=== PATIENT | female | born 1965 | race Caucasian/White ===

== ENCOUNTER → 2017-04-20 14:51 | Outpatient (CLI) | payer OTHER, SELFPAY ==
--- NOTE | 2017-04-20 14:59 | US_ITS ---
STUDY: THYROID ULTRASOUND REASON FOR EXAM: Female, 51 years old. Thyromegaly TECHNIQUE: Ultrasound evaluation of the thyroid was performed with real-time and static olivier-scale imaging. COMPARISON: None. FINDINGS: RIGHT LOBE: The right lobe of the thyroid gland measures 4 x 1.3 x 1 cm. There is a homogeneous echotexture. There are no demonstrated solid, cystic or complex lesions. LEFT LOBE: The left lobe of the thyroid gland measures 4.4 x 1.2 x 1 cm. There is a homogeneous echotexture. There are 3 tiny solid nodules demonstrating irregular margins and perinodular vascularity measuring 3 x 3 x 5 mm, 3 x 3 x 3 mm and 4 x 3 x 2 mm.. ISTHMUS: The isthmus measures 2 mm . There is a lymph node lateral to the right lobe measuring 2 x 1.9 x 0.5 cm There appears to be a new tiny nodule in the left lobe not clearly identified on prior exam. The other nodules are not changed in size US/Thyroid IMPRESSION: 3 tiny solid nodules in left lobe of thyroid one of which is new of uncertain significance. Recommend clinical correlation and follow-up Electronically Signed: Lv Simpson MD at 23:56 EST , Service support ,
[2017-04-20 17:49] LABS: T4 Free Direct 0.75 ng/dL (0.76-1.46); Thyroid Stim Hormone (TSH) 1.52 uIU/mL (0.358-3.74)
[2017-04-21 10:37] LABS: T3 Total - Triiodothyronine 0.96 ng/mL (0.6-1.81)
== END ==
PROVIDERS: Family Provider Family Medicine; PCP Family Medicine; Visit Provider Family Medicine
DX: E04.1 Nontoxic single thyroid nodule (principal)
CPT/HCPCS: 36415; 76536; 84439; 84443; 84480

== ENCOUNTER → 2017-09-21 14:45 | Outpatient (CLI) | payer OTHER, SELFPAY ==
[2017-09-25 10:29] LABS: HPV Reflexed? NOT INDICATED
== END ==
PROVIDERS: Family Provider Family Medicine; PCP Family Medicine; Visit Provider Obstetrics & Gynecology
DX: Z12.4 Encounter for screening for malignant neoplasm of cervix (principal)
CPT/HCPCS: 88175; G0145

== ENCOUNTER → 2017-12-27 07:54 | Outpatient (CLI) | payer OTHER, SELFPAY ==
--- NOTE | 2017-12-27 07:58 | VDLE_ITS ---
Reason For Study: LEG PAIN AND SWELLING RIGHT LEFT CFV is compressible, spontaneous, phasic, CFV is compressible, spontaneous, phasic, competent and demonstrates normal competent, and demonstrates normal augmentation. augmentation. FV is compressible, spontaneous, phasic, FV is compressible, spontaneous, phasic, competent and demonstrates normal competent and demonstrates normal augmentation. augmentation. POP V is compressible, spontaneous, phasic, POP V is compressible, spontaneous, phasic, competent and demonstrates normal competent and demonstrates normal augmentation. augmentation. T/P Trunk is compressible. T/P Trunk is compressible. PTV is compressible. PTV is compressible. RT PerV is compressible. LT PerV is compressible. SFJ is competent SFJ is competent GSV is INCOMPETENT with reflux greater GSV is competent above knee than .5 sec and diameter of .42 x .38 cm GSV is INCOMPETENT below knee with reflux SSV is INCOMPETENt with reflux greater greater than .5 sec and diameter of .26 x .23 than .5 sec and diameter of.44 x .45 cm cm Vein of Giacomini is INCOMPOETENt with reflux SSV is INCOMPETENT with reflux greater greater than .5 sec and diameter of .29 x .27 than .5 sec and diameter of .35 x .34 cm cm. Vein of Giacomini is INCOMPETENT with reflux greater than .5 sec and diameter of .37 x .34 cm. <> Interpretation Summary 1. Bilateral no DVT or SVT 2. Right GSV 4.2mm and LSV 4.5mm and vein Giacomini 3mm and all with severe relfux. 3. Left GSV 2.6mm and LSv 3.5mm and vein Giacomini 3.7 mm and all with severe reflux. Ordering Physician: Brandt Lerma Referring Physician: Brandt Lerma Performed By: Kenny, Delmy, RVT
== END ==
PROVIDERS: Family Provider Family Medicine; PCP Family Medicine; Referring Provider Surgery Vascular Surgery; Visit Provider Surgery Vascular Surgery
DX: I83.90 Asymptomatic varicose veins of unspecified lower extremity (principal); M79.609 Pain in unspecified limb; M79.89 Other specified soft tissue disorders
CPT/HCPCS: 93970

== ENCOUNTER → 2018-02-26 10:52 | Outpatient (CLI) | payer OTHER, SELFPAY ==
[2018-02-26 11:43] LABS: Hematocrit 36.2 % (37-47); Hemoglobin 11.5 g/dl (12.0-15.0); Mean Corp Hgb Conc 31.8 g/gl (32-36); Mean Corpuscular Volume 94.5 fL (81-99); Mean Platelet Vol. 10.1 fl (6.2-12.0); Platelet Count 236 K/mm3 (150-450); RBC Distribution Width CV 13.5 % (11.6-14.6); Red Blood Count 3.83 M/mm3 (4.2-5.4); White Blood Count 4.9 K/mm3 (4.4-11.0)
[2018-02-26 11:45] LABS: Scan Indicated on CBC? Y/N NO
[2018-02-26 12:01] LABS: Follicle Stimulating Hormone 12.2 mIU/mL; Thyroid Stim Hormone (TSH) 1.56 uIU/mL (0.358-3.74)
== END ==
PROVIDERS: Family Provider Family Medicine; PCP Family Medicine; Referring Provider Obstetrics & Gynecology; Visit Provider Obstetrics & Gynecology
DX: N92.6 Irregular menstruation, unspecified (principal)
CPT/HCPCS: 36415; 83001; 84443; 85027

== ENCOUNTER → 2018-02-28 11:08 | Outpatient (CLI) | payer OTHER, SELFPAY ==
--- NOTE | 2018-02-28 11:11 | US_ITS ---
STUDY: ULTRASOUND OF THE FEMALE PELVIS - COMPLETE REASON FOR EXAM: Female, 52 years old. Abnormal bleeding. Patient on progesterone since Wednesday. LMP: February 04, 2018. TECHNIQUE: Transabdominal and Transvaginal. Despite the distended bladder on initial scanning, endovaginal imaging was utilized to optimize detail and identify the right ovary. TECHNICAL QUALITY: Adequate. COMPARISON: None. FINDINGS: The uterus is anteverted and is tilted to the right side of the pelvis. The uterus measures 9.9 x 5.6 x 5.0 cm. There are subcentimeter Nabothian cysts of the cervix, the largest having an eccentric partial septation. The endometrium measures 4.6 mm in thickness, and is hyperechoic. There is no demonstrated endometrial mass. Myometrial echogenicity is heterogeneous, but there is no demonstrated myometrial mass. I.U.D. - The patient does not have an I.U.D. The right ovary is visualized. The right ovary measures 2.2 x 2.2 x 1.8 cm. There is no right ovarian cyst or ovarian mass. There is no visualized right adnexal mass or complex lesion. There is normal arterial and normal venous vascularity. The left ovary is visualized best on transabdominal imaging. The left ovary measures 3.8 x 4.1 x 3.7 cm. Includes a 2.9 x 3.1 x 2.9 cm simple appearing cyst. There is no visualized left adnexal mass or complex lesion. There is normal arterial and normal venous vascularity. There is no fluid in the cul-de-sac. The pre void volume of the bladder was 627 ml. Polycystic ovary disease: No. US/Pelvic (Non ) IMPRESSION: 1. 3 cm left ovarian cyst, possibly physiologic. One might consider follow-up immediately following the next 1-2 menstrual periods to document physiologic in motion or stability. 2. There is some heterogeneity of the myometrium and a few Nabothian cysts in the cervix, but no demonstrated uterine mass or endometrial thickening. 3. Unremarkable right ovary. Electronically Signed: Alok Garcia MD at 16:02 EST , Service support ,
--- NOTE | 2018-02-28 11:39 | US_ITS ---
STUDY: ULTRASOUND OF THE FEMALE PELVIS - COMPLETE REASON FOR EXAM: Female, 52 years old. Abnormal bleeding. Patient on progesterone since Wednesday. LMP: February 04, 2018. TECHNIQUE: Transabdominal and Transvaginal. Despite the distended bladder on initial scanning, endovaginal imaging was utilized to optimize detail and identify the right ovary. TECHNICAL QUALITY: Adequate. COMPARISON: None. FINDINGS: The uterus is anteverted and is tilted to the right side of the pelvis. The uterus measures 9.9 x 5.6 x 5.0 cm. There are subcentimeter Nabothian cysts of the cervix, the largest having an eccentric partial septation. The endometrium measures 4.6 mm in thickness, and is hyperechoic. There is no demonstrated endometrial mass. Myometrial echogenicity is heterogeneous, but there is no demonstrated myometrial mass. I.U.D. - The patient does not have an I.U.D. The right ovary is visualized. The right ovary measures 2.2 x 2.2 x 1.8 cm. There is no right ovarian cyst or ovarian mass. There is no visualized right adnexal mass or complex lesion. There is normal arterial and normal venous vascularity. The left ovary is visualized best on transabdominal imaging. The left ovary measures 3.8 x 4.1 x 3.7 cm. Includes a 2.9 x 3.1 x 2.9 cm simple appearing cyst. There is no visualized left adnexal mass or complex lesion. There is normal arterial and normal venous vascularity. There is no fluid in the cul-de-sac. The pre void volume of the bladder was 627 ml. Polycystic ovary disease: No. US/Transvaginal Non- IMPRESSION: 1. 3 cm left ovarian cyst, possibly physiologic. One might consider follow-up immediately following the next 1-2 menstrual periods to document physiologic in motion or stability. 2. There is some heterogeneity of the myometrium and a few Nabothian cysts in the cervix, but no demonstrated uterine mass or endometrial thickening. 3. Unremarkable right ovary. Electronically Signed: Alok Garcia MD at 16:02 EST , Service support ,
== END ==
PROVIDERS: Family Provider Family Medicine; PCP Family Medicine; Referring Provider Obstetrics & Gynecology; Visit Provider Obstetrics & Gynecology
DX: N92.6 Irregular menstruation, unspecified (principal); N83.202 Unspecified ovarian cyst, left side; N88.8 Other specified noninflammatory disorders of cervix uteri
CPT/HCPCS: 76830; 76856; 93976

== ENCOUNTER → 2019-01-06 08:36 | Outpatient (REF) | payer OTHER, SELFPAY ==
[2019-01-06 07:59] VITALS: BMI 26.5
[2019-01-06 12:47] LABS: Absolute Lymphocyte Count 1.55 X10^3/uL (0.83-4.51); Absolute Neutrophil Count 3.8 X10^3/uL (2.0-7.7); Basophil# 0.06 X10^3/uL; Basophil% 0.9 % (0-1); Eosinophil# 0.48 X10^3/uL; Eosinophils% 7.4 % (0-5); Hematocrit 40.9 % (37-47); Hemoglobin 12.9 g/dL (12.0-15.0); Lymphocyte # 1.55 X10^3/ul; Lymphocyte % 23.8 % (19-41); Mean Corp Hgb Conc 31.5 g/dL (32-36); Mean Corpuscular Hgb 29.9 pg (27.0-32.0); Mean Corpuscular Volume 94.7 fL (81-99); Monocyte# 0.63 X10^3/uL; Monocyte% 9.7 % (0-10); NRBC Flagged by Analyzer 0 % (0-5); Neutrophil # 3.76 X10^3/uL (2.7-7.7); Neutrophil % 57.7 % (47-70); Platelet Count 274 K/mm3 (150-450); RBC Distribution Width CV 13.2 % (11.6-14.6); RBC Distribution Width SD 46.4 fl (35.1-43.9); Red Blood Count 4.32 M/mm3 (4.2-5.4); White Blood Count 6.5 K/mm3 (4.4-11.0)
[2019-01-06 13:16] LABS: Color, Urine Yellow (Yellow); Glucose, Dipstick Normal (Normal); Ketone-Dipstick Negative (Negative); Leukocyte Esterase-Dipstick Negative /ul (Negative); Nitrite-Dipstick Negative (Negative); Occult Blood-Urine Negative /ul (Negative); Protein-Dipstick Negative (Negative); Specific Gravity, Urine 1.005 (1.002-1.030); Urine Bilirubin Dipstick Negative (Negative); Urine Clarity Clear (Clear); Urine Urobilinogen Normal (Normal)
[2019-01-06 13:42] LABS: ALB/GLOB Ratio 1.1 RATIO (0.9-2.4); AST(SGOT) 14 U/L (15-37); Alanine Aminotransfer ALT/SGPT 18 U/L (13-56); Albumin, Serum 3.6 g/dL (3.2-5.0); Alkaline Phosphatase 67 U/L (45-117); Anion Gap 8 (5-15); BUN 12 mg/dL (7-18); BUN/Creat Ratio 16.3 RATIO (10-20); Bilirubin, Direct 0.11 mg/dL (0.00-0.30); Calcium,Total 8.4 mg/dL (8.5-10.1); Chloride 106 mmol/L (98-107); Cholesterol 220 mg/dL (200); Creatinine, Serum 0.74 mg/dL (0.55-1.02); EST Glomerular Filtration Rate 87 mL/min (>60); Est Glom Filt Rate - Afr Amer 105 mL/min (>60); Globulin 3.2 g/dL (2.2-4.2); Glucose 89 mg/dL (74-106); High Density Lipoprotein 60 mg/dL; LDH 190 U/L (84-246); Phosphorus 3.6 mg/dL (2.5-4.9); Potassium 4.1 mmol/L (3.5-5.1); Protein, Total 6.8 g/dL (6.4-8.2); Sodium Level 141 mmol/L (136-145); Triglycerides 77 mg/dL; Uric Acid 4.3 mg/dL (2.6-6.0); Very Low Density Lipoprotein 15 mg/dL (5-40)
== END ==
LOC: EMPH 08:36
PROVIDERS: Family Provider Family Medicine; PCP Internal Medicine
DX: Z00.00 Encounter for general adult medical examination without abnormal findings (principal)

== ENCOUNTER → 2019-01-30 12:53 | Outpatient (CLI) | payer OTHER, SELFPAY ==
[2019-01-06 07:59] VITALS: BMI 26.5
--- NOTE | 2019-01-30 12:57 | US_ITS ---
STUDY: THYROID ULTRASOUND REASON FOR EXAM: Female, 53 years old. Thyroid nodule TECHNIQUE: Ultrasound evaluation of the thyroid was performed with real-time and static olivier-scale imaging. COMPARISON: Thyroid ultrasound dated April 20, 2017 FINDINGS: RIGHT LOBE: The right lobe of the thyroid gland measures 4.3 x 1.2 x 1.4 cm. There is a homogeneous echotexture. A 4 mm solid hypoechoic smooth nodule is present in the midpole of the right lobe of the thyroid gland. LEFT LOBE: The left lobe of the thyroid gland measures 4.2 x 1.2 x 1.0 cm. There is a homogeneous echotexture. Reidentification of 2 6 mm smooth hypoechoic nodules in the midpole and lateral aspect of the left lobe of the thyroid gland. Previously described third nodule was not seen on this study. The parathyroid glands are seen on several images. ISTHMUS: The isthmus measures 2.4 mm. The regional lymph nodes are normal. US/Thyroid IMPRESSION: Small hypoechoic nodules of both lobes of the thyroid gland with features of adenomas or similar entities. If there is concern for additional pathology consider nuclear medicine thyroid scan further assessment. Electronically Signed: Shakeel Woods MD at 9:32 EST , Service support ,
--- NOTE | 2019-01-30 12:57 | BI_ITS ---
MAMMOGRAPHY - BILATERAL SCREENING REASON FOR EXAM: Female, 53 years old. Routine annual screening examination. PERTINENT HISTORY: Grandmother with breast cancer. TECHNIQUE: Digital bilateral breast amaila (3D mammographic acquisition) in the CC and MLO projections. 2-D mediolateral oblique (MLO) and craniocaudad (CC) views of both breasts were obtained. CAD: Full Field Digital Mammography with Computer Added Detection was performed. COMPARISON: Comparison is made with prior study November 09, 2012. FINDINGS: Breast Composition: The breasts are heterogeneously dense, which may obscure small masses. There are no dominant masses or suspicious calcifications. No other significant abnormalities are identified. There has been no significant change since the prior study. BI/SCREEN MAMM (CAD) W/AMALIA BILAT IMPRESSION: Stable bilateral screening mammogram. Yearly follow-up mammogram recommended. (A) ASSESSMENT CATEGORY: BIRADS Category 1: Negative. A letter regarding these results will be sent to the patient by the facility within 30 days. Approximately 10% of breast cancers are not detected by mammography. A normal mammogram should not delay biopsy of a clinically suspicious abnormality. [id number] Electronically Signed: Milton Irving, at 14:51 EST , Service support ,
== END ==
PROVIDERS: Family Provider Internal Medicine; PCP Internal Medicine; Referring Provider Internal Medicine; Visit Provider Internal Medicine
DX: E04.1 Nontoxic single thyroid nodule (principal); Z12.31 Encounter for screening mammogram for malignant neoplasm of breast
CPT/HCPCS: 76536; 77063; 77067

== ENCOUNTER → 2020-05-27 09:42 | Outpatient (CLI) | payer OTHER, SELFPAY ==
[2020-05-27 08:59] VITALS: BMI 27.1
[2020-05-27 12:10] LABS: Erythrocyte Sedimentation Rate 11 mm/hr (0-30)
[2020-05-27 12:44] LABS: CPK Total, Creatine Kinase 58 U/L (26-192); Rheumatoid Factor < 10.0 IU/mL (<15); T4 Free Direct 0.89 ng/dL (0.76-1.46); Thyroid Stim Hormone (TSH) 1.34 uIU/mL (0.358-3.74)
[2020-05-29 11:54] LABS: CCP IgG Antibodies 5 units (0-19)
== END ==
PROVIDERS: PCP Internal Medicine; Visit Provider Internal Medicine
DX: M19.90 Unspecified osteoarthritis, unspecified site (principal); M79.10 Myalgia, unspecified site; Z13.29 Encounter for screening for other suspected endocrine disorder
CPT/HCPCS: 36415; 82550; 84439; 84443; 85652; 86140; 86200; 86431

== ENCOUNTER → 2020-08-15 12:28 | Outpatient (CLI) | payer OTHER, SELFPAY ==
[2020-05-27 08:59] VITALS: BMI 27.1
--- NOTE | 2020-08-15 12:38 | RAD_ITS ---
STUDY: X-RAY - PELVIS REASON FOR EXAM: Female, 55 years old. INFLAMMATORY POLYARTHROPATHY -- ATT HIPS AND SACROILIAC JOINTS TECHNIQUE: One view of the pelvis was obtained. COMPARISON: None. FINDINGS: There is a non-specific bowel gas pattern. There are multiple calcified phleboliths. Normal bilateral iliac wings, sacroiliac joints and visualized sacrum. Normal visualized bilateral superior and inferior pubic rami. Normal pubic symphysis. Normal ischial tuberosities. Normal visualized right femoral head. Normal right acetabulum. Normal right hip joint. Normal visualized left femoral head. Normal left acetabulum. Normal left hip joint. RAD/Pelvis 1 or 2 Views IMPRESSION: Normal x-ray examination of the pelvis. Electronically Signed: Milton Irving MD at 15:43 EDT , Service support ,
== END ==
PROVIDERS: PCP Internal Medicine; Referring Provider Internal Medicine Rheumatology; Visit Provider Internal Medicine Rheumatology
DX: M06.4 Inflammatory polyarthropathy (principal)
CPT/HCPCS: 72170

== ENCOUNTER → 2020-09-06 11:42 | Outpatient (CLI) | payer OTHER, SELFPAY ==
[2020-05-27 08:59] VITALS: BMI 27.1
[2020-09-06 12:38] LABS: Absolute Lymphocyte Count 1.61 X10^3/uL (0.83-4.51); Basophil# 0.04 X10^3/uL; Basophil% 0.6 % (0-1); Eosinophil# 0.29 X10^3/uL; Eosinophils% 4.5 % (0-5); Hematocrit 42.6 % (37-47); Hemoglobin 13.4 g/dL (12.0-15.0); Lymphocyte # 1.61 X10^3/ul (0.83-4.51); Lymphocyte % 24.8 % (19-41); Mean Corp Hgb Conc 31.5 g/dL (32-36); Mean Corpuscular Hgb 28.9 pg (27.0-32.0); Mean Corpuscular Volume 91.8 fL (81-99); Mean Platelet Vol. 10.3 fl (6.2-12.0); Monocyte# 0.52 X10^3/uL; NRBC Flagged by Analyzer 0 % (0-5); Neutrophil # 4.01 X10^3/uL (2.7-7.7); Neutrophil % 61.6 % (47-70); Platelet Count 348 K/mm3 (150-450); RBC Distribution Width CV 12.8 % (11.6-14.6); RBC Distribution Width SD 43.1 fl (35.1-43.9); Red Blood Count 4.64 M/mm3 (4.2-5.4); White Blood Count 6.5 K/mm3 (4.4-11.0)
[2020-09-06 13:11] LABS: BUN 14 mg/dL (7-18); BUN/Creat Ratio 20.8 RATIO (10-20); Calcium,Total 9.4 mg/dL (8.5-10.1); Chloride 105 mmol/L (98-107); Creatinine, Serum 0.67 mg/dL (0.55-1.02); EST Glomerular Filtration Rate 96 mL/min (>60); Est Glom Filt Rate - Afr Amer 116 mL/min (>60); Glucose 91 mg/dL (74-106); Phosphorus 3.9 mg/dL (2.5-4.9); Potassium 3.8 mmol/L (3.5-5.1); Sodium Level 141 mmol/L (136-145)
[2020-09-06 17:28] LABS: ALB/GLOB Ratio 1.1 RATIO (0.9-2.4); AST(SGOT) 15 U/L (15-37); Alanine Aminotransfer ALT/SGPT 14 U/L (13-56); Alkaline Phosphatase 74 U/L (45-117); Globulin 3.6 g/dL (2.2-4.2); Protein, Total 7.6 g/dL (6.4-8.2)
[2020-09-09 18:17] LABS: t-Transglutaminase IgA <2 U/mL (0-3)
[2020-09-10 12:08] LABS: Clam 4.94 kU/L (Class IV); Codfish <0.10 kU/L (Class 0); Corn <0.10 kU/L (Class 0); Egg, White <0.10 kU/L (Class 0); Milk (Cow) 0.38 kU/L (Class I); Peanut <0.10 kU/L (Class 0); SCALLOP 4.33 kU/L (Class IV); SESAME SEED <0.10 kU/L (Class 0); Soybean <0.10 kU/L (Class 0); Walnut, (Food) <0.10 kU/L (Class 0); Wheat <0.10 kU/L (Class 0)
[2020-09-10 14:32] LABS: Gluten <0.10 kU/L (Class 0)
[2020-09-16 12:27] LABS: HLA B27 Negative (.)
== END ==
PROVIDERS: PCP Internal Medicine; Referring Provider Internal Medicine Rheumatology; Visit Provider Internal Medicine Rheumatology
DX: T78.40XA Allergy, unspecified, initial encounter (principal); M19.90 Unspecified osteoarthritis, unspecified site; M06.4 Inflammatory polyarthropathy
CPT/HCPCS: 36415; 80069; 81374; 82247; 83516; 84075; 84156; 84450; 84460; 85025; 86003

== ENCOUNTER → 2020-10-29 11:30 | Outpatient (CLI) | payer OTHER, SELFPAY ==
[2020-10-29 12:33] LABS: Erythrocyte Sedimentation Rate 7 mm/hr (0-30)
[2020-10-29 13:12] LABS: Rheumatoid Factor < 10.0 IU/mL (<15)
[2020-10-30 16:08] LABS: RNP Ab <0.2 AI (0.0-0.9); Smith Ab <0.2 AI (0.0-0.9)
[2020-10-30 16:34] LABS: ANTINUCLEAR ANTIBODIES DIRECT Negative (Negative)
[2020-11-01 08:35] LABS: CCP IgG Antibodies 7 units (0-19)
== END ==
PROVIDERS: PCP Internal Medicine; Visit Provider Nurse Practitioner Family
DX: M54.2 Cervicalgia (principal); R10.31 Right lower quadrant pain; R10.32 Left lower quadrant pain; M25.562 Pain in left knee; M25.561 Pain in right knee; M79.18 Myalgia, other site; R53.1 Weakness; R68.89 Other general symptoms and signs; Z74.09 Other reduced mobility
CPT/HCPCS: 36415; 85652; 86038; 86140; 86200; 86235; 86431

== ENCOUNTER → 2020-11-08 09:41 | Outpatient (CLI) | payer OTHER, SELFPAY ==
[2020-11-08 10:41] LABS: T3 Total - Triiodothyronine 1.26 ng/mL (0.6-1.81); Vitamin D,25 Hydroxy 33.6 ng/mL
[2020-11-08 11:08] LABS: Ferritin 50 ng/mL (8-252); Free T3 2.7 pg/mL (2.18-3.98); T4 Total, Thyroxin 9.2 ug/dL (4.8-13.9)
[2020-11-14 21:11] LABS: T3 Reverse 16.8 ng/dL (9.2-24.1); Thyroglobulin Antibody < 1.0 IU/mL (0.0-0.9); Thyroid Peroxidase AB 9 IU/mL (0-34)
== END ==
PROVIDERS: PCP Internal Medicine
DX: Z13.29 Encounter for screening for other suspected endocrine disorder (principal); R53.83 Other fatigue
CPT/HCPCS: 36415; 82306; 82728; 84436; 84480; 84481; 84482; 86376; 86800

== ENCOUNTER → 2020-12-18 12:45 | Outpatient (CLI) | payer OTHER, SELFPAY ==
[2020-12-18 13:51] LABS: CPK Total, Creatine Kinase 47 U/L (26-192)
[2020-12-20 11:08] LABS: Smith Ab <0.2 AI (0.0-0.9)
[2020-12-20 13:21] LABS: Anti-Scleroderma-70 AB <0.2 AI (0.0-0.9)
[2020-12-20 16:00] LABS: Aldolase 4.4 U/L (3.3-10.3)
== END ==
PROVIDERS: PCP Internal Medicine; Referring Provider Student in an Organized Health Care Education/Training Program; Visit Provider Student in an Organized Health Care Education/Training Program
DX: M62.81 Muscle weakness (generalized) (principal)
CPT/HCPCS: 36415; 82085; 82550; 86140; 86235

== ENCOUNTER 2021-02-05 13:38 | Outpatient (CLI) | payer OTHER, SELFPAY ==
[2021-02-05] MEDS: 0.9% Saline Lock 10 ML Syringe IV (14:01)
[2021-02-05 14:03] VITALS: BP 133/60; PULSE 78; RESP 16; TEMP 36.8; O2SAT 98; BMI 22.8
[2021-02-05 14:47] VITALS: BP 124/49; PULSE 82; RESP 16; TEMP 37; O2SAT 98
[2021-02-05 15:45] VITALS: BP 111/58; PULSE 82; RESP 16; TEMP 37; O2SAT 100
== END 2021-02-05 15:46 | disposition home or self-care (01) ==
LOC: MS3OUT 13:39 → MS3 13:39
PROVIDERS: PCP Internal Medicine; Referring Provider Nurse Practitioner Adult Health; Visit Provider Nurse Practitioner Adult Health
DX: Z23 Encounter for immunization (principal); U07.1 COVID-19
CPT/HCPCS: J7050; M0245; Q0245; A4216

== ENCOUNTER → 2021-07-25 | Outpatient (CLI) | payer OTHER, SELFPAY ==
[2021-07-25 10:07] LABS: Erythrocyte Sedimentation Rate 4 mm/hr (0-30)
[2021-07-25 10:12] LABS: Hematocrit 43.9 % (37-47); Hemoglobin 13.8 g/dL (12.0-15.0); Mean Corp Hgb Conc 31.4 g/dL (32-36); Mean Corpuscular Hgb 30.1 pg (27.0-32.0); Mean Corpuscular Volume 95.6 fL (81-99); Mean Platelet Vol. 10.5 fl (6.2-12.0); Platelet Count 294 K/mm3 (150-450); RBC Distribution Width SD 42.4 fl (35.1-43.9); Red Blood Count 4.59 M/mm3 (4.2-5.4); White Blood Count 6.7 K/mm3 (4.4-11.0)
[2021-07-25 10:14] LABS: AST(SGOT) 14 U/L (15-37); Alanine Aminotransfer ALT/SGPT 18 U/L (13-56); Albumin, Serum 3.7 g/dL (3.2-5.0); Alkaline Phosphatase 61 U/L (45-117); Bilirubin, Direct 0.08 mg/dL (0.00-0.30); CRP 4.12 mg/L (0.0-3.0); Calcium,Total 8.7 mg/dL (8.5-10.1); Creatinine, Serum 0.78 mg/dL (0.55-1.02); EST Glomerular Filtration Rate 81 mL/min (>60); Est Glom Filt Rate - Afr Amer 98 mL/min (>60); Globulin 3.2 g/dL (2.2-4.2); Protein, Total 6.9 g/dL (6.4-8.2)
[2021-07-26 06:08] LABS: HEPATITIS B SURFACE AG Negative (Negative); Hep C Antibodies <0.1 s/co ratio (0.0-0.9); Hepatitis A IgM Antibody Negative (Negative); Hepatitis B Core AB IgM Negative (Negative)
[2021-07-26 09:19] LABS: Vitamin D,25 Hydroxy 37.2 ng/mL
== END | disposition home or self-care (01) ==
PROVIDERS: PCP Student in an Organized Health Care Education/Training Program; Referring Provider Internal Medicine Rheumatology; Visit Provider Internal Medicine Rheumatology
DX: M35.3 Polymyalgia rheumatica (principal); Z79.52 Long term (current) use of systemic steroids
CPT/HCPCS: 36415; 80074; 80076; 82306; 82310; 82565; 85027; 85652; 86140

== ENCOUNTER → 2021-08-23 | Outpatient (CLI) | payer OTHER, SELFPAY ==
[2021-08-23 08:18] LABS: Erythrocyte Sedimentation Rate 8 mm/hr (0-30)
[2021-08-23 08:40] LABS: CRP < 2.90 mg/L (0.0-3.0)
== END | disposition home or self-care (01) ==
LOC: LAB 07:55
PROVIDERS: PCP Student in an Organized Health Care Education/Training Program; Visit Provider Nurse Practitioner Adult Health
DX: M35.3 Polymyalgia rheumatica (principal)
CPT/HCPCS: 36415; 85652; 86140

== ENCOUNTER → 2022-01-21 | Outpatient (CLI) | payer OTHER, SELFPAY ==
[2022-01-21 17:43] LABS: T3 Total - Triiodothyronine 0.97 ng/mL (0.6-1.81); Vitamin D,25 Hydroxy 27.4 ng/mL
[2022-01-21 17:51] LABS: Ferritin 37 ng/mL (8-252); Free T3 2.3 pg/mL (2.18-3.98); T4 Free Direct 0.83 ng/dL (0.76-1.46); T4 Total, Thyroxin 8.1 ug/dL (4.8-13.9)
[2022-01-27 16:06] LABS: Anti-Thyroglobulin AB < 1.0 IU/mL (0.0-0.9); T3 Reverse 12.4 ng/dL (9.2-24.1); Thyroglobulin, Serum Qt. 13.4 ng/mL (1.5-38.5); Thyroid Peroxidase AB < 9 IU/mL (0-34)
== END | disposition home or self-care (01) ==
PROVIDERS: PCP Student in an Organized Health Care Education/Training Program
DX: N95.1 Menopausal and female climacteric states (principal); E03.9 Hypothyroidism, unspecified
CPT/HCPCS: 36415; 82306; 82728; 84432; 84436; 84439; 84443; 84480; 84481; 84482; 86376; 86800

== ENCOUNTER → 2022-04-11 | Outpatient (CLI) | payer OTHER, SELFPAY ==
[2022-04-11 11:36] LABS: Absolute Lymphocyte Count 1.31 X10^3/uL (0.83-4.51); Absolute Neutrophil Count 4.9 X10^3/uL (2.0-7.7); Basophil# 0.05 X10^3/uL; Basophil% 0.7 % (0-1); Eosinophil# 0.19 X10^3/uL; Eosinophils% 2.7 % (0-5); Hematocrit 41.6 % (37-47); Hemoglobin 13.2 g/dL (12.0-15.0); Lymphocyte # 1.31 X10^3/ul (0.83-4.51); Lymphocyte % 18.5 % (19-41); Mean Corp Hgb Conc 31.7 g/dL (32-36); Mean Corpuscular Hgb 29.9 pg (27.0-32.0); Mean Corpuscular Volume 94.3 fL (81-99); Mean Platelet Vol. 10.7 fl (6.2-12.0); Monocyte# 0.62 X10^3/uL; Monocyte% 8.7 % (0-10); NRBC Flagged by Analyzer 0 % (0-5); Platelet Count 304 K/mm3 (150-450); RBC Distribution Width CV 12.8 % (11.6-14.6); RBC Distribution Width SD 43.9 fl (35.1-43.9); Red Blood Count 4.41 M/mm3 (4.2-5.4); White Blood Count 7.1 K/mm3 (4.4-11.0)
[2022-04-11 11:51] LABS: Erythrocyte Sedimentation Rate 6 mm/hr (0-30)
[2022-04-11 11:55] LABS: ALB/GLOB Ratio 1.3 RATIO (0.9-2.4); AST(SGOT) 12 U/L (15-37); Alanine Aminotransfer ALT/SGPT 19 U/L (13-56); Albumin, Serum 3.9 g/dL (3.2-5.0); Alkaline Phosphatase 67 U/L (45-117); Anion Gap 5 (5-15); BUN 19 mg/dL (7-18); BUN/Creat Ratio 24.2 RATIO (10-20); CRP 4.14 mg/L (0.0-3.0); Calcium,Total 9.2 mg/dL (8.5-10.1); Chloride 107 mmol/L (98-107); Creatinine, Serum 0.78 mg/dL (0.55-1.02); EST Glomerular Filtration Rate 80 mL/min (>60); Est Glom Filt Rate - Afr Amer 97 mL/min (>60); Ferritin 25 ng/mL (8-252); Glucose 82 mg/dL (74-106); Iron 83 ug/dL (50-170); Iron Binding Capacity,Total 368 ug/dL (250-450); PERCENT IRON SATURATION 22.6 % (15.0-55.0); Potassium 3.8 mmol/L (3.5-5.1); Protein, Total 6.9 g/dL (6.4-8.2); Sodium Level 143 mmol/L (136-145)
== END | disposition home or self-care (01) ==
PROVIDERS: PCP Student in an Organized Health Care Education/Training Program; Referring Provider Student in an Organized Health Care Education/Training Program; Visit Provider Student in an Organized Health Care Education/Training Program
DX: R53.83 Other fatigue (principal); M35.3 Polymyalgia rheumatica; Z79.52 Long term (current) use of systemic steroids
CPT/HCPCS: 36415; 80053; 82728; 83540; 83550; 85025; 85652; 86140

== ENCOUNTER → 2022-04-15 | Outpatient (CLI) | payer OTHER, SELFPAY ==
[2022-04-15 18:01] LABS: Vitamin B12 849 pg/mL (211-911); Vitamin D,25 Hydroxy 58.4 ng/mL
== END | disposition home or self-care (01) ==
PROVIDERS: PCP Student in an Organized Health Care Education/Training Program; Visit Provider Student in an Organized Health Care Education/Training Program
DX: R53.83 Other fatigue (principal); M35.3 Polymyalgia rheumatica; E55.9 Vitamin D deficiency, unspecified; Z79.52 Long term (current) use of systemic steroids
CPT/HCPCS: 36415; 82306; 82607

== ENCOUNTER → 2023-02-12 | Outpatient (CLI) | payer OTHER, SELFPAY ==
[2023-02-12 09:14] LABS: Erythrocyte Sedimentation Rate 6 mm/hr (0-30)
[2023-02-12 09:19] LABS: Hemoglobin A1c 5.5 % (3.8-5.6)
[2023-02-12 09:33] LABS: Progesterone Level 0.41 ng/mL (See Comment); Vitamin B12 505 pg/mL (211-911); Vitamin D,25 Hydroxy 41.3 ng/mL
[2023-02-12 09:42] LABS: CRP 6.95 mg/L (0.0-3.0); Free T3 3.2 pg/mL (2.18-3.98); T4 Free Direct 0.96 ng/dL (0.76-1.46); Thyroid Stim Hormone (TSH) 1.74 uIU/mL (0.358-3.74)
[2023-02-26 11:08] LABS: Estrogen, Total, Serum 46 pg/mL (40-244); Testosterone, % Free 1.61 % (0.50-2.80); Testosterone, Free 0.42 ng/dL (0.10-0.85); Testosterone, Total 26 ng/dL (4-50)
== END | disposition home or self-care (01) ==
LOC: LAB 07:39
PROVIDERS: PCP Student in an Organized Health Care Education/Training Program; Referring Provider Student in an Organized Health Care Education/Training Program; Visit Provider Student in an Organized Health Care Education/Training Program
DX: Z00.00 Encounter for general adult medical examination without abnormal findings (principal); M35.3 Polymyalgia rheumatica; R53.83 Other fatigue; E55.9 Vitamin D deficiency, unspecified; R73.9 Hyperglycemia, unspecified; Z78.0 Asymptomatic menopausal state
CPT/HCPCS: 82306; 82533; 82607; 82672; 83036; 84144; 84402; 84403; 84439; 84443; 84481; 85652; 86140

== ENCOUNTER → 2023-03-08 | Outpatient (CLI) | payer OTHER, SELFPAY ==
--- NOTE | 2023-03-08 12:30 | BI_ITS ---
MAMMOGRAPHY - BILATERAL SCREENING REASON FOR EXAM: Female, 57 years old. Routine annual screening examination. PERTINENT HISTORY: Grandmother with breast cancer. TECHNIQUE: Digital bilateral breast amalia (3D mammographic acquisition) in the CC and MLO projections. 2-D mediolateral oblique (MLO) and craniocaudad (CC) views of both breasts were obtained. CAD: Full Field Digital Mammography with Computer Added Detection was performed. COMPARISON: Comparison is made with prior study dated January 30, 2019 and November 09, 2012. FINDINGS: Breast Composition: There are scattered areas of fibroglandular density. There are no dominant masses or suspicious calcifications. No other significant abnormalities are identified. There has been no significant change since the prior study. BI/SCRN MAMM (CAD)W/AMALIA BILAT IMPRESSION: Stable bilateral screening mammogram. Yearly follow-up mammogram recommended. (A) ASSESSMENT CATEGORY: BIRADS Category 1: Negative. A letter regarding these results will be sent to the patient by the facility within 30 days. Approximately 10% of breast cancers are not detected by mammography. A normal mammogram should not delay biopsy of a clinically suspicious abnormality. [id number] Electronically Signed: Milton Irving MD at 9:21 EST ,
--- NOTE | 2023-03-08 12:39 | US_ITS ---
EXAM: US SOFT TISSUES HEAD AND NECK, THYROID CLINICAL INDICATION: NODULE TECHNIQUE: Moore scale and color doppler imaging was performed of the thyroid gland. COMPARISON: No relevant prior studies available. FINDINGS: LEFT THYROID LOBE: Left thyroid lobe measures 4.0 x 1.4 x 0.8 cm. 6 and 4 mm stable left thyroid nodules noted both of which appear isoechoic, well-defined, wider than tall and without microcalcification. TI-RADS points: 3. TI-RADS category: TR3. These nodules are mildly suspicious but no FNA or follow-up is necessary given the small size of the nodules. RIGHT THYROID LOBE: Right thyroid lobe measures 4.0 x 1.5 x 1.0 cm. Normal homogeneous echotexture. Stable 4 mm right thyroid nodule which appears isoechoic, wider than tall, well-defined and without microcalcification. TI-RADS points: 3. TI-RADS category: TR3. This nodule is mildly suspicious but no FNA or follow-up is necessary given the small size of this nodule. ISTHMUS: Isthmus measures 2.5 mm in AP dimension. No thyroid nodules are present. US/Thyroid IMPRESSION: Stable bilateral thyroid nodules. Electronically Signed: Tony Shafer MD at 15:51 EST ,
--- OUTSIDE RECORDS SUMMARY | 2023-03-08 12:43 | XMS RPT_ITS | CCD ---
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 Name Role Phone Herber Romero DO Primary Care Provider [phone] Gypsy Cannon DO Unavailable HERBER ROMERO Attending Unavailable HERBER ROMERO Primary Care Unavailable CHERRY MEAD Attending Unavailable HERBER ROMERO Primary Care Unavailable HERBER ROMERO Primary Care Unavailable CHRIS PICKERING Attending Unavailable Allergies Allergy Classification Reported Allergen(s) Allergy Type Date of Onset Reaction(s) Facility (16 sources) cow milk allergenic extract; Translations: [MILK] Drug Allergy 10-16-2020 Unknown [facility] (16 sources) Shellfish; Translations: [SHELLFISH DERIVED] Drug Allergy 10-16-2020 Anaphylaxis [facility] (16 sources) shrimp allergenic extract; Translations: [SHRIMP] Drug Allergy 10-16-2020 Anaphylaxis [facility] Medications Current Medications Medication Drug Class(es) Dates Sig (Normalized) Sig (Original) fluconazole 150 mg oral tablet (1 source) Azole Antifungal Start: 07-01-2022 End: 07-08-2022 take 1 tablet by mouth once daily fluconazole (DIFLUCAN) 150 mg tablet Indications: Candidosis of skin , Rash of face Take 1 tablet by mouth once daily for 7 days. 7 tablet 0 07/01/2022 07/08/2022 Active Completed/Discontinued Medications Medication Drug Class(es) Dates Sig (Normalized) Sig (Original) cholecalciferol, vitamin D3, (VITAMIN D3 ORAL) (6 sources) cholecalciferol, vitamin D3, (VITAMIN D3 ORAL) Take by mouth. 0 Active Problems Active Problems Problem Classification Problem Date Documented Da te Episodic/Chronic Diabetes mellitus without complication (1 source) Hyperglycemia; Translations: [Hyperglycemia, unspecified] 02-09-2023 Episodic Disorders of lipid metabolism (15 sources) Dyslipidemia; Translations: [Hyperlipidemia, unspecified] Onset: 12-09-2020 12-09-2020 Chronic Malaise and fatigue (18 sources) Muscle weakness; Translations: [Weakness] Onset: 12-09-2020 12-09-2020 Episodic Nutritional deficiencies (3 sources) Vitamin D deficiency; Translations: [Vitamin D deficiency, unspecified] Chronic Other aftercare (1 source) Long-term current use of systemic steroid; 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] Episodic Other aftercare (2 sources) Drug therapy finding; Translations: [[facility] (current) use of systemic steroids] Episodic Other connective tissue disease (4 sources) Polymyalgia rheumatica; Translations: [Polymyalgia rheumatica] Chronic Other inflammatory condition of skin (1 source) Pruritic scalp dermatosis; Translations: [Pruritus, unspecified] Episodic Other screening for suspected conditions (not mental disorders or infectious disease) (5 sources) Patient encounter status; Translations: [Encounter for screening mammogram for malignant neoplasm of breast] Episodic Other skin disorders (3 sources) Eruption; Translations: [Rash and other nonspecific skin eruption] Episodic Residual codes; unclassified (1 source) Disturbance in sleep behavior; Translations: [Sleep disorder, unspecified] Episodic Residual codes; unclassified (1 source) Menopause present; Translations: [Asymptomatic menopausal state] 02-09-2023 Episodic Thyroid disorders (2 sources) Thyroid nodule; Translations: [Nontoxic single thyroid nodule] Chronic Varicose veins of lower extremity (1 source) Varicose veins of lower extremity; Translations: [Varicose veins of bilateral lower extremities with pain] Episodic Past or Other Problems Problem Classification Problem Date Documented Da te Episodic/Chronic Mycoses (4 sources) Candidiasis of skin; Translations: [Candidiasis of skin and nail] Onset: 07-01-2022 Episodic Other connective tissue disease (16 sources) Muscle pain; Translations: [Myalgia, unspecified site] Onset: 12-09-2020 12-09-2020 Episodic Other connective tissue disease (15 sources) Shoulder pain; Translations: [Myalgia, other site] Onset: 12-09-2020 12-09-2020 Episodic Other connective tissue disease (15 sources) Pain of bilateral thighs; Translations: [Pain in right thigh] Onset: 12-09-2020 12-09-2020 Episodic Other skin disorders (1 source) Rash and other nonspecific skin eruption; Translations: [Rash of face] Onset: 07-01-2022 Episodic Results Test Name Value Interpretation Reference Range Facil ity Vital Signs Date Time Vital Sign Value Performing Clinician Madiha alvarado 02-09-2023 08:04-0500 Body height 159 cm Herber Romero DO Work Phone: [facility] 02-09-2023 08:04-0500 Body temperature 97.59 [degF] Herber Romero DO Work Phone: [facility] 02-09-2023 08:04-0500 Body weight 65.77 kg Herber Romero DO Work Phone: [facility] 02-09-2023 08:04-0500 Diastolic blood pressure 74 mm[Hg] Herber Romero DO Work Phone: [facility] 02-09-2023 08:04-0500 Heart rate 80 /min Herber Romero DO Work Phone: [facility] 02-09-2023 08:04-0500 Respiratory rate 16 /min Herber Romero DO Work Phone: [facility] 02-09-2023 08:04-0500 Systolic blood pressure 118 mm[Hg] Herber Romero DO Work Phone: [facility] 07-01-2022 15:27-0400 Body weight 65.86 kg Cherry Mead ROPEMAN.ACCURACY EXPERT Work Phone: [facility] 07-01-2022 15:27-0400 Diastolic blood pressure 82 mm[Hg] Cherry Alyce ROPEMAN.ACCURACY EXPERT Work Phone: [facility] 07-01-2022 15:27-0400 Heart rate 87 /min Cherry Mead ROPEMAN.ACCURACY EXPERT Work Phone: [facility] 07-01-2022 15:27-0400 SaO2% (BldA) [Mass fraction] 97 % Cherry Mead ROPEMAN.ACCURACY EXPERT Work Phone: [facility] 07-01-2022 15:27-0400 Systolic blood pressure 124 mm[Hg] Cherry Mead SUMAYA.ACCURACY EXPERT Work Phone: [facility] 04-16-2022 14:49-0500 Body height 156.5 cm Chris Pickering MD, PhD Work Phone: [facility] 04-16-2022 14:49-0500 Body temperature 99.1 [degF] Chris Pickering MD, PhD Work Phone: [facility] 04-16-2022 14:49-0500 Body weight 64.82 kg Chris Pickering MD, PhD Work Phone: [facility] 04-16-2022 14:49-0500 Diastolic blood pressure 65 mm[Hg] Chris Pickering MD, PhD Work Phone: [facility] 04-16-2022 14:49-0500 Heart rate 77 /min Chris Pickering MD, PhD Work Phone: [facility] 04-16-2022 14:49-0500 Systolic blood pressure 133 mm[Hg] Chris Pickering MD, PhD Work Phone: [facility] 01-28-2022 07:45-0500 Body height 156.5 cm Herber Romero DO Work Phone: [facility] 01-28-2022 07:45-0500 Body temperature 96.69 [degF] Herber Romero DO Work Phone: [facility] 01-28-2022 07:45-0500 Body weight 63.05 kg Herber Romero DO Work Phone: [facility] 01-28-2022 07:45-0500 Diastolic blood pressure 60 mm[Hg] Herber Romero DO Work Phone: [facility] 01-28-2022 07:45-0500 Heart rate 64 /min Herber Romero DO Work Phone: [facility] 01-28-2022 07:45-0500 Respiratory rate 12 /min Herber Romero DO Work Phone: [facility] 01-28-2022 07:45-0500 Systolic blood pressure 104 mm[Hg] Herber Arellanorison DO Work Phone: [facility] 08-19-2021 10:51-0400 Body height 157.5 cm Tigre Amin ROPEMAN.ACCURACY EXPERT Work Phone: [facility] 08-19-2021 10:51-0400 Body temperature 97.7 [degF] Tigre Amin ROPEMAN.ACCURACY EXPERT Work Phone: [facility] 08-19-2021 10:51-0400 Body weight 63.5 kg Tigre Amin ROPEMAN.ACCURACY EXPERT Work Phone: [facility] 08-19-2021 10:51-0400 Diastolic blood pressure 63 mm[Hg] Tigre Amin ROPEMAN.ACCURACY EXPERT Work Phone: [facility] 08-19-2021 10:51-0400 Heart rate 87 /min Tigre Amin ROPEMAN.ACCURACY EXPERT Work Phone: [facility] 08-19-2021 10:51-0400 Systolic blood pressure 99 mm[Hg] Tigre Amin ROPEMAN.ACCURACY EXPERT Work Phone: [facility] Encounters Encounter Date Encounter Type Care Provider Facility Start: 02-09-2023 End: 02-09-2023 ambulatory HERBER ROMERO Facility:[facility] Start: 02-09-2023 End: 02-09-2023 Patient encounter procedure Herber Blounton DO Work Phone: [facility] Procedures Date Procedure Procedure Detail Performing Clinician Start: 11-27-2020 Adult depression screening assessment Echo Vines MD Work Phone: Plan of Treatment Date Care Activity Detail Author Start: 02-10-2024 Covid-19 Vaccine ( season) Covid-19 Vaccine () [facility] Immunizations Immunization Date Immunization Notes Care Provider Fa cili 12-29-2021 influenza virus vacc ine, unspecified formulation Herber Romero Work Phone: [facility] 04-01-2020 COVID-19 vaccine, fu ll dose (MODERNA) Echo Vines MD Work Phone: [facility] 03-04-2020 COVID-19 vaccine, fu ll dose (MODERNA) Echo Vines MD Work Phone: [facility] 11-24-2018 influenza, seasonal, injectable, preservative free Echo Vines MD Work Phone: [facility] 12-13-2017 influenza, seasonal, injectable, preservative free Echo Vines MD Work Phone: [facility] 12-16-2015 influenza, seasonal, injectable, preservative free cEho Vines MD Work Phone: [facility] 11-29-2013 influenza, seasonal, injectable, preservative free Echo Vines MD Work Phone: [facility] 03-13-2013 influenza, seasonal, injectable, preservative free Echo Vines MD Work Phone: [facility] Payers Date Payer Category Payer Unknown MMO MMO [employer] [id number] 2019-Present [phone] [address] [place] [address] O [id number] 2019 Unknown [id number] 2019 Unknown [id number] Social History Date Type Detail Facility Start: 10-16-2020 End: 01-28-2022 Tobacco smoking status NHIS Never smoked tobacco [facility] Start: 10-16-2020 End: 01-28-2022 Tobacco use and exposure Smokeless tobacco non-user [facility] Start: 03-31-2021 End: 02-09-2023 Alcohol intake Lifetime non-drinker (finding) [facility] Start: 11-27-2020 End: 01-27-2022 History SDOH Alcohol Frequency 1 [facility] Start: 11-27-2020 End: 01-27-2022 History SDOH Social Connections Phone 5 [facility] Start: 11-27-2020 End: 01-27-2022 History SDOH Social Connections Taoist 3 [facility] Start: 11-27-2020 History SDOH Physica l Activity MPS 6 [facility] Start: 11-27-2020 End: 01-27-2022 History SDOH Stress 2 [facility] Start: 11-27-2020 Education 17 [facility] Start: 1965 Sex Assigned At Female C [facility] Start: 08-09-2021 End: 01-28-2022 Exposure to SARS-CoV-2 (event) Not sure [facility] Start: 01-27-2022 History SDOH Alcohol Std Drinks 0 [facility] Start: 01-27-2022 End: 02-08-2023 History of Social function [facility] Start: 01-27-2022 End: 02-08-2023 Social connection and isolation panel [facility] Do you belong to any clubs or organizations such as baptist groups, unions, fraternal or athletic groups, or school groups? Yes [facility] Are you now , , , , never or living with a partner? [facility] How often to you hav e a drink containing alcohol? Never [facility] How many standard dr inks containing alcohol do you have on a typical day? Patient does not drink [facility] Do you feel stress - tense, restless, nervous, or anxious, or unable to sleep at night because your mind is troubled all the time - these days [OSQ] Not at all [facility] (I/We) worried wheth er (my/our) food would run out before (I/we) got money to buy more. Never true [facility] In the past 12 month s, was there a time when you were not able to pay the mortgage or rent on time? No [facility] Start: 11-27-2020 Gender identity Identifies as female gender (finding) [facility] Start: 11-27-2020 Sexual orientation Heterosexual (niru valladares) [facility] Clinical Notes 07-25-2021 to 02-09-2023 Herber Romero DO - 02/09/2023 1:51 PM ESTTelephone Encounter - John Holiday - 07/13/2022 2:45 PM EDTAddendum Note - Cherry Mead APRN.ACCURACY EXPERT - 07/13/2022 2:42 PM EDT Note Date & Type Note Facility 02-09-2023 Note HNO ID: [id number] Author: Herber Romero DO Service: ? Author Type: Physician Type: Progress Notes Filed: 02/09/2023 1:54 PM Note Text: CC: Alyssa Galan is a 57 year old female who presents to the office for physical HPI: Hx of thyroid nodules, last US thyroid at [facility] in 2019. No globus symptoms. Does have chronic fatigue B/l proximal muscle weakness and aching, worse at end of the day. Has changed her diet to gluten free completely and is trying to avoid sugars as well. Feels this has helped her symptoms. She was seen by [employer] [facility] and tapered off her prednisone and she wants to avoid MTX and other medication. She was diagnosed with PMR Has fatigue, decreased libido PAST MEDICAL HISTORY Diagnosis Date Thyroid nodule Vaginal delivery x3 No past surgical history on file. Social History: Social History Tobacco Use Smoking status: Never Smokeless tobacco: Never Substance Use Topics Alcohol use: Never Drug use: Never FAMILY HISTORY Problem Relation Age of Onset other (thyroid growth) Mother other (HTN) Mother other (HTN) Father Cardiomyopathy Father 40 congenital other (Vitelego) Father other (HTN) Sister 30 other (HTN) Brother other (DM) Brother Breast Cancer Maternal Grandmother 70 mastectomy other (HTN) Maternal Grandfather other (RI) Maternal Grandfather at an old age other (HTN) Paternal Grandmother Arthritis Paternal Grandmother other (RI) Paternal Grandfather 40 Thyroid Other significant with mom's siblings other (Shogren's in an aunt) Other other (niece with autoimmune) Other Current Outpatient prescriptions: cholecalciferol, vitamin D3, (VITAMIN D3 ORAL) Take by mouth. efpqooc-knrc-jiikq-oreg-capryl 100 mg-150 mg- 50 mg-150 mg cap Take by mouth. Lactobacillus acidophilus (PROBIOTIC ORAL) Take by mouth. vitamin B complex (B COMPLEX-VITAMIN B12 ORAL) Take by mouth. Allergies: ALLERGIES Allergen Reactions Milk Unknown Shellfish Derived Anaphylaxis Shrimp Anaphylaxis ROS: See HPI PE: 02/09/23 0804 BP: 118/74 Pulse: 80 Resp: 16 Temp: 36.4 ?C (97.6 ?F) TempSrc: Left Tympanic Weight: 65.8 kg (145 lb) Height: 159 cm (5' 2.6 ) Gen: AANDO, NAD, non-toxic appearing, Pleasant, cooperative HEENT: NT/AC, PERRLA, EOMs intact b/l, nares clear and patent b/l, pharynx without erythema, exudate or lesions. Uvula midline. EACs without erythema or debris. TMs pearly cortes with intact landmarks b/l. Neck: supple, No cervical LAD, no thyromegaly, no carotid bruits CV: RRR, normal S1 and S2, no murmurs, no gallops, no rubs, Pulses 2+ and symmetric in UE and LE b/l Lungs: normal respiratory effort, CTA b/l, no wheezing or rhonchi or rales Abd: soft, NT, ND, +BS, no hepatosplenomegaly MS: FROM all 4 extremities Neuro: CN II-XII intact b/l, strength 5/5 b/l UE and LE, DTRs 2/4 UE and LE, sensation intact. Skin: warm, dry, intact, No rashes or lesions on exposed skin. Arthritis changes No edema, normal pulses ASSESSMENT/PLAN: 1. Well adult exam - ICD9: V70.0, ICD10: Z00.00 (primary diagnosis) - Counseled on healthy diet and regular exercise - Calcium intake with supplements or by diet of 1000 mg/day for under 50, 2376-1718 mg/day for 50+ - HGB A1C - C-REACTIVE PROTEIN (CRP) - SED RATE WESTERGREN - TSH BLD - T4 FREE/FREE THYROX - T3 FREE BLD - VITAMIN D 25 HYDROXY - VITAMIN B12 BLOOD - TESTOSTERONE, FREE AND TOTAL - PROGESTERONE BLD - ESTROGEN FRACTION BL - CORTISOL BLD 2. Candidosis of skin - ICD9: 112.3, ICD10: B37.2 stable 3. Rash of face - ICD9: 782.1, ICD10: R21 stable 4. Vitamin D deficiency - ICD9: 268.9, ICD10: E55.9 Continue supplement - VITAMIN D 25 HYDROXY 5. PMR (polymyalgia rheumatica) (HCC) - ICD9: 725, ICD10: M35.3 Check labs, continue anti inflammatory diet. 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 - C-REACTIVE PROTEIN (CRP) - SED RATE WESTERGREN 6. Hyperglycemia - ICD9: 790.29, ICD10: R73.9 - HGB A1C 7. Fatigue, unspecified type - ICD9: 780.79, ICD10: R53.83 See above - VITAMIN D 25 HYDROXY - VITAMIN B12 BLOOD - CORTISOL BLD 8. Menopause - ICD9: 627.2, ICD10: Z78.0 See above, f/u with [facility] - TESTOSTERONE, FREE AND TOTAL - PROGESTERONE BLD - ESTROGEN FRACTION BL 9. Screening for colon cancer - ICD9: V76.51, ICD10: Z12.11 She isn't willing to do colonoscopy at this time, no fmhx of colon CA - COLOGUARD 10. Encounter for screening mammogram for malignant neoplasm of breast - ICD9: V76.12, ICD10: Z12.31 - Set up for mammogram, yearly mammogram recommended - Encouraged monthly BSE - Increase calcium intake with supplements or by diet (goal of 6204-9963 mg/day - Colon cancer screening reviewed and colonoscopy recommended - [facility] SCREENING [facility] AM[facility] 11. Thyroid nodule - ICD9: 241.0, ICD10: E04.1 Recheck labs and thyroid US - US THYROID/PARATHYROID Herber Surya Blounton, DO To ER if develops chest pain, shortness of breath, or severe (more content not included)... [facility] 02-09-2023 History of Present illness Narrative CC: Alyssa Galan is a 57 year old female who presents to the office for physical HPI: Hx of thyroid nodules, last US thyroid at [facility] in 2019. No globus symptoms. Does have chronic fatigue B/l proximal muscle weakness and aching, worse at end of the day. Has changed her diet to gluten free completely and is trying to avoid sugars as well. Feels this has helped her symptoms. She was seen by [employer] and tapered off her prednisone and she wants to avoid MTX and other medication. She was diagnosed with PMR Has fatigue, decreased libido PAST MEDICAL HISTORY Diagnosis Date Thyroid nodule Vaginal delivery x3 No past surgical history on file. Social History: Social History Tobacco Use Smoking status: Never Smokeless tobacco: Never Substance Use Topics Alcohol use: Never Drug use: Never FAMILY HISTORY Problem Relation Age of Onset other (thyroid growth) Mother other (HTN) Mother other (HTN) Father Cardiomyopathy Father 40 congenital other (Vitelego) Father other (HTN) Sister 30 other (HTN) Brother other (DM) Brother Breast Cancer Maternal Grandmother 70 mastectomy other (HTN) Maternal Grandfather other (RI) Maternal Grandfather at an old age other (HTN) Paternal Grandmother Arthritis Paternal Grandmother other (RI) Paternal Grandfather 40 Thyroid Other significant with mom's siblings other (Shogren's in an aunt) Other other (niece with autoimmune) Other Current Outpatient prescriptions: cholecalciferol, vitamin D3, (VITAMIN D3 ORAL) Take by mouth. sywzyhh-vgyw-xiylc-oreg-capryl 100 mg-150 mg- 50 mg-150 mg cap Take by mouth. Lactobacillus acidophilus (PROBIOTIC ORAL) Take by mouth. vitamin B complex (B COMPLEX-VITAMIN B12 ORAL) Take by mouth. Allergies: ALLERGIES Allergen Reactions Milk Unknown Shellfish Derived Anaphylaxis Shrimp Anaphylaxis ROS: See HPI PE: 02/09/23 0804 BP: 118/74 Pulse: 80 Resp: 16 Temp: 36.4 C (97.6 F) TempSrc: Left Tympanic Weight: 65.8 kg (145 lb) Height: 159 cm (5' 2.6 ) Gen: A&O, NAD, non-toxic appearing, Pleasant, cooperative HEENT: NT/AC, PERRLA, EOMs intact b/l, nares clear and patent b/l, pharynx without erythema, exudate or lesions. Uvula midline. EACs without erythema or debris. TMs pearly cortes with intact landmarks b/l. Neck: supple, No cervical LAD, no thyromegaly, no carotid bruits CV: RRR, normal S1 and S2, no murmurs, no gallops, no rubs, Pulses 2+ and symmetric in UE and LE b/l Lungs: normal respiratory effort, CTA b/l, no wheezing or rhonchi or rales Abd: soft, NT, ND, +BS, no hepatosplenomegaly MS: FROM all 4 extremities Neuro: CN II-XII intact b/l, strength 5/5 b/l UE and LE, DTRs 2/4 UE and LE, sensation intact. Skin: warm, dry, intact, No rashes or lesions on exposed skin. Arthritis changes No edema, normal pulses ASSESSMENT/PLAN: 1. Well adult exam - ICD9: V70.0, ICD10: Z00.00 (primary diagnosis) - Counseled on healthy diet and regular exercise - Calcium intake with supplements or by diet of 1000 mg/day for under 50, 3806-5375 mg/day for 50+ - HGB A1C - C-REACTIVE PROTEIN (CRP) - SED RATE WESTERGREN - TSH BLD - T4 FREE/FREE THYROX - T3 FREE BLD - VITAMIN D 25 HYDROXY - VITAMIN B12 BLOOD - TESTOSTERONE, FREE AND TOTAL - PROGESTERONE BLD - ESTROGEN FRACTION BL - CORTISOL BLD 2. Candidosis of skin - ICD9: 112.3, ICD10: B37.2 stable 3. Rash of face - ICD9: 782.1, ICD10: R21 stable 4. Vitamin D deficiency - ICD9: 268.9, ICD10: E55.9 Continue supplement - VITAMIN D 25 HYDROXY 5. PMR (polymyalgia rheumatica) (HCC) - ICD9: 725, ICD10: M35.3 Check labs, continue anti inflammatory diet. 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 - C-REACTIVE PROTEIN (CRP) - SED RATE WESTERGREN 6. Hyperglycemia - ICD9: 790.29, ICD10: R73.9 - HGB A1C 7. Fatigue, unspecified type - ICD9: 780.79, ICD10: R53.83 See above - VITAMIN D 25 HYDROXY - VITAMIN B12 BLOOD - CORTISOL BLD 8. Menopause - ICD9: 627.2, ICD10: Z78.0 See above, f/u with [facility] - TESTOSTERONE, FREE AND TOTAL - PROGESTERONE BLD - ESTROGEN FRACTION BL 9. Screening for colon cancer - ICD9: V76.51, ICD10: Z12.11 She isn't willing to do colonoscopy at this time, no fmhx of colon CA - COLOGUARD 10. Encounter for screening mammogram for malignant neoplasm of breast - ICD9: V76.12, ICD10: Z12.31 - Set up for mammogram, yearly mammogram recommended - Encouraged monthly BSE - Increase calcium intake with supplements or by diet (goal of 7804-9109 mg/day - Colon cancer screening reviewed and colonoscopy recommended - [facility] SCREENING [facility] 11. Thyroid nodule - ICD9: 241.0, ICD10: E04.1 Recheck labs and thyroid US - US THYROID/PARATHYROID Herber Romero DO To ER if develops chest pain, shortness of breath, or severe worsening of symptoms. Discussed risks, benefits, alternatives, and potential side effects of medications. Patient expressed understanding and agreed with the plan. Herber Romero DO [address] [place] [address] documented in this encounter [facility] 09-02-2022 Note Patient Outreach (IN [facility]) ALYSSA GALAN ([id number]) 1965 F T Date Time Provider Department 09/02/22 HERBER ROMERO [facility] During your visit today, we recorded the following information about you: Allergies As of Date: 09/02/2022 Noted Allergy Reaction MILK 10/16/2020 16 - Unknown SHELLFISH DERIVED 10/16/2020 10 - Anaphylaxis SHRIMP 10/16/2020 10 - Anaphylaxis Date Reviewed: 07/01/2022 Reviewed by: Cherry Mead APRN.ACCURACY EXPERT - Fully Assessed Visit Diagnosis:Encounter for screening mammogram for breast cancer [Z12.31] Order(s):[facility] SCREENING [[id number]] Order #: [id number] FUTURE Prescriptions as of 09/07/2022 - nystatin (MYCOSTATIN) cream Apply to affected area twice daily. - ketoconazole (NIZORAL) 2 % shampoo Apply to affected area two times a week. - cholecalciferol, vitamin D3, (VITAMIN D3 ORAL) Take by mouth. - idjrkib-zrha-mhbqt-oreg-capryl 100 mg-150 mg- 50 mg-150 mg cap Take by mouth. - Lactobacillus acidophilus (PROBIOTIC ORAL) Take by mouth. - vitamin B complex (B COMPLEX-VITAMIN B12 ORAL) Take by mouth. - cyclobenzaprine (FLEXERIL) 5 mg tablet Take 1 tablet by mouth daily at bedtime. Meds Comments as of 10/16/2020: Turmeric, car, flax seed, Vitamin D3 daily-as of 10/16/2020 Problem List As Of Date 09/02/2022 Noted Resolved Myalgia [M79.10] 12/09/2020 Decreased strength, endurance, and mobility [R5*12/09/2020 Dyslipidemia [E78.5] 12/09/2020 Pain in deltoid, bilateral [M79.18] 12/09/2020 Pain in both thighs [M79.651, M79.652] 12/09/2020 Encounter Status:Closed by [employer] on 09/07/22 [facility] 07-13-2022 Miscellaneous Notes Consult faxed to [facility]. John Cowan Addended by: CHERRY MEAD on: 07/13/2022 02:42 PM Modules accepted: Orders Derm consult order placed. The following approved medication requests have been transmitted electronically. Requested Prescriptions Signed Prescriptions Disp Refills griseofulvin, microsize (GRIFULVIN V) 500 mg tablet 30 tablet 0 Sig: Take 1 tablet by mouth once daily. Authorizing Provider: HERBER ROMERO Ordering User: CHERRY MEAD predniSONE (DELTASONE) 10 mg tablet 30 tablet 0 Sig: Take 4 tabs daily x 3 days, then 3 tabs x 3 days, 2 tabs x 3 days, then 1 tab x3 days with food. Authorizing Provider: HERBER ROMERO Ordering User: CHERRY MEAD APRN.ACCURACY EXPERT Addended by: JOHN COWAN on: 07/13/2022 02:27 PM Modules accepted: Orders Pt informed, verbalized understanding. Pt reports rash has worsened. Please send all scripts including oral med for itching to [facility]. Pt would like to proceed with Derm consult at time time. Pended. Will need faxed to [facility] per pt request. John Cowan Addended by: CHERRY MEAD on: 07/13/2022 02:08 PM Modules accepted: Orders Per her original [place] message, had the face rash improved by 80% and has now worsened? If this is the case, I would recommend we do another 7 day course of the oral Diflucan as well as oral steroid. In regards to the head itching, there is an oral medication I can send in for this as well, if the shampoo still is not working. I also would recommend she get scheduled with dermatology if these interventions continue to not resolve her sx. The following approved medication requests have been transmitted electronically. Requested Prescriptions Signed Prescriptions Disp Refills griseofulvin, microsize (GRIFULVIN V) 500 mg tablet 30 tablet 0 Sig: Take 1 tablet by mouth once daily. Authorizing Provider: HERBER ROMERO Ordering User: CHERRY MEAD predniSONE (DELTASONE) 10 mg tablet 30 tablet 0 Sig: Take 4 tabs daily x 3 days, then 3 tabs x 3 days, 2 tabs x 3 days, then 1 tab x3 days with food. Authorizing Provider: HERBER ROMERO Ordering User: CHERRY MEAD APRN.ACCURACY EXPERT PT states that the rash is just as bad as when she saw etienne, PT is wanting recommendations on how to proceed as medications have ran out. Sharon KITCHEN Images from the original note were not included. Patient calling to check on status of message sent via this week. (COPIED BELOW). Patient asking if Cherry Mead would advise her today, if possible? Thank you. (COPIED) Alyssa Galan [facility] My Chart Rx Pool (supporting Cherry Mead APRN.CNP) 2 days ago JK Finished 7 day script of diflucan yesterday 07/07 Rash on face about 80% improved- scalp still ridiculously itchy despite using shampoo. Have used nystatin cream on face bid. Any other ideas/treatment options? Thx so much Alyssa galan documented in this encounter [facility] 07-10-2022 Miscellaneous Notes See TE 07/10/22. Will close this encounter. Poonam Brown RN See patient update below. Anisa Griffiths LPN documented in this encounter [facility] 07-01-2022 Note HNO ID: [id number] Author: Cherry Mead APRN.CNP Service: ? Author Type: Nurse Practitioner Type: Progress Notes Filed: 07/01/2022 4:21 PM Note Text: Chief Complaint Patient presents with: Rash: Itchy rash face and neck x 1 month HPI Alyssa Galan is a 57 year old female who presents here today for Above Complaints.. Today: Rash for the past month to face and neck. Swells up and then dries out and gets cracked. Has tried coconut oil, antibiotic ointment, Cortisone cream. No change in soaps, food, etc. Started drinking mushroom coffee about 3 months ago but doesn't correlate with sx. Is itchy. Does not drain. Head is itching some as well. Feels like overall a feeling of yeast in her body. Occasional vaginal itching but this is not sustained and not currently. Past medical history, appointments, medications, allergies reviewed. Previous Medical History PAST MEDICAL HISTORY Diagnosis Date Thyroid nodule Vaginal delivery x3 Previous Surgical History History reviewed. No pertinent surgical history. Family History FAMILY HISTORY Problem Relation Age of Onset other (thyroid growth) Mother other (HTN) Mother other (HTN) Father Cardiomyopathy Father 40 congenital other (Vitelego) Father other (HTN) Sister 30 other (HTN) Brother other (DM) Brother Breast Cancer Maternal Grandmother 70 mastectomy other (HTN) Maternal Grandfather other ([place]) Maternal Grandfather at an old age other (HTN) Paternal Grandmother Arthritis Paternal Grandmother other (RI) Paternal Grandfather 40 Thyroid Other significant with mom's siblings other (Shogren's in an aunt) Other other (niece with autoimmune) Other Patient Allergies ALLERGIES Allergen Reactions Milk Unknown Shellfish Derived Anaphylaxis Shrimp Anaphylaxis Current Medications Current Outpatient Medications on File Prior to Visit Medication Sig cholecalciferol, vitamin D3, (VITAMIN D3 ORAL) Take by mouth. sdjmblz-agit-ynacs-oreg-capryl 100 mg-150 mg- 50 mg-150 mg cap Take by mouth. Lactobacillus acidophilus (PROBIOTIC ORAL) Take by mouth. vitamin B complex (B COMPLEX-VITAMIN B12 ORAL) Take by mouth. cyclobenzaprine (FLEXERIL) 5 mg tablet Take 1 tablet by mouth daily at bedtime. predniSONE (DELTASONE) 1 mg tablet Take 1 tablet by mouth once daily. Take by mouth with food. progesterone vaginal suppository 200 mg (CPD) Use 200 mg vaginally once daily. progesterone micronized (PROMETRIUM) 200 mg capsule Take 1 capsule by mouth once daily. No current facility-administered medications on file prior to visit. Social History Social History Tobacco Use Smoking status: Never Smokeless tobacco: Never Substance Use Topics Alcohol use: Never Drug use: Never Review of Symptoms REVIEW OF SYSTEMS See HPI, otherwise negative EXAM: BP 124/82 (BP Site: Left Arm, BP Position: Sitting, BP Cuff Size: Regular Adult) Pulse 87 Wt 65.9 kg (145 lb 3.2 oz) LMP 12/04/2019 (Approximate) SpO2 97% BMI 26.89 kg/m? General Appearance: Well appearing, alert, in no acute distress, well-hydrated, well nourished.. Skin: raised erythemic rash to periorbital area, no drainage, no open areas. Scalp with small reddened areas throughout, no drainage or lesions Head: raised erythemic rash to periorbital area, no drainage, no open areas. Scalp with small reddened areas throughout, no drainage or lesion Health Maintenance List HEPATITIS B(1 of 3 - 3-dose series) Never done HEPATITIS C SCREENING Never done HIV SCREENING Never done DTAP,TDAP,TD(1 - Tdap) Never done PAP TESTING Never done HPV TESTING Never done MAMMOGRAM Never done LIPID SCREEN Never done DIABETES SCREEN Never done COLORECTAL CANCER SCREENING Never done SHINGRIX VACCINE(1 of 2) Never done COVID-19 VACCINE(3 - Booster for Moderna series) due on 05/27/2020 DEPRESSION ASSESSMENT Never done INFLUENZA Completed Data reviewed Previous records, office notes ASSESSMENT/PLAN: 1. Candidosis of skin - ICD9: 112.3, ICD10: B37.2 (primary diagnosis) Ketoconazole daily as needed. Nystatin cream to face bid until rash resolved and then for 7 more days following resolution. PO fluconazole x7 days. Follow up prn. - FLUCONAZOLE 150 MG TABLET - NYSTATIN 100,000 UNIT/GRAM TOPICAL CREAM - KETOCONAZOLE 2 % SHAMPOO 2. Rash of face - ICD9: 782.1, ICD10: R21 Ketoconazole daily as needed. Nystatin cream to face bid until rash resolved and then for 7 more days following resolution. PO fluconazole x7 days. Follow up prn. - FLUCONAZOLE 150 MG TABLET - NYSTATIN 100,000 UNIT/GRAM TOPICAL CREAM - KETOCONAZOLE 2 % SHAMPOO Cherry Mead APRN.RICKIE [facility] 07-01-2022 History of Present illness Narrative Chief Complaint Patient presents with: Rash: Itchy rash face and neck x 1 month HPI Alyssa Galan is a 57 year old female who presents here today for Above Complaints.. Today: Rash for the past month to face and neck. Swells up and then dries out and gets cracked. Has tried coconut oil, antibiotic ointment, Cortisone cream. No change in soaps, food, etc. Started drinking mushroom coffee about 3 months ago but doesn't correlate with sx. Is itchy. Does not drain. Head is itching some as well. Feels like overall a feeling of yeast in her body. Occasional vaginal itching but this is not sustained and not currently. Past medical history, appointments, medications, allergies reviewed. Previous Medical History PAST MEDICAL HISTORY Diagnosis Date Thyroid nodule Vaginal delivery x3 Previous Surgical History History reviewed. No pertinent surgical history. Family History FAMILY HISTORY Problem Relation Age of Onset other (thyroid growth) Mother other (HTN) Mother other (HTN) Father Cardiomyopathy Father 40 congenital other (Vitelego) Father other (HTN) Sister 30 other (HTN) Brother other (DM) Brother Breast Cancer Maternal Grandmother 70 mastectomy other (HTN) Maternal Grandfather other ([place]) Maternal Grandfather at an old age other (HTN) Paternal Grandmother Arthritis Paternal Grandmother other (RI) Paternal Grandfather 40 Thyroid Other significant with mom's siblings other (Shogren's in an aunt) Other other (niece with autoimmune) Other Patient Allergies ALLERGIES Allergen Reactions Milk Unknown Shellfish Derived Anaphylaxis Shrimp Anaphylaxis Current Medications Current Outpatient Medications on File Prior to Visit Medication Sig cholecalciferol, vitamin D3, (VITAMIN D3 ORAL) Take by mouth. exuiyvz-mlxk-xkzrx-oreg-capryl 100 mg-150 mg- 50 mg-150 mg cap Take by mouth. Lactobacillus acidophilus (PROBIOTIC ORAL) Take by mouth. vitamin B complex (B COMPLEX-VITAMIN B12 ORAL) Take by mouth. cyclobenzaprine (FLEXERIL) 5 mg tablet Take 1 tablet by mouth daily at bedtime. predniSONE (DELTASONE) 1 mg tablet Take 1 tablet by mouth once daily. Take by mouth with food. progesterone vaginal suppository 200 mg (CPD) Use 200 mg vaginally once daily. progesterone micronized (PROMETRIUM) 200 mg capsule Take 1 capsule by mouth once daily. No current facility-administered medications on file prior to visit. Social History Social History Tobacco Use Smoking status: Never Smokeless tobacco: Never Substance Use Topics Alcohol use: Never Drug use: Never Review of Symptoms REVIEW OF SYSTEMS See HPI, otherwise negative EXAM: BP 124/82 (BP Site: Left Arm, BP Position: Sitting, BP Cuff Size: Regular Adult) Pulse 87 Wt 65.9 kg (145 lb 3.2 oz) LMP 12/04/2019 (Approximate) SpO2 97% BMI 26.89 kg/m General Appearance: Well appearing, alert, in no acute distress, well-hydrated, well nourished.. Skin: raised erythemic rash to periorbital area, no drainage, no open areas. Scalp with small reddened areas throughout, no drainage or lesions Head: raised erythemic rash to periorbital area, no drainage, no open areas. Scalp with small reddened areas throughout, no drainage or lesion Health Maintenance List HEPATITIS B(1 of 3 - 3-dose series) Never done HEPATITIS C SCREENING Never done HIV SCREENING Never done DTAP,TDAP,TD(1 - Tdap) Never done PAP TESTING Never done HPV TESTING Never done MAMMOGRAM Never done LIPID SCREEN Never done DIABETES SCREEN Never done COLORECTAL CANCER SCREENING Never done SHINGRIX VACCINE(1 of 2) Never done COVID-19 VACCINE(3 - Booster for Moderna series) due on 05/27/2020 DEPRESSION ASSESSMENT Never done INFLUENZA Completed Data reviewed Previous records, office notes ASSESSMENT/PLAN: 1. Candidosis of skin - ICD9: 112.3, ICD10: B37.2 (primary diagnosis) Ketoconazole daily as needed. Nystatin cream to face bid until rash resolved and then for 7 more days following resolution. PO fluconazole x7 days. Follow up prn. - FLUCONAZOLE 150 MG TABLET - NYSTATIN 100,000 UNIT/GRAM TOPICAL CREAM - KETOCONAZOLE 2 % SHAMPOO 2. Rash of face - ICD9: 782.1, ICD10: R21 Ketoconazole daily as needed. Nystatin cream to face bid until rash resolved and then for 7 more days following resolution. PO fluconazole x7 days. Follow up prn. - FLUCONAZOLE 150 MG TABLET - NYSTATIN 100,000 UNIT/GRAM TOPICAL CREAM - KETOCONAZOLE 2 % SHAMPOO Cherry Mead APRN.RICKIE documented in this encounter [facility] 04-16-2022 Note HNO ID: [id number] Author: Chris Pickering MD, PhD Service: ? 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 worse w movement. at its worst hard to bend and hard to put bra on. was started on prednisone few yrs ago PMR (family doctor [facility]) 10 mg pred treated it all and with slow taper sx returned at 3 mg (pred 5 mg had been for 6 mos) - continued to 1 mg daily. at outset had significantly elevated CRP. feels overall worse in the evening serologies normal stopped running 2 yrs ago when this was at worst; used to run daily 2-3 miles now in the AM is stiff in trapezius area no dysesthesias no wrist/mcp/ankle no headaches/visual sx PSH-none PMH - none under some stress she says, two jobs sleep is disrupted not refreshed PE Blood pressure 133/65, pulse 77, temperature 37.3 ?C (99.1 ?F), temperature source Temporal, height 156.5 cm (5' 1.61 ), weight 64.8 kg (142 lb 14.4 oz), last menstrual period 12/04/2019. well appearing gait normal transfers nl nop facial rash no periungual erythema no tender/sw joints hip motion is full minimal discomfort trapezius extremely tight sl tender bilat neck motion preserved 1+ = DTRs no tender/sw peripheral joints no murmur no pitting intact pulses lungs clear imp: historically there has been an elevated CRP which I cant explain at present, but I dont find inflammatory arthritis on exam or by hx and dont think there is PMR as the etiol by hx or eaxm. poor sleep markedly tight trapezius which is where the pain is located, less tight hip girdle. reportedly normal hip xrays, non irritable hip joint exam. suggest cont taper pred 1 mg every other day 3 wks then stop. i'll reexamine in ~ 6 wks. flexeril low dose 2.5 mg pre bedtime as mild realaxant and to try to promote better sleep hygeine - and turn off phone at night. swim regularly as exercise/toning for upper back and hip girdle muscles. Chris Pickering MD, PhD Answers submitted by the patient for this visit: Review of Systems Rheumatology (Submitted on 04/15/2022) Fever : No Recent Unintentional Weight Change: No Eye Pain: No Eye Redness: No Vision Disturbance: No Eye Dryness: No Nose Bleeds: No Sores in your Mouth: No Trouble Swallowing: No Dry Mouth: No Chest Pain: No Leg Swelling: Yes A Cough: No Shortness of Breath: No Pain with Breathing: No Heartburn: Yes Abdominal Pain: No Diarrhea: No Black Tarry Stools: No Blood in Urine: No Pain or Burning with Urination: No Joint Pain or Stiffness: Yes Muscle Weakness: Yes Muscle Aches: Yes Joint Swelling: No Morning Stiffness in Joints: Yes A Rash: No Skin Color Changes: No Hair Loss: No Nail Changes: No Headaches: No Numbness: No Memory Loss: No Swollen Glands: No [facility] 04-16-2022 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 worse w movement. at its worst hard to bend and hard to put bra on. was started on prednisone few yrs ago PMR (family doctor [place]) 10 mg pred treated it all and with slow taper sx returned at 3 mg (pred 5 mg had been for 6 mos) - continued to 1 mg daily. at outset had significantly elevated CRP. feels overall worse in the evening serologies normal stopped running 2 yrs ago when this was at worst; used to run daily 2-3 miles now in the AM is stiff in trapezius area no dysesthesias no wrist/mcp/ankle no headaches/visual sx PSH-none PMH - none under some stress she says, two jobs sleep is disrupted not refreshed PE Blood pressure 133/65, pulse 77, temperature 37.3 C (99.1 F), temperature source Temporal, height 156.5 cm (5' 1.61 ), weight 64.8 kg (142 lb 14.4 oz), last menstrual period 12/04/2019. well appearing gait normal transfers nl nop facial rash no periungual erythema no tender/sw joints hip motion is full minimal discomfort trapezius extremely tight sl tender bilat neck motion preserved 1+ = DTRs no tender/sw peripheral joints no murmur no pitting intact pulses lungs clear imp: historically there has been an elevated CRP which I cant explain at present, but I dont find inflammatory arthritis on exam or by hx and dont think there is PMR as the etiol by hx or eaxm. poor sleep markedly tight trapezius which is where the pain is located, less tight hip girdle. reportedly normal hip xrays, non irritable hip joint exam. suggest cont taper pred 1 mg every other day 3 wks then stop. i'll reexamine in ~ 6 wks. flexeril low dose 2.5 mg pre bedtime as mild realaxant and to try to promote better sleep hygeine - and turn off phone at night. swim regularly as exercise/toning for upper back and hip girdle muscles. Chris Pickering MD, PhD Answers submitted by the patient for this visit: Review of Systems Rheumatology (Submitted on 04/15/2022) Fever : No Recent Unintentional Weight Change: No Eye Pain: No Eye Redness: No Vision Disturbance: No Eye Dryness: No Nose Bleeds: No Sores in your Mouth: No Trouble Swallowing: No Dry Mouth: No Chest Pain: No Leg Swelling: Yes A Cough: No Shortness of Breath: No Pain with Breathing: No Heartburn: Yes Abdominal Pain: No Diarrhea: No Black Tarry Stools: No Blood in Urine: No Pain or Burning with Urination: No Joint Pain or Stiffness: Yes Muscle Weakness: Yes Muscle Aches: Yes Joint Swelling: No Morning Stiffness in Joints: Yes A Rash: No Skin Color Changes: No Hair Loss: No Nail Changes: No Headaches: No Numbness: No Memory Loss: No Swollen Glands: No documented in this encounter [facility] 04-14-2022 Miscellaneous Notes Vit D and Vit b12 refaxed to [facility]. Pt. informed. Labs are overall normal/stable except for slightly high CRP levels. This needs to be managed by [facility] [facility]. Please inform patient Herber Romero DO Pt had blood work done. View External Lab - Chemistry [ID [id number]] documented in this encounter [facility] 04-10-2022 Miscellaneous Notes Faxed labs to [facility] Patient left message on [employer] vm Fatou Lund Ma Labs ordered, please fax and notify her Herber Romero DO Patient reports [facility] [facility] moved her appt back 2 mths, so she waited to get the labs done closer to the time. When she went to [facility] lab, learned the lab orders were . Asking pcp to re-order the labs and send to [facility] lab (fax # [phone]). Reports she will run out of prednisone 6 days prior to her Rheum appt. Asking if pcp would send refill to [facility] Pharmacy? Pended. documented in this encounter [facility] 01-28-2022 History of Present illness Narrative CC: Alyssa Galan is a 56 year old female who presents to the office for physical HPI: She was originally seen in the office on 10/16 by Shanta Mead CNP, at that time: Has been having a lot of pain that started last fall. Pain: neck, wvxppqc-fzcslobjenk-miqeipnra ROM, hip pain, groin bone pain, backs of knees-hurt and are swollen. If gets down on the floor, difficult to have strength to get herself up. Had labs drawn-reportedly CRP only abnormality. Saw Dr. Carrera in April-didn't get any positive results. Was sent to Dr. Martinez-saw her in August-wanted to start her on methotrexate or hydroxychloroquin. Did not get the suggested labs (as she had recently had same labs drawn). Did not go back to her. Stopped eating gluten-has been 5 weeks-thinks this may be helping a little with inflammation. Sx started last fall and gradually progressed/worsened. Has had massages-maybe help a little bit. She had labs obtained and was referred to Rheumatology. She has an appt set up for Rheum in Jan with Dr. Vines At follow up with Shanta Mead CNP on 11/29 Feels like things are a little bit better. Has gone gluten free. Feels like her joint pain, specifically her knees. Started estrogen and progesterone by holistic physician. This has helped things a bit as well. Dr. Junior-hormone clinic in [place]. She also started her on a low dose T3/T4 supplementation. Called Triiodothyronine (T3-5mcg, T4-20mcg). Had a massage. Could the toxins have been released. [place] terrible. Couldn't get up off the floor, entire body was hurting. Did take prednisone x2 days, which really helped her to feel so much better. Takes Aleve or Motrin every 2 or 3 days to help get her through the day. Feels very painful in the mornings, especially in her shoulders. She was referred to PHYSICAL THERAPY at that time At her appt in our office on 12/06/2020 She states that the 2 times that she tried the prednisone that it was effective for her muscle pain and weakness, symptoms did improve temporarily then resumed. She does complain that mornings are the worst, slightly better as the day goes on but still struggles with b/l shoulder and upper arm weakness and discomfort such as during styling her hair or overhead movement. Also in b/l thighs and buttocks/legs with weakness and pain. This seems to be worse with continued use. No obvious rashes. Thyroid labs and anti ro and anti la are normal. Her CRP levels are elevated. CCP and Rheumatoid factor were negative, ENOCH was negative/normal. No known fmhx of autoimmune/inflammatory arthritis. She had labs at that time and was referred to [facility] [facility] [employer] [facility] Seen for follow up Mar 2021 She has been taking prednisone 5 mg a day for the last 2 months with benefit. She was supposed to see [facility] [facility] [employer] [facility] in Jan but appt was last minute canceled and not able to be seen now for 1st time until April this year. She is waiting on this. She has noticed that the 5 mg a day of the prednisone has been definitely benefitting her muscle pain and strength in her legs. She is noticing just a little stomach upset symptoms sometimes, but this started after having covid in Jan and again in Mar. Had Covid 19 infection in Jan and again in Mar. She is unsure which strain/variant she had. She was [facility] with azithromycin and decadron due to the severity of her cough and chest congestion and green sputum production at that time in Jan. She had infection again in Mar but mostly gastrointestinal symptoms. She continues to have intermittent shortness of breath since this infection and symptoms started in Mar. No fevers or chills. She hasn't been given any albuterol to try. Mostly when she is trying to walk up steps, or in the cold air, or exposed to paints or cleaning products. No current sputum production. No palpitations or chest pain. Currently Diagnosed with PMR, taking prednisone 1 mg a day- has tapered down from 5 mg to 1 mg over the last 6 months and has been on this consistent dose for 2 months. Is managing symptoms day to day but still struggling with chronic pain in muscles of arms and thighs/groin and has chronic fatigue symptoms. Is going to be getting a 2nd opinion by [employer] [facility] [employer] [facility] Dr. Pickering in 1-2 months. Wondering what supplement that she should be taking PAST MEDICAL HISTORY Diagnosis Date Thyroid nodule Vaginal delivery x3 History reviewed. No pertinent surgical history. Social History: Social History Tobacco Use Smoking status: Never Smokeless tobacco: Never Substance Use Topics Alcohol use: Never Drug use: Never FAMILY HISTORY Problem Relation Age of Onset other (thyroid growth) Mother other (HTN) Mother other (HTN) Father Cardiomyopathy Father 40 congenital other (Vitelego) Father other (HTN) Sister 30 other (HTN) Brother other (DM) Brother Breast Cancer Maternal Grandmother 70 mastectomy other (HTN) Maternal Grandfather other ([place]) Maternal Grandfather at an old age other (HTN) Paternal Grandmother Arthritis Paternal Grandmother other (RI) Paternal Grandfather 40 Thyroid Other significant with mom's siblings other (Shogren's in an aunt) Other other (niece with autoimmune) Other Current Outpatient prescriptions: progesterone vaginal suppository 200 mg (CPD) Use 200 mg vaginally once daily. predniSONE (DELTASONE) 1 mg tablet Take by mouth with food. Please take 3mg/day x1 month, then 2mg/day x1 month, then 1mg/day x1 month, then stop. progesterone micronized (PROMETRIUM) 200 mg capsule Take 1 capsule by mouth once daily. Allergies: ALLERGIES Allergen Reactions Milk Unknown Shellfish Derived Anaphylaxis Shrimp Anaphylaxis ROS: See HPI PE: 01/28/22 0745 BP: 104/60 Pulse: 64 Resp: 12 Temp: (!) 35.9 C (96.7 F) TempSrc: Right Tympanic Weight: 63 kg (139 lb) Height: 156.5 cm (5' 1.61 ) Gen: A&O, NAD, non-toxic appearing, Pleasant, cooperative HEENT: NT/AC, PERRLA, EOMs intact b/l, nares clear and patent b/l, pharynx without erythema, exudate or lesions. MMM, Uvula midline. EACs without erythema or debris. TMs pearly cortes with intact landmarks b/l. Neck: supple, No cervical LAD, no thyromegaly, no carotid bruits CV: RRR, normal S1 and S2, no murmurs, no gallops, no rubs, Pulses 2+ and symmetric in UE and LE b/l Lungs: normal respiratory effort, CTA b/l, no wheezing or rhonchi or rales Abd: soft, NT, ND, +BS, no hepatosplenomegaly MS: myalgias proximal muscle groups Neuro: CN II-XII intact b/l, strength 5/5 b/l UE and LE, DTRs 2/4 UE and LE, sensation intact. Skin: warm, dry, intact, No rashes or lesions on exposed skin. ASSESSMENT/PLAN: 1. Well adult exam - ICD9: V70.0, ICD10: Z00.00 (primary diagnosis) - Counseled on healthy diet and regular exercise - Calcium intake with supplements or by diet of 1000 mg/day for under 50, 2813-7869 mg/day for 50+ - DXA-AXIAL SKELETON 2. Vitamin D deficiency - ICD9: 268.9, ICD10: E55.9 - VITAMIN D 25 HYDROXY 3. Fatigue, unspecified type - ICD9: 780.79, ICD10: R53.83 - IRON + TIBC - FERRITIN BLD - VITAMIN D 25 HYDROXY - VITAMIN B12 BLOOD - C-REACTIVE PROTEIN (CRP) - SED RATE WESTERGREN 4. On prednisone therapy - ICD9: V58.65, ICD10: Z79.52 - C-REACTIVE PROTEIN (CRP) - SED RATE WESTERGREN - DXA-AXIAL SKELETON 5. 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 Screening for osteoporosis - ICD9: V82.81, ICD10: Z13.820 - DXA-AXIAL SKELETON 7. Thyroid nodule - ICD9: 241.0, ICD10: E04.1 Recheck thyroid ultrasound. - US THYROID/PARATHYROID 8. Varicose veins of both lower extremities with pain - ICD9: 454.8, ICD10: I83.813 - CONSULT TO VASCULAR SURGERY Herber Romero DO To ER if develops chest pain, shortness of breath, or severe worsening of symptoms. Discussed risks, benefits, alternatives, and potential side effects of medications. Patient expressed understanding and agreed with the plan. Herber Romero DO [address] [place] [address] documented in this encounter [facility] 08-27-2021 Miscellaneous Notes Pt called back. Message relayed and pt voiced understaning. Attempted to reach patient. No answer. LMTCB. It is okay for PSR to relay message as written below. Thanks, Patt Conner MA Attempted to reach patient. No answer. LMTCB. It is okay for PSR to relay message as written below. Patt Saavedra MA Please call and inform the patient that her outside lab results are within normal limits. I recommend a slow prednisone taper, starting at 3 mg daily and decreasing by 1 mg per month. She should contact me if she notices any new or worsening symptoms with the taper, or if her symptoms do not improve. ThanksTigre APRN.CNP The following approved medication requests have been transmitted electronically. Signed Prescriptions Disp Refills predniSONE (DELTASONE) 1 mg tablet 120 tablet 2 Sig: Take by mouth with food. Please take 3mg/day x1 month, then 2mg/day x1 month, then 1mg/day x1 month, then stop. AGUSTIN: No Authorizing Provider: TIGRE AMIN APRN.CNP documented in this encounter [facility] 08-25-2021 History of Present illness Narrative Outside labs reviewed and sent for scanning. 08/23/2021: Sed rate 8 (0-30) CRP <2.9 ( 0-3.0) documented in this encounter [facility] 08-19-2021 History of Present illness Narrative Chief complaint: PMR HPI: To review, Alyssa Galan is a 56 year old female - In Jan, noted onset of neck/shoulders and hip/groin pain of the muscles bilaterally. - In Sep, diagnosed with PMR. Given pred rescue dose 10mg/day x3 days, twice: once in Sep and another time in Dec - In Dec, couldn't move around so started on pred 5mg/day - In Jan/Mar, had covid. - at [facility], reports 95% improvement in symptoms with pred 5mg/day. Symptoms can recur if any ongoing stress - Completely GF since August - Currently with a little pain in the hips. - Hasn't needed higher pred doses since Dec when started on 5mg/day PAST MEDICAL HISTORY Diagnosis Date Thyroid nodule Vaginal delivery x3 PMR ALLERGIES Allergen Reactions Milk Unknown Shellfish Derived Anaphylaxis Shrimp Anaphylaxis INTERVAL HISTORY She is here for follow up. She is a patient of Dr. Vines. She tapered off prednisone last week. She reports increased pain when she decreased prednisone to 2 mg daily. She unintentionally tapered off the prednisone faster than advised. Sites of pain: groin, neck, shoulders, pain rated 3/10 Muscle weakness: none Headaches: none Scalp tenderness: none Jaw claudication: none Vision changes: none Joint swelling: none EMS: yes, lasting 60 minutes No recent infections. Tolerating meds. Answers for HPI/ROS submitted by the patient on 08/19/2021 Fever : No Recent Unintentional Weight Change: No Eye Pain: No Eye Redness: No Vision Disturbance: No Eye Dryness: No Nose Bleeds: No Sores in your Mouth: No Trouble Swallowing: No Dry Mouth: No Chest Pain: No Leg Swelling: Yes A Cough: No Shortness of Breath: No Pain with Breathing: No Heartburn: No Abdominal Pain: No Diarrhea: No Black Tarry Stools: No Blood in Urine: No Pain or Burning with Urination: No Joint Pain or Stiffness: Yes Muscle Weakness: No Muscle Aches: Yes Joint Swelling: No Morning Stiffness in Joints: Yes A Rash: No Skin Color Changes: No Hair Loss: No Nail Changes: No Headaches: No Numbness: No Memory Loss: No Swollen Glands: No Current Outpatient Medications Medication Sig predniSONE (DELTASONE) 1 mg tablet Please take 5mg/day x1 month, then 4mg/day x1 month, then 3mg/day x1 month, then 2mg/day x1 month, then 1mg/day x1 month, then stop predniSONE (DELTASONE) 5 mg tablet Take 1 tablet by mouth once daily. progesterone micronized (PROMETRIUM) 200 mg capsule Take 1 capsule by mouth once daily. No current facility-administered medications for this visit. FAMILY HISTORY Problem Relation Age of Onset other (thyroid growth) Mother other (HTN) Mother other (HTN) Father Cardiomyopathy Father 40 congenital other ([employer]) Father other (HTN) Sister 30 other (HTN) Brother other (DM) Brother Breast Cancer Maternal Grandmother 70 mastectomy other (HTN) Maternal Grandfather other (RI) Maternal Grandfather at an old age other (HTN) Paternal Grandmother Arthritis Paternal Grandmother other (RI) Paternal Grandfather 40 Thyroid Other significant with mom's siblings other (Shogren's in an aunt) Other other (niece with autoimmune) Other niece-dermatomyositis SOCIAL HISTORY: Lives in [place] with spouse. 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 Niece is Tiffanie Hunt with dermatomyositis Tobacco use: None Alcohol use: None Drug use: None PHYSICAL EXAM: BP 99/63 Pulse 87 Temp 36.5 C (97.7 F) (Temporal) Ht 157.5 cm (5' 2 ) Wt 63.5 kg (140 lb) LMP 12/04/2019 (Approximate) BMI 25.61 kg/m CONSTITUTIONAL: Well-appearing, in NAD. SKIN: No rash. No alopecia. No sclerodactyly, calcinosis, telangiectasias, digital ulcers, or skin thickening. EYES: No scleral icterus or conjunctivitis HENT and Mouth: External ears normal. No tenderness to scalp or temples. RESPIRATORY: Normal breath sounds, clear to auscultation. CARDIOVASCULAR: Regular rate and rhythm, no murmurs or rubs GASTROENTEROLOGY: Normal bowel sounds. Abdomen is soft and non-tender. EXTREMITIES/LYMPH: No edema bilaterally NEURO: Awake, alert and oriented, Normal gait MUSCULOSKELETAL: JOINT APPEARANCE: No erythema or warmth of any upper or lower extremity joint. RANGE OF MOTION: Able to fully close fists and curl fingers bilaterally. SWOLLEN JOINTS/SYNOVITIS: No synovitis of any joint. TENDER JOINTS: None Muscle strength intact + tenderness to b/l lower extremity distal muscles +tenderness to cervical spine and b/l lateral hips *April Widespread Pain Index: 8 (0-19) Symptoms Severity Scale: 3 (0-12) WPI>7 and SS Scale>5 OR WPI 3-6 and SS Scale >9 consistent with fibromyalgia Labs reviewed and discussed with the patient: Labs done at [facility] on 07/25/2021. Report given to provider for review. TEST RESULTS RANGE WBC 6.7 4.4-11.0 RBC 4.59 4.2-5.4 HGB 13.8 12.0-15.0 HCT 43.9 37-47 PLT 294 150-450 Creatinine, Serum 0.78 0.55-1.02 EST GFR 81 >60 EST GFR - AA 98 >60 CRP 4.12 H 0.0-3.0 SED RATE 4 0-30 ALB 3.7 3.2-5.0 GLOB 3.2 2.2-4.2 AST 14 L 15-37 ALT 18 13-56 CA, Total 8.7 8.5-10.1 *Nov high CRP 10.5 (nl <3) with unremarkable aldolase, scl70, Sm *Oct high CRP 17.3 (nl <3) with unremarkable ESR, ENOCH, TOWBOAT ENGINEER, Sm, CCP, RF, TPO ab *August unremarkable WBC, Hgb, Plt, Cr, AST, ALT, neg HLA B27, TTRGA, TTRGG, *May high CRP 12.7 (nl <3) with unremarkable ESR 11, TSH, CCP, RF, CK *April unremarkable WBC, Hgb, Plt, Cr, AST, ALT STUDIES: none available for review IMPRESSION and PLAN: 1. PMR: With bilateral shoulder/neck and groin/hip pain in the setting of elevated CRP levels (normal ESR) and significant steroid-responsiveness with lower pred doses consistent with PMR. With increased pain after tapering off prednisone faster than advised. -will check labs-order letter given -will make recommendations pending results. -will likely need to try a more gradual prednisone taper and if not successful, then consider HCQ initiation - potential side effects of prednisone previously reviewed including hypertension, insomnia, GI upset/ulcers, elevated blood glucose, weight gain, stretch triplett, cataracts, glaucoma, increased infection risk, glucocorticoid-induced osteoporosis, and avascular necrosis that sometimes requires joint replacement. Written information on medication provided for review. -anti-inflammatory diet previously discussed 2. Bone health: Now on long-term prednisone - Advised about calcium and vitamin D supplementation - Check DEXA once yearly while on long-term prednisone, printed order previously provided. Notify of results via [employer]. She was reminded to schedule this. 3. General health maintenance: - Completed the covid vaccination series in Apr - Continue follow-up with PCP for routine health maintenance and malignancy screening Follow-up in 3-4 months with me or sooner if needed. Patient was instructed to call if any questions or concerns. Thank you for allowing me to participate in the care of your patient. I spent a total of 25 minutes on the date of the service which included preparing to see the patient, [id number] patient care, completing clinical documentation, performing a medically appropriate examination, ordering medications, tests, or procedures and communicating results to the patient/family/caregiver. Tigre Amin APRN.RICKIE documented in this encounter [facility] 07-29-2021 Miscellaneous Notes Patient notified of results, verbalizes understanding of instructions. Patt Conner MA Attempted to reach patient. No answer. LMTCB. It is okay for PSR to relay message as written below. Thanks, Patt Conner MA Please let her know lab results show one inflammation marker is a little higher than normal but not specific. The rest of the results are unremarkable including testing of the blood counts, kidney function, other inflammation marker, and liver function. Take care, Echo Vines MD documented in this encounter [facility] 07-25-2021 Nurse Note Labs done at [facility] on 07/25/2021. Report given to provider for review. TEST RESULTS RANGE WBC 6.7 4.4-11.0 RBC 4.59 4.2-5.4 HGB 13.8 12.0-15.0 HCT 43.9 37-47 PLT 294 150-450 Creatinine, Serum 0.78 0.55-1.02 EST GFR 81 >60 EST GFR - AA 98 >60 CRP 4.12 H 0.0-3.0 SED RATE 4 0-30 ALB 3.7 3.2-5.0 GLOB 3.2 2.2-4.2 AST 14 L 15-37 ALT 18 13-56 CA, Total 8.7 8.5-10.1 Thanks, Patt Conner MA documented in this encounter [facility] Diagnosis Encounter for screening mammogram for breast cancer [facility] Diagnosis Well adult exam- Primary Routine general medical examination at a health care facility Vitamin D deficiency Unspecified vitamin D deficiency Fatigue, unspecified type On prednisone therapy PMR (polymyalgia rheumatica) (HCC) Polymyalgia rheumatica Screening for osteoporosis Special screening for osteoporosis Thyroid nodule Nontoxic uninodular goiter Varicose veins of both lower extremities with pain Varicose veins of lower extremities with other complications [facility] Diagnosis Vitamin D deficiency- Primary Unspecified vitamin D deficiency Fatigue, unspecified type On prednisone therapy PMR (polymyalgia rheumatica) (HCC) Polymyalgia rheumatica [facility] Diagnosis Myalgia- Primary Mylagia and myositis, unspecified Disturbance in sleep behavior Sleep disturbance, unspecified [facility] Diagnosis Candidosis of skin- Primary Candidiasis of skin and nails Rash of face Rash and other nonspecific skin eruption [facility] Diagnosis Candidosis of skin- Primary Candidiasis of skin and nails Rash of face Rash and other nonspecific skin eruption Scalp itch Unspecified pruritic disorder [facility] Diagnosis Encounter for screening mammogram for breast cancer [facility] Diagnosis Well adult exam- Primary Routine general medical examination at a health care facility Candidosis of skin Candidiasis of skin and nails Rash of face Rash and other nonspecific skin eruption Vitamin D deficiency Unspecified vitamin D deficiency PMR (polymyalgia rheumatica) (HCC) Polymyalgia rheumatica Hyperglycemia Other abnormal glucose Fatigue, unspecified type Menopause Symptomatic menopausal or female climacteric states Screening for colon cancer Special screening for malignant neoplasms, colon Encounter for screening mammogram for malignant neoplasm of breast Other screening mammogram Thyroid nodule Nontoxic uninodular goiter documented in this encounter [facility] for referral (narrative)* Diagnostic Procedure Only (Routine) - Pending Review Specialty Diagnoses / Procedures Referred By Roge cordoba Referred To Contact [facility] Diagnoses Encounter for screening mammogram for breast cancer Procedures ARCELIA SCREENING SCREENING MAMMOGRAPHY BI 2-VIEW BREAST INC eHrber Vasquez, DO [address] [place] [address] [facility] [address] [place] [address] Referral ID Status Reason Start Date Expiration Date Visits Requested Visits Authorized [id number] Pending Review Auto-Generat ed Referral 10/01/2021 10/31/2022 1 1 T [facility] for referral (narrative)* Diagnostic Procedure Only (Routine) - Pending Review Specialty Diagnoses / Procedures Referred By Roge cordoba Referred To Contact [facility] Diagnoses Encounter for screening mammogram for breast cancer Procedures ARCELIA SCREENING SCREENING MAMMOGRAPHY BI 2-VIEW BREAST INC CAD Herber Romero DO [address] [place] [address] [facility] [address] [place] [address] Referral ID Status Reason Start Date Expiration Date Visits Requested Visits Authorized [id number] Pending Review Auto-Generat ed Referral 09/02/2022 10/02/2023 1 1 T [facility] for referral (narrative)* Diagnostic Procedure Only (Routine) - Pending Review Specialty Diagnoses / Procedures Referred By Roge t Referred To Contact [facility] Diagnoses Thyroid nodule Procedures US THYROID/PARATHYROID US SOFT TISSUE HEAD & NECK REAL TIME IMGE DOCHerber Aragon DO [address] [place] [address] [place] [id number] Referral ID Status Reason Start Date Expiration Date Visits Requested Visits Authorized [id number] Pending Review Auto-Generat ed Referral 3 03/10/2024 1 1 * Diagnostic Procedure Only (Routine) - Pending Review Specialty Diagnoses / Procedures Referred By Contac t Referred To Contact [facility] Diagnoses Encounter for screening mammogram for malignant neoplasm of breast Procedures ARCELIA SCREENING W AMALIA SCREENING DIGITAL BREAST TOMOSYNTHESIS BI SCREENING MAMMOGRAPHY BI 2-VIEW BREAST INC CAD Herber Romero, DO [address] [place] [address] [facility] [address] [place] [address] Referral ID Status Reason Start Date Expiration Date Visits Requested Visits Authorized [id number] Pending Review Auto-Generat ed Referral 3 03/10/2024 1 1 [facility] Reason for Referral Specialty Diagnoses / Procedures Referred By Contac t Referred To Contact Vascular Surgery Diagnoses Varicose veins of both lower extremities with pain Procedures CONSULT TO VASCULAR SURGERY OFFICE/OUTPATIENT [facility] MDM 60-74 MINUTES Herber Romero, DO [address] [place] [address] Referral ID Status Reason Start Date Expiration Date Visits Requested Visits Authorized [id number] Authorized PCP Requested Referral 2 01/28/2023 1 1 Specialty Diagnoses / Procedures Referred By Contac t Referred To Contact [facility] Diagnoses Thyroid nodule Procedures US THYROID/PARATHYROID US SOFT TISSUE HEAD & NECK REAL TIME IMGE DOCM Herber Romero, DO [address] [place] [address] [facility] Referral ID Status Reason Start Date Expiration Date Visits Requested Visits Authorized [id number] Pending Review Auto-Generat ed Referral 2 02/27/2023 1 1 Specialty Diagnoses / Procedures Referred By Contac t Referred To Contact Dermatology Diagnoses Candidosis of skin Rash of face Scalp itch Procedures CONSULT TO DERMATOLOGY Herber Romero, DO [address] [place] [address] Referral ID Status Reason Start Date Expiration Date Visits Requested Visits Authorized [id number] Ref Not Required PCP Requested Referral 07/13/2022 07/13/2023 1 1 Summary Purpose Family History No Family History Records Found Advance Directives No Advanced Directives Records Found Additional Source Comments Source Comments (unrecognize d section and content) In the event this informatio n is protected by the Federal Confidentiality of Alcohol and Drug Abuse Patient Records regulations: The Federal rules restrict any use of the information to criminally investigate or prosecute any alcohol or drug abuse patient.[facility] the event this information is protected by the Federal Confidentiality of Alcohol and Drug Abuse Patient Records regulations: The Federal rules restrict any use of the information to criminally investigate or prosecute any alcohol or drug abuse patient.[facility] the event this information is protected by the Federal Confidentiality of Alcohol and Drug Abuse Patient Records regulations: The Federal rules restrict any use of the information to criminally investigate or prosecute any alcohol or drug abuse patient.[facility] the event this information is protected by the Federal Confidentiality of Alcohol and Drug Abuse Patient Records regulations: The Federal rules restrict any use of the information to criminally investigate or prosecute any alcohol or drug abuse patient.[facility] the event this information is protected by the Federal Confidentiality of Alcohol and Drug Abuse Patient Records regulations: The Federal rules restrict any use of the information to criminally investigate or prosecute any alcohol or drug abuse patient.[facility] the event this information is protected by the Federal Confidentiality of Alcohol and Drug Abuse Patient Records regulations: The Federal rules restrict any use of the information to criminally investigate or prosecute any alcohol or drug abuse patient.[facility] the event this information is protected by the Federal Confidentiality of Alcohol and Drug Abuse Patient Records regulations: The Federal rules restrict any use of the information to criminally investigate or prosecute any alcohol or drug abuse patient.[facility] the event this information is protected by the Federal Confidentiality of Alcohol and Drug Abuse Patient Records regulations: The Federal rules restrict any use of the information to criminally investigate or prosecute any alcohol or drug abuse patient.[facility] the event this information is protected by the Federal Confidentiality of Alcohol and Drug Abuse Patient Records regulations: The Federal rules restrict any use of the information to criminally investigate or prosecute any alcohol or drug abuse patient.[facility] the event this information is protected by the Federal Confidentiality of Alcohol and Drug Abuse Patient Records regulations: The Federal rules restrict any use of the information to criminally investigate or prosecute any alcohol or drug abuse patient.[facility] the event this information is protected by the Federal Confidentiality of Alcohol and Drug Abuse Patient Records regulations: The Federal rules restrict any use of the information to criminally investigate or prosecute any alcohol or drug abuse patient.[facility] the event this information is protected by the Federal Confidentiality of Alcohol and Drug Abuse Patient Records regulations: The Federal rules restrict any use of the information to criminally investigate or prosecute any alcohol or drug abuse patient.[facility] the event this information is protected by the Federal Confidentiality of Alcohol and Drug Abuse Patient Records regulations: The Federal rules restrict any use of the information to criminally investigate or prosecute any alcohol or drug abuse patient.[facility] the event this information is protected by the Federal Confidentiality of Alcohol and Drug Abuse Patient Records regulations: The Federal rules restrict any use of the information to criminally investigate or prosecute any alcohol or drug abuse patient.[facility] Hospital[facility] the event this information is protected by the Federal Confidentiality of Alcohol and Drug Abuse Patient Records regulations: The Federal rules restrict any use of the information to criminally investigate or prosecute any alcohol or drug abuse patient.[facility] Reason for Visit (unrecogniz ed section and content) Reason Comments Results Reason Comments New Patient Reason Comments Yearly Exam Reason Comments Lab orders and medication question Reason Comments Rash Itchy rash face and neck x 1 month Reason Comments Patient Update Care Teams (unrecognized sec tion and content) Foil Stamp Operator Relationship Specialty Start Date End Date Herber Romero, DO [address] [facility] [place] [address] PCP - General Family Practice 10/16/20 Gypsy Cannon, DO [address] [facility] [address] [place] [address] 10/16/20 Foil Stamp Operator Relationship Specialty Start Date End Date Herber Romero, DO [address] [facility] [place] [address] PCP - General Family Practice 10/16/20 Gypsy Cannon, DO [address] [facility] [address] [place] [address] 10/16/20 Foil Stamp Operator Relationship Specialty Start Date End Date Herber Romero, DO [address] [facility] [place] [address] PCP - General Family Practice 10/16/20 Gypsy Cannon, DO [address] [facility] [address] [place] [address] 10/16/20 Foil Stamp Operator Relationship Specialty Start Date End Date Herber Romero, DO [address] [facility] [place] [address] PCP - General Family Practice 10/16/20 Gypsy Cannon, DO [address] [facility] [address] [place] [address] 10/16/20 Foil Stamp Operator Relationship Specialty Start Date End Date Herber Romero, DO [address] [place] [place] [address] PCP - General Family Practice 10/16/20 Gypsy Cannon, DO [address] [facility] [address] [place] [address] 10/16/20 Foil Stamp Operator Relationship Specialty Start Date End Date Herber Romero, DO [address] [place] [place] [address] PCP - General Family Medicine 10/16/20 Gypsy Cannon, DO [address] [facility] [address] [place] [address] 10/16/20 Foil Stamp Operator Relationship Specialty Start Date End Date Herber Romero, DO [address] [place] [place] [address] PCP - General Family Medicine 10/16/20 Gypsy Cannon, DO [address] [facility] [address] [place] [address] 10/16/20 Foil Stamp Operator Relationship Specialty Start Date End Date Herber Romero, DO [address] [place] [place] [address] PCP - General Family Medicine 10/16/20 Davis Gypsy A, DO [address] [facility] [address] [place] [address] 10/16/20 Foil Stamp Operator Relationship Specialty Start Date End Date Herber Romero, DO [address] [place] [place] [address] PCP - General Family Medicine 10/16/20 Charles Cannona A, DO [address] [facility] [address] [place] [address] 10/16/20 Foil Stamp Operator Relationship Specialty Start Date End Date Herber Romero DO [address] [facility] [place] [address] PCP - General Family Medicine 10/16/20 Gypsy Cannon DO [address] [facility] [address] [place] [address] 10/16/20 Foil Stamp Operator Relationship Specialty Start Date End Date Herber Romero DO [address] [facility] [place] [address] PCP - General Family Medicine 10/16/20 Gypsy Cannon DO [address] [facility] [address] [place] [address] 10/16/20 Foil Stamp Operator Relationship Specialty Start Date End Date Herber Romero DO [address] [facility] [place] [address] PCP - General Family Medicine 10/16/20 Gypsy Cannon DO [address] [facility] [address] [place] [address] 10/16/20 Foil Stamp Operator Relationship Specialty Start Date End Date Herber Romero DO [address] [facility] [place] [address] PCP - General Family Medicine 10/16/20 Gypsy Cannon DO [address] [facility] [address] [place] [address] 10/16/20 INFORMATION SOURCE (unrecogn ized section and content) FOR RECORDS PERTAINING TO PATIENTS WHO ARE OR HAVE BEEN ENROLLED IN A CHEMICAL DEPENDENCY/SUBSTANCEABUSE PROGRAM, SOME INFORMATION MAY BE OMITTED. This clinical summary was aggregated from multiple sources. Caution should be exercised in using it in the provision of clinical care. This summary normalizes information from multiple sources, and as a consequence, information in this document may materially change the coding, format and clinical context of patient data. In addition, data may be omitted in some cases. CLINICAL DECISIONS SHOULD BE BASED ON THE PRIMARY CLINICAL RECORDS. [facility]. provides no warranty or guarantee of the accuracy or completeness of information in this document.
== END | disposition home or self-care (01) ==
PROVIDERS: PCP Student in an Organized Health Care Education/Training Program; Referring Provider Student in an Organized Health Care Education/Training Program; Visit Provider Student in an Organized Health Care Education/Training Program
DX: Z12.31 Encounter for screening mammogram for malignant neoplasm of breast (principal)
CPT/HCPCS: 76536; 77063; 77067

== ENCOUNTER → 2023-04-26 | Outpatient (CLI) | payer OTHER, SELFPAY ==
--- NOTE | 2023-04-26 11:08 | CT_ITS ---
STUDY: CT ABDOMEN AND PELVIS WITH CONTRAST REASON FOR EXAM: Female, 57 years old. 3 week history of LLQ ABDOMINAL PAIN RADIATION DOSAGE (If Supplied By Facility): CTDIvol = ( 11.39 ) mGy, DLP = ( 642.06 ) mGycm TECHNIQUE: Transaxial images were obtained from the dome of the diaphragm to the symphysis pubis with oral contrast. Oral and amp; IV Gastrografin and amp; 100mL Isovue-300 was administered. Sagittal and coronal images were reconstructed. Individualized dose optimization techniques were used for this CT. COMPARISON: None. FINDINGS: The visualized lung bases are unremarkable. The visualized portions of the heart are within normal limits. Normal liver. Normal gallbladder and extrahepatic biliary system. Normal spleen. Normal pancreas. Normal bilateral adrenal glands. Normal right kidney. There is evidence of a mild degree of left hydronephrosis and left hydroureter due to a 4.6 mm calculus at the left ureterovesical junction. Normal visualized stomach. Normal small intestine. Normal colon. The appendix is visualized and appears normal. Normal abdominal aorta. Normal inferior vena cava. Normal retroperitoneum. Normal urinary bladder. Normal abdominal wall. There are mild degenerative changes of the visualized lumbar spine. CT/Abdomen/Pelvis WITH Contrast IMPRESSION: 4.6 mm calculus at the left ureterovesical junction causing a mild degree of left hydronephrosis and hydroureter. Electronically Signed: Milton Irving MD at 12:21 EST ,
--- OUTSIDE RECORDS SUMMARY | 2023-04-26 18:40 | XMS RPT_ITS | CCD ---
Author Name Unknown Address [address] [place] [address] Organization [facility] Care Team Providers Care P D Driver Name Role Phone Herber Romero DO Primary Care Provider [phone] Gypsy Cannon DO Unavailable HERBER ROMERO Attending Unavailable HERBER ROMERO Primary Care Unavailable HERBER ROMERO Primary Care Unavailable CHERRY MEAD Attending Unavailable Allergies Allergy Classification Reported Allergen(s) Allergy Type Date of Onset Reaction(s) Facility (17 sources) cow milk allergenic extract; Translations: [MILK] Drug Allergy 10-16-2020 Unknown [facility] (17 sources) Shellfish; Translations: [SHELLFISH DERIVED] Drug Allergy 10-16-2020 Anaphylaxis [facility] (17 sources) shrimp allergenic extract; Translations: [SHRIMP] Drug Allergy 10-16-2020 Anaphylaxis [facility] Medications Current Medications Medication Drug Class(es) [...] (Original) cholecalciferol, vitamin D3, (VITAMIN D3 ORAL) (7 sources) cholecalciferol, vitamin D3, (VITAMIN D3 ORAL) Take by mouth. 0 Active Problems Active Problems Problem Classification Problem Date Documented Da te Episodic/Chronic Diabetes mellitus without complication (1 source) Hyperglycemia; Translations: [Hyperglycemia, unspecified] 02-09-2023 Episodic Disorders of lipid metabolism (16 sources) Dyslipidemia; Translations: [Hyperlipidemia, unspecified] Onset: 12-09-2020 12-09-2020 Chronic Nutritional deficiencies (3 sources) Vitamin D deficiency; Translations: [Vitamin D deficiency, unspecified] Chronic Other aftercare (1 source) Long-term current use of systemic steroid; Translations: [USP (current) use of systemic steroids] Episodic Other aftercare (2 sources) Drug therapy finding; Translations: [USP (current) use of systemic steroids] Episodic Other [...] Classification Problem Date Documented Da te Episodic/Chronic Malaise and fatigue (19 sources) Muscle weakness; Translations: [Weakness] Onset: 12-09-2020 12-09-2020 Episodic Mycoses (4 sources) Candidiasis of skin; Translations: [Candidiasis of skin and nail] Onset: 07-01-2022 Episodic Other connective tissue disease (17 sources) Muscle pain; Translations: [Myalgia, unspecified site] Onset: 12-09-2020 12-09-2020 Episodic Other connective tissue disease (16 sources) Shoulder pain; Translations: [Myalgia, other site] Onset: 12-09-2020 12-09-2020 Episodic Other connective tissue disease (16 sources) Pain of bilateral thighs; Translations: [Pain in right thigh] Onset: 12-09-2020 12-09-2020 Episodic Other skin disorders (1 source) Rash and other nonspecific skin eruption; Translations: [Rash of face] Onset: 07-01-2022 Episodic Results Test Name Value Interpretation Reference Range Facil ity Vital Signs Date Time Vital Sign Value Performing Clinician Faci olivery 02-09-2023 08:04-0500 Body height 159 cm Herber Romero DO Work Phone: [facility] 02-09-2023 08:04-0500 Body temperature 97.59 [degF] Herber Romero DO Work Phone: [facility] 02-09-2023 08:04-0500 Body weight 65.77 kg Herber Romero DO Work Phone: [facility] 02-09-2023 08:04-0500 Diastolic blood pressure 74 mm[Hg] Herber Romero DO Work Phone: [facility] 02-09-2023 08:04-0500 Heart rate 80 /min Herber Romero DO Work Phone: [facility] 02-09-2023 08:04-0500 Respiratory rate 16 /min Herber Romero DO Work Phone: [facility] 02-09-2023 08:04-0500 Systolic blood pressure 118 mm[Hg] Herber Romero DO Work Phone: [facility] 07-01-2022 15:27-0400 Body weight 65.86 kg Cherry Mead RESIDENTIAL ADVISOR.STUDENT ACTIVITIES DIRECTOR Work Phone: [facility] 07-01-2022 15:27-0400 Diastolic blood pressure 82 mm[Hg] Cherry Alyce RESIDENTIAL ADVISOR.STUDENT ACTIVITIES DIRECTOR Work Phone: [facility] 07-01-2022 15:27-0400 Heart rate 87 /min Cherry Mead RESIDENTIAL ADVISOR.STUDENT ACTIVITIES DIRECTOR Work Phone: [facility] 07-01-2022 15:27-0400 SaO2% (BldA) [Mass fraction] 97 % Cherry Mead RESIDENTIAL ADVISOR.STUDENT ACTIVITIES DIRECTOR Work Phone: [facility] 07-01-2022 15:27-0400 Systolic blood pressure 124 mm[Hg] Cherry Mead APRGmSTUDENT ACTIVITIES DIRECTOR Work Phone: [facility] 04-16-2022 14:49-0500 Body height 156.5 cm Chauncey Man MD, PhD Work Phone: [facility] 04-16-2022 14:49-0500 Body temperature 99.1 [degF] Chauncey Man MD, PhD Work Phone: [facility] 04-16-2022 14:49-0500 Body weight 64.82 kg Chauncey Man MD, PhD Work Phone: [facility] 04-16-2022 14:49-0500 Diastolic blood pressure 65 mm[Hg] Chauncey Man MD, PhD Work Phone: [facility] 04-16-2022 14:49-0500 Heart rate 77 /min Chauncey Man MD, PhD Work Phone: [facility] 04-16-2022 14:49-0500 Systolic blood pressure 133 mm[Hg] Chauncey Man MD, PhD Work Phone: [facility] 01-28-2022 07:45-0500 Body height 156.5 cm Herber Romero DO Work Phone: [facility] 01-28-2022 07:45-0500 Body temperature 96.69 [degF] Herber Romero DO Work Phone: [facility] 01-28-2022 07:45-0500 Body weight 63.05 kg Herber Romero DO Work Phone: [facility] 01-28-2022 07:45-0500 Diastolic blood pressure 60 mm[Hg] Herber Romero DO Work Phone: [facility] 01-28-2022 07:45-0500 Heart rate 64 /min Herber Romero DO Work Phone: [facility] 01-28-2022 07:45-0500 Respiratory rate 12 /min Herber Romero DO Work Phone: [facility] 01-28-2022 07:45-0500 Systolic blood pressure 104 mm[Hg] Herber Romero DO Work Phone: [facility] 08-19-2021 10:51-0400 Body height 157.5 cm Tigre Amin RESIDENTIAL ADVISOR.STUDENT ACTIVITIES DIRECTOR Work Phone: [facility] 08-19-2021 10:51-0400 Body temperature 97.7 [degF] Tigre Amin RESIDENTIAL ADVISOR.STUDENT ACTIVITIES DIRECTOR Work Phone: [facility] 08-19-2021 10:51-0400 Body weight 63.5 kg Tigre Amin RESIDENTIAL ADVISOR.STUDENT ACTIVITIES DIRECTOR Work Phone: [facility] 08-19-2021 10:51-0400 Diastolic blood pressure 63 mm[Hg] Tigre Amin RESIDENTIAL ADVISOR.STUDENT ACTIVITIES DIRECTOR Work Phone: [facility] 08-19-2021 10:51-0400 Heart rate 87 /min Tigre Amin RESIDENTIAL ADVISOR.STUDENT ACTIVITIES DIRECTOR Work Phone: [facility] 08-19-2021 10:51-0400 Systolic blood pressure 99 mm[Hg] Tigre Amin RESIDENTIAL ADVISOR.STUDENT ACTIVITIES DIRECTOR Work Phone: [facility] Encounters Encounter Date Encounter Type Care Provider Facility Start: 04-14-2023 Telephone encounter Herber ding DO Work Phone: [facility] Procedures Date Procedure Procedure Detail Performing Clinician Start: 11-27-2020 Adult depression screening assessment Echo Vines MD Work Phone: Plan of Treatment Date Care Activity Detail Author Start: 04-02-2026 Screening for malign ant neoplasm of colon [facility] Start: 03-08-2024 Screening for malign ant neoplasm of breast Mammogram Screening [facility] Start: 02-10-2024 Covid-19 Vaccine ( season) Covid-19 Vaccine ( season) [facility] Immunizations Immunization Date Immunization Notes Care Provider Fa cilithomas 12-29-2021 influenza virus vacc ine, unspecified formulation Herber Romero DO Work Phone: [facility] 04-01-2020 COVID-19 vaccine, fu ll dose (MODERNA) Echo Vines MD Work Phone: [facility] 03-04-2020 COVID-19 vaccine, fu ll dose (MODERNA) Echo Vines MD Work Phone: [facility] 11-24-2018 influenza, seasonal, injectable, preservative free Echo Vines MD Work Phone: [facility] 12-13-2017 influenza, seasonal, injectable, preservative free Echo Vines MD Work Phone: [facility] 12-16-2015 influenza, seasonal, injectable, preservative free Echo Vines MD Work Phone: [facility] 11-29-2013 influenza, seasonal, injectable, preservative free Echo Vines MD Work Phone: [facility] 03-13-2013 influenza, seasonal, injectable, preservative free Echo Vines MD Work Phone: [facility] Payers Date Payer Category Payer Unknown MMO MMO [employer] [id number] 2019-Present [phone] [address] [place] [address] O [id number] 2019 Unknown [id number] 2019 Unknown [id number] Social History Date Type Detail Facility Start: 10-16-2020 End: 01-28-2022 Tobacco smoking status NHIS Never smoked tobacco [facility] Start: 10-16-2020 End: 01-28-2022 Tobacco use and exposure Smokeless tobacco non-user [facility] Start: 03-31-2021 End: 02-09-2023 Alcohol intake Lifetime non-drinker (finding) [facility] Start: 11-27-2020 End: 01-27-2022 History SDOH Alcohol Frequency 1 [facility] Start: 11-27-2020 End: 01-27-2022 History SDOH Social Connections Phone 5 [facility] Start: 11-27-2020 End: 01-27-2022 History SDOH Social Connections Caodaism 3 [facility] Start: 11-27-2020 History SDOH Physica l Activity MPS 6 [facility] Start: 11-27-2020 End: 01-27-2022 History SDOH Stress 2 [facility] Start: 11-27-2020 Education 17 [facility] Start: 1965 Sex Assigned At Female [facility] Start: 08-09-2021 End: 01-28-2022 Exposure to SARS-CoV-2 (event) Not sure [facility] Start: 01-27-2022 History SDOH Alcohol Std Drinks 0 [facility] Start: 01-27-2022 End: 02-08-2023 History of Social function [facility] Start: 01-27-2022 End: 02-08-2023 Social connection and isolation panel [facility] Do you belong to any clubs or organizations such as mandaeism groups, unions, fraternal or athletic groups, or school groups? Yes [facility] Are you now , , , , never or living with a partner? [facility] How often to you hav e a drink containing alcohol? Never [facility] How many standard dr inks containing alcohol do you have on a typical day? Patient does not drink [facility] Do you feel stress - tense, restless, nervous, or anxious, or unable to sleep at night because your mind is troubled all the time - these days [OSQ] Not at all [facility] (I/We) worried rashaun er (my/our) food would run out before (I/we) got money to buy more. Never true [facility] In the past 12 month s, was there a time when you were not able to pay the mortgage or rent on time? No [facility] Start: 11-27-2020 Gender identity Identifies as female gender (finding) [facility] Start: 11-27-2020 Sexual orientation Heterosexual (niru valladares) [facility] Clinical Notes 07-25-2021 to 04-15-2023 Telephone Encounter - Evelin Myrick RN - 04/15/2023 1:37 PM ESTTelephone Encounter - John Cowan - 04/15/2023 1:33 PM ESTTelephone Encounter - Herber Romero DO - 04/14/2023 9:13 PM EST Note Date & Type Note Facility 04-15-2023 Miscellaneous Notes Spoke with patient. Given message from provider's office. Patient verbalizes understanding. Evelin Myrick RN Left message to return call John Cowan Please let patient know that her Cologuard is negative /Herber Romero DO documented in this encounter [facility] 02-09-2023 Note HNO ID: [id number] Author: Herber Romero DO Service: ? Author Type: Physician Type: Progress Notes Filed: 02/09/2023 1:54 PM Note Text: CC: Celia Galna is a 57 year old female who presents to the office for physical HPI: Hx of thyroid nodules, last US thyroid at [facility] in 2019. No globus symptoms. Does have chronic fatigue B/l proximal muscle weakness and aching, worse at end of the day. Has changed her diet to gluten free completely and is trying to avoid sugars as well. Feels this has helped her symptoms. She was seen by Trust Officer and tapered off her prednisone and she [...] 69 mastectomy other (HTN) Maternal Grandfather other ([place]) Maternal Grandfather at an old age other (HTN) Paternal Grandmother Arthritis Paternal Grandmother other ([place]) Paternal Grandfather 40 Thyroid Other significant with mom's siblings other (Shogren's in an aunt) Other other (niece with autoimmune) Other Current Outpatient prescriptions: cholecalciferol, vitamin D3, (VITAMIN D3 ORAL) Take by mouth. wjjvnpd-zzqd-ztyim-oreg-capryl 100 mg-150 mg- 50 mg-150 mg cap [...] diet of 1000 mg/day for under 50, 6641-7740 mg/day for 50+ - HGB A1C - [...] labs, continue anti inflammatory diet. F/u with Trust Officer as needed. - C-REACTIVE PROTEIN (CRP) - SED RATE WESTERGREN 6. Hyperglycemia - ICD9: 790.29, ICD10: R73.9 - HGB A1C 7. Fatigue, unspecified type - ICD9: 780.79, ICD10: R53.83 See above - VITAMIN D 25 HYDROXY - VITAMIN B12 BLOOD - CORTISOL BLD 8. Menopause - ICD9: 627.2, ICD10: Z78.0 See above, f/u with G[facility]ITE NOZZLE OPERATOR - TESTOSTERONE, FREE AND TOTAL - PROGESTERONE [...] with supplements or by diet (goal of 2119-1431 mg/day - Colon cancer screening reviewed and colonoscopy recommended - ARCELIA SCREENING W AMALIA 11. Thyroid nodule - ICD9: 241.0, ICD10: E04.1 Recheck labs and thyroid US - US THYROID/PARATHYROID Herber L Romero, DO To ER if develops chest pain, shortness of breath, or severe (more content not included)... [facility] 02-09-2023 History of Present illness Narrative CC: Celia Galan is a 57 year old female who presents to the office for physical HPI: Hx of thyroid nodules, last US thyroid at [facility] in 2019. No globus symptoms. Does have chronic fatigue B/l proximal muscle weakness and aching, worse at end of the day. Has changed her diet to gluten free completely and is trying to avoid sugars as well. Feels this has helped her symptoms. She was seen by Trust Officer and tapered off her prednisone and she [...] 69 mastectomy other (HTN) Maternal Grandfather other ([place]) Maternal Grandfather at an old age other (HTN) Paternal Grandmother Arthritis Paternal Grandmother other ([place]) Paternal Grandfather 40 Thyroid Other significant with mom's siblings other (Shogren's in an aunt) Other other (niece with autoimmune) Other Current Outpatient prescriptions: cholecalciferol, vitamin D3, (VITAMIN D3 ORAL) Take by mouth. ubqrbho-uapz-tzcip-oreg-capryl 100 mg-150 mg- 50 mg-150 mg cap [...] diet of 1000 mg/day for under 50, 0929-4513 mg/day for 50+ - HGB A1C - [...] labs, continue anti inflammatory diet. F/u with Trust Officer as needed. - C-REACTIVE PROTEIN (CRP) - SED RATE WESTERGREN 6. Hyperglycemia - ICD9: 790.29, ICD10: R73.9 - HGB A1C 7. Fatigue, unspecified type - ICD9: 780.79, ICD10: R53.83 See above - VITAMIN D 25 HYDROXY - VITAMIN B12 BLOOD - CORTISOL BLD 8. Menopause - ICD9: 627.2, ICD10: Z78.0 See above, f/u with GUNITE NOZZLE OPERATOR - TESTOSTERONE, FREE AND TOTAL - PROGESTERONE [...] with supplements or by diet (goal of 1543-7136 mg/day - Colon cancer screening reviewed and [...] agreed with the plan. Herber Romero DO [address] [place] [address] documented in this encounter [facility] 09-02-2022 Note Patient Outreach (IN TMMN) CELIA GALAN ([id number]) 1965 F CHT Date Time Provider Department 09/02/22 HERBER ROMERO INTVIKI During your visit today, we recorded the following information about you: Allergies As of Date: 09/02/2022 Noted Allergy Reaction MILK 10/16/2020 16 - Unknown SHELLFISH DERIVED 10/16/2020 10 - Anaphylaxis SHRIMP 10/16/2020 10 - Anaphylaxis Date Reviewed: 07/01/2022 Reviewed by: Cherry Mead APRN.STUDENT ACTIVITIES DIRECTOR - Fully Assessed Visit Diagnosis:Encounter for screening mammogram for breast cancer [Z12.31] Order(s):ARCELIA SCREENING [[id number]] Order #: [id number] FUTURE Prescriptions as of 09/07/2022 - nystatin (MYCOSTATIN) cream Apply to affected area twice daily. - ketoconazole (NIZORAL) 2 % shampoo Apply to affected area two times a week. - cholecalciferol, vitamin D3, (VITAMIN D3 ORAL) Take by mouth. - xtujssf-szsi-ljbnn-oreg-capryl 100 mg-150 mg- 50 mg-150 mg cap [...] thighs [M79.651, M79.652] 12/09/2020 Encounter Status:Closed by MANPREET CROOKS on 09/07/22 [facility] 07-13-2022 Miscellaneous Notes Consult faxed to [facility] [...] Provider: HERBER ROMERO Ordering User: CHERRY MEAD APRN.CNP Addended by: JOHN COWAN on: 07/13/2022 02:27 PM Modules accepted: Orders Pt informed, verbalized understanding. Pt reports rash has worsened. Please send all scripts including oral med for itching to [facility]. Pt would like to proceed with Derm consult at time time. Pended. Will need faxed to [facility] per pt request. John Cowan Addended by: CHERRY MEAD on: 07/13/2022 02:08 PM Modules accepted: Orders Per her original [place] message, had the face rash improved by [...] Provider: HERBER ROMERO Ordering User: CHERRY MEAD APRN.CNP PT states that the rash is just [...] her today, if possible? Thank you. (COPIED) Celia Galan Wstr [facility] My Chart Rx Pool (supporting Cherry Mead APRN.CNP) 2 days ago JK Finished 7 day script of diflucan yesterday 07/07 Rash on face about 80% improved- scalp still ridiculously itchy despite using shampoo. Have used nystatin cream on face bid. Any other ideas/treatment options? Thx so much Celia galan documented in this encounter [facility] 07-10-2022 Miscellaneous Notes See TE 07/10/22. Will close this encounter. Poonam Brown RN See patient update below. Anisa Griffiths LPN documented in this encounter [facility] 07-01-2022 Note HNO ID: [id number] Author: Cherry Mead APRN.STUDENT ACTIVITIES DIRECTOR Service: ? Author Type: Nurse Practitioner Type: Progress Notes Filed: 07/01/2022 4:21 PM Note Text: Chief Complaint Patient presents with: Rash: Itchy rash face and neck x 1 month HPI Celia Galan is a 57 year old female [...] 69 mastectomy other (HTN) Maternal Grandfather other ([place]) Maternal Grandfather at an old age other (HTN) Paternal Grandmother Arthritis Paternal Grandmother other ([place]) Paternal Grandfather 40 Thyroid Other significant with mom's siblings other (Shogren's in an aunt) Other other (niece with autoimmune) Other Patient Allergies ALLERGIES Allergen Reactions Milk Unknown Shellfish Derived Anaphylaxis Shrimp Anaphylaxis Current Medications Current Outpatient Medications on File Prior to Visit Medication Sig cholecalciferol, vitamin D3, (VITAMIN D3 ORAL) Take by mouth. syzjxli-xrai-clfpq-oreg-capryl 100 mg-150 mg- 50 mg-150 mg cap [...] KETOCONAZOLE 2 % SHAMPOO Cherry Mead APRN.RICKIE [facility] 07-01-2022 History of Present illness Narrative Chief Complaint Patient presents with: Rash: Itchy rash face and neck x 1 month HPI Celia Galan is a 57 year old female [...] 69 mastectomy other (HTN) Maternal Grandfather other ([place]) Maternal Grandfather at an old age other (HTN) Paternal Grandmother Arthritis Paternal Grandmother other ([place]) Paternal Grandfather 40 Thyroid Other significant with mom's siblings other (Shogren's in an aunt) Other other (niece with autoimmune) Other Patient Allergies ALLERGIES Allergen Reactions Milk Unknown Shellfish Derived Anaphylaxis Shrimp Anaphylaxis Current Medications Current Outpatient Medications on File Prior to Visit Medication Sig cholecalciferol, vitamin D3, (VITAMIN D3 ORAL) Take by mouth. jaackxs-xzcd-phdsf-oreg-capryl 100 mg-150 mg- 50 mg-150 mg cap [...] - KETOCONAZOLE 2 % SHAMPOO Cherry Mead APRN.STUDENT ACTIVITIES DIRECTOR documented in this encounter [facility] 04-16-2022 History of Present illness Narrative nicu [...] for upper back and hip girdle muscles. Chauncey Man MD, PhD Answers submitted by the patient [...] Swollen Glands: No documented in this encounter [facility] 04-14-2022 Miscellaneous Notes Vit D and Vit b12 refaxed to [facility]. Pt. informed. Labs are overall normal/stable except for slightly high CRP levels. This needs to be managed by Trust Officer. Please inform patient Herber Romero DO Pt had blood work done. View External Lab - Chemistry [ID [id number]] documented in this encounter [facility] 04-10-2022 Miscellaneous Notes Faxed labs to [facility] Patient left message on [email or web address] vm Fatou Lund Ma Labs ordered, please fax and notify her Herber Romero DO Patient reports Trust Officer moved her appt back 2 mths, so she waited to get the labs done closer to the time. When she went to [facility] lab, learned the lab orders were . Asking pcp to re-order the labs and send to [facility] lab (fax # [phone]). Reports she will run out of prednisone 6 days prior to her Rheum appt. Asking if pcp would send refill to [facility] Pharmacy? Pended. documented in this encounter [facility] 01-28-2022 History of Present illness Narrative CC: Celia Galan is a 56 year old female who presents to the office for physical HPI: She was originally seen in the office on 10/16 by Shanta Alyce DAMIAN, at that time: Has been having a lot of pain that started last fall. Pain: neck, lzslkhx-pvhdbnblicr-vnktsxxzr ROM, hip pain, groin bone pain, backs [...] an appt set up for Rheum in [facility] with Dr. Vines At follow up with Shanta Mead CNP on 11/29 Feels like things are a little bit better. Has gone gluten free. Feels like her joint pain, specifically her knees. Started estrogen and progesterone by holistic physician. This has helped things a bit as well. Dr. Junior-hormone clinic in [place]. She also started her on a low dose T3/T4 supplementation. Called Triiodothyronine (T3-5mcg, T4-20mcg). Had a massage. Could the toxins have been released. [place] terrible. Couldn't get up off the floor, [...] at that time and was referred to Trust Officer Seen for follow up Mar 2021 She has been taking prednisone 5 mg a day for the last 2 months with benefit. She was supposed to see Trust Officer in [facility] but appt was last minute canceled and [...] to be getting a 2nd opinion by Trust Officer Dr. Man in 1-2 months. Wondering what supplement that [...] 69 mastectomy other (HTN) Maternal Grandfather other ([place]) Maternal Grandfather at an old age other (HTN) Paternal Grandmother Arthritis Paternal Grandmother other ([place]) Paternal Grandfather 40 Thyroid Other significant with [...] diet of 1000 mg/day for under 50, 5712-6058 mg/day for 50+ - DXA-AXIAL SKELETON 2. [...] - ICD9: 725, ICD10: M35.3 F/u with Trust Officer - IRON + TIBC - FERRITIN BLD [...] with the plan. Herber Romero DO [address] [place] [address] documented in this encounter [facility] 08-27-2021 Miscellaneous Notes Pt called back. Message relayed and pt voiced understaning. Attempted to reach patient. No answer. LMTCB. It is okay for PSR to relay message as written below. Thanks, Patt Conner MA Attempted to reach patient. No answer. LMTCB. It is okay for PSR to relay message as written below. Thanks, Patt Conner MA Please call and inform the patient that her outside lab results are within normal limits. I recommend a slow prednisone taper, starting at 3 mg daily and decreasing by 1 mg per month. She should contact me if she notices any new or worsening symptoms with the taper, or if her symptoms do not improve. Thanks, Tigre Amin APRN.CNP The following approved medication requests have been transmitted electronically. Signed Prescriptions Disp Refills predniSONE (DELTASONE) 1 mg tablet 120 tablet 2 Sig: Take by mouth with food. Please take 3mg/day x1 month, then 2mg/day x1 month, then 1mg/day x1 month, then stop. AGUSTIN: No Authorizing Provider: TIGRE AMIN APRN.RICKIE documented in this encounter [facility] 08-25-2021 History of Present illness Narrative Outside labs reviewed and sent for scanning. 08/23/2021: Sed rate 8 (0-30) CRP <2.9 ( 0-3.0) documented in this encounter [facility] 08-19-2021 History of Present illness Narrative Chief complaint: PMR HPI: To review, Celia Galan is a 56 year old female - In Jan, noted onset of neck/shoulders and hip/groin pain of the muscles bilaterally. - In Sep, diagnosed with PMR. Given pred rescue dose 10mg/day x3 days, twice: once in Sep and another time in Dec - In Dec, couldn't move around so started on pred 5mg/day - In Jan/Mar, had covid. - at [facility], reports 95% improvement in symptoms with pred [...] 69 mastectomy other (HTN) Maternal Grandfather other ([place]) Maternal Grandfather at an old age other (HTN) Paternal Grandmother Arthritis Paternal Grandmother other ([place]) Paternal Grandfather 40 Thyroid Other significant with mom's siblings other (Shogren's in an aunt) Other other (niece with autoimmune) Other niece-dermatomyositis SOCIAL HISTORY: Lives in [place] with spouse. 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 Niece is Tiffanie Hunt with dermatomyositis Tobacco [...] discussed with the patient: Labs done at [facility] on 07/25/2021. Report given to provider for [...] 17.3 (nl <3) with unremarkable ESR, ENOCH, GM, Sm, CCP, RF, TPO ab *August unremarkable [...] order previously provided. Notify of results via [employer]. She was reminded to schedule this. 3. General health maintenance: - Completed the covid vaccination series in Apr, moderna - Continue follow-up with PCP for routine [...] which included preparing to see the patient, [id number] patient care, completing clinical documentation, performing a medically appropriate examination, ordering medications, tests, or procedures and communicating results to the patient/family/caregiver. Tigre Amin APRN.RICKIE documented in this encounter [facility] 07-29-2021 Miscellaneous Notes Patient notified of [...] Echo Vines MD documented in this encounter [facility] 07-25-2021 Nurse Note Labs done at [facility] on 07/25/2021. Report given to provider for [...] Patt Conner MA documented in this encounter [facility] Diagnosis Encounter for screening mammogram for breast cancer [facility] Diagnosis Well adult exam- Primary [...] with other complications [facility] Diagnosis Vitamin D deficiency- Primary Unspecified vitamin D deficiency Fatigue, unspecified type On prednisone therapy PMR (polymyalgia rheumatica) (HCC) Polymyalgia rheumatica [facility] Diagnosis Myalgia- Primary Mylagia and myositis, unspecified Disturbance in sleep behavior Sleep disturbance, unspecified [facility] Diagnosis Candidosis of skin- Primary Candidiasis of skin and nails Rash of face Rash and other nonspecific skin eruption [facility] Diagnosis Candidosis of skin- Primary Candidiasis of skin and nails Rash of face Rash and other nonspecific skin eruption Scalp itch Unspecified pruritic disorder [facility] Diagnosis Encounter for screening mammogram for breast cancer [facility] Diagnosis Well adult exam- Primary [...] Nontoxic uninodular goiter [facility] Diagnostic Procedure Only (Routine) - Pending Review Specialty Diagnoses / Procedures Referred By Contac t Referred To Contact [facility] Diagnoses Encounter for screening mammogram for breast cancer Procedures ARCELIA SCREENING SCREENING MAMMOGRAPHY BI 2-VIEW BREAST INC Herber Vasquez DO [address] [place] [address] [facility] [address] [place] [address] Referral ID Status Reason Start Date Expiration Date Visits Requested Visits Authorized [id number] Pending Review Auto-Generat ed Referral 10/01/2021 10/31/2022 1 1 T [facility] for referral (narrative)* Diagnostic Procedure Only (Routine) - Pending Review Specialty Diagnoses / Procedures Referred By Contac t Referred To Contact BR IMAGING Diagnoses Encounter for screening mammogram for breast cancer Procedures ARCELIA SCREENING SCREENING MAMMOGRAPHY BI 2-VIEW BREAST INC Herber Vasquez DO [address] [place] [address] [facility] [address] [place] [address] Referral ID Status Reason Start Date Expiration Date Visits Requested Visits Authorized [id number] Pending Review Auto-Generat ed Referral 09/02/2022 10/02/2023 1 1 T [facility] for referral (narrative)* Diagnostic Procedure Only (Routine) - Pending Review Specialty Diagnoses / Procedures Referred By Contac t Referred To Contact [facility] IMAGING Diagnoses Thyroid nodule Procedures US THYROID/PARATHYROID US SOFT TISSUE HEAD & NECK REAL TIME IMGE DOCHerber Aragon, DO [address] [place] [address] [place] [address] Referral ID Status Reason Start Date Expiration Date Visits Requested Visits Authorized [id number] Pending Review Auto-Generat ed Referral 03/10/2024 1 1 * Diagnostic Procedure Only (Routine) - Pending Review Specialty Diagnoses / Procedures Referred By Roge t Referred To Contact [facility] Diagnoses Encounter for screening mammogram for malignant neoplasm of breast Procedures ARCELIA SCREENING W AMALIA SCREENING DIGITAL BREAST TOMOSYNTHESIS BI SCREENING MAMMOGRAPHY BI 2-VIEW BREAST INC CAD Herber Romero, DO [address] [place] [address] [facility] [address] [place] [address] Referral ID Status Reason Start Date Expiration Date Visits Requested Visits Authorized [id number] Pending Review Auto-Generat ed Referral 3 03/10/2024 1 1 [facility] Reason for Referral Specialty Diagnoses / Procedures Referred By Roge t Referred To Contact Vascular Surgery Diagnoses Varicose veins of both lower extremities with pain Procedures CONSULT TO VASCULAR SURGERY OFFICE/OUTPATIENT [facility] 60-74 MINUTES Herber Romero DO [address] [place] [address] Referral ID Status Reason Start Date Expiration Date Visits Requested Visits Authorized [id number] Authorized PCP Requested Referral 2 01/28/2023 1 1 Specialty Diagnoses / Procedures Referred By Roge t Referred To Contact US IMAGING Diagnoses Thyroid nodule Procedures US THYROID/PARATHYROID US SOFT TISSUE HEAD & NECK REAL TIME IMGE DOCM Herber Romero DO [address] [place] [address] [facility] Referral ID Status Reason Start Date Expiration Date Visits Requested Visits Authorized [id number] Pending Review Auto-Generat ed Referral 2 02/27/2023 1 1 Specialty Diagnoses / Procedures Referred By Roge t Referred To Contact Dermatology Diagnoses Candidosis of skin Rash of face Scalp itch Procedures CONSULT TO DERMATOLOGY Herber Romero DO [address] [place] [address] Referral ID Status Reason Start Date Expiration Date Visits Requested Visits Authorized [id number] Ref Not Required PCP Requested Referral 07/13/2022 [...] or prosecute any alcohol or drug abuse patient.[facility] the event this information is protected by the Federal Confidentiality of Alcohol and Drug Abuse Patient Records regulations: The Federal rules restrict any use of the information to criminally investigate or prosecute any alcohol or drug abuse patient.[facility] the event this information is protected by the Federal Confidentiality of Alcohol and Drug Abuse Patient Records regulations: The Federal rules restrict any use of the information to criminally investigate or prosecute any alcohol or drug abuse patient.[facility] the event this information is protected by the Federal Confidentiality of Alcohol and Drug Abuse Patient Records regulations: The Federal rules restrict any use of the information to criminally investigate or prosecute any alcohol or drug abuse patient.[facility] the event this information is protected by the Federal Confidentiality of Alcohol and Drug Abuse Patient Records regulations: The Federal rules restrict any use of the information to criminally investigate or prosecute any alcohol or drug abuse patient.[facility] the event this information is protected by the Federal Confidentiality of Alcohol and Drug Abuse Patient Records regulations: The Federal rules restrict any use of the information to criminally investigate or prosecute any alcohol or drug abuse patient.[facility] the event this information is protected by the Federal Confidentiality of Alcohol and Drug Abuse Patient Records regulations: The Federal rules restrict any use of the information to criminally investigate or prosecute any alcohol or drug abuse patient.[facility] the event this information is protected by the Federal Confidentiality of Alcohol and Drug Abuse Patient Records regulations: The Federal rules restrict any use of the information to criminally investigate or prosecute any alcohol or drug abuse patient.[facility] the event this information is protected by the Federal Confidentiality of Alcohol and Drug Abuse Patient Records regulations: The Federal rules restrict any use of the information to criminally investigate or prosecute any alcohol or drug abuse patient.[facility] the event this information is protected by the Federal Confidentiality of Alcohol and Drug Abuse Patient Records regulations: The Federal rules restrict any use of the information to criminally investigate or prosecute any alcohol or drug abuse patient.[facility] the event this information is protected by the Federal Confidentiality of Alcohol and Drug Abuse Patient Records regulations: The Federal rules restrict any use of the information to criminally investigate or prosecute any alcohol or drug abuse patient.[facility] Hospital[facility] the event this information is protected by the Federal Confidentiality of Alcohol and Drug Abuse Patient Records regulations: The Federal rules restrict any use of the information to criminally investigate or prosecute any alcohol or drug abuse patient.[facility] Hospital[facility] the event this information is protected by the Federal Confidentiality of Alcohol and Drug Abuse Patient Records regulations: The Federal rules restrict any use of the information to criminally investigate or prosecute any alcohol or drug abuse patient.[facility] Hospital[facility] the event this information is protected by the Federal Confidentiality of Alcohol and Drug Abuse Patient Records regulations: The Federal rules restrict any use of the information to criminally investigate or prosecute any alcohol or drug abuse patient.[facility] Hospital[facility] the event this information is protected by the Federal Confidentiality of Alcohol and Drug Abuse Patient Records regulations: The Federal rules restrict any use of the information to criminally investigate or prosecute any alcohol or drug abuse patient.[facility] Hospital[facility] the event this information is protected by the Federal Confidentiality of Alcohol and Drug Abuse Patient Records regulations: The Federal rules restrict any use of the information to criminally investigate or prosecute any alcohol or drug abuse patient.[facility] Reason for Visit (unrecogniz ed section and content) Reason Comments Results Reason Comments New Patient Reason Comments Yearly Exam Reason Comments Lab orders and medication question Reason Comments Rash Itchy rash face and neck x 1 month Reason Comments Patient Update Care Teams (unrecognized sec tion and content) P D Driver Relationship Specialty Start Date End Date Herber Romero, DO [address] [place] [address] PCP - General Family Practice 10/16/20 Gypsy Cannon, DO [address] [place] [address] 10/16/20 P D Driver Relationship Specialty Start Date End Date Herber Romero, DO [address] [facility] [place] [address] PCP - General Family Practice 10/16/20 Gypsy Cannon, DO [address] [place] [address] 10/16/20 P D Driver Relationship Specialty Start Date End Date Herber Romero, DO [address] [facility] [place] [address] PCP - General Family Practice 10/16/20 Gypsy Cannon, DO [address] [facility] [address] [place] [address] 10/16/20 P D Driver Relationship Specialty Start Date End Date Herber Romero DO [address] [place] [address] PCP - General Family Practice 10/16/20 Davis Gypsy A, DO [address] [facility] [address] [place] [address] 10/16/20 P D Driver Relationship Specialty Start Date End Date Herber Romero, DO [address] [facility] [address] PCP - General Family Practice 10/16/20 Davis Gypsy A, DO [address] [facility] [address] [place] [address] 10/16/20 P D Driver Relationship Specialty Start Date End Date Herber Romero, DO [address] [facility] [place] [address] PCP - General Family Medicine 10/16/20 Davis Gypsy A, DO [address] [facility] [address] [place] [address] 10/16/20 P D Driver Relationship Specialty Start Date End Date Herber Romero, DO [address] [facility] [place] [address] PCP - General Family Medicine 10/16/20 Davis Gypsy A, DO [address] [facility] [address] [place] [address] 10/16/20 P D Driver Relationship Specialty Start Date End Date Herber Romero, DO [address] [facility] [place] [address] PCP - General Family Medicine 10/16/20 Davis, Gypsy A, DO [address] [facility] [address] [place] [address] 10/16/20 P D Driver Relationship Specialty Start Date End Date Herber Romero, DO [address] [place] [address] PCP - General Family Medicine 10/16/20 Gypsy Cannon DO [address] [facility] [address] [place] [address] 10/16/20 P D Driver Relationship Specialty Start Date End Date Herber Romero, DO [address] [facility] [place] [address] PCP - General Family Medicine 10/16/20 Gypsy Cannon DO [address] [facility] [address] [place] [address] 10/16/20 P D Driver Relationship Specialty Start Date End Date Herber Romero, DO [address] [facility] [place] [address] PCP - General Family Medicine 10/16/20 Gypsy Cannon DO [address] [facility] [address] [place] [address] 10/16/20 P D Driver Relationship Specialty Start Date End Date Herber Romero DO [address] [facility] [place] [address] PCP - General Family Medicine 10/16/20 Gypsy Cannon DO [address] [facility] [address] [place] [address] 10/16/20 P D Driver Relationship Specialty Start Date End Date Herber Romero DO [address] [facility] [address] PCP - General Family Medicine 10/16/20 Gypsy Cannon DO [address] [facility] [address] [place] [address] 10/16/20 P D Driver Relationship Specialty Start Date End Date Herber Romero DO [address] [place], [place] [address] PCP - General Family Medicine 10/16/20 Gypsy Cannon DO [address] [facility] [address] [place] [id number] 10/16/20 INFORMATION SOURCE (unrecogn ized section and [...] BE BASED ON THE PRIMARY CLINICAL RECORDS. [facility]. provides no warranty or guarantee of the accuracy or completeness of information in this document.
== END | disposition home or self-care (01) ==
LOC: CT 11:07
PROVIDERS: PCP Student in an Organized Health Care Education/Training Program; Referring Provider Nurse Practitioner Family; Visit Provider Nurse Practitioner Family
DX: R10.32 Left lower quadrant pain (principal)
CPT/HCPCS: 74177; Q9967

== ENCOUNTER → 2023-05-12 | Outpatient (CLI) | payer OTHER, SELFPAY ==
--- NOTE | 2023-05-12 11:54 | US_ITS ---
STUDY: RENAL ULTRASOUND - COMPLETE REASON FOR EXAM: Female, 57 years old. Elevated BUN and creatinine TECHNIQUE: Ultrasound evaluation of the kidneys was performed with real-time and static cortes-scale imaging. COMPARISON: CT from 04/26/2023. FINDINGS: Previous CT showed a left UVJ calcification RIGHT KIDNEY: Normal location of the right kidney, which is normal in size. The right kidney measures 10.5 x 4.4 x 4.6 cm. There is a normal cortex of the right kidney. The renal cortex measures 1.5 cm. There is a simple 1.5 cm parapelvic cyst. There are no right renal calculi. There is no right hydronephrosis. DISTAL RIGHT URETER: There is non-visualization of the distal right ureter. There is no demonstrated right ureterovesical junction calculus. There is a visualized right ureteral jet. LEFT KIDNEY: Normal location of the left kidney, which is normal in size. The left kidney measures 10.2 x 4.7 x 5.7 cm. There is a normal cortex of the left kidney. The renal cortex measures 1.7 cm. There is no left renal mass or cyst. There are no left renal calculi. There is no left hydronephrosis. DISTAL LEFT URETER: There is non-visualization of the distal left ureter. There is no demonstrated left ureterovesical junction calculus. There is a visualized left ureteral jet. AORTA: There is no elongation or tortuosity of the abdominal aorta. I.V.C.: The IVC is patent. BLADDER: The distended urinary bladder has a volume of 346 ml. The empty urinary bladder has a volume of less than 10 ml. There is a normal wall thickness of the distended urinary bladder. There is no demonstrated mass within the urinary bladder. There are no demonstrated bladder calculi. US/Kidney and Bladder IMPRESSION: Previously noted left sided hydronephrosis and hydroureter has resolved. The left kidney collecting system are sonographically normal. Sonographically normal right kidney aside from a simple 1.5 cm cyst. No specific follow-up needed Electronically Signed: Alok Tomas MD at 9:52 EDT ,
--- NOTE | 2023-05-12 12:41 | RAD_ITS ---
STUDY: X-RAY - ABDOMEN/PELVIS REASON FOR EXAM: Female, 57 years old. Left ureterolithiasis. TECHNIQUE: Single AP view of the abdomen / pelvis on 2 images. COMPARISON: CT of the abdomen and pelvis dated 04/26/2023 FINDINGS: Normal visualized lung bases. There is an unremarkable bowel gas pattern. There is no demonstrated free abdominal air. The visualized liver, spleen and kidneys are grossly normal in size and morphology. Normal soft tissue structures. Normal visualized osseous structures. RAD/Abdomen Single View IMPRESSION: No renal stones and no acute finding. Electronically Signed: Mich Waters MD at 15:38 EDT ,
== END | disposition home or self-care (01) ==
PROVIDERS: PCP Student in an Organized Health Care Education/Training Program
DX: N20.0 Calculus of kidney (principal)
CPT/HCPCS: 74018; 76770

== ENCOUNTER 2023-06-12 18:13 | Emergency (ER) | payer OTHER, SELFPAY ==
[2023-06-12 18:13] VITALS: BP 154/73; PULSE 86; RESP 14; TEMP 36.2; O2SAT 98; BMI 26.5
--- NOTE | 2023-06-12 18:26 | CT_ITS ---
STUDY: CT ABDOMEN AND PELVIS WITHOUT CONTRAST REASON FOR EXAM: Female, 58 years old. Pain RADIATION DOSAGE (If Supplied By Facility): CTDIvol = ( 6.86 ) mGy, DLP = ( 328.97 ) mGycm TECHNIQUE: Transaxial images were obtained from the dome of the diaphragm to the symphysis pubis without oral contrast, and without intravenous contrast. Sagittal and coronal images were reconstructed. Individualized dose optimization techniques were used for this CT. COMPARISON: 04/26/2023 FINDINGS: The visualized lung bases are unremarkable. The visualized portions of the heart are within normal limits. Normal liver. Normal gallbladder and extrahepatic biliary system. Normal spleen. Normal pancreas. Normal bilateral adrenal glands. Normal right kidney. 4 mm obstructing stone at the left vertebral skull junction with moderate ureteral dilatation and hydronephrosis. Normal visualized stomach. Normal small intestine. Normal colon. The appendix is visualized and appears normal. Normal abdominal aorta. Normal inferior vena cava. Normal retroperitoneum. Normal urinary bladder. Normal abdominal wall. Normal osseous structures. CT/Abdomen/Pelvis without Cont IMPRESSION: 4 mm obstructing stone at the left ureterovesical junction with moderate ureteral dilatation hydronephrosis. Electronically Signed: Dylan Montoya MD at 19:23 EDT ,
--- NOTE | 2023-06-12 18:32 | EX.ED.DYSGE1 ---
HPI <DEAN Lopez - Last Filed: 06/12/23 19:44> History of Present Illness Chief Complaint: Flank Pain Narrative Narrative: Patient is a 58-year-old female with history of kidney stones who presents to the emergency department for 3 to 4 days of intermittent left-sided flank pain, lower abdominal pain. Patient does see a urologist, she did have 2 urinalysis completed in the last 3 days that were negative. Patient states that she was working today, when she almost vomited because the pain in her lower abdomen, left lower abdomen was so severe. Patient states that the pain is sharp and shooting, sometimes goes up to the left flank area. She is concerned for a possible kidney stone. Denies any fever or chills, denies any vomiting just nausea. PFSH <DEAN Lopez - Last Filed: 06/12/23 19:44> PFSH Medical History (Updated 06/12/23 @ 19:41 by DEAN Lopez) Arthritis Kidney stones Seasonal allergies Thyroid nodule Home Medications ondansetron 4 mg disintegrating tablet 4 mg PO Q8H PRN PRN Nausea #10 tabs 06/12/23 [Rx Last Taken Unknown] oxycodone-acetaminophen 5 mg-325 mg tablet (Percocet) 1 tab PO Q8H PRN pain 3 days #10 tabs 06/12/23 [Rx Last Taken Unknown] tamsulosin 0.4 mg capsule (Flomax) 0.4 mg PO DAILY #14 caps 06/12/23 [Rx Last Taken Unknown] Allergy/AdvReac Type Severity Reaction Status Date / Time shellfish derived AdvReac Severe Anaphylaxis Verified 06/12/23 18:16 Family History Other Heart disease High cholesterol Hypertension Thyroid disorder Surgical History No history of previous surgery Social History Smoking Status: Never smoker alcohol intake: never substance use type: does not use what type of physical activity do you participate in: running frequency: 3-4 times per week ROS <DEAN Lopez - Last Filed: 06/12/23 19:44> ROS ED ROS Narrative Constitutional: Negative for fever, chills, weight loss, weakness Eyes: Negative for vision loss, vision change, double vision ENT: Negative for any sore throat, ear pain, congestion Cardiovascular: Negative for any chest pain, tightness, palpitations Respiratory: Negative for any cough, sputum production, hemoptysis, dyspnea, dyspnea on exertion, orthopnea Gastrointestinal: Negative for any vomiting, diarrhea, constipation, blood in stool, blood in vomit. Positive for left-sided flank pain, left lower abdominal pain, nausea and vomiting : Negative for any urinary frequency, dysuria, retention, blood in urine Muscle skeletal: Negative for any neck pain, back pain Neurological: Negative for any headache, syncope, dizziness Skin: Negative for any rashes, itching, abrasions, lacerations Psychiatric: Negative for any depression, anxiety, stress, suicidal ideation, homicidal ideation Hematologic: Negative for any excessive bruising, easy bleeding EXAM <DEAN Lopez - Last Filed: 06/12/23 19:44> Physical Exam Narrative Exam Narrative: Vital signs reviewed. Patient alert and orient x 4 however does appear to be in mild amount of discomfort HEET: Head normocephalic atraumatic, TMs clear bilaterally. Posterior pharynx is clear, moist mucous membranes. Nares clear bilaterally. Neck: Supple with no lymphadenopathy or tenderness. No signs of meningismus. Cardiac: Regular rate and rhythm no murmurs gallops or rubs, equal peripheral pulses bilaterally. Respiratory: Lungs clear to auscultation bilaterally. No chest tenderness. Abdomen: Soft, nontender, nondistended. No abdominal bruit or pulsatile masses. No hepatosplenomegaly Extremities: No peripheral edema, no signs of gross trauma or deformity. Active full range of motion of all extremities. Neuro: Cranial nerves II through XII intact, no focal neurological deficits. Skin: Clean dry and intact with no rash, purpura, petechiae, vesicles or pustules. Backs/flank: Positive for left-sided CVA tenderness, no midline spinal tenderness, no deformity. Psych: Normal mood and affect. No SI, HI or acute psychosis. Const Vital Signs: 06/12/23 18:13 06/12/23 19:56 Temperature 97.1 F L 98.0 F Temperature Source Temporal Pulse Rate 86 88 Respiratory Rate 14 16 Blood Pressure 154/73 H 137/72 H Blood Pressure Mean 100 93 Pulse Ox 98 94 Oxygen Delivery Method Room Air Positive well nourished and well developed General Appearance ED: well developed <Jay Moreland MD - Last Filed: 06/12/23 21:08> Physical Exam Const Vital Signs: 06/12/23 18:13 06/12/23 19:56 Temperature 97.1 F L 98.0 F Temperature Source Temporal Pulse Rate 86 88 Respiratory Rate 14 16 Blood Pressure 154/73 H 137/72 H Blood Pressure Mean 100 93 Pulse Ox 98 94 Oxygen Delivery Method Room Air MDM <DEAN Lopez - Last Filed: 06/12/23 19:44> MDM Lab Data Labs: Laboratory Results - last 24 hr 06/12/23 06/12/23 18:35 19:16 WBC 9.9 RBC 4.43 Hgb 12.8 Hct 40.9 MCV 92.3 MCH 28.9 MCHC 31.3 L RDW Std Deviation 43.7 RDW Coeff of Miguel 12.9 Plt Count 256 MPV 10.6 Immature Gran % (Auto) 0.500 Neut % (Auto) 72.1 H Lymph % (Auto) 13.6 L Jessamine % (Auto) 10.8 H Eos % (Auto) 2.4 Baso % (Auto) 0.6 Absolute Neuts (auto) 7.1 Absolute Lymphs (auto) 1.34 Nucleated RBC % 0 Sodium 140 Potassium 3.6 Chloride 106 Carbon Dioxide 29.0 Anion Gap 5 BUN 15 Creatinine 1.05 H Estim Creat Clear Calc 51.34 Est GFR (MDRD) Af Amer 69 Est GFR (MDRD) Non-Af 57 L BUN/Creatinine Ratio 14.3 Glucose 117 H Calcium 8.6 Urine Color Shannan Urine Clarity Sl. Cloudy Urine pH 7.0 Ur Specific [place] 1.005 Urine Protein Negative Urine Glucose (UA) Normal Urine Ketones Negative Urine Occult Blood 25 H Urine Nitrite Positive H Urine Bilirubin 3 H Urine Urobilinogen 4 H Ur Leukocyte Esterase 100 H Urine RBC 0 SEEN Urine WBC 0-5 SEEN Ur Squamous Epith Cells 5-10 SEEN Urine Bacteria 0 SEEN Urine Mucus 0 SEEN Radiography Diagnostic Testing: Clinical Impression(s) from Imaging Studies Abdomen/Pelvis CT 06/12/23 18:26 IMPRESSION: 4 mm obstructing stone at the left ureterovesical junction with moderate ureteral dilatation hydronephrosis. Electronically Signed: Dylan Montoya MD at 19:23 EDT , Treatment and Re-Evaluation :: Differential diagnosis includes however is not limited to: Acute diverticulitis, obstructing uropathy, cystitis, pyelonephritis Patient appears to be in mild distress secondary to left-sided abdominal pain, left flank pain, dysuria. Patient appears nontoxic. Vital signs are stable. Patient will receive a full workup concerning for obstructing uropathy. Laboratory values including CBC, BMP, urinalysis, CT scan of the abdomen pelvis without IV contrast. Patient given IV fluids, Zofran as well as IV Toradol. Patient will be reevaluated. All radiologic examinations were read, reviewed by the emergency department attending. From these reads, a plan of care will be put in place. On reevaluation, the patient is feeling much better. Patient's laboratory values show a normal CBC, patient's chemistry showed a creatinine of 1.05, patient is normally 0.6-0.78. Patient did receive a urinalysis, this was positive for nitrites, however there was no bacteria seen, 5-10 squamous cells. 100 leukocytes, this will be sent for culture. CT scan of the abdomen pelvis showed a 4 mm obstructing stone at the left UVJ with moderate ureteral dilatation hydronephrosis. At this time, due to the patient will be able to pass a stone. The patient looks better feels better, she will be able to follow-up outpatient with her urologist. She will be given Flomax, Zofran as well as Percocet for home. Instructed to maintain hydration. She was given strict return precaution to return for any worsening back pain fever chills nausea or vomiting. Patient stable for discharge <Jay Moreland MD - Last Filed: 06/12/23 21:08> [facility] Narrative Medical decision making narrative: Dr. Moreland: I have personally performed a face to face assessment of the patient and have reviewed the RONDA Note. I performed a substantive portion of the visit including all aspects of the following. My khan findings include: History is left flank pain, history of kidney stone 1 month ago, feels similar, has had multiple outpatient urinalyses negative for infection Exam is afebrile. Vital signs noted. Nontoxic-appearing. Abdomen soft and nontender with normoactive bowel sounds. Regular rate and rhythm. Lungs clear to auscultation bilaterally. Medical Decision Making: Check urinalysis, check laboratory work. Check CT. I reviewed the CT images, and I reviewed the radiology report which reports a 4 mm UVJ stone with hydronephrosis on the left. Urine will be sent for culture. She will follow-up with her urologist, Dr. Shannon Pickard. Return instructions were reviewed. Disposition is discharged home in stable condition. Other additions or changes: [None] History & Record Review Discussion w/independent historian: Patient Additional record(s) reviewed:: Prior outpatient record Lab Data Attestation: I reviewed the patient's lab results. Labs: Laboratory Results - last 24 hr 06/12/23 06/12/23 18:35 19:16 WBC 9.9 RBC 4.43 Hgb 12.8 Hct 40.9 MCV 92.3 MCH 28.9 MCHC 31.3 L RDW Std Deviation 43.7 RDW Coeff of Miguel 12.9 Plt Count 256 MPV 10.6 Immature Gran % (Auto) 0.500 Neut % (Auto) 72.1 H Lymph % (Auto) 13.6 L Jessamine % (Auto) 10.8 H Eos % (Auto) 2.4 Baso % (Auto) 0.6 Absolute Neuts (auto) 7.1 Absolute Lymphs (auto) 1.34 Nucleated RBC % 0 Sodium 140 Potassium 3.6 Chloride 106 Carbon Dioxide 29.0 Anion Gap 5 BUN 15 Creatinine 1.05 H Estim Creat Clear Calc 51.34 Est GFR (MDRD) Af Amer 69 Est GFR (MDRD) Non-Af 57 L BUN/Creatinine Ratio 14.3 Glucose 117 H Calcium 8.6 Urine Color Shannan Urine Clarity Sl. Cloudy Urine pH 7.0 Ur Specific [place] 1.005 Urine Protein Negative Urine Glucose (UA) Normal Urine Ketones Negative Urine Occult Blood 25 H Urine Nitrite Positive H Urine Bilirubin 3 H Urine Urobilinogen 4 H Ur Leukocyte Esterase 100 H Urine RBC 0 SEEN Urine WBC 0-5 SEEN Ur Squamous Epith Cells 5-10 SEEN Urine Bacteria 0 SEEN Urine Mucus 0 SEEN Radiography Diagnostic Testing: Clinical Impression(s) from Imaging Studies Abdomen/Pelvis CT 06/12/23 18:26 IMPRESSION: 4 mm obstructing stone at the left ureterovesical junction with moderate ureteral dilatation hydronephrosis. Electronically Signed: Dylan Montoya MD at 19:23 EDT , Discharge Plan Triage Chief Complaint: Flank Pain ED Midlevel Provider: Jong Goldberg ED Provider: Jay Moreland Dx/Rx/DC Orders Clinical Impression: Hydronephrosis, Kidney stone Instructions: Healthy Kidneys, ED Kidney Stone with Pain Prescriptions: New oxycodone-acetaminophen [Percocet] 5-325 mg tablet 1 tab PO Q8H PRN (Reason: pain) 3 Days Qty: 10 0RF tamsulosin [Flomax] 0.4 mg capsule 0.4 mg PO DAILY Qty: 14 0RF ondansetron 4 mg tablet,disintegrating 4 mg PO Q8H PRN PRN (Reason: Nausea) Qty: 10 0RF Primary Care Provider: Herber Hogue Referrals: Shannon Pickard MD [Med Staff - Active Staff] - Herber Hogue DO [Primary Care Provider] - Activity Restrictions/Additional Instructions: You have a 4 mm stone in the UVJ. Continue take the medications. Return for any worsening back pain fever chills nausea vomiting. Disposition Disposition: Home, Self Care Discharge Date/Time: 06/12/23 20:32
[2023-06-12 18:46] LABS: Absolute Lymphocyte Count 1.34 X10^3/uL (0.83-4.51); Absolute Neutrophil Count 7.1 X10^3/uL (2.0-7.7); Basophil# 0.06 X10^3/uL; Basophil% 0.6 % (0-1); Eosinophil# 0.24 X10^3/uL; Eosinophils% 2.4 % (0-5); Hematocrit 40.9 % (37-47); Hemoglobin 12.8 g/dL (12.0-15.0); Lymphocyte # 1.34 X10^3/ul (0.83-4.51); Lymphocyte % 13.6 % (19-41); Mean Corp Hgb Conc 31.3 g/dL (32-36); Mean Corpuscular Hgb 28.9 pg (27.0-32.0); Mean Corpuscular Volume 92.3 fL (81-99); Mean Platelet Vol. 10.6 fl (6.2-12.0); Monocyte# 1.06 X10^3/uL; Monocyte% 10.8 % (0-10); NRBC Flagged by Analyzer 0 % (0-5); Neutrophil # 7.11 X10^3/uL (2.7-7.7); Neutrophil % 72.1 % (47-70); Platelet Count 256 K/mm3 (150-450); RBC Distribution Width CV 12.9 % (11.6-14.6); RBC Distribution Width SD 43.7 fl (35.1-43.9); Red Blood Count 4.43 M/mm3 (4.2-5.4); White Blood Count 9.9 K/mm3 (4.4-11.0)
[2023-06-12] MEDS: Ondansetron 4 MG/2 ML Vial IV (18:51)
[2023-06-12] MEDS: 0.9% Normal Saline (1000mL) 1,000 ML 1000 ML IV (18:52)
[2023-06-12] MEDS: Ketorolac 15 MG/ML Vial IV (18:52)
[2023-06-12 18:59] LABS: Anion Gap 5 (5-15); BUN 15 mg/dL (7-18); BUN/Creat Ratio 14.3 RATIO (10-20); Calcium,Total 8.6 mg/dL (8.5-10.1); Chloride 106 mmol/L (98-107); Creatinine, Serum 1.05 mg/dL (0.55-1.02); EST Glomerular Filtration Rate 57 mL/min (>60); Est Glom Filt Rate - Afr Amer 69 mL/min (>60); Estimated Creatinine Clearance 51.34 ml/min; Glucose 117 mg/dL (74-106); Potassium 3.6 mmol/L (3.5-5.1); Sodium Level 140 mmol/L (136-145)
[2023-06-12 19:19] LABS: Bacteria 0 SEEN /hpf (None Seen); Mucous, Urine 0 SEEN /hpf (<or=2+); Red Blood Cells-Urine 0 SEEN /hpf (0-5)
[2023-06-12 19:21] LABS: Color, Urine Amber (Yellow); Glucose, Dipstick Normal (Normal); Ketone-Dipstick Negative (Negative); Leukocyte Esterase-Dipstick 100 /ul (Negative); Nitrite-Dipstick Positive (Negative); Occult Blood-Urine 25 /ul (Negative); Protein-Dipstick Negative (Negative); Specific Gravity, Urine 1.005 (1.002-1.030); Urine Clarity Sl. Cloudy (Clear); Urine Urobilinogen 4 mg/dl (Normal)
[2023-06-12 19:23] LABS: Urine Bilirubin Dipstick 3 mg/dL (Negative)
[2023-06-12 19:29] LABS: Squamous Epithelial Cells - UA 5-10 SEEN /hpf (5-10); White Blood Cells 0-5 SEEN /hpf (0-5)
[2023-06-12 19:56] VITALS: BP 137/72; PULSE 88; RESP 16; TEMP 36.7; O2SAT 94
== END 2023-06-12 20:32 | disposition home or self-care (01) ==
PROVIDERS: Nurse Practitioner; Emergency Provider Emergency Medicine; PCP Student in an Organized Health Care Education/Training Program; Visit Provider Emergency Medicine
DX: N13.2 Hydronephrosis with renal and ureteral calculous obstruction (principal)
CPT/HCPCS: 74176; 80048; 81001; 85025; 87086; 87088; 96361; 96374; 96375; 99283; J7030; A4216; J2405

== ENCOUNTER → 2023-06-28 | Outpatient (CLI) | payer OTHER, SELFPAY ==
[2023-07-01 19:07] LABS: HPV APTIMA, High Risk Negative (Negative)
== END | disposition home or self-care (01) ==
PROVIDERS: PCP Student in an Organized Health Care Education/Training Program; Referring Provider Advanced Practice Midwife; Visit Provider Advanced Practice Midwife
DX: Z12.4 Encounter for screening for malignant neoplasm of cervix (principal)
CPT/HCPCS: 87624; 88175; G0145

== ENCOUNTER → 2023-10-08 | Outpatient (CLI) | payer OTHER, SELFPAY ==
[2023-10-08 17:10] LABS: Estradiol 37.2 pg/mL; Free T3 3.1 pg/mL (2.18-3.98); T4 Free Direct 0.77 ng/dL (0.76-1.46); Thyroid Stim Hormone (TSH) 0.11 uIU/mL (0.358-3.74)
[2023-10-12 11:59] LABS: PROGESTERONE 2.4 ng/mL (.)
[2023-10-14 12:09] LABS: Testosterone, % Free 1.32 % (0.50-2.80); Testosterone, Free 1.28 ng/dL (0.10-0.85); Testosterone, Total 97 ng/dL (4-50)
== END | disposition home or self-care (01) ==
PROVIDERS: PCP Student in an Organized Health Care Education/Training Program
DX: N95.1 Menopausal and female climacteric states (principal); R53.82 Chronic fatigue, unspecified
CPT/HCPCS: 36415; 82670; 84144; 84402; 84403; 84439; 84443; 84481

== ENCOUNTER → 2024-02-09 | Outpatient (CLI) | payer OTHER, SELFPAY ==
[2024-02-09 09:23] LABS: CRP 7.14 mg/L (0.0-3.0); Free T3 4.9 pg/mL (2.18-3.98)
== END | disposition home or self-care (01) ==
LOC: LAB 07:47
PROVIDERS: PCP Student in an Organized Health Care Education/Training Program
DX: M35.3 Polymyalgia rheumatica (principal); R53.82 Chronic fatigue, unspecified; Z86.39 Personal history of other endocrine, nutritional and metabolic disease
CPT/HCPCS: 36415; 82306; 84481; 86140

== ENCOUNTER → 2024-02-18 | Outpatient (CLI) | payer OTHER, SELFPAY ==
--- NOTE | 2024-02-18 09:16 | RAD_ITS ---
STUDY: X-RAY CHEST REASON FOR EXAM: Female, 58 years old. COUGH TECHNIQUE: PA and lateral views of the chest. COMPARISON: None. FINDINGS: The lungs are clear and expanded. There is no demonstrated pleural abnormality. Normal size heart. Normal mediastinum and jorgito. Normal visualized pulmonary arteries. Normal visualized aortic arch and descending thoracic aorta. Normal visualized thoracic spine. Normal visualized ribs, clavicles, and shoulders. There is no demonstrated abnormality of the visualized soft tissue structures of the upper abdomen. RAD/Chest PA and Lateral IMPRESSION: Normal x-ray examination of the chest. Electronically Signed: Milton Irving MD at 9:28 EST ,
== END | disposition home or self-care (01) ==
LOC: RAD 09:09
PROVIDERS: PCP Student in an Organized Health Care Education/Training Program; Referring Provider Nurse Practitioner Family; Visit Provider Nurse Practitioner Family
DX: Z00.00 Encounter for general adult medical examination without abnormal findings (principal); R05.3 Chronic cough; R05.8 Other specified cough; R49.0 Dysphonia; H65.02 Acute serous otitis media, left ear; J01.40 Acute pansinusitis, unspecified
CPT/HCPCS: 71046

== ENCOUNTER → 2025-01-02 | Outpatient (CLI) | payer OTHER, SELFPAY ==
[2025-01-02 07:55] LABS: Hematocrit 43.5 % (37-47); Hemoglobin 14.3 g/dL (12.0-15.0); Mean Corp Hgb Conc 32.9 g/dL (32-36); Mean Corpuscular Volume 89.5 fL (81-99); Mean Platelet Vol. 10.2 fl (6.2-12.0); Platelet Count 288 K/mm3 (150-450); RBC Distribution Width CV 12.0 % (11.6-14.6); RBC Distribution Width SD 39.3 fl (35.1-43.9); Red Blood Count 4.86 M/mm3 (4.2-5.4); White Blood Count 5.5 K/mm3 (4.4-11.0)
[2025-01-02 09:23] LABS: AST(SGOT) 18 U/L (<=31); Alanine Aminotransfer ALT/SGPT 12 U/L (<=34); Albumin, Serum 4.0 g/dL (3.4-4.8); Alkaline Phosphatase 57 U/L (35-104); Anion Gap 8 (5-15); BUN 11 mg/dL (4-19); BUN/Creat Ratio 16.6 RATIO (10-20); Calcium,Total 9.2 mg/dL (7.6-11.0); Carbon Dioxide 26.8 mmol/L (21.0-32.0); Chloride 107 mmol/L (98-108); Cholesterol 178 mg/dL (<=200); Globulin 2.3 g/dL (2.2-4.2); Glucose 97 mg/dL (70-99); Low Density Lipoprotein Calc. 116 mg/dL; Potassium 4.1 mmol/L (3.3-5.1); Triglycerides 63 mg/dL; Very Low Density Lipoprotein 13 mg/dL (5-40); cholesterol:hdl ratio screen 3.60
[2025-01-02 09:24] LABS: Vitamin B12 568 pg/mL (180-914); Vitamin D,25 Hydroxy 33.2 ng/mL (30-100)
== END | disposition home or self-care (01) ==
LOC: LAB 07:35
PROVIDERS: PCP Student in an Organized Health Care Education/Training Program; Referring Provider Nurse Practitioner Family; Visit Provider Nurse Practitioner Family
DX: Z00.00 Encounter for general adult medical examination without abnormal findings (principal); Z13.1 Encounter for screening for diabetes mellitus; Z13.220 Encounter for screening for lipoid disorders; Z13.21 Encounter for screening for nutritional disorder; Z13.29 Encounter for screening for other suspected endocrine disorder
CPT/HCPCS: 36415; 80053; 80061; 82306; 82607; 83036; 84443; 85027

== ENCOUNTER → 2025-01-26 | Outpatient (CLI) | payer OTHER, SELFPAY ==
--- OUTSIDE RECORDS SUMMARY | 2025-01-26 09:12 | XMS RPT_ITS | CCD ---
Author Organization [facility] ion Partnership [facility] Care Team Providers Care Stock Wetter Name Role Phone Herber Hogue DO Primary Care Provider Fast DO, Gypsy A Unavailable Dr. Herber Hogue Primary Care Provider Dr. Herber Hogue Referring Provider ITALIA Santizo Attending Provider Herber Hogue DO Primary Care Provider Fast DO, Gypsy A Unavailable Herber Hogue DO Primary Care Provider Anderson [employer].Cinthia DAMIAN Unavailable Alyce [employer].Abdirizak DAMIAN Unavailable HERBER HOGUE Primary Care Unavailable ABDIRIZAK DANIEL Attending Unavailable HERBER HOGUE Primary Care Unavailable ABDIRIZAK DANIEL Attending Unavailable Herber Hogue Referring Unavailable Stanford Santos Attending Unavailable Herber Hogue Primary Care Unavailable Alyce CORRECTIONAL PROBATION OFFICER, Abdirizak Attending Unavailable Alyce CORRECTIONAL PROBATION OFFICER, Abdirizak Referring Unavailable Herber Hogue Primary Care Unavailable Alyce CORRECTIONAL PROBATION OFFICER, Abdirizak Attending Unavailable Alyce CORRECTIONAL PROBATION OFFICER, Abdirizak Referring Unavailable Herber Hogue Primary Care Unavailable Herber Hogue Primary Care Unavailable VIVIEN TORRES Attending Unavailable VIVIEN TORRES Referring Unavailable Herber Hogue Primary Care Unavailable Assessment, Health Risk Attending Unavaila ble Assessment, Health Risk Referring Unavaila ble Herber Hogue Attending Unavailable Herber Hogue Primary Care Unavailable Allergies Allergy Classification Reported Allergen(s) Allergy Type Date of Onset Reaction(s) Facility (20 sources) cow milk allergenic extract; Translations: [MILK] Drug Allergy 10-16-2020 Unknown [facility] (20 sources) Shellfish; Translations: [SHELLFISH DERIVED] Drug Allergy 10-16-2020 Anaphylaxis [facility] (20 sources) shrimp allergenic extract; Translations: [SHRIMP] Drug Allergy 10-16-2020 Anaphylaxis [facility] (1 source) Milk Drug allergy (disorder) 05-24-2024 [facility] Rep[facility] Medications Current Medications Medication Drug Class(es) Dates Sig (Normalized) Sig (Original) acetaminophen 325 mg / HYDROcodone bitartrate 7.5 mg oral tablet (5 sources) Opioid Agonist Start: 04-27-2023 End: 05-02-2023 take 1 tablet by mouth every six hours as needed for pain HYDROcodone-Acetam inophen (NORCO) 7.5-325 mg per tablet Indications: Left ureteral stone Take 1 tablet by mouth every 6 hours as needed for pain for up to 5 days. 20 tablet 0 04/27/2023 05/02/2023 Active Comment on above: Take 1 tablet by ester th every 6 hours as needed for pain for up to 5 days. [id number] 200 actuat albuterol 0.09 mg/actuat metered dose inhaler (4 sources) beta2-Adrenergic Agonist Start: 02-18-2024 End: 03-19-2024 take 2 puff(s) by inhalation every four hours as needed for wheezing albuterol HFA (VENTOLIN HFA) 90 mcg/actuation inhaler Indications: Persistent cough , Productive cough , Hoarseness , Non-recurrent acute serous otitis media of left ear , Acute non-recurrent pansinusitis Inhale 2 Puffs as instructed every 4 hours as needed for wheezing/shortness of breath. 18 g 1 02/18/2024 03/19/2024 Active amoxicillin 875 mg / clavulanate 125 mg oral tablet (1 source) Penicillin-class Antibacterial Start: 02-21-2024 End: 03-02-2024 take 1 tablet by mouth twice daily amoxicillin-clavul anate potassium (AUGMENTIN) 875-125 mg per tablet Take 1 tablet by mouth two times a day for 10 days. 20 tablet 02/21/2024 03/02/2024 Active cephalexin 500 mg oral capsule (3 sources) Cephalosporin Antibacterial Start: 04-29-2023 End: 05-09-2023 take 1 capsule by mouth twice daily cephALEXin (KEFLEX) 500 mg capsule Indications: Left ureteral stone Take 1 capsule by mouth two times a day for 10 days. 20 capsule 0 04/29/2023 05/09/2023 Active Comment on above: Take 1 capsule by mo [facility] two times a day for 10 days. compounded progesterone 200mg capsule (5 sources) compounded progesterone 200mg capsule 200 mg two times a day. Active estradiol 1 mg oral tablet (5 sources) Estrogen take 1.5 mg by mouth once daily estradiol (ESTRACE) 1 mg tablet Take 1.5 mg by mouth once daily. Active fluconazole 150 mg oral tablet (2 sources) Azole Antifungal Start: 05-07-2023 End: 05-07-2023 fluconazole (DIFLUCAN) 150 mg tablet Take 1 tablet by mouth one time only for 1 dose. Repeat in 3 days as needed. 2 tablet 0 05/07/2023 05/07/2023 Active Start: 07-01-2022 End: 07-08-2022 take 1 tablet by mouth once daily fluconazole (DIFLUCAN) 150 mg tablet Indications: Candidosis of skin , Rash of face Take 1 tablet by mouth once daily for 7 days. 7 tablet 0 07/01/2022 07/08/2022 Active Comment on above: Take 1 tablet by ester once daily for 7 days. Take 1 tablet by ester one time only for 1 dose. Repeat in 3 days as needed. griseofulvin 500 mg oral tablet (1 source) Start: 2022 End: 2022 take 1 tablet by mouth once daily griseofulvin, microsize (GRIFULVIN V) 500 mg tablet Indications: Candidosis of skin , Rash of face , Scalp itch Take 1 tablet by mouth once daily. 30 tablet 0 07/13/2022 08/24/2022 Active Comment on above: Take 1 tablet by ester once daily. methylPREDNISolone (4 sources) Corticosteroid Start: 2023 End: 2023 methylPREDNISolone (MEDROL, BELINDA,) 4 mg Dose-Pack Indications: Persistent cough , Productive cough , Hoarseness , Non-recurrent acute serous otitis media of left ear , Acute non-recurrent pansinusitis , Well adult exam Take as instructed per package. 21 tablet 02/18/2024 02/24/2024 Active predniSONE 10 mg oral tablet (20 sources) Start: 2022 End: 2022 predniSONE (DELTASONE) 10 mg tablet Indications: Candidosis of skin , Rash of face , Scalp itch Take 4 tabs daily x 3 days, then 3 tabs x 3 days, 2 tabs x 3 days, then 1 tab x3 days with food. 30 tablet 0 07/13/2022 07/25/2022 Active Start: 04-10-2022 End: 07-01-2022 take 1 tablet by mouth once daily at mealtime predniSONE (DELTASONE) 1 mg tablet Indications: PMR (polymyalgia rheumatica) ([facility]) Take 1 tablet by mouth once daily. Take by mouth with food. 30 tablet 1 04/10/2022 07/01/2022 Discontinued Start: 01-28-2022 End: 04-08-2022 take 1 tablet by mouth once daily at mealtime predniSONE (DELTASONE) 1 mg tablet Take 1 tablet by mouth once daily. Take by mouth with food. 30 tablet 1 01/28/2022 04/08/2022 Discontinued Start: 08-25-2021 End: 01-28-2022 predniSONE (DELTASONE) 1 mg tablet Take by mouth with food. Please take 3mg/day x1 month, then 2mg/day x1 month, then 1mg/day x1 month, then stop. 120 tablet 2 08/25/2021 01/28/2022 Discontinued Start: 04-30-2021 End: 08-25-2021 predniSONE (DELTASONE) 1 mg tablet Please take 5mg/day x1 month, then 4mg/day x1 month, then 3mg/day x1 month, then 2mg/day x1 month, then 1mg/day x1 month, then stop 120 tablet 2 04/30/2021 08/25/2021 Discontinued Start: 04-30-2021 End: 08-25-2021 take 1 tablet by mouth once daily predniSONE (DELTASONE) 5 mg tablet Take 1 tablet by mouth once daily. 30 tablet 0 04/30/2021 08/25/2021 Discontinued Start: 02-05-2021 End: 01-11-2022 take 5 mg by mouth once daily Prednisone Discontinued 5 MG PO DAILY February 05, 2021 1:00am March 11, 2021 12:46pm Comment on above: Please take 5mg/day x1 month, then 4mg/day x1 month, then 3mg/day x1 month, then 2mg/day x1 month, then 1mg/day x1 month, then stop Take 1 tablet by ester th once daily. Take by mouth with f ood. Please take 3mg/day x1 month, then 2mg/day x1 month, then 1mg/day x1 month, then stop. Take 1 tablet by ester th once daily. Take by mouth with food. Take 4 tabs daily x 3 days, then 3 tabs x 3 days, 2 tabs x 3 days, then 1 tab x3 days with food. tamsulosin hydrochloride 0.4 mg oral capsule (12 sources) alpha-Adrenergic Miguelangel Start: End: take 1 capsule by mouth once daily at bedtime tamsulosin (FLOMAX) 0.4 mg Indications: Left ureteral stone Take 1 capsule by mouth daily at bedtime. 30 capsule 04/27/2023 Active Comment on above: Take 1 capsule by mo uth daily at bedtime. testosterone 100 mg/ml cream (CPD) (5 sources) testosterone 100 mg/ml cream (CPD) Apply 0.5 mL to affected area once daily. 20mg, prescribed by [facility] Active Completed/Discontinued Medications Medication Drug Class(es) Dates Sig (Normalized) Sig (Original) acetaminophen 325 mg / oxyCODONE hydrochloride 5 mg oral tablet (2 sources) Opioid Agonist Start: 06-12-2023 End: 06-28-2023 take 1 tablet by mouth every eight hours Oxycodone-Acetamin ophen (Percocet) 5-325 mg tablet Discontinued 1 TABLET PO Q8H 10 June 12, 2023 June 28, 2023 11:20am azithromycin 250 mg oral tablet (10 sources) Macrolide Antimicrobial Start: 03-13-2021 End: 06-12-2023 Azithromycin Discontinued 250 MG PO daily March 13, 2021 1:00am June 12, 2023 6:17pm 2 tablets today, then 1 tablet daily on days 2 through 11 cholecalciferol, vitamin D3, (VITAMIN D3 ORAL) (19 sources) End: 02-18-2024 cholecalciferol, vitamin D3, (VITAMIN D3 ORAL) Take by mouth. 02/18/2024 Discontinued cholecalciferol, vitamin D3, (VITAMIN D3 ORAL) Take by mouth. 0 Active Comment on above: Take by mouth. ciprofloxacin 500 mg oral tablet (4 sources) Quinolone Antimicrobial Start: End: take 1 tablet by mouth twice daily ciprofloxacin HCl (CIPRO) 500 mg tablet Take 1 tablet by mouth two times a day for 10 days. 20 tablet 0 04/27/2023 04/29/2023 Discontinued Comment on above: Take 1 tablet by ester th two times a day for 10 days. cyclobenzaprine hydrochloride 5 mg oral tablet (6 sources) Muscle Relaxant Start: End: take 1 tablet by mouth once daily at bedtime cyclobenzaprine (FLEXERIL) 5 mg tablet Take 1 tablet by mouth daily at bedtime. 30 tablet 3 04/16/2022 02/09/2023 Discontinued Comment on above: Take 1 tablet by ester th daily at bedtime. dexamethasone 6 mg oral tablet (10 sources) Corticosteroid Start: End: take 1 tablet by mouth once daily Dexamethasone (Decadron) 6 mg tablet Discontinued 6 MG PO DAILY March 11, 2021 1:00am June 12, 2023 6:17pm enteric contrast (will be provided with radiology test) (2 sources) Start: End: enteric contrast (will be provided with radiology test) Indications: Left lower quadrant abdominal pain , LLQ pain For CT ABD/PEL W IVCON Routine order Administer, As Directed One Time Only, via Oral, Rectal, both Oral and Rectal, Enteric Tube, Stoma or Indwelling Catheter, Enteric Contrast as designated per enteric contrast guidelines 1 Each 0 04/26/2023 04/27/2023 Start: 04-26-2023 End: 04-27-2023 enteric contrast (will be pr ovided with radiology test) Indications: Left lower quadrant abdominal pain , LLQ pain For CT ABD/PEL W IVCON Routine order Administer, As Directed One Time Only, via Oral, Rectal, both Oral and Rectal, Enteric Tube, Stoma or Indwelling Catheter, Enteric Contrast as designated per enteric contrast guidelines 1 Each 0 04/26/2023 04/27/2023 Active Comment on above: For CT ABD/PEL W IVC ON Routine order Administer, As Directed One Time Only, via Oral, Rectal, both Oral and Rectal, Enteric Tube, Stoma or Indwelling Catheter, Enteric Contrast as designated per enteric contrast guidelines iv contrast (will be provided with radiology test) (2 sources) Start: 04-26-2023 End: 04-27-2023 iv contrast (will be provided with radiology test) Indications: Left lower quadrant abdominal pain , LLQ pain CT ABD/PEL -Inject, intravenously, once for 1 dose.No IV access, insert saline lock prior to the beginning of sedation, infusion, injection of imaging exam. Discontinue saline lock post exam. If Pt. has a central line or IVAD, may access for administration according to line specific nursing protocol. Once exam is complete flush line and de-access according to line specific nursing protocol in the CT contrast administration guidelines link. 1 Each 0 04/26/2023 04/27/2023 Start: 04-26-2023 End: 04-27-2023 iv contrast (will be provide d with radiology test) Indications: Left lower quadrant abdominal pain , LLQ pain CT ABD/PEL -Inject, intravenously, once for 1 dose.No IV access, insert saline lock prior to the beginning of sedation, infusion, injection of imaging exam. Discontinue saline lock post exam. If Pt. has a central line or IVAD, may access for administration according to line specific nursing protocol. Once exam is complete flush line and de-access according to line specific nursing protocol in the CT contrast administration guidelines link. 1 Each 0 04/26/2023 04/27/2023 Active Comment on above: CT ABD/PEL -Inject, intravenously, once for 1 dose.No IV access, insert saline lock prior to the beginning of sedation, infusion, injection of imaging exam. Discontinue saline lock post exam. If Pt. has a central line or IVAD, may access for administration according to line specific nursing protocol. Once exam is complete flush line and de-access according to line specific nursing protocol in the CT contrast administration guidelines link. ketoconazole 20 mg/ml medicated shampoo (5 sources) Azole Antifungal Start: 07-01-2022 End: 02-09-2023 ketoconazole (NIZORAL) 2 % shampoo Indications: Candidosis of skin , Rash of face Apply to affected area two times a week. 120 mL 1 07/01/2022 02/09/2023 Discontinued Comment on above: Apply to affected ar ea two times a week. Lactobacillus acidophilus (19 sources) End: 02-18-2024 Lactobacillus acidophilus (PROBIOTIC ORAL) Take by mouth. 02/18/2024 Discontinued Lactobacillus ac idophilus (PROBIOTIC ORAL) Take by mouth. 0 Active Comment on above: Take by mouth. nystatin [id number] unt/ml topical cream (5 sources) Polyene Antifungal Start: 07-02-19 End: 02-10-20 nystatin (MYCOSTATIN) cream Indications: Candidosis of skin , Rash of face Apply to affected area twice daily. 15 g 1 07/01/2022 02/09/2023 Discontinued Comment on above: Apply to affected ar ea twice daily. ondansetron 4 mg disintegrating oral tablet (2 sources) Serotonin-3 Receptor Antagonist Start: 06-12-19 End: 06-28-19 take 4 mg by mouth every eight hours as needed Ondansetron Discontinued 4 MG PO EVERY 8 HOURS NEEDED June 12, 2023 12:00am June 28, 2023 11:20am progesterone 200 mg oral capsule (11 sources) Progesterone Start: 11-30-19 End: 07-02-19 take 1 capsule by mouth once daily progesterone micronized (PROMETRIUM) 200 mg capsule Take 1 capsule by mouth once daily. 0 11/29/2020 07/01/2022 Discontinued Comment on above: Take 1 capsule by [facility] once daily. progesterone vaginal suppository 200 mg (CPD) (5 sources) Start: 11-06-19 End: 07-02-19 progesterone vaginal suppository 200 mg (CPD) Use 200 mg vaginally once daily. 0 11/05/2020 07/01/2022 Discontinued Start: 11-05-2020 progesterone v aginal suppository 200 mg (CPD) Use 200 mg vaginally once daily. 0 11/05/2020 Active Comment on above: Use 200 mg vaginally once daily. dwscyex-chmp-lvchy-or eg-capryl 100 mg-150 mg- 50 mg-150 mg cap (19 sources) End: 02-18-2024 knwfqxp-mpcy-scpik-oreg-c yessica 100 mg-150 mg- 50 mg-150 mg cap Take by mouth. 02/18/2024 Discontinued dqeafwb-uasp-qrf vd-aosb-iekouw 100 mg-150 mg- 50 mg-150 mg cap Take by mouth. 0 Active Comment on above: Take by mouth. Vitamin B Complex (19 sources) End: 02-18-2024 vitamin B complex (B COMPLEX-VITAMIN B12 ORAL) Take by mouth. 02/18/2024 Discontinued vitamin B comple x (B COMPLEX-VITAMIN B12 ORAL) Take by mouth. 0 Active Comment on above: Take by mouth. Problems Active Problems Problem Classification Problem Date Documented Da te Episodic/Chronic Calculus of urinary tract (18 sources) Kidney stone; Translations: [Calculus of kidney] 01-06-2019 Episodic Diabetes mellitus without complication (1 source) Hyperglycemia; Translations: [Hyperglycemia, unspecified] 02-09-2023 Episodic Disorders of lipid metabolism (20 sources) Dyslipidemia; Translations: [Hyperlipidemia, unspecified] Onset: 12-09-2020 12-09-2020 Chronic Genitourinary symptoms and ill-defined conditions (2 sources) Urinary incontinence; Translations: [Unspecified urinary incontinence] 06-28-2023 Chronic Genitourinary symptoms and ill-defined conditions (1 source) Microscopic hematuria; Translations: [Other microscopic hematuria] 04-28-2023 Episodic Immunity disorders (10 sources) Patient immunocompromised; Translations: [Immunodeficiency, unspecified] 02-04-2021 Chronic Mycoses (3 sources) Candidiasis of skin; Translations: [Candidiasis of skin and nail] Episodic Nutritional deficiencies (3 sources) Vitamin D deficiency; Translations: [Vitamin D deficiency, unspecified] Chronic Osteoarthritis (10 sources) Arthritis; Translations: [Unspecified osteoarthritis, unspecified site] 07-23-2020 Chronic Other aftercare (1 source) Long-term current use of systemic steroid; Translations: [FPC (current) use of systemic steroids] Episodic Other aftercare (2 sources) Drug therapy finding; Translations: [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) use of systemic steroids] Episodic Other connective tissue disease (4 sources) Polymyalgia rheumatica; Translations: [Polymyalgia rheumatica] Chronic Other connective tissue disease (1 source) Polymyalgia rheumatica; Translations: [Polymyalgia rheumatica] Onset: 03-13-2024 Chronic Other diseases of kidney and ureters (3 sources) Hydronephrosis; Translations: [Unspecified hydronephrosis] 04-28-2023 Episodic Other inflammatory condition of skin (1 source) Pruritic scalp dermatosis; Translations: [Pruritus, unspecified] Episodic Other lower respiratory disease (1 source) Persistent cough; Translations: [Persistent cough] 02-18-2024 Episodic Other lower respiratory disease (1 source) Productive cough ; Translations: [Productive cough] 02-18-2024 Episodic Other screening for suspected conditions (not mental disorders or infectious disease) (13 sources) Patient encounter status; Translations: [Encounter for screening mammogram for malignant neoplasm of breast] Onset: 12-28-2024 Episodic Other skin disorders (3 sources) Eruption; Translations: [Rash and other nonspecific skin eruption] Episodic Other upper respiratory disease (10 sources) Seasonal allergy; Translations: [Other seasonal allergic rhinitis] 01-06-2019 Chronic Other upper respiratory disease (10 sources) Respiratory tract congestion; Translations: [Nasal congestion] 03-11-2021 Episodic Other upper respiratory disease (1 source) Hoarse; Translations: [Dysphonia] 02-18-2024 Episodic Other upper respiratory infections (1 source) Acute pansinusitis; Translations: [Acute pansinusitis, unspecified] 02-18-2024 Episodic Otitis media and related conditions (1 source) Acute non-suppurative otitis media - serous; Translations: [Acute serous otitis media, left ear] 02-18-2024 Episodic Residual codes; unclassified (1 source) Disturbance in sleep behavior; Translations: [Sleep disorder, unspecified] Episodic Residual codes; unclassified (1 source) Menopause present; Translations: [Asymptomatic menopausal state] 02-09-2023 Episodic Screening and history of mental health and substance abuse codes (2 sources) Encounter for screening for depression; Translations: [Encounter for screening examination for other mental health and behavioral disorders] Onset: 12-28-2024 Episodic Thyroid disorders (12 sources) Thyroid nodule; Translations: [Nontoxic single thyroid nodule] Chronic Varicose veins of lower extremity (1 source) Varicose veins of lower extremity; Translations: [Varicose veins of bilateral lower extremities with pain] Episodic Viral infection (10 sources) Disease caused by 2019-nCoV; Translations: [COVID-19] 02-04-2021 Episodic Past or Other Problems Problem Classification Problem Date Documented Da te Episodic/Chronic Malaise and fatigue (20 sources) Muscle weakness; Translations: [Weakness] Onset: 12-09-2020 12-09-2020 Episodic Other connective tissue disease (20 sources) Muscle pain; Translations: [Myalgia, unspecified site] Onset: 12-09-2020 12-09-2020 Episodic Other connective tissue disease (20 sources) Shoulder pain; Translations: [Myalgia, other site] Onset: 12-09-2020 12-09-2020 Episodic Other connective tissue disease (20 sources) Pain of bilateral thighs; Translations: [Pain in right thigh] Onset: 12-09-2020 12-09-2020 Episodic Unclassified (1 source) Patient encounter status 04-11-2024 Results Test Name Value Interpretation Reference Range Facility CBC-Complete Blood Cnt No Di ffon 01-02-2025 Erythrocyte distribution width (RBC) [Ratio] 12.0 % Normal 11.6-14.6 [facility] Comment on above: Performed By: #### L 500.4100, L501.9985, L100.0500, L500.4050, L506.1001, L503.0106, L501.9520 #### [facility] [address] [place], [address] Hematocrit (Bld) [Volume fraction] 43.5 % Normal 37-47 [facility] Comment on above: Performed By: #### L 500.4100, L501.9985, L100.0500, L500.4050, L506.1001, L503.0106, L501.9520 #### [facility] [address] [place], [address] Hemoglobin (Bld) [Mass/Vol] 14.3 g/dL Normal 12.0-15.0 [facility] Comment on above: Performed By: #### L 500.4100, L501.9985, L100.0500, L500.4050, L506.1001, L503.0106, L501.9520 #### [facility] [address] [place], [address] MCH (RBC) [Entitic mass] 29.4 pg Normal 27.0-32.0 [facility] Comment on above: Performed By: #### L 500.4100, L501.9985, L100.0500, L500.4050, L506.1001, L503.0106, L501.9520 #### [facility] [address] [place], [address] MCHC (RBC) [Mass/Vol] 32.9 g/dL Normal 32-36 [facility] Comment on above: Performed By: #### L 500.4100, L501.9985, L100.0500, L500.4050, L506.1001, L503.0106, L501.9520 #### [facility] [address] [place], [address] MCV (RBC) [Entitic vol] 89.5 fL Normal 81-99 [facility] Comment on above: Performed By: #### L 500.4100, L501.9985, L100.0500, L500.4050, L506.1001, L503.0106, L501.9520 #### [facility] [address] [place], [address] Platelet mean volume (Bld) [Entitic vol] 10.2 fL Normal 6.2-12.0 [facility] Comment on above: Performed By: #### L 500.4100, L501.9985, L100.0500, L500.4050, L506.1001, L503.0106, L501.9520 #### [facility] [address] [place], [address] Platelets (Bld) [#/Vol] 288 10*3/uL Normal 150-450 [facility] Comment on above: Performed By: #### L 500.4100, L501.9985, L100.0500, L500.4050, L506.1001, L503.0106, L501.9520 #### [facility] [address] [place], [address] RBC (Bld) [#/Vol] 4.86 10*6/uL Normal 4.2-5.4 [facility] Comment on above: Performed By: #### L 500.4100, L501.9985, L100.0500, L500.4050, L506.1001, L503.0106, L501.9520 #### [facility] [address] [place], [place], [id number] (577) RDW SD 39.3 fl Normal 35.1-43.9 [facility] Comment on above: Performed By: #### L 500.4100, L501.9985, L100.0500, L500.4050, L506.1001, L503.0106, L501.9520 #### [facility] [address] [place], [place], [id number] (809) WBC (Bld) [#/Vol] 5.5 10*3/uL Normal 4.4-11.0 [facility] Comment on above: Performed By: #### L 500.4100, L501.9985, L100.0500, L500.4050, L506.1001, L503.0106, L501.9520 #### [facility] [address] [place], [place], [id number] Bev 01-02-2025 JAX Telephone (FAMPWS) ALYSSA HERRERA ([id number]) 1965 F CHT Date Time Provider Department 01/02/25 HERBER HOGUE During your visit today, we recorded the following information about you: Sushma Reynolds KYLE 01/02/2025 3:53 PM Addendum Please see lab results Scan on 01/02/2025 8:39 AM by Provider, External, PANeelamC: Miscellaneous Lab Scan on 01/02/2025 8:13 AM by Provider, External, PALizzette: Miscellaneous Clinical Documents Abdirizak Daniel APRN.RICKIE 01/05/2025 2:05 PM Signed Please let her know that we received her lab orders. Her TSH thyroid level is low. I'm placing some additional thyroid lab orders that I'd like her to complete please. Abdirizak Daniel APRN.Chely Alejandra LPN 01/05/2025 3:31 PM Signed Left message to return call. Karis Diaz RN 01/05/2025 3:42 PM Signed Patient calls and notified of results and providers instructions. Patient verbalizes understanding. Labs faxed to [facility] as requested at [phone]. Karis Diaz RN Allergies As of Date: 01/02/2025 Noted Allergy Reaction MILK 10/16/2020 16 - Unknown SHELLFISH DERIVED 10/16/2020 10 - Anaphylaxis SHRIMP 10/16/2020 10 - Anaphylaxis Date Reviewed: 12/28/2024 Reviewed by: Abdirizak Daniel APRN.CORRECTIONAL CAPTAIN - Fully Assessed Reason for Visit: Results [95] Orders [681] Primary Visit Diagnosis:Low TSH level [R79.89] Order(s):THYROID STIMULATING HORMONE [SQTSH] Order #: [id number] FUTURE T3 [SQT3] Order #: [id number] FUTURE T4 FREE/FREE THYROXINE [SQFT4] Order #: [id number] FUTURE THYROID PEROXIDASE ANTIBODY [SQMICRO] Order #: [id number] FUTURE THYROGLOBULIN ANTIBODY [SQTGAB] Order #: [id number] FUTURE Prescriptions as of 01/05/2025 - compounded progesterone 200mg capsule 200 mg two times a day. - estradiol (ESTRACE) 1 mg tablet Take 1.5 mg by mouth once daily. - testosterone 100 mg/ml cream (CPD) Apply 0.5 mL to affected area once daily. 20mg, prescribed by [facility] Meds Comments as of 12/28/2024: Turmeric, car, flax seed, Vitamin D3 daily-as of 10/16/2020 Takes thyroid 1 Grain 60mg capsule daily Problem List As Of Date 01/02/2025 Noted Resolved Myalgia [M79.10] 12/09/2020 Decreased strength, endurance, and mobility [R5*12/09/2020 Dyslipidemia [E78.5] 12/09/2020 Pain in deltoid, bilateral [M79.18] 12/09/2020 Pain in both thighs [M79.651, M79.652] 12/09/2020 Encounter Status:Closed by KARIS DIAZ on 01/05/25 Normal [facility] Metabolic Prof kamila 01-02-2025 Albumin [Mass/Vol] 4.0 g/dL Normal 3.4-4.8 [facility] Comment on above: Performed By: #### L 501.6710, L501.86814, L506.1000 #### [facility] [address] [place], [address] Albumin/Globulin [Mass ratio] 1.7 {ratio} Normal 0.9-2.4 [facility] Comment on above: Performed By: #### L 501.6710, L501.12679, L506.1000 #### [facility] [address] [place], [address] ALK PHOS 57 U/L Normal 35-104 [facility] Comment on above: Performed By: #### L 501.6710, L501.68695, L506.1000 #### [facility] [address] [place], [address] ALT [Catalytic activity/Vol] 12 U/L Normal <=34 [facility] Comment on above: Performed By: #### L 501.6710, L501.40914, L506.1000 #### [facility] [address] [place], [address] AST [Catalytic activity/Vol] 18 U/L Normal <=31 [facility] Comment on above: Performed By: #### L 501.6710, L501.67256, L506.1000 #### [facility] [address] [place], [address] Bilirubin [Mass/Vol] 0.64 mg/dL Normal 0.00-1.30 [facility] Comment on above: Performed By: #### L 501.6710, L501.76951, L506.1000 #### [facility] [address] [place], [address] BUN/CRE 16.6 RATIO Normal 10-20 [facility] Comment on above: Performed By: #### L 501.6710, L501.91475, L506.1000 #### [facility] [address] [place], [address] Calcium [Mass/Vol] 9.2 mg/dL Normal 7.6-11.0 [facility] Comment on above: Performed By: #### L 501.6710, L501.32120, L506.1000 #### [facility] [address] [place], [address] Chloride [Moles/Vol] 107 mmol/L Normal 98-108 [facility] Comment on above: Performed By: #### L 501.6710, L501.68974, L506.1000 #### [facility] [address] [place], [address] CO2 [Moles/Vol] 26.8 mmol/L Normal 21.0-32.0 [facility] Comment on above: Performed By: #### L 501.6710, L501.13704, L506.1000 #### [facility] [address] [place], [address] Creatinine [Mass/Vol] 0.66 mg/dL Low 0.70-1.20 [facility] Comment on above: Performed By: #### L 501.6710, L501.63461, L506.1000 #### [facility] [address] [place], [address] GAP 8 Normal 5-15 [facility] Comment on above: Performed By: #### L 501.6710, L501.23365, L506.1000 #### [facility] [address] [place], [address] GFR/1.73 sq M.predicted among non-blacks MDRD (S/P/Bld) [Vol rate/Area] 100 mL/min/{1.73_m2} Normal >60 [facility] Comment on above: Result Comment: mL/m in/1.73m2 CKD-EPI Creatinine Equation (2020) Performed By: #### L 501.6710, L501.24702, L506.1000 #### [facility] [address] [place], [address] Globulin (S) [Mass/Vol] 2.3 g/dL Normal 2.2-4.2 [facility] Comment on above: Performed By: #### L 501.6710, L501.78632, L506.1000 #### [facility] [address] [place], [address] Glucose [Mass/Vol] 97 mg/dL Normal 70-99 [facility] Comment on above: Performed By: #### L 501.6710, L501.68012, L506.1000 #### [facility] [address] [place], [address] Potassium [Moles/Vol] 4.1 mmol/L Normal 3.3-5.1 [facility] Comment on above: Performed By: #### L 501.6710, L501.43452, L506.1000 #### [facility] [address] [place], [address] Sodium [Moles/Vol] 142 mmol/L Normal 133-145 [facility] Comment on above: Performed By: #### L 501.6710, L501.03761, L506.1000 #### [facility] [address] [place], [address] T PROT 6.4 g/dL Normal 5.9-8.4 [facility] Comment on above: Performed By: #### L 501.6710, L501.81481, L506.1000 #### [facility] [address] [place], [address] Urea nitrogen [Mass/Vol] 11 mg/dL Normal 4-19 [facility] Comment on above: Performed By: #### L 501.6710, L501.37553, L506.1000 #### [facility] [address] [place], [address] Hemoglobin A1con 01-02-2025 HbA1c (Bld) [Mass fraction] 5.8 % High <=5.6 [facility] Comment on above: Result Comment: Norm al < 5.7 % Prediabetic 5.7 - 6.4 % Diabetic >or= 6.5 % Please note range changes. Performed By: #### L 500.4100, L501.9985, L100.0500, L500.4050, L506.1001, L503.0106, L501.9520 #### [facility] [address] [place], [address] Lipid Profileon 01-02-2025 CHOL:HDL 3.60 Normal [facility] Comment on above: Performed By: #### L 501.6710, L501.29202, L506.1000 #### [place] [facility] [address] [place], [address] Cholesterol [Mass/Vol] 178 mg/dL Normal <=200 [facility] Comment on above: Result Comment: Chol esterol level, Desirable <200 mg/dL Borderline high cholesterol 200-239 mg/dL High cholesterol >=240 mg/dL Recommendations of the NCEP Adult Treatment Panel for the following risk-cutoff thresholds for the [place] population. Performed By: #### L 501.6710, L501.23988, L506.1000 #### [facility] [address] [place], [address] Cholesterol in HDL [Mass/Vol] 50 mg/dL Normal [facility] Comment on above: Result Comment: Yusra onal Cholesterol Education Program (NCEP) guidelines: <40 mg/dL: Low HDL-cholesterol (major risk factor for CHD) >= 60 mg/dL: High HDL-cholesterol (negative risk factor for CHD) HDL-cholesterol is affected by a number of factors, e.g. smoking, exercise, hormones, sex and age. Performed By: #### L 501.6710, L501.34655, L506.1000 #### [facility] [address] [place], [address] Cholesterol in LDL [Mass/Vol] 116 mg/dL Normal [facility] Comment on above: Result Comment: Bord tgavyd=404-964 mg/dL Higher Zeii=720 mg/dL or greater Simon Equation 2020 for LDL-C Performed By: #### L 501.6710, L501.43087, L506.1000 #### [facility] [address] [place], [address] Cholesterol in VLDL [Mass/Vol] 13 mg/dL Normal 5-40 [facility] Comment on above: Performed By: #### L 501.6710, L501.52674, L506.1000 #### [facility] [address] [place], [address] Triglyceride [Mass/Vol] 63 mg/dL Normal [facility] Comment on above: Result Comment: The drugs N-Acetylcysteine and Metamizole may falsely depress this assay. Normal range: <150 mg/dL Borderline High: 150-199 mg/dL High: 200-499 mg/dL Very High: >500 mg/dL Performed By: #### L 501.6710, L501.99354, L506.1000 #### [facility] [address] [place], [address] Thyroid Stim Hormone (TSH)on 01-02-2025 TSH Qn m[IU]/L Low 0.300-4.200 [facility] Comment on above: Performed By: #### L 501.6710, L501.66633, L506.1000 #### [facility] [address] [place], [address] Vitamin B12on 01-02-2025 Cobalamin (Vitamin B12) [Mass/Vol] 568 pg/mL Normal 180-914 [facility] Comment on above: Performed By: #### L 501.6710, L501.94608, L506.1000 #### [facility] [address] [place], [address] Vitamin D,25 Hydroxyon 01-02 Vitamin D 25-OH 33.2 ng/mL Normal 30-100 [facility] Comment on above: Result Comment: Pallavi min D Status Deficiency: <20 ng/mL (50nmol/L) Insufficiency: 20-30 ng/mL (50-75 nmol/L) Sufficiency: 30-100 ng/mL (75-250 nmol/L) Toxicity: >100 ng/mL (>250 nmol/L) Performed By: #### L 501.6710, L501.82570, L506.1000 #### [facility] [address] [place], [address] CN[facility] 12-28-2024 [facility] ALYSSA HERRERA ([id number]) 1965 F [facility] Date Time Provider Department 12/28/24 7:40 AM ABDIRIZAK DANIEL During your visit today, we recorded the following information about you: Pulse Blood pressure Weight Height 95/minute 102/68 61.1 kg 1.57 m Abdirizak Daniel APRN.CORRECTIONAL CAPTAIN 12/28/2024 10:14 AM Signed 12/28/2024 Recording using [employer] software for draft documentation of the visit was discussed with the patient/authorized outside sales account representative; all questions welcomed and answered. Patient/authorized outside sales account representative agreed to proceed HPI: The patient is a 59-year-old female presenting for an annual physical with screening laboratory studies and discussion of shingles vaccination. Alyssa Herrera is a 59-year-old female presenting for an annual wellness visit, with additional concerns about a recent rash. Annual Wellness Exam: - No changes in medical history or surgeries. - Rare alcohol consumption; denies smoking, drug use, or vaping. - Current medications include hormone replacement therapy. - Mammogram ordered in April; it is still active. - Inquires about A1C testing. - Inquires about calcium scoring. Rash: - Developed a rash approximately 7 days ago, now healing, to right side of her forehead and scalp. - Rash was vesicular, with fluid-filled lesions and black centers. - Associated with severe pain, lymphadenopathy, and otalgia. - Denies receiving the shingles vaccine; had chickenpox as a child. PAST MEDICAL HISTORY Diagnosis Date Polymyalgia rheumatica (HCC) Thyroid nodule Vaginal delivery (HCC) x3 Current Outpatient Medications on File Prior to Visit Medication Sig compounded progesterone 200mg capsule 200 mg two times a day. estradiol (ESTRACE) 1 mg tablet Take 1.5 mg by mouth once daily. testosterone 100 mg/ml cream (CPD) Apply 0.5 mL to affected area once daily. 20mg, prescribed by [facility] No current facility-administered medications on file prior to visit. Review of Systems: Cardiovascular: (-) ankle swelling Musculoskeletal: (+) hip pain, (-) ankle pain, (-) leg pain Skin: (+) scalp rash Physical Exam: BP 102/68 Pulse 95 Ht 157 cm (5' 1.81) Wt 61.1 kg (134 lb 12.8 oz) LMP 12/04/2019 (Approximate) SpO2 98% BMI 24.81 kg/m? GENERAL: NAD, alert and oriented, well groomed. SKIN: Healing lesions noted on the scalp and few to forehead, otherwise unremarkable, no other rash or skin lesions. HEAD: Normocephalic. EYES: PERRLA, EOMI, conjunctiva clear. EARS: External ears normal, fluid noted in one ear, TM's normal. NOSE/SINUSES: Nares normal. Septum midline. OROPHARYNX: Lips, mucosa, and tongue normal, good dentition. No oral lesions noted. NECK: Supple, no lymphadenopathy, normal thyroid, no carotid bruits. LUNGS: Clear to auscultation bilaterally, no wheezes/rhonchi/rales. HEART: Regular rate and rhythm, no murmurs. No ectopy. ABDOMEN: soft, nontender, BS present x4, no masses or organomegaly appreciated. EXTREMITIES: Normal, no deformities, no skin discoloration, no edema. NEURO: Awake, alert and oriented x3, cranial nerves II-XII grossly intact, normal gait, no involuntary motions. PSYCHIATRIC: pleasant, cooperative. Assessment/Plan: 1. Well adult exam (Z00.00) - No changes in medical history or surgeries since last visit. - No tobacco, drug, or alcohol use; no vaping. - Discussed varicose veins; patient inquired about new treatments; advised referral to vascular surgery for further evaluation if desired. 2. Screening for depression (Z13.31) 3. Encounter for screening examination for other mental health and behavioral disorders (Z13.39) 4. Screening for thyroid disorder (Z13.29) - Order TSH. 5. Encounter for vitamin deficiency screening (Z13.21) - Order vitamin D and B12 levels. 6. Screening for lipid disorders (Z13.220) - Order lipid panel. 7. Screening for diabetes mellitus (Z13.1) - Order HbA1c. 8. Encounter for screening for cardiovascular disorders (Z13.6) - Order CBC, CMP. - Order coronary artery calcium scoring. - Discussed that calcium scoring is not absolutely necessary but can provide additional information about cardiovascular risk. The patient indicates understanding of these issues and agrees with the plan. Red flag symptoms reviewed as needed. Follow up: Abdirizak Daniel APRN.CNP Allergies As of Date: 12/28/2024 Noted Allergy Reaction MILK 10/16/2020 16 - Unknown SHELLFISH DERIVED 10/16/2020 10 - Anaphylaxis SHRIMP 10/16/2020 10 - Anaphylaxis Date Reviewed: 12/28/2024 Reviewed by: Abdirizak Daniel APRN.CORRECTIONAL CAPTAIN - Fully Assessed Reason for Visit: Yearly Exam [187] Primary Visit Diagnosis:Well adult exam [Z00.00] Other Visit Diagnoses:Screening for depression [Z13.31] Encounter for screening examination for other mental health and behavioral disorders [Z13. (more content not included)... Normal [facility] Office Visit Reporton 2024 Office Visit Report [facility] [address] [place] [address] OFFICE VISIT Date of Service: 05/24/24 MR#: [id number] Acct: [id number] Patient: ALYSSA HERRERA Rep #: [id number] 3 : 1965 Provider: ARETHA Gleason Age/Sex: 59/F Location: [facility] Status: Signed Intake Vital Signs 06/28/23 11:25 05/24/24 11:15 Height 1.57 m 1.57 m Weight: 63.503 kg BMI 25.6 BP 113/76 Blood Pressure Location Rt brachial Position Sitting Pulse 91 Pulse Source Monitor Temp 98.3 F Temp Source Temporal Pulse Oximetry (%) 97 Intake Visit Reasons: Sore throat Chief Complaint: sore throat Allergies milk Allergy (Mild, Verified 05/24/24 11:16) Abd cramps/diarrhea shellfish derived Adverse Reaction (Severe, Verified 05/24/24 11:16) Anaphylaxis Medications ???Medication ???Instructions ???Recorded ???Confirmed ???Type amoxicillin 500 mg capsule 500 mg PO Q12H 10 days #20 caps 05/24/24 Rx PFSH Medical History Arthritis Kidney stones Seasonal allergies Thyroid nodule Surgical History No history of previous surgery Family History Other Heart disease High cholesterol Hypertension Thyroid disorder Social History adopted: No household members: spouse housing: house number of children: 3 current occupational status: employed 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 Pt started to feel ill yesterday. She had sudden onset of sore throat and also fevers. She had a temp up to 102F. She has some pain radiating to the ear. She has no cough. She was around some coworkers who had strep throat. ROS Const Constitutional: Positive for fever(s) ENT ENT: Positive for ear or mastoid pain and sore throat; No nasal congestion Resp Respiratory: No cough, shortness of breath or wheezing Gastro GI: No diarrhea, nausea/dyspepsia or vomiting Aller/Imm Allergy/Immunologic: No wheezing Exam Const General: cooperative, healthy appearing, comfortable, no acute distress, well developed and well groomed Nutritional Appearance: average body habitus and well nourished Orientation: alert, awake and oriented x3 HENMT Head: normocephalic and atraumatic Ears: hearing grossly normal bilaterally, external ears normal and TM's normal bilaterally Nose: external nose normal, nares normal and no nasal polyps Throat: abnormal tonsil (2+ with exudate) and uvular edema Resp Effort Inspection: normal respiratory effort, able to speak in complete sentences, symmetric chest movement and no cough Auscultation: Bilateral: Clear to Auscultation Cardio Rate: regular rate Rhythm: regular rhythm Heart Sounds: no murmurs Coding Level of Care Code Off vis,est,level 3 Diagnoses Sore throat J02.9 Strep pharyngitis J02.0 Assessment and Plan Assessment and Plan (1) Sore throat: (2) Strep pharyngitis: Status: Acute Plan: centor criteria 06/02 with known contacts with strep + mild uvulitis. start amox x 10 days. tylenol motrin prn for pain / fever. no chronic medical issues/medication use Medications: New amoxicillin 500 mg PO Q12H 10 days 20 caps 0RF 05/24/24 1123 Date Stanford Montes Signature: Date (if applicable) CC: Normal [facility] CNCOon 02-18-2024 CNCO Letter Text Normal [facility] CNOVon 02-18-2024 CNOV Office Visit ([facility] ) ALYSSA HERRERA ([id number]) 1965 F T Date Time Provider Department 02/18/24 7:40 AM ABDIRIZAK DANIEL [facility] During your visit today, we recorded the following information about you: Pulse Respiration Blood pressure Weight 73/minute 14/minute 118/78 64 kg Height 1.59 m Abdirizak Daniel APRN.CORRECTIONAL CAPTAIN 02/18/2024 9:52 AM Signed Chief Complaint Patient presents with: Physical: Review labs 02/08 URI: X 2 weeks HPI Alyssa Herrera is a 58 year old female who presents here today for Above Complaints.. URI sx-x2-3 weeks, started with ear ache, has been coming and going. Is hoarse. Coughing up thick green, blowing out of her nose as well. Chest felt yesterday like it was burning. Hasn't checked her temperature, but has felt chilled off and on. Very fatigued. Denies chest pain, SOB, palpitations, new or persistent h/a, difficulty swallowing, increased thirst or urination. Sees holistic dr in [place]. Is receiving estrogen and progesterone from him. Also put her on thyroid medication. Feels like her pain has improved quite a bit with the extra estrogen and progesterone. Past medical history, appointments, medications, allergies reviewed. Previous Medical History PAST MEDICAL HISTORY Diagnosis Date Polymyalgia rheumatica (HCC) Thyroid nodule Vaginal delivery x3 Previous Surgical History History reviewed. No pertinent surgical history. Family History FAMILY HISTORY Problem Relation Age of Onset other (thyroid growth) Mother other (HTN) Mother other (HTN) Father Cardiomyopathy Father 40 congenital other (Vitelego) Father other (HTN) Sister 30 other (HTN) Brother other (DM) Brother Breast Cancer Maternal Grandmother 70 mastectomy other (HTN) Maternal Grandfather other (ME) Maternal Grandfather at an old age other (HTN) Paternal Grandmother Arthritis Paternal Grandmother other (ME) Paternal Grandfather 40 Thyroid Other significant with mom's siblings other (Shogren's in an aunt) Other other (niece with autoimmune) Other Patient Allergies ALLERGIES Allergen Reactions Milk Unknown Shellfish Derived Anaphylaxis Shrimp Anaphylaxis Current Medications Current Outpatient Medications on File Prior to Visit Medication Sig compounded progesterone 200mg capsule 200 mg two times a day. estradiol (ESTRACE) 1 mg tablet Take 1.5 mg by mouth once daily. testosterone 100 mg/ml cream (CPD) Apply 0.5 mL to affected area once daily. 20mg tamsulosin (FLOMAX) 0.4 mg Take 1 capsule by mouth daily at bedtime. cholecalciferol, vitamin D3, (VITAMIN D3 ORAL) Take by mouth. (Patient not taking: Reported on 02/18/2024) idfmrai-cvwr-puqys-oreg-cap ryl 100 mg-150 mg- 50 mg-150 mg cap Take by mouth. (Patient not taking: Reported on 02/18/2024) Lactobacillus acidophilus (PROBIOTIC ORAL) Take by mouth. (Patient not taking: Reported on 02/18/2024) vitamin B complex (B COMPLEX-VITAMIN B12 ORAL) Take by mouth. (Patient not taking: Reported on 04/26/2023) No current facility-administered medications on file prior to visit. Social History Social History Tobacco Use Smoking status: Never Smokeless tobacco: Never Substance Use Topics Alcohol use: Never Drug use: Never Review of Symptoms REVIEW OF SYSTEMS See HPI, otherwise negative EXAM: BP 118/78 (BP Site: Left Arm, BP Position: Sitting, BP Cuff Size: Regular Adult) Pulse 73 Resp 14 Ht 159 cm (5' 2.6) Wt 64 kg (141 lb) LMP 12/04/2019 (Approximate) SpO2 99% BMI 25.30 kg/m? General Appearance: ill-appearing, alert, in no acute distress, well-hydrated, well nourished.. Skin: Skin color, texture, turgor normal, no suspicious rashes or lesions. Head: Normocephalic, no masses, lesions, tenderness or abnormalities. Eyes: Anicteric sclera. Pupils are equally round and reactive to light. Extraocular movements are intact. . Ears: clear fluid bubbles posterior to left TM. Nose/Sinuses: Nares normal, septum midline, mucosa normal, no drainage or sinus tenderness. Oropharynx: Lips, mucosa, and tongue normal, teeth and gums normal, oropharynx normal. Neck: Supple, no adenopathy; thyroid symmetric, normal size, no bruits. Back:no pain to palpation of vertebrae, good flexion and extension, good range of motion, no muscle tenderness, motor and sensory appear to be normal Lungs: Lungs clear to auscultation. No wheezing, rhonchi, rales.. Heart: RRR without murmur, gallop, or rubs. No ectopy. Abdomen: Normal abdominal exam, Abdomen soft, non-tender. Bowel sounds normal. No masses, organomegaly. Extremities: No deformities, edema, skin discoloration, clubbing or cyanosis. Good capillary refill. . Musculoskeletal: No joint swelling, deformity, or tenderness. Peripheral Pulses: Normal. Neurologic: Gait normal. Reflexes normal and symmetric. Sensation grossly intact.. Lymph Node (more content not included)... Normal [facility] Bev 02-18-2024 [facility] Telephone ([facility]) ALYSSA HERRERA ([id number]) 1965 F T Date Time Provider Department 02/18/24 ABDIRIZAK DANIEL During your visit today, we recorded the following information about you: Vera Pryor LPN 02/18/2024 3:57 PM Signed Patient calling asking if R Alyce CORRECTIONAL PROBATION OFFICER had gotten her chest xray results from [facility]? She had it done there today, she can see results on [facility] similar my chart forum. She said xray her lungs were clear and no infiltrates. Patient asking if CORRECTIONAL PROBATION OFFICER is sending an antibiotic rx to [facility] for her? Please advise Miesha Hurley LPN 02/21/2024 9:30 AM Signed Pt sent this message: jw Herrera to [facility] Chart Rx Pool (supporting Abdirizak Daniel APRN.RICKIE) 02/20/24 6:22 PM X-ray done/clear Called office Wednesday afternoon/after hours nurse and again on Wednesday to attempt to get antibiotic as discussed in appt. Still sick despite steroids/inhaler. Please send script to [facility] today. Miesha Hurley LPN 02/21/2024 9:30 AM Signed Pt calls today to follow up on messages below. Pt reports since xray was clear for pneumonia she is requesting atb to be called in that Etienne Daniel CNP was going to prescribe for ear infection if CXR did not show pneumonia. Pt reports she is not feeling any better. Please review and advise. Call pt with 's message. FLO Hicks Brittany L, MA 02/21/2024 9:48 AM Signed XR results below: Scan on 02/18/2024 9:35 AM by Provider, External, PA-C: X-ray 02/17 OV Notes: Data reviewed Previous records, office notes ASSESSMENT/PLAN: 1. Persistent cough - ICD9: 786.2, ICD10: R05.3 (primary diagnosis) Supportive care Will medicate with antibiotic based on chest xray results - XR CHEST 2V FRONTAL/LAT - METHYLPREDNISOLONE 4 MG TABLETS IN A DOSE PACK - ALBUTEROL SULFATE HFA 90 MCG/ACTUATION AEROSOL INHALER 2. Productive cough - ICD9: 786.2, ICD10: R05.8 Supportive care Will medicate with antibiotic based on chest xray results - XR CHEST 2V FRONTAL/LAT - METHYLPREDNISOLONE 4 MG TABLETS IN A DOSE PACK - ALBUTEROL SULFATE HFA 90 MCG/ACTUATION AEROSOL INHALER 3. Hoarseness - ICD9: 784.42, ICD10: R49.0 Supportive care Will medicate with antibiotic based on chest xray results - XR CHEST 2V FRONTAL/LAT - METHYLPREDNISOLONE 4 MG TABLETS IN A DOSE PACK - ALBUTEROL SULFATE HFA 90 MCG/ACTUATION AEROSOL INHALER 4. Non-recurrent acute serous otitis media of left ear - ICD9: 381.01, ICD10: H65.02 Supportive care Will medicate with antibiotic based on chest xray results - XR CHEST 2V FRONTAL/LAT - METHYLPREDNISOLONE 4 MG TABLETS IN A DOSE PACK - ALBUTEROL SULFATE HFA 90 MCG/ACTUATION AEROSOL INHALER 5. Acute non-recurrent pansinusitis - ICD9: 461.8, ICD10: J01.40 Supportive care Will medicate with antibiotic based on chest xray results - XR CHEST 2V FRONTAL/LAT - METHYLPREDNISOLONE 4 MG TABLETS IN A DOSE PACK - ALBUTEROL SULFATE HFA 90 MCG/ACTUATION AEROSOL INHALER 6. Well adult exam - ICD9: V70.0, ICD10: Z00.00 - Counseled on healthy diet and regular exercise - Follow up for annual exam in one year - XR CHEST 2V FRONTAL/LAT - METHYLPREDNISOLONE 4 MG TABLETS IN A DOSE PACK 7. Low TSH level - ICD9: 794.5, ICD10: R79.89 Will send a message back to the office with thyroid medication information-she is receiving from a holistic doctor and from a compounding pharmacy. Abdirizak Daniel APRN.Herber Denton DO 02/21/2024 1:26 PM Signed Yes, ok to start on rx as below Please inform patient Herber Hogue DO The following approved medication requests have been transmitted electronically. Requested Prescriptions Signed Prescriptions Disp Refills amoxicillin-clavulanate potassium (AUGMENTIN) 875-125 mg per tablet 20 tablet 0 Sig: Take 1 tablet by mouth two times a day for 10 days. Authorizing Provider: HERBER HOGUE DO Detwiler-Green, Susan LPN 02/21/2024 2:16 PM Signed Pt. informed via my chart Allergies As of Date: 02/18/2024 Noted Allergy Reaction MILK 10/16/2020 16 - Unknown SHELLFISH DERIVED 10/16/2020 10 - Anaphylaxis SHRIMP 10/16/2020 10 - Anaphylaxis Date Reviewed: 02/18/2024 Reviewed by: Brynn Buck RN - Fully Assessed Reason for Visit: chest xray results [Other] Visit Diagnosis:Left ureteral stone [N20.1] Order(s):amoxicillin-clavul anate potassium (AUGMENTIN) 875-125 mg per tabletTake 1 tablet by mouth two times a day for 10 days.Disp: 20 tabletRfl: 0 Prescriptions as of 02/21/2024 - amoxicillin-clavulanate potassium (AUGMENTIN) 875-125 mg per tablet Take 1 tablet by mouth two times a day for 10 days. - compounded progesterone 200mg capsule 200 mg two times a day. - estradiol (ESTRACE) 1 mg tablet Take 1.5 mg by mouth once daily. - testosterone 100 mg/ml cream (CPD) Apply 0.5 mL to aff (more content not included)... Normal [facility] Chest PA and Lateralon 02-17 Chest PA and Lateral [facility] Imaging Services [address] [place] [id number] Chest PA and Lateral MR#: [id number] Acct: [id number] Name: ALYSSA HERRERA Rep #: [id number] : 1965 F 58 From: Milton mix MD PCP: Dr. Herber Hogue, Status: REG CLI Study: Chest PA and Lateral Date of Exam: 02/18/24 Exam# [id number] Ordering Dr: Abdirizak Daniel NP CORRECTIONAL PROBATION OFFICER-C [id number] STUDY: X-RAY CHEST REASON FOR EXAM: Female, 58 years old. COUGH TECHNIQUE: PA and lateral views of the chest. COMPARISON: None. FINDINGS: The lungs are clear and expanded. There is no demonstrated pleural abnormality. Normal size heart. Normal mediastinum and jorgito. Normal visualized pulmonary arteries. Normal visualized aortic arch and descending thoracic aorta. Normal visualized thoracic spine. Normal visualized ribs, clavicles, and shoulders. There is no demonstrated abnormality of the visualized soft tissue structures of the upper abdomen. RAD/Chest PA and Lateral IMPRESSION: Normal x-ray examination of the chest. Electronically Signed: Milton Irving MD at 9:28 EST Reading Location ID and State: [address] [place] [address] , Service support , CC: DEAN Daniel; Dr. Herber Hogue DO Risk Tech: Signed Normal [facility] CBC, Employeeon 02-09-2024 Absolute Lymph 1.66 X10 3/uL Normal 0.83-4.51 [facility] Comment on above: Performed By: #### L 500.2900, L100.0200, L400.0100 #### [facility] [address] [place], [address] Absolute Neut 3.1 X10 3/uL Normal 2.0-7.7 [facility] Comment on above: Performed By: #### L 500.2900, L100.0200, L400.0100 #### [facility] [address] [place], [address] Basophils/100 WBC (Bld) 1.0 % Normal 0-1 [facility] Comment on above: Performed By: #### L 500.2900, L100.0200, L400.0100 #### [facility] [address] [place], [address] Eosinophils/100 WBC (Bld) 6.6 % High 0-5 [facility] Comment on above: Performed By: #### L 500.2900, L100.0200, L400.0100 #### [facility] [address] [place], [address] Erythrocyte distribution width (RBC) [Ratio] 12.9 % Normal 11.6-14.6 [facility] Comment on above: Performed By: #### L 500.2900, L100.0200, L400.0100 #### [facility] [address] [place], [address] Hematocrit (Bld) [Volume fraction] 45.1 % Normal 37-47 [facility] Comment on above: Performed By: #### L 500.2900, L100.0200, L400.0100 #### [facility] [address] [place], [address] Hemoglobin (Bld) [Mass/Vol] 14.3 g/dL Normal 12.0-15.0 [facility] Comment on above: Performed By: #### L 500.2900, L100.0200, L400.0100 #### [facility] [address] [place], [address] Lymphocytes/100 WBC (Bld) 28.6 % Normal 19-41 [facility] Comment on above: Performed By: #### L 500.2900, L100.0200, L400.0100 #### [facility] [address] [place], [address] MCH (RBC) [Entitic mass] 29.4 pg Normal 27.0-32.0 [facility] Comment on above: Performed By: #### L 500.2900, L100.0200, L400.0100 #### [facility] [address] [place], [address] MCHC (RBC) [Mass/Vol] 31.7 g/dL Low 32-36 [facility] Comment on above: Performed By: #### L 500.2900, L100.0200, L400.0100 #### [facility] [address] [place], [address] MCV (RBC) [Entitic vol] 92.6 fL Normal 81-99 [facility] Comment on above: Performed By: #### L 500.2900, L100.0200, L400.0100 #### [facility] [address] [place], [address] Monocytes/100 WBC (Bld) 10.5 % High 0-10 [facility] Comment on above: Performed By: #### L 500.2900, L100.0200, L400.0100 #### [facility] [address] [place], [address] Neutrophils/100 WBC (Bld) 53.0 % Normal 47-70 [facility] Comment on above: Performed By: #### L 500.2900, L100.0200, L400.0100 #### [facility] [address] [place], [address] NRBC # 0.00 10 3/uL Normal 0-5 [facility] Comment on above: Performed By: #### L 500.2900, L100.0200, L400.0100 #### [facility] [address] [place], [address] Nucleated RBC (Bld) [#/Vol] 0 10*3/uL Normal 0-5 [facility] Comment on above: Performed By: #### L 500.2900, L100.0200, L400.0100 #### [facility] [address] [place], [address] Platelet mean volume (Bld) [Entitic vol] 10.4 fL Normal 6.2-12.0 [facility] Comment on above: Performed By: #### L 500.2900, L100.0200, L400.0100 #### [facility] [address] [place], [address] Platelets (Bld) [#/Vol] 289 10*3/uL Normal 150-450 [facility] Comment on above: Performed By: #### L 500.2900, L100.0200, L400.0100 #### [facility] [address] [place], [address] RBC (Bld) [#/Vol] 4.87 10*6/uL Normal 4.2-5.4 [facility] Comment on above: Performed By: #### L 500.2900, L100.0200, L400.0100 #### [facility] [address] [place], [address] RDW SD 43.7 fl Normal 35.1-43.9 [facility] Comment on above: Performed By: #### L 500.2900, L100.0200, L400.0100 #### [facility] [address] [place], [address] WBC (Bld) [#/Vol] 5.8 10*3/uL Normal 4.4-11.0 [facility] Comment on above: Performed By: #### L 500.2900, L100.0200, L400.0100 #### [facility] [address] [place], [address] CRPon 02-09-2024 C-REACTIVE PROT 7.14 mg/L High 0.0-3.0 [facility] Comment on above: Result Comment: C-Re active Protein (CRP) provides useful information for the diagnosis, therapy and monitoring of inflammatory processes and associated diseases. For the evaluation of Relative Risk for Cardiovascular Disease, a High Sensitivity CRP (HSCRP) should be ordered. Performed By: #### L 501.6710, L501.74316, L506.1000 #### [facility] [address] [place], [address] Employee Profileon 4 Albumin [Mass/Vol] 3.8 g/dL Normal 3.2-5.0 [facility] Comment on above: Performed By: #### L 500.2900, L100.0200, L400.0100 #### [facility] [address] [place], [address] Albumin/Globulin [Mass ratio] 1.2 {ratio} Normal 0.9-2.4 [facility] Comment on above: Performed By: #### L 500.2900, L100.0200, L400.0100 #### [facility] [address] [place], [address] ALK P 70 U/L Normal 45-117 [facility] Comment on above: Performed By: #### L 500.2900, L100.0200, L400.0100 #### [facility] [address] [place], [address] ALT [Catalytic activity/Vol] 23 U/L Normal 13-56 [facility] Comment on above: Performed By: #### L 500.2900, L100.0200, L400.0100 #### [facility] [address] [place], [address] AST [Catalytic activity/Vol] 15 U/L Normal 15-37 [facility] Comment on above: Performed By: #### L 500.2900, L100.0200, L400.0100 #### [facility] [address] [place], [address] Bilirubin [Mass/Vol] 0.50 mg/dL Normal 0.20-1.00 [facility] Comment on above: Result Comment: For patients on eltrombopag therapy, use of Dimension [place] TBIL is not recommended. Performed By: #### L 500.2900, L100.0200, L400.0100 #### [facility] [address] [place], [address] Bilirubin.direct [Mass/Vol] 0.18 mg/dL Normal 0.00-0.30 [facility] Comment on above: Performed By: #### L 500.2900, L100.0200, L400.0100 #### [facility] [address] [place], [address] BUN/CRE 19.1 RATIO Normal 10-20 [facility] Comment on above: Performed By: #### L 500.2900, L100.0200, L400.0100 #### [facility] [address] [place], [address] CA,Total 9.2 mg/dL Normal 8.5-10.1 [facility] Comment on above: Performed By: #### L 500.2900, L100.0200, L400.0100 #### [facility] [address] [place], [address] Chloride [Moles/Vol] 110 mmol/L High 98-107 [facility] Comment on above: Performed By: #### L 500.2900, L100.0200, L400.0100 #### [facility] [address] [place], [address] CHOL:HDL 3.80 Normal [facility] Comment on above: Performed By: #### L 500.2900, L100.0200, L400.0100 #### [facility] [address] [place], [address] Cholesterol [Mass/Vol] 230 mg/dL High 200 [facility] Comment on above: Result Comment: <200 mg/dL Desirable 200-240 mg/dL Borderline >240 mg/dL High Risk Performed By: #### L 500.2900, L100.0200, L400.0100 #### [facility] [address] [place], [address] Cholesterol in HDL [Mass/Vol] 60 mg/dL Normal [facility] Comment on above: Result Comment: The drugs N-Acetylcysteine and Metamizole may falsely depress this assay. Reference Range HDL <40 mg/dL Low HDL Cholesterol HDL >or= 60 mg/dL High HDL Cholesterol Performed By: #### L 500.2900, L100.0200, L400.0100 #### [facility] [address] [place], [address] Cholesterol in LDL [Mass/Vol] 144 mg/dL High 0-130 [facility] Comment on above: Performed By: #### L 500.2900, L100.0200, L400.0100 #### [facility] [address] [place], [address] Cholesterol in VLDL [Mass/Vol] 26 mg/dL Normal 5-40 [facility] Comment on above: Performed By: #### L 500.2900, L100.0200, L400.0100 #### [facility] [address] [place], [address] CO2 [Moles/Vol] 27.0 mmol/L Normal 21.0-32.0 [facility] Comment on above: Performed By: #### L 500.2900, L100.0200, L400.0100 #### [facility] [address] [place], [address] Creatinine [Mass/Vol] 0.79 mg/dL Normal 0.55-1.02 [facility] Comment on above: Result Comment: The validity of the calculated GFR GFRAA in patients over 70 years has not been determined. Clinical correlation is essential. Performed By: #### L 500.2900, L100.0200, L400.0100 #### [facility] [address] [place], [address] EST GFR - AA 96 mL/min Normal >60 [facility] Comment on above: Result Comment: Afri can [place] GFR Calc Performed By: #### L 500.2900, L100.0200, L400.0100 #### [facility] [address] [place], [address] GAP 5 Normal 5-15 [facility] Comment on above: Performed By: #### L 500.2900, L100.0200, L400.0100 #### [facility] [address] [place], [address] GFR/1.73 sq M.predicted among non-blacks MDRD (S/P/Bld) [Vol rate/Area] 79 mL/min/{1.73_m2} Normal >60 [facility] Comment on above: Result Comment: Non- GFR Calc Performed By: #### L 500.2900, L100.0200, L400.0100 #### [facility] [address] [place], [address] Globulin (S) [Mass/Vol] 3.1 g/dL Normal 2.2-4.2 [facility] Comment on above: Performed By: #### L 500.2900, L100.0200, L400.0100 #### [facility] [address] [place], [address] Glucose [Mass/Vol] 96 mg/dL Normal 74-106 [facility] Comment on above: Performed By: #### L 500.2900, L100.0200, L400.0100 #### [facility] [address] [place], [address] LDH 189 U/L Normal 84-246 [facility] Comment on above: Performed By: #### L 500.2900, L100.0200, L400.0100 #### [facility] [address] [place], [address] Phosphate [Mass/Vol] 3.1 mg/dL Normal 2.5-4.9 [facility] Comment on above: Performed By: #### L 500.2900, L100.0200, L400.0100 #### [facility] [address] [place], [address] Potassium [Moles/Vol] 4.0 mmol/L Normal 3.5-5.1 [facility] Comment on above: Performed By: #### L 500.2900, L100.0200, L400.0100 #### [facility] [address] [place], [address] Sodium [Moles/Vol] 142 mmol/L Normal 136-145 [facility] Comment on above: Performed By: #### L 500.2900, L100.0200, L400.0100 #### [facility] [address] [place], [address] T PROT 6.9 g/dL Normal 6.4-8.2 [facility] Comment on above: Performed By: #### L 500.2900, L100.0200, L400.0100 #### [facility] [address] [place], [address] Triglyceride [Mass/Vol] 129 mg/dL Normal [facility] Comment on above: Result Comment: The drugs N-Acetylcysteine and Metamizole may falsely depress this assay. Serum Triglycerides Reference Interval Normal <150 mg/dL Borderline high 150 - 199 mg/dL High 200 - 499 mg/dL Very High > or = 500 mg/dL Performed By: #### L 500.2900, L100.0200, L400.0100 #### [facility] [address] [place], [address] Urea nitrogen [Mass/Vol] 15 mg/dL Normal 7-18 [facility] Comment on above: Performed By: #### L 500.2900, L100.0200, L400.0100 #### [facility] [address] [place], [address] URIC 5.4 mg/dL Normal 2.6-6.0 [facility] Comment on above: Result Comment: The drugs N-Acetylcysteine and Metamizole may falsely depress this assay. Performed By: #### L 500.2900, L100.0200, L400.0100 #### [facility] [address] [place], [address] Free T3on 02-09-2024 Free T3 [Mass/Vol] 4.9 pg/mL High 2.18-3.98 [facility] Comment on above: Performed By: #### L 501.6710, L501.73799, L506.1000 #### [facility] [address] [place], [address] Urinalysis, Employeeon 02-08 BILIRUBIN URINE Negative Normal Negative [facility] Comment on above: Order Comment: CLEAN CATCH Performed By: #### L 500.2900, L100.0200, L400.0100 #### [facility] [address] [place], [address] Clarity (U) Sl. Cloudy Normal Clear [facility] Comment on above: Order Comment: CLEAN CATCH Performed By: #### L 500.2900, L100.0200, L400.0100 #### [facility] [address] [place], [address] Color (U) Yellow Normal Yellow [facility] Comment on above: Order Comment: CLEAN CATCH Performed By: #### L 500.2900, L100.0200, L400.0100 #### [facility] [address] [place], [address] GLUCOSE, UR Normal Normal Normal [facility] Comment on above: Order Comment: CLEAN CATCH Performed By: #### L 500.2900, L100.0200, L400.0100 #### [facility] [address] [place], [address] KETONE UR Negative Normal Negative [facility] Comment on above: Order Comment: CLEAN CATCH Performed By: #### L 500.2900, L100.0200, L400.0100 #### [facility] [address] [place], [address] LEUK ESTERASE Negative Normal Negative [facility] Comment on above: Order Comment: CLEAN CATCH Performed By: #### L 500.2900, L100.0200, L400.0100 #### [facility] [address] [place], [address] Nitrite Ql (U) Negative Normal Negative [facility] Comment on above: Order Comment: CLEAN CATCH Performed By: #### L 500.2900, L100.0200, L400.0100 #### [facility] [address] [place], [address] OCCULT BLOOD-UR 10 /ul Abnormal Negative [facility] Comment on above: Order Comment: CLEAN CATCH Performed By: #### L 500.2900, L100.0200, L400.0100 #### [facility] [address] [place], [address] pH UR 6.0 Normal 5.0 - 8.0 [facility] Comment on above: Order Comment: CLEAN CATCH Performed By: #### L 500.2900, L100.0200, L400.0100 #### [facility] [address] [place], [address] PROT DIPSTX 15 mg/dl Abnormal Negative [facility] Comment on above: Order Comment: CLEAN CATCH Performed By: #### L 500.2900, L100.0200, L400.0100 #### [facility] [address] [place], [address] SP.GR. DIPSTX 1.015 Normal 1.002-1.030 [facility] Comment on above: Order Comment: CLEAN CATCH Performed By: #### L 500.2900, L100.0200, L400.0100 #### [facility] [address] [place], [address] UROBILI Normal Normal Normal [facility] Comment on above: Order Comment: CLEAN CATCH Performed By: #### L 500.2900, L100.0200, L400.0100 #### [facility] [address] [place], [address] Vitamin D,25 Hydroxyon 02-08 Vitamin D 25-OH 24.0 ng/mL Normal [facility] Comment on above: Result Comment: Pallavi min D 25(OH) Status Range Deficiency <20 ng/mL (50nmol/L) Insufficiency 20 - 30 ng/mL (50 - 75 nmol/L) Sufficiency 30 - 100 ng/mL (75 - 250 nmol/L) Toxicity >100 ng/mL (>250 nmol/L) Performed By: #### L 501.6710, L501.39340, L506.1000 #### [facility] [address] [place], [address] Absolute lymphocyte countOrd ered By: Jong Goldberg on 06-12-2023 Lymphocytes Auto (Unsp spec) [#/Vol] 1.34 10*3/uL 0.83-4.51 [facility] Automated lymphocyte count a s percentage of total leukocytesOrdered By: Jong Goldberg on 06-12-2023 Lymphocytes/100 WBC Auto (Unsp spec) 13.6 % 19-41 [facility] Basophil percentageOrdered B y: Jong Goldberg on 06-12-2023 Basophil percentage 0-5 SEEN /hpf 0-5 [facility] Basophils/100 WBC (Bld) 0.6 % 0-1 [facility] Chloride [Moles/Vol] 106 mmol/L 98-107 [facility] Eosinophils/100 WBC (Bld) 2.4 % 0-5 [facility] Glucose [Mass/Vol] 117 mg/dL 74-106 [facility] Comment on above: Fasting Glucose resu lt from 100 to 125 mg/dL suggests IMPAIRED HOMEOSTASIS per A.D.A. criteria. Hemoglobin (Bld) [Mass/Vol] 12.8 g/dL 12.0-15.0 [facility] Monocytes/100 WBC (Bld) 10.8 % 0-10 [facility] Neutrophils (Bld) [#/Vol] 7.1 10*3/uL 2.0-7.7 [facility] Neutrophils/100 WBC (Bld) 72.1 % 47-70 [facility] Potassium [Moles/Vol] 3.6 mmol/L 3.5-5.1 [facility] Sodium [Moles/Vol] 140 mmol/L 136-145 [facility] WBC (Bld) [#/Vol] 9.9 10*3/uL 4.4-11.0 [facility] Bilirubin Test strip Ql (U)O rdered By: Jong Godlberg on 06-12-2023 Bilirubin Ql (U) 3 mg/dL Negative [facility] Comment on above: COLOR OF URINE MAY A FFECT DIPSTICK RESULTS. Culture, urineOrdered By: Aretha Goldberg on 06-12-2023 Bacteria identified Cx Nom (U) Mixed Gram Pos & Gram Neg Org [facility] Determination of erythrocyte mean corpuscular volume (MCV)Ordered By: Jong Goldberg on 06-12-2023 MCV (RBC) [Entitic vol] 92.3 fL 81-99 [facility] Erythrocyte distribution wid th ratioOrdered By: Jong Goldberg on 06-12-2023 Erythrocyte distribution width (RBC) [Ratio] 12.9 % 11.6-14.6 [facility] Erythrocyte distribution wid th standard deviationOrdered By: Jong Goldberg on 06-12-2023 Erythrocyte distribution width (RBC) [Entitic vol] 43.7 fL 35.1-43.9 [facility] Hematocrit Auto (Bld) [Volum e fraction]Ordered By: Jong Goldberg on 06-12-2023 Hematocrit (Bld) [Volume fraction] 40.9 % 37-47 [facility] Immature granulocytes/100 WB C Auto (Bld)Ordered By: Jong Goldberg on 06-12-2023 Immature granulocytes/100 WBC (Bld) 0.500 % 0.0-0.9 [facility] Comment on above: IG% - Immature Granu locytes (promyelocytes, myelocytes and metamyelocytes) > 1% indicates that a LEFT SHIFT is Present. Ketones Test strip Ql (U)Ord ered By: Jong Goldberg on 06-12-2023 Ketones Ql (U) Negative Negative [facility] - Chemistry and C hemistry - challengeOrdered By: Jong Goldberg on 06-12-2023 CO2 [Moles/Vol] 29.0 mmol/L 21.0-32.0 [facility] Urea nitrogen/Creatinine [Mass ratio] 14.3 mg/mg 10-20 [facility] - Hematology and Cell countsOrdered By: Jong Goldberg on 06-12-2023 MCH (RBC) [Entitic mass] 28.9 pg 27.0-32.0 [facility] MCHC (RBC) [Mass/Vol] 31.3 g/dL 32-36 [facility] Nucleated RBC/100 WBC (Bld) [Ratio] 0 % 0-5 [facility] Platelet mean volume (Bld) [Entitic vol] 10.6 fL 6.2-12.0 [facility] Platelets (Bld) [#/Vol] 256 10*3/uL 150-450 [facility] Mucus LM Ql (Urine sed)Order ed By: Jong Goldberg on 06-12-2023 Mucus Ql (Urine sed) 0 SEEN /hpf [facility] Nitrite Test strip Ql (U)Ord ered By: Jong Goldberg on 06-12-2023 Nitrite Ql (U) Positive Negative [facility] No Panel InformationOrdered By: Jong Goldberg on 06-12-2023 Urine RBC 0 SEEN /hpf 0-5 [facility] Estimated Creatinine Clearance Calc 51.34 ml/min [facility] Estimated GFR (MDRD) Amer 69 mL/min >60 [facility] Comment on above: GFR Calc Estimated GFR (MDRD) Non-Af Amer 57 mL/min >60 [facility] Comment on above: Non- GFR Calc Protein Test strip Ql (U)Ord ered By: Jong Goldberg on 06-12-2023 Protein Ql (U) Negative Negative [facility] RBC Auto (Bld) [#/Vol]Ordere d By: Jong Goldberg on 06-12-2023 RBC (Bld) [#/Vol] 4.43 10*6/uL 4.2-5.4 [facility] Serum or plasma calcium flex urement (mass/volume)Ordered By: Jong Goldberg on 06-12-2023 Calcium [Mass/Vol] 8.6 mg/dL 8.5-10.1 [facility] Serum or plasma creatinine m easurement (mass/volume)Ordered By: Jong Goldberg on 06-12-2023 Creatinine [Mass/Vol] 1.05 mg/dL 0.55-1.02 [facility] Comment on above: The validity of the calculated GFR & GFRAA in patients over 70 years has not been determined. Clinical correlation is essential. Serum or plasma urea nitroge n measurement (mass/volume)Ordered By: Jong Goldberg on 06-12-2023 Urea nitrogen [Mass/Vol] 15 mg/dL 7-18 [facility] Squamous epithelial cells de tection in urine sediment by light microscopyOrdered By: Jong Goldberg on 06-12-2023 Epithelial cells.squamous LM Ql (Urine sed) 5-10 SEEN /hpf 5-10 [facility] Thin prep Papanicolaou smear with manual screeningOrdered By: Jong Goldberg on 06-12-2023 Thin prep Papanicolaou smear with manual screening 5 5-15 [facility] Urine blood detectionOrdered By: Jong Goldberg on 06-12-2023 RBC Ql (U) 25 /ul Negative [facility] Urine clarityOrdered By: Carmina Goldberg on 06-12-2023 Clarity (U) Sl. Cloudy Clear [facility] Urine color determinationOrd ered By: Jong Goldberg on 06-12-2023 Color (U) Shannan Yellow [facility] Urine glucose detectionOrder ed By: Jong Goldberg on 06-12-2023 Glucose Ql (U) Normal mg/dl Normal [facility] Urine leukocyte esterase det ection by dipstickOrdered By: Jong Goldberg on 06-12-2023 Leukocyte esterase Test strip Ql (U) 100 /ul Negative [facility] Urine pHOrdered By: Jong graham on 06-12-2023 pH (U) 7.0 [pH] 5.0 - 8.0 [facility] Urine sediment bacteria coun t by microscopy (number/high power field)Ordered By: Jong Goldberg on 06-12-2023 Bacteria LM.HPF (Urine sed) [#/Area] 0 /[HPF] None Seen [facility] Urine specific gravity measu rementOrdered By: Jong Goldberg on 06-12-2023 Specific gravity (U) [Rel density] 1.005 1.002-1.030 [facility] Urine urobilinogen measureme ntOrdered By: Jong Goldberg on 06-12-2023 Urobilinogen Ql (U) 4 mg/dl Normal [facility] CNPNon 05-05-2023 [facility] Telephone (URCANT) ALYSSA HERRERA ([id number]) 1965 F T Date Time Provider Department 05/05/23 BILL SHARP URCANT During your visit today, we recorded the following information about you: Bill Sharp DO 05/05/2023 6:11 PM Signed Please call the patient to ask her if she passed her stone George Morales 05/06/2023 10:00 AM Signed Spoke to pt and she stated she did see pepper size specks in the strainer but wasn't sure if that was the stone, because she never had any unusual feeling. However, she did state she is feeling good, all the pain and discomfort are gone. Bill Sharp DO 05/07/2023 8:33 AM Addendum Ok thank you for the update, this was probably not the stone. I was thinking we would do CT next but upon further review she had not yet had RBUS or xray so we will try that first Please try to schedule in the next week if possible DO Babs Gray Brittany, DO 05/07/2023 8:33 AM Signed Addended by: BILL SHARP on: 05/07/2023 08:33 AM Modules accepted: Orders PrietoDana jonas 05/07/2023 9:28 AM Signed [facility] US is 05/11/23 @ @:30 and Xray is right after @ 3:15 Tanesha Andino 05/07/2023 9:59 AM Signed Spoke to pt and she requested the orders be faxed to [facility] at [phone]. Orders faxed per pt request. US/KUB cancelled at [facility]. Allergies As of Date: 05/05/2023 Noted Allergy Reaction MILK 10/16/2020 16 - Unknown SHELLFISH DERIVED 10/16/2020 10 - Anaphylaxis SHRIMP 10/16/2020 10 - Anaphylaxis Date Reviewed: 04/28/2023 Reviewed by: Caitie Nayak - Fully Assessed Reason for Visit: Appointment [[id number]] Primary Visit Diagnosis:Left nephrolithiasis [N20.0] Order(s):XR ABDOMEN 1V SUPINE [[id number]] Order #: [id number] FUTURE US KIDNEY/BLADDER [[id number]] Order #: [id number] FUTURE Prescriptions as of 05/07/2023 - fluconazole (DIFLUCAN) 150 mg tablet Take 1 tablet by mouth one time only for 1 dose. Repeat in 3 days as needed. - cephALEXin (KEFLEX) 500 mg capsule Take 1 capsule by mouth two times a day for 10 days. - tamsulosin (FLOMAX) 0.4 mg Take 1 capsule by mouth daily at bedtime. - cholecalciferol, vitamin D3, (VITAMIN D3 ORAL) Take by mouth. - rmjkbgt-mygi-mzloa-oreg-cap ryl 100 mg-150 mg- 50 mg-150 mg cap Take by mouth. - Lactobacillus acidophilus (PROBIOTIC ORAL) Take by mouth. - vitamin B complex (B COMPLEX-VITAMIN B12 ORAL) Take by mouth. Meds Comments as of 10/16/2020: Turmeric, car, flax seed, Vitamin D3 daily-as of 10/16/2020 Problem List As Of Date 05/05/2023 Noted Resolved Myalgia [M79.10] 12/09/2020 Decreased strength, endurance, and mobility [R5*12/09/2020 Dyslipidemia [E78.5] 12/09/2020 Pain in deltoid, bilateral [M79.18] 12/09/2020 Pain in both thighs [M79.651, M79.652] 12/09/2020 Encounter Status:Closed by BILL SHARP on 05/05/23 [facility] UA DIP, URINE (POC)on 2023 BILIRUBIN UA (POCT) Negative Negative [facility] CLARITY UA (POCT) Clear [facility] COLOR UA (POCT) Yellow [facility] GLUCOSE UA (POCT) Negative Negative mg/dL [facility] Hemoglobin Ql (U) Trace-intact Abnormal Negative [facility] KETONE UA (POCT) Negative Negative mg/dL [facility] LEUKOCYTES UA (POCT) Negative Negative [facility] NITRITE UA (POCT) Negative Negative [facility] PH UA (POCT) 6.0 4.5 - 8.0 [facility] Protein Ql (U) Negative Negative mg/dL [facility] SPECIFIC GRAVITY UA (POCT) >=1.030 1.005 - 1.030 [facility] UROBILINOGEN UA (POCT) 0.2 E.U./dL Lucy l E.U./dL [facility] Urinalysis complete panel (U )on 04-28-2023 Bacteria LM.HPF (Urine sed) [#/Area] Few Abnormal None Seen /HPF [facility] Bilirubin Ql (U) Negative Negative [facility] Clarity (Unsp spec) Clear Clear [facility] Color (U) Yellow Yellow [facility] Epithelial cells LM.HPF (Urine sed) [#/Area] Few [facility] Glucose Test strip (U) [Mass/Vol] Negative Negative [facility] Hemoglobin Ql (U) Trace Abnormal Negative [facility] Ketones Ql (U) Negative Negative [facility] Leukocyte esterase Test strip Ql (U) Negative Negative [facility] Nitrite Ql (U) Negative Negative [facility] pH (U) 6.0 [pH] 5.0 - 8.0 [facility] Protein (U) [Mass/Vol] Negative Negative [facility] RBC LM.HPF (Urine sed) [#/Area] 3-5 /HPF Abnormal 0-3 /HPF [facility] Specific gravity (U) [Rel density] 1.005 - 1.030 [facility] Urobilinogen Ql (U) 0.2 EU/dL 0.2-1.0 EU/dL [facility] WBC LM.HPF (Urine sed) [#/Area] 0-5 /HPF 0-5 /HPF [facility] Basophil percentageOrdered B y: Herber Hogue on 02-12-2023 Testosterone [Mass/Vol] 26 ng/dL 4-50 [facility] Erythrocyte sedimentation ra teOrdered By: Herber Hogue on 02-12-2023 ESR (Bld) [Velocity] 6 mm/h 0-30 [facility] Free testosterone percentage Ordered By: Herber Hogue on 02-12-2023 Testosterone Free/Testosterone.tota l [Mass fraction] 1.61 % 0.50-2.80 [facility] - Chemistry and C hemistry - challengeOrdered By: Herbre Hogue on 02-12-2023 Cobalamin (Vitamin B12) [Mass/Vol] 505 pg/mL 211-911 [facility] Free T4 [Mass/Vol] 0.96 ng/dL 0.76-1.46 [facility] No Panel InformationOrdered By: Herber Hogue on 02-12-2023 Free Triiodothyronine (T3) pg/dL 3.2 pg/mL 2.18-3.98 [facility] Thyroid Stimulating Hormone (TSH) 1.74 uIU/mL 0.358-3.74 [facility] Vitamin D 25-Hydroxy 41.3 ng/mL [facility] Comment on above: Vitamin D 25(OH) Sta tus Range Deficiency <20 ng/mL (50nmol/L) Insufficiency 20 - 30 ng/mL (50 - 75 nmol/L) Sufficiency 30 - 100 ng/mL (75 - 250 nmol/L) Toxicity >100 ng/mL (>250 nmol/L) Serum or plasma C reactive p rotein measurement (mass/volume)Ordered By: Herber Hogue on 02-12-2023 CRP [Mass/Vol] 6.95 mg/L 0.0-3.0 [facility] Comment on above: C-Reactive Protein ( CRP) provides useful information for thediagnosis, therapy and monitoring of inflammatory processesand associated diseases. For the evaluation of Relative Riskfor Cardiovascular Disease, a High Sensitivity CRP (HSCRP)should be ordered. Serum or plasma cortisol carmita surement (mass/volume)Ordered By: Herber Hogue on 02-12-2023 Cortisol [Mass/Vol] 11.60 ug/dL 3.44-22.45 [facility] Comment on above: Adult (AM) 5.27 - 22 .45 ug/dL Adult (PM) 3.44 - 16.76 ug/dLPlease note revised CORTISOL reference range effective 2019. Serum or plasma estrogen carmita surement (mass/volume)Ordered By: Herber Hogue on 02-12-2023 Estrogen [Mass/Vol] 46 pg/mL 40-244 [facility] Comment on above: Prepubertal < 40 Fem kathleen Cycle: 1-10 Days 16 - 328 11-20 Days 34 - 501 21-30 Days 48 - 350 Post-Menopausal 40 - 244Performed at: [employer] [facility] [address] [id number] Director: Venancio Merino PhD, Phone: [phone] at: - [facility] [id number] Director: Domi Miller MD, Phone: [phone] Serum or plasma progesterone measurement (mass/volume)Ordered By: Herber Hogue on 02-12-2023 Progesterone [Mass/Vol] 0.41 ng/mL See Comment [facility] Comment on above: Progesterone Referen ce Table: UNITS Female: Follicular 0.15 - 1.40 ng/mL Luteal 3.34 - 25.56 ng/mL Mid-luteal 4.44 - 28.03 ng/mL Postmenopausal 0.0 - 0.73 ng/mL : 1st Trimester 11.22 - 90.00 ng/mL 2nd Trimester 25.55 - 89.40 ng/mL 3rd Trimester 48.40 -422.50 ng/mL Serum or plasma testosterone free measurement (mass/volume)Ordered By: Herber Hogue on 02-12-2023 Testosterone Free [Mass/Vol] 0.42 ng/dL 0.10-0.85 [facility] Whole blood hemoglobin A1c/t otal hemoglobin ratio (mass fraction)Ordered By: Herber Hogue on 02-12-2023 HbA1c (Bld) [Mass fraction] 5.5 % 3.8-5.6 [facility] Comment on above: Normal < 5.7 % Predi abetic 5.7 - 6.4 % Diabetic >or= 6.5 % Please note range changes. Absolute lymphocyte countOrd ered By: HEALTH ASSESSMENT on 01-01-2023 Lymphocytes Auto (Unsp spec) [#/Vol] 1.74 10*3/uL 0.83-4.51 [facility] Absolute reticulocyte countO rdered By: HEALTH ASSESSMENT on 01-01-2023 Reticulocytes (Bld) [#/Vol] 0.00 10*3/uL 0-5 [facility] Basophil percentageOrdered B y: HEALTH ASSESSMENT on 01-01-2023 Basophil percentage 4.4 mg/dL 2.5-4.9 [facility] Bilirubin [Mass/Vol] 0.70 mg/dL 0.20-1.00 [facility] Comment on above: For patients on eltr ombopag therapy, use of Dimension [place] TBIL is not recommended. Chloride [Moles/Vol] 107 mmol/L 98-107 [facility] Cholesterol [Mass/Vol] 234 mg/dL <200 [facility] Comment on above: <200 mg/dL Desirable 200-240 mg/dL Borderline >240 mg/dL High Risk Glucose [Mass/Vol] 109 mg/dL 74-106 [facility] Comment on above: Fasting Glucose resu lt from 100 to 125 mg/dL suggests IMPAIRED HOMEOSTASIS per A.D.A. criteria. LDH [Catalytic activity/Vol] 207 U/L 84-246 [facility] Neutrophils (Bld) [#/Vol] 2.9 10*3/uL 2.0-7.7 [facility] Potassium [Moles/Vol] 3.9 mmol/L 3.5-5.1 [facility] Protein [Mass/Vol] 7.2 g/dL 6.4-8.2 [facility] Sodium [Moles/Vol] 139 mmol/L 136-145 [facility] Triglyceride [Mass/Vol] 114 mg/dL <199 [facility] Comment on above: The drugs N-Acetylcy steine and Metamizole may falsely depress this assay.Serum Triglycerides Reference Interval Normal <150 mg/dL Borderline high 150 - 199 mg/dL High 200 - 499 mg/dL Very High > or = 500 mg/dL WBC (Bld) [#/Vol] 5.6 10*3/uL 4.4-11.0 [facility] Bilirubin Test strip Ql (U)O rdered By: HEALTH ASSESSMENT on 01-01-2023 Bilirubin Ql (U) Negative Negative [facility] Blood erythrocytes count (nu mber/volume)Ordered By: HEALTH ASSESSMENT on 01-01-2023 RBC (Bld) [#/Vol] 4.79 10*6/uL 4.2-5.4 [facility] Blood hemoglobin measurement (mass/volume)Ordered By: HEALTH ASSESSMENT on 01-01-2023 Hemoglobin (Bld) [Mass/Vol] 14.1 g/dL 12.0-15.0 [facility] Blood platelet mean volumeOr dered By: HEALTH ASSESSMENT on 01-01-2023 Platelet mean volume (Bld) [Entitic vol] 10.9 fL 6.2-12.0 [facility] Determination of erythrocyte mean corpuscular volume (MCV)Ordered By: HEALTH ASSESSMENT on 01-01-2023 MCV (RBC) [Entitic vol] 93.9 fL 81-99 [facility] Direct bilirubinOrdered By: HEALTH ASSESSMENT on 01-01-2023 Bilirubin.direct [Mass/Vol] 0.18 mg/dL 0.00-0.30 [facility] Hematocrit Auto (Bld) [Volum e fraction]Ordered By: HEALTH ASSESSMENT on 01-01-2023 Hematocrit (Bld) [Volume fraction] 45.0 % 37-47 [facility] Ketones Test strip Ql (U)Ord ered By: HEALTH ASSESSMENT on 01-01-2023 Ketones Ql (U) Negative Negative [facility] - Chemistry and C hemistry - challengeOrdered By: HEALTH ASSESSMENT on 01-01-2023 ALP [Catalytic activity/Vol] 75 U/L 45-117 [facility] ALT [Catalytic activity/Vol] 20 U/L 13-56 [facility] Cholesterol.total/Chol esterol in HDL [Mass ratio] 3.70 {ratio} [facility] CO2 [Moles/Vol] 30.0 mmol/L 21.0-32.0 [facility] Globulin (S) [Mass/Vol] 3.2 g/dL 2.2-4.2 [facility] Urea nitrogen/Creatinine [Mass ratio] 17.2 mg/mg 10-20 [facility] - Hematology and Cell countsOrdered By: HEALTH ASSESSMENT on 01-01-2023 Erythrocyte distribution width (RBC) [Entitic vol] 43.9 fL 35.1-43.9 [facility] Erythrocyte distribution width (RBC) [Ratio] 12.7 % 11.6-14.6 [facility] MCH (RBC) [Entitic mass] 29.4 pg 27.0-32.0 [facility] Nucleated RBC/100 WBC (Bld) [Ratio] 0 % 0-5 [facility] MCHC Auto (RBC) [Mass/Vol]Or dered By: HEALTH ASSESSMENT on 01-01-2023 MCHC (RBC) [Mass/Vol] 31.3 g/dL 32-36 [facility] Nitrite Test strip Ql (U)Ord ered By: HEALTH ASSESSMENT on 01-01-2023 Nitrite Ql (U) Negative Negative [facility] No Panel InformationOrdered By: HEALTH ASSESSMENT on 01-01-2023 Estimated GFR (MDRD) Amer 101 mL/min >60 [facility] Comment on above: GFR Calc Estimated GFR (MDRD) Non-Af Amer 84 mL/min >60 [facility] Comment on above: Non- GFR Calc Platelets bldOrdered By: RM LT ASSESSMENT on 01-01-2023 Platelets (Bld) [#/Vol] 287 10*3/uL 150-450 [facility] Protein Test strip Ql (U)Ord ered By: HEALTH ASSESSMENT on 01-01-2023 Protein Ql (U) Negative Negative [facility] Segmented neutrophils/100 WB C Auto (Bld)Ordered By: HEALTH ASSESSMENT on 01-01-2023 Segmented neutrophils/100 WBC (Bld) 51.3 % 47-70 [facility] Serum or plasma albumin flex urement (mass/volume)Ordered By: HEALTH ASSESSMENT on 01-01-2023 Albumin [Mass/Vol] 4.0 g/dL 3.2-5.0 [facility] Serum or plasma albumin/glob ulin mass ratioOrdered By: HEALTH ASSESSMENT on 01-01-2023 Albumin/Globulin [Mass ratio] 1.2 {ratio} 0.9-2.4 [facility] Serum or plasma calcium flex urement (mass/volume)Ordered By: HEALTH ASSESSMENT on 01-01-2023 Calcium [Mass/Vol] 9.4 mg/dL 8.5-10.1 [facility] Serum or plasma cholesterol in HDL measurement (mass/volume)Ordered By: HEALTH ASSESSMENT on 01-01-2023 Cholesterol in HDL [Mass/Vol] 63 mg/dL >40 [facility] Comment on above: The drugs N-Acetylcy steine and Metamizole may falsely depress this assay. Reference Range HDL <40 mg/dL Low HDL Cholesterol HDL >or= 60 mg/dL High HDL Cholesterol Serum or plasma cholesterol in VLDL measurement (mass/volume)Ordered By: HEALTH ASSESSMENT on 01-01-2023 Cholesterol in VLDL [Mass/Vol] 23 mg/dL 5-40 [facility] Serum or plasma creatinine m easurement (mass/volume)Ordered By: HEALTH ASSESSMENT on 01-01-2023 Creatinine [Mass/Vol] 0.75 mg/dL 0.55-1.02 [facility] Comment on above: The validity of the calculated GFR & GFRAA in patients over 70 years has not been determined. Clinical correlation is essential. Serum or plasma low density lipoprotein (LDL) cholesterol measurement (mass/volume)Ordered By: HEALTH ASSESSMENT on 01-01-2023 Cholesterol in LDL [Mass/Vol] 148 mg/dL 0-130 [facility] Serum or plasma urea nitroge n measurement (mass/volume)Ordered By: HEALTH ASSESSMENT on 01-01-2023 Urea nitrogen [Mass/Vol] 13 mg/dL 7-18 [facility] Serum or plasma uric acid me asurement (mass/volume)Ordered By: HEALTH ASSESSMENT on 01-01-2023 Urate [Mass/Vol] 5.9 mg/dL 2.6-6.0 [facility] Comment on above: The drugs N-Acetylcy steine and Metamizole may falsely depress this assay. Thin prep Papanicolaou smear with manual screeningOrdered By: HEALTH ASSESSMENT on 01-01-2023 Thin prep Papanicolaou smear with manual screening 16 U/L 15-37 [facility] Thin prep Papanicolaou smear with manual screening 2 5-15 [facility] Urine blood detectionOrdered By: HEALTH ASSESSMENT on 01-01-2023 RBC Ql (U) Negative Negative [facility] Urine clarityOrdered By: A LT ASSESSMENT on 01-01-2023 Clarity (U) Clear Clear [facility] Urine color determinationOrd ered By: HEALTH ASSESSMENT on 01-01-2023 Color (U) Yellow Yellow [facility] Urine glucose detectionOrder ed By: HEALTH ASSESSMENT on 01-01-2023 Glucose Ql (U) Normal mg/dl Normal [facility] Urine leukocyte esterase det ection by dipstickOrdered By: HEALTH ASSESSMENT on 01-01-2023 Leukocyte esterase Test strip Ql (U) Negative Negative [facility] Urine pHOrdered By: HEALTH A SSESSMENT on 01-01-2023 pH (U) 7.0 [pH] 5.0 - 8.0 [facility] Urine specific gravity measu rementOrdered By: HEALTH ASSESSMENT on 01-01-2023 Specific gravity (U) [Rel density] 1.010 1.002-1.030 [facility] Urobilinogen Auto test strip Ql (U)Ordered By: HEALTH ASSESSMENT on 01-01-2023 Urobilinogen Ql (U) Normal mg/dl Normal [facility] - Chemistry and C hemistry - challengeOrdered By: Dr. Hogue on 04-15-2022 Cobalamin (Vitamin B12) [Mass/Vol] 849 pg/mL 211-911 [facility] No Panel InformationOrdered By: Dr. Hogue on 04-15-2022 Vitamin D 25-Hydroxy 58.4 ng/mL [facility] Comment on above: Vitamin D 25(OH) Sta tus Range Deficiency <20 ng/mL (50nmol/L) Insufficiency 20 - 30 ng/mL (50 - 75 nmol/L) Sufficiency 30 - 100 ng/mL (75 - 250 nmol/L) Toxicity >100 ng/mL (>250 nmol/L) Absolute lymphocyte countOrd ered By: Dr. Hogue on 04-11-2022 Lymphocytes Auto (Unsp spec) [#/Vol] 1.31 10*3/uL 0.83-4.51 [facility] Basophil percentageOrdered B y: Dr. Hogue on 04-11-2022 Basophils/100 WBC (Bld) 0.7 % 0-1 [facility] Bilirubin [Mass/Vol] 0.50 mg/dL 0.20-1.00 [facility] Comment on above: For patients on eltr ombopag therapy, use of Dimension [place] TBIL is not recommended. Chloride [Moles/Vol] 107 mmol/L 98-107 [facility] Eosinophils/100 WBC (Bld) 2.7 % 0-5 [facility] Glucose [Mass/Vol] 82 mg/dL 74-106 [facility] Neutrophils (Bld) [#/Vol] 4.9 10*3/uL 2.0-7.7 [facility] Neutrophils/100 WBC (Bld) 69.0 % 47-70 [facility] Potassium [Moles/Vol] 3.8 mmol/L 3.5-5.1 [facility] Protein [Mass/Vol] 6.9 g/dL 6.4-8.2 [facility] Sodium [Moles/Vol] 143 mmol/L 136-145 [facility] WBC (Bld) [#/Vol] 7.1 10*3/uL 4.4-11.0 [facility] Blood erythrocytes count (nu mber/volume)Ordered By: Dr. Hogue on 04-11-2022 RBC (Bld) [#/Vol] 4.41 10*6/uL 4.2-5.4 [facility] Blood hemoglobin measurement (mass/volume)Ordered By: Dr. Hogue on 04-11-2022 Hemoglobin (Bld) [Mass/Vol] 13.2 g/dL 12.0-15.0 [facility] Blood lymphocytes/100 leukoc ytesOrdered By: Dr. Hogue on 04-11-2022 Lymphocytes/100 WBC (Bld) 18.5 % 19-41 [facility] Blood monocytes/100 leukocyt esOrdered By: Dr. Hogue on 04-11-2022 Monocytes/100 WBC (Bld) 8.7 % 0-10 [facility] Blood platelet mean volumeOr dered By: Dr. Hogue on 04-11-2022 Platelet mean volume (Bld) [Entitic vol] 10.7 fL 6.2-12.0 [facility] Determination of erythrocyte mean corpuscular volume (MCV)Ordered By: Dr. Hogue on 04-11-2022 MCV (RBC) [Entitic vol] 94.3 fL 81-99 [facility] Erythrocyte sedimentation ra teOrdered By: Dr. Hogeu on 04-11-2022 ESR (Bld) [Velocity] 6 mm/h 0-30 [facility] Hematocrit Auto (Bld) [Volum e fraction]Ordered By: Dr. Hogue on 04-11-2022 Hematocrit (Bld) [Volume fraction] 41.6 % 37-47 [facility] Iron measurement (mass/mass) Ordered By: Dr. Hogue on 04-11-2022 Iron (Unsp spec) [Mass/Mass] 83 ug/dL 50-170 [facility] - Chemistry and C hemistry - challengeOrdered By: Dr. Hogue on 04-11-2022 ALP [Catalytic activity/Vol] 67 U/L 45-117 [facility] ALT [Catalytic activity/Vol] 19 U/L 13-56 [facility] CO2 [Moles/Vol] 31.0 mmol/L 21.0-32.0 [facility] Globulin (S) [Mass/Vol] 3.0 g/dL 2.2-4.2 [facility] Urea nitrogen/Creatinine [Mass ratio] 24.2 mg/mg 10-20 [facility] - Hematology and Cell countsOrdered By: Dr. Hogue on 04-11-2022 Erythrocyte distribution width (RBC) [Entitic vol] 43.9 fL 35.1-43.9 [facility] Erythrocyte distribution width (RBC) [Ratio] 12.8 % 11.6-14.6 [facility] Immature granulocytes/100 WBC (Bld) 0.400 % 0.0-0.9 [facility] Comment on above: IG% - Immature Granu locytes (promyelocytes, myelocytes and metamyelocytes) > 1% indicates that a LEFT SHIFT is Present. MCH (RBC) [Entitic mass] 29.9 pg 27.0-32.0 [facility] Nucleated RBC/100 WBC (Bld) [Ratio] 0 % 0-5 [facility] MCHC Auto (RBC) [Mass/Vol]Or dered By: Dr. Hogue on 04-11-2022 MCHC (RBC) [Mass/Vol] 31.7 g/dL 32-36 [facility] No Panel InformationOrdered By: Dr. Hogue on 04-11-2022 Estimated GFR (MDRD) Amer 97 mL/min >60 [facility] Comment on above: GFR Calc Estimated GFR (MDRD) Non-Af Amer 80 mL/min >60 [facility] Comment on above: Non- GFR Calc Total Iron Binding Capacity 368 ug/dL 250-450 [facility] Platelets bldOrdered By: Dr. Hogue on 04-11-2022 Platelets (Bld) [#/Vol] 304 10*3/uL 150-450 [facility] Serum or plasma C reactive p rotein measurement (mass/volume)Ordered By: Dr. Hogue on 04-11-2022 CRP [Mass/Vol] 4.14 mg/L 0.0-3.0 [facility] Comment on above: C-Reactive Protein ( CRP) provides useful information for thediagnosis, therapy and monitoring of inflammatory processesand associated diseases. For the evaluation of Relative Riskfor Cardiovascular Disease, a High Sensitivity CRP (HSCRP)should be ordered. Serum or plasma albumin flex urement (mass/volume)Ordered By: Dr. Hogue on 04-11-2022 Albumin [Mass/Vol] 3.9 g/dL 3.2-5.0 [facility] Serum or plasma albumin/glob ulin mass ratioOrdered By: Dr. Hogue on 04-11-2022 Albumin/Globulin [Mass ratio] 1.3 {ratio} 0.9-2.4 [facility] Serum or plasma calcium flex urement (mass/volume)Ordered By: Dr. Hogue on 04-11-2022 Calcium [Mass/Vol] 9.2 mg/dL 8.5-10.1 [facility] Serum or plasma creatinine m easurement (mass/volume)Ordered By: Dr. Hogue on 04-11-2022 Creatinine [Mass/Vol] 0.78 mg/dL 0.55-1.02 [facility] Comment on above: The validity of the calculated GFR & GFRAA in patients over 70 years has not been determined. Clinical correlation is essential. Serum or plasma ferritin carmita surement (mass/volume)Ordered By: Dr. Hogue on 04-11-2022 Ferritin [Mass/Vol] 25 ng/mL 8-252 [facility] Serum or plasma iron saturat ion measurement (mass fraction)Ordered By: Dr. Hogue on 04-11-2022 Iron saturation [Mass fraction] 22.6 % 15.0-55.0 [facility] Serum or plasma urea nitroge n measurement (mass/volume)Ordered By: Dr. Hogue on 04-11-2022 Urea nitrogen [Mass/Vol] 19 mg/dL 7-18 [facility] Thin prep Papanicolaou smear with manual screeningOrdered By: Dr. Hogue on 04-11-2022 Thin prep Papanicolaou smear with manual screening 12 U/L 15-37 [facility] Thin prep Papanicolaou smear with manual screening 5 5-15 [facility] - Chemistry and C hemistry - challengeon 01-21-2022 Free T4 [Mass/Vol] 0.83 ng/dL 0.76-1.46 [facility] T4 [Mass/Vol] 8.1 ug/dL 4.8-13.9 [facility] No Panel Informationon 01-21 Free Triiodothyronine (T3) pg/dL 2.3 pg/mL 2.18-3.98 [facility] Reverse Triiodothyronine (T3) 12.4 ng/dL 9.2-24.1 [facility] Comment on above: This test was develo ped and its performance characteristicsdetermined by [facility]. It has not been cleared orapproved by the Food and Drug Administration. Thyroglobulin Antibody < 1.0 IU/mL 0.0-0.9 [facility] Comment on above: Thyroglobulin Antibo dy measured by [employer] Thyroglobulin Level 13.4 ng/mL 1.5-38.5 [facility] Comment on above: According to the Replaced by [facility] [employer],the reference interval for Thyroglobulin (TG) should berelated to euthyroid patients and not for patients whounderwent thyroidectomy. TG reference intervals for thesepatients depend on the residual mass of the thyroid tissueleft after surgery. Establishing a post-operative baselineis recommended. The assay limit of quantitation is 0.1ng/mLThyroglobulin measured by [employer] Thyroid Stimulating Hormone (TSH) 1.20 uIU/mL 0.358-3.74 [facility] Total Triiodothyronine 0.97 ng/mL 0.6-1.81 [facility] Vitamin D 25-Hydroxy 27.4 ng/mL [facility] Comment on above: Vitamin D 25(OH) Sta tus Range Deficiency <20 ng/mL (50nmol/L) Insufficiency 20 - 30 ng/mL (50 - 75 nmol/L) Sufficiency 30 - 100 ng/mL (75 - 250 nmol/L) Toxicity >100 ng/mL (>250 nmol/L) Serum or plasma ferritin carmita surement (mass/volume)on 01-21-2022 Ferritin [Mass/Vol] 37 ng/mL 8-252 [facility] Serum or plasma thyroperoxid ase antibody assay (units/volume)on 01-21-2022 TPO Ab Qn [IU]/mL 0-34 [facility] Comment on above: Performed at: [facility] [address] [id number] Director: Domi Miller MD, Phone: [phone] at: [facility] - [facility] [address] [id number] Director: Venancio Merino PhD, Phone: [phone] Absolute lymphocyte countOrd ered By: HEALTH ASSESSMENT on 01-07-2022 Lymphocytes Auto (Unsp spec) [#/Vol] 1.47 10*3/uL 0.83-4.51 [facility] Absolute reticulocyte countO rdered By: HEALTH ASSESSMENT on 01-07-2022 Reticulocytes (Bld) [#/Vol] 0.00 10*3/uL 0-5 [facility] Basophil percentageOrdered B y: HEALTH ASSESSMENT on 01-07-2022 Basophil percentage 3.5 mg/dL 2.5-4.9 [facility] Bilirubin [Mass/Vol] 0.50 mg/dL 0.20-1.00 [facility] Comment on above: For patients on eltr ombopag therapy, use of Dimension [place] TBIL is not recommended. Chloride [Moles/Vol] 111 mmol/L 98-107 [facility] Cholesterol [Mass/Vol] 209 mg/dL <200 [facility] Comment on above: <200 mg/dL Desirable 200-240 mg/dL Borderline >240 mg/dL High Risk Glucose [Mass/Vol] 101 mg/dL 74-106 [facility] Comment on above: Fasting Glucose resu lt from 100 to 125 mg/dL suggests IMPAIRED HOMEOSTASIS per A.D.A. criteria. Neutrophils (Bld) [#/Vol] 4.7 10*3/uL 2.0-7.7 [facility] Potassium [Moles/Vol] 4.5 mmol/L 3.5-5.1 [facility] Protein [Mass/Vol] 6.7 g/dL 6.4-8.2 [facility] Sodium [Moles/Vol] 142 mmol/L 136-145 [facility] Triglyceride [Mass/Vol] 89 mg/dL <199 [facility] Comment on above: The drugs N-Acetylcy steine and Metamizole may falsely depress this assay.Serum Triglycerides Reference Interval Normal <150 mg/dL Borderline high 150 - 199 mg/dL High 200 - 499 mg/dL Very High > or = 500 mg/dL WBC (Bld) [#/Vol] 7.2 10*3/uL 4.4-11.0 [facility] Blood erythrocytes count (nu mber/volume)Ordered By: HEALTH ASSESSMENT on 01-07-2022 RBC (Bld) [#/Vol] 4.61 10*6/uL 4.2-5.4 [facility] Blood hemoglobin measurement (mass/volume)Ordered By: HEALTH ASSESSMENT on 01-07-2022 Hemoglobin (Bld) [Mass/Vol] 13.7 g/dL 12.0-15.0 [facility] Blood platelet mean volumeOr dered By: HEALTH ASSESSMENT on 01-07-2022 Platelet mean volume (Bld) [Entitic vol] 10.6 fL 6.2-12.0 [facility] Determination of erythrocyte mean corpuscular volume (MCV)Ordered By: HEALTH ASSESSMENT on 01-07-2022 MCV (RBC) [Entitic vol] 92.6 fL 81-99 [facility] Direct bilirubinOrdered By: HEALTH ASSESSMENT on 01-07-2022 Bilirubin.direct [Mass/Vol] 0.15 mg/dL 0.00-0.30 [facility] Hematocrit Auto (Bld) [Volum e fraction]Ordered By: HEALTH ASSESSMENT on 01-07-2022 Hematocrit (Bld) [Volume fraction] 42.7 % 37-47 [facility] Laboratory - Chemistry and C hemistry - challengeOrdered By: HEALTH ASSESSMENT on 01-07-2022 ALP [Catalytic activity/Vol] 67 U/L 45-117 [facility] ALT [Catalytic activity/Vol] 21 U/L 13-56 [facility] Cholesterol.total/Chol esterol in HDL [Mass ratio] 3.60 {ratio} [facility] CO2 [Moles/Vol] 26.0 mmol/L 21.0-32.0 [facility] Globulin (S) [Mass/Vol] 3.1 g/dL 2.2-4.2 [facility] Urea nitrogen/Creatinine [Mass ratio] 18.9 mg/mg 10-20 [facility] Laboratory - Hematology and Cell countsOrdered By: HEALTH ASSESSMENT on 01-07-2022 Erythrocyte distribution width (RBC) [Entitic vol] 42.6 fL 35.1-43.9 [facility] Erythrocyte distribution width (RBC) [Ratio] 12.7 % 11.6-14.6 [facility] MCH (RBC) [Entitic mass] 29.7 pg 27.0-32.0 [facility] Nucleated RBC/100 WBC (Bld) [Ratio] 0 % 0-5 [facility] MCHC Auto (RBC) [Mass/Vol]Or dered By: HEALTH ASSESSMENT on 01-07-2022 MCHC (RBC) [Mass/Vol] 32.1 g/dL 32-36 [facility] No Panel InformationOrdered By: HEALTH ASSESSMENT on 01-07-2022 Estimated GFR (MDRD) Amer 96 mL/min >60 [facility] Comment on above: GFR Calc Estimated GFR (MDRD) Non-Af Amer 79 mL/min >60 [facility] Comment on above: Non- GFR Calc Platelets bldOrdered By: HEA LT ASSESSMENT on 01-07-2022 Platelets (Bld) [#/Vol] 323 10*3/uL 150-450 [facility] Segmented neutrophils/100 WB C Auto (Bld)Ordered By: HEALTH ASSESSMENT on 01-07-2022 Segmented neutrophils/100 WBC (Bld) 65.8 % 47-70 [facility] Serum or plasma albumin flex urement (mass/volume)Ordered By: HEALTH ASSESSMENT on 01-07-2022 Albumin [Mass/Vol] 3.6 g/dL 3.2-5.0 [facility] Serum or plasma albumin/glob ulin mass ratioOrdered By: HEALTH ASSESSMENT on 01-07-2022 Albumin/Globulin [Mass ratio] 1.2 {ratio} 0.9-2.4 [facility] Serum or plasma calcium flex urement (mass/volume)Ordered By: HEALTH ASSESSMENT on 01-07-2022 Calcium [Mass/Vol] 8.8 mg/dL 8.5-10.1 [facility] Serum or plasma cholesterol in HDL measurement (mass/volume)Ordered By: HEALTH ASSESSMENT on 01-07-2022 Cholesterol in HDL [Mass/Vol] 58 mg/dL >40 [facility] Comment on above: The drugs N-Acetylcy steine and Metamizole may falsely depress this assay. Reference Range HDL <40 mg/dL Low HDL Cholesterol HDL >or= 60 mg/dL High HDL Cholesterol Serum or plasma cholesterol in VLDL measurement (mass/volume)Ordered By: HEALTH ASSESSMENT on 01-07-2022 Cholesterol in VLDL [Mass/Vol] 18 mg/dL 5-40 [facility] Serum or plasma creatinine m easurement (mass/volume)Ordered By: HEALTH ASSESSMENT on 01-07-2022 Creatinine [Mass/Vol] 0.79 mg/dL 0.55-1.02 [facility] Comment on above: The validity of the calculated GFR & GFRAA in patients over 70 years has not been determined. Clinical correlation is essential. Serum or plasma low density lipoprotein (LDL) cholesterol measurement (mass/volume)Ordered By: HEALTH ASSESSMENT on 01-07-2022 Cholesterol in LDL [Mass/Vol] 133 mg/dL 0-130 [facility] Serum or plasma urea nitroge n measurement (mass/volume)Ordered By: HEALTH ASSESSMENT on 01-07-2022 Urea nitrogen [Mass/Vol] 15 mg/dL 7-18 [facility] Serum or plasma uric acid me asurement (mass/volume)Ordered By: HEALTH ASSESSMENT on 01-07-2022 Urate [Mass/Vol] 4.8 mg/dL 2.6-6.0 [facility] Comment on above: The drugs N-Acetylcy steine and Metamizole may falsely depress this assay. Thin prep Papanicolaou smear with manual screeningOrdered By: HEALTH ASSESSMENT on 01-07-2022 Thin prep Papanicolaou smear with manual screening 16 U/L 15-37 [facility] Thin prep Papanicolaou smear with manual screening 5 5-15 [facility] Thin prep Papanicolaou smear with manual screening 200 U/L 84-246 [facility] Erythrocyte sedimentation ra gal 08-23-2021 ESR (Bld) [Velocity] 8 mm/h 0-30 [facility] Work Phone: Serum or plasma C reactive p rotein measurement (mass/volume)on 08-23-2021 CRP [Mass/Vol] mg/L 0.0-3.0 [facility] Work Phone: Comment on above: C-Reactive Protein ( CRP) provides useful information for thediagnosis, therapy and monitoring of inflammatory processesand associated diseases. For the evaluation of Relative Riskfor Cardiovascular Disease, a High Sensitivity CRP (HSCRP)should be ordered. Basophil percentageon 2021 Bilirubin [Mass/Vol] 0.30 mg/dL 0.20-1.00 [facility] Work Phone: Comment on above: For patients on eltr ombopag therapy, use of Dimension [place] TBIL is not recommended. Protein [Mass/Vol] 6.9 g/dL 6.4-8.2 [facility] Work Phone: [phone] WBC (Bld) [#/Vol] 6.7 10*3/uL 4.4-11.0 [facility] Work Phone: [phone] Blood erythrocytes count (nu mber/volume)on 07-25-2021 RBC (Bld) [#/Vol] 4.59 10*6/uL 4.2-5.4 [facility]: Blood hemoglobin measurement (mass/volume)on 07-25-2021 Hemoglobin (Bld) [Mass/Vol] 13.8 g/dL 12.0-15.0 [facility] Work Phone: Blood platelet mean volumeon 07-25-2021 Platelet mean volume (Bld) [Entitic vol] 10.5 fL 6.2-12.0 [facility] Work Phone: Determination of erythrocyte mean corpuscular volume (MCV)on 07-25-2021 MCV (RBC) [Entitic vol] 95.6 fL 81-99 [facility] Work Phone: Direct bilirubinon 2 Bilirubin.direct [Mass/Vol] 0.08 mg/dL 0.00-0.30 [facility] Work Phone: [phone] Erythrocyte sedimentation ra gal 07-25-2021 ESR (Bld) [Velocity] 4 mm/h 0-30 [facility]: Hematocrit Auto (Bld) [Volum e fraction]on 07-25-2021 Hematocrit (Bld) [Volume fraction] 43.9 % 37-47 [facility] Work Phone: [phone] Laboratory - Chemistry and C hemistry - challengeon 07-25-2021 ALP [Catalytic activity/Vol] 61 U/L 45-117 [facility] Work Phone: ALT [Catalytic activity/Vol] 18 U/L 13-56 [facility] Work Phone: [phone] Globulin (S) [Mass/Vol] 3.2 g/dL 2.2-4.2 [facility] Work Phone: Laboratory - Hematology and Cell countson 07-25-2021 Erythrocyte distribution width (RBC) [Entitic vol] 42.4 fL 35.1-43.9 [facility] Work Phone: Erythrocyte distribution width (RBC) [Ratio] 12.0 % 11.6-14.6 [facility] Work Phone: MCH (RBC) [Entitic mass] 30.1 pg 27.0-32.0 [facility] Work Phone: MCHC Auto (RBC) [Mass/Vol]on 07-25-2021 MCHC (RBC) [Mass/Vol] 31.4 g/dL 32-36 [facility] Work Phone: No Panel Informationon 07-25 Estimated GFR (MDRD) Amer 98 mL/min >60 [facility] Work Phone: Comment on above: GFR Calc Estimated GFR (MDRD) Non-Af Amer 81 mL/min >60 [facility] Work Phone: Comment on above: Non- GFR Calc Hepatitis A IgM Antibody Negative Negative [facility] Work Phone: Hepatitis B Core IgM Antibody Negative Negative [facility] Work Phone: Hepatitis C Antibody (EIA) <0.1 s/co ratio 0.0-0.9 [facility] Work Phone: Hepatitis C Antibody Comment Comment . [facility] Work Phone: Comment on above: NegativeNot infected with HCV, unless recent infection issuspected or other evidence exists to indicate HCVinfection.Performed at: [facility] [address] [id number] Director: Venancio Merino PhD, Phone: [phone] Vitamin D 25-Hydroxy 37.2 ng/mL [facility] Work Phone: Comment on above: Vitamin D 25(OH) Sta tus Range Deficiency <20 ng/mL (50nmol/L) Insufficiency 20 - 30 ng/mL (50 - 75 nmol/L) Sufficiency 30 - 100 ng/mL (75 - 250 nmol/L) Toxicity >100 ng/mL (>250 nmol/L) Platelets bldon 07-25-2021 Platelets (Bld) [#/Vol] 294 10*3/uL 150-450 [facility] Work Phone: Serum or plasma C reactive p rotein measurement (mass/volume)on 07-25-2021 CRP [Mass/Vol] 4.12 mg/L 0.0-3.0 [facility] Work Phone: Comment on above: C-Reactive Protein ( CRP) provides useful information for thediagnosis, therapy and monitoring of inflammatory processesand associated diseases. For the evaluation of Relative Riskfor Cardiovascular Disease, a High Sensitivity CRP (HSCRP)should be ordered. Serum or plasma albumin flex urement (mass/volume)on 07-25-2021 Albumin [Mass/Vol] 3.7 g/dL 3.2-5.0 [facility] Work Phone: Serum or plasma calcium flex urement (mass/volume)on 07-25-2021 Calcium [Mass/Vol] 8.7 mg/dL 8.5-10.1 [facility] Work Phone: Serum or plasma creatinine m easurement (mass/volume)on 07-25-2021 Creatinine [Mass/Vol] 0.78 mg/dL 0.55-1.02 [facility] Work Phone: Comment on above: The validity of the calculated GFR & GFRAA in patients over 70 years has not been determined. Clinical correlation is essential. Serum or plasma hepatitis B virus surface antigen detection by immunoassayon 07-25-2021 HBV surface Ag IA Ql Negative Negative [facility] Work Phone: Thin prep Papanicolaou smear with manual screeningon 07-25-2021 Thin prep Papanicolaou smear with manual screening 14 U/L 15-37 [facility] Work Phone: Vital Signs Date Time Vital Sign Value Performing Clinician Facility 02-18-2024 08:02-0500 Body height 159 cm Abdirizak Alyce [employer] Work Phone: [facility] 02-18-2024 08:02-0500 Body mass index (BMI) [Ratio] 25.3 kg/m2 Abdirizak Alyce [employer] Work Phone: [facility] 02-18-2024 08:02-0500 Body weight 63.96 kg Abdirizaktrinity Fitchman [employer] Work Phone: [facility] 02-18-2024 08:02-0500 Diastolic blood pressure 78 mm[Hg] Abdirizak Alyce [employer] Work Phone: [facility] 02-18-2024 08:02-0500 Heart rate 73 /min Abdirizakoren Fitchman [employer] Work Phone: [facility] 02-18-2024 08:02-0500 Respiratory rate 14 /min Abdirizak Alyce [employer] Work Phone: [facility] 02-18-2024 08:02-0500 SaO2% (BldA) [Mass fraction] 99 % Abdirizak Alyce [employer] Work Phone: [facility] 02-18-2024 08:02-0500 Systolic blood pressure 118 mm[Hg] Abdirizaktrinity Fitchman [employer] Work Phone: [facility] 06-28-2023 11:25-0400 Body height 157.[address] Herber Hogue Work Phone: [facility] 06-28-2023 11:18-0400 Body mass index (BMI) [Ratio] 26.3 kg/m2 Dr. Herber Hogue Work Phone: [facility] 06-28-2023 11:18-0400 Body weight 65.[address] Herber Hogue Work Phone: [facility] 06-28-2023 11:18-0400 Diastolic blood pressure 84 mm[Hg] Dr. Herber Hogue Work Phone: [facility] 06-28-2023 11:18-0400 Systolic blood pressure 129 mm[Hg] Dr. Herber Hogue Work Phone: [facility] 06-12-2023 19:56-0400 Body temperature 98 [degF] [facility] 06-12-2023 19:56-0400 Diastolic blood pressure 72 mm[Hg] [facility] 06-12-2023 19:56-0400 Heart rate 88 /min [facility] 06-12-2023 19:56-0400 Respiratory rate 16 /min [facility] 06-12-2023 19:56-0400 SaO2% (BldA) [Mass fraction] 94 % [facility] 06-12-2023 19:56-0400 Systolic blood pressure 137 mm[Hg] [facility] 06-12-2023 18:13-0400 Body height 157.48 cm [facility] 06-12-2023 18:13-0400 Body mass index (BMI) [Ratio] 26.5 kg/m2 [facility] 06-12-2023 18:13-0400 Body weight 65.77 kg [facility] 04-28-2023 09:18-0500 Body height 159 cm Bill Yanezanugo DO Work Phone: [facility] 04-28-2023 09:18-0500 Body weight 64.86 kg Bill Swannugo DO Work Phone: [facility] 04-28-2023 09:18-0500 Diastolic blood pressure 75 mm[Hg] Bill Yatesiner Mbanugo DO Work Phone: [facility] 04-28-2023 09:18-0500 Heart rate 78 /min Bill Rodrigues Mbanugo DO Work Phone: [facility] 04-28-2023 09:18-0500 SaO2% (BldA) [Mass fraction] 100 % Bill Rodrigues Mbanugo DO Work Phone: [facility] 04-28-2023 09:18-0500 Systolic blood pressure 115 mm[Hg] Bill Doshio DO Work Phone: [facility] 04-27-2023 10:03-0500 Body temperature 98.01 [degF] Caitie Suppan [employer] Work Phone: [facility] 04-27-2023 10:03-0500 Body weight 64.86 kg Caitie Suppan [employer] Work Phone: [facility] 04-27-2023 10:03-0500 Diastolic blood pressure 72 mm[Hg] Caitie Suppan [employer] Work Phone: [facility] 04-27-2023 10:03-0500 Heart rate 86 /min Caitie Suppan [employer] RE[employer]ER Work Phone: [facility] 04-27-2023 10:03-0500 Respiratory rate 16 /min Caitie Suppan [employer] Work Phone: [facility] 04-27-2023 10:03-0500 SaO2% (BldA) [Mass fraction] 98 % Caitie Suppan [employer] Work Phone: [facility] 04-27-2023 10:03-0500 Systolic blood pressure 132 mm[Hg] Caitie Suppan [employer] Work Phone: [facility] 02-09-2023 08:04-0500 Body height 159 cm Herber Hogue DO Work Phone: [facility] 02-09-2023 08:04-0500 Body temperature 97.59 [degF] Herber Hogue DO Work Phone: [facility] 02-09-2023 08:04-0500 Body weight 65.77 kg Herber Hogue DO Work Phone: [facility] 02-09-2023 08:04-0500 Diastolic blood pressure 74 mm[Hg] Herber Hogue DO Work Phone: [facility] 02-09-2023 08:04-0500 Heart rate 80 /min Herber Hogue DO Work Phone: [facility] 02-09-2023 08:04-0500 Respiratory rate 16 /min Herber Hogue DO Work Phone: [facility] 02-09-2023 08:04-0500 Systolic blood pressure 118 mm[Hg] Herber Hogue DO Work Phone: [facility] 07-01-2022 15:27-0400 Body weight 65.86 kg Abdirizak Alyce [employer] Work Phone: [facility] 07-01-2022 15:27-0400 Diastolic blood pressure 82 mm[Hg] Abdirizak Alyce [employer]TAIN Work Phone: [facility] 07-01-2022 15:27-0400 Heart rate 87 /min Abdirizak Alyce [employer]CTION[employer] CAPTAIN Work Phone: [facility] 07-01-2022 15:27-0400 SaO2% (BldA) [Mass fraction] 97 % Abdirizak Alyce [employer]CTIONAL CAPTAIN Work Phone: [facility] 07-01-2022 15:27-0400 Systolic blood pressure 124 mm[Hg] Abdirizak Alyce [employer] CAPTAIN Work Phone: [facility] 04-16-2022 14:49-0500 Body height 156.5 cm Chauncey Man MD, PhD Work Phone: [facility] 04-16-2022 14:49-0500 Body temperature 99.1 [degF] Chauncey Man MD, PhD Work Phone: [facility] 04-16-2022 14:49-0500 Body weight 64.82 kg Chauncey Man MD, PhD Work Phone: [facility] 04-16-2022 14:49-0500 Diastolic blood pressure 65 mm[Hg] Chauncey Man MD, PhD Work Phone: [facility] 04-16-2022 14:49-0500 Heart rate 77 /min Chauncey Man MD, PhD Work Phone: [facility] 04-16-2022 14:49-0500 Systolic blood pressure 133 mm[Hg] Chauncey Man MD, PhD Work Phone: [facility] 01-28-2022 07:45-0500 Body height 156.5 cm Herber Hogue DO Work Phone: [facility] 01-28-2022 07:45-0500 Body temperature 96.69 [degF] Herber Hogue DO Work Phone: [facility] 01-28-2022 07:45-0500 Body weight 63.05 kg Herber Hogue DO Work Phone: [facility] 01-28-2022 07:45-0500 Diastolic blood pressure 60 mm[Hg] Herber Hogue DO Work Phone: [facility] 01-28-2022 07:45-0500 Heart rate 64 /min Herber Hogue DO Work Phone: [facility] 01-28-2022 07:45-0500 Respiratory rate 12 /min Herber Hogue DO Work Phone: [facility] 01-28-2022 07:45-0500 Systolic blood pressure 104 mm[Hg] Herber Hogue DO Work Phone: [facility] 08-19-2021 10:51-0400 Body height 157.5 cm Tigre Amin [employer] Work Phone: [facility] 08-19-2021 10:51-0400 Body temperature 97.7 [degF] Tigre Amin [employer] Work Phone: [facility] 08-19-2021 10:51-0400 Body weight 63.5 kg Tigre Amin [employer] Work Phone: [facility] 08-19-2021 10:51-0400 Diastolic blood pressure 63 mm[Hg] Tigre Amin [employer] Work Phone: [facility] 08-19-2021 10:51-0400 Heart rate 87 /min Tigre Amin APRN.CNP Work Phone: [facility] 08-19-2021 10:51-0400 Systolic blood pressure 99 mm[Hg] Tigre Amin APRN.CNP Work Phone: [facility] Encounters Encounter Date Encounter Type Care Provider Facility Start: 01-08-2025 Encounter for genera l adult medical examination without abnormal findings Abdirizak Daniel NP [facility] Start: 01-08-2025 ambulatory Herber Hogue Facilit y:[facility] Start: 01-02-2025 End: 01-02-2025 ambulatory Abdirizak Daniel NP Facility:[facility] Start: 12-28-2024 End: 12-28-2024 ambulatory HERBER L HOGUE Facility:[facility] Start: 12-28-2024 Encounter for genera l adult medical examination without abnormal findings ABDIRIZAK DANIEL [facility] Start: 05-24-2024 End: 05-24-2024 ambulatory Herber Hogue Facility:[facility] [place] Start: 04-11-2024 End: 05-12-2024 ambulatory Herber L Hogue DO Work Phone: [facility] Start: 02-20-2024 End: 02-21-2024 ambulatory Abdirizak Daniel APRN.CNP Work Phone: [facility] Comment on above: Antibiotic request Start: 02-18-2024 End: 02-21-2024 Telephone encounter Abdirizak Daniel APRN.CNP Work Phone: [facility] Comment on above: chest xray results Start: 02-18-2024 End: 02-18-2024 ambulatory Brynn Buck RN [employer] Comment on above: Results, Lab Start: 02-18-2024 End: 02-18-2024 Office outpatient visit 25 minutes Abdirizak Daniel APRN.CNP Work Phone: [facility] Comment on above: Persistent cough (Pr imary Dx); Productive cough; Hoarseness; Non-recurrent acute serous otitis media of left ear; Acute non-recurrent pansinusitis; Well adult exam; Low TSH level Start: 02-18-2024 End: 02-18-2024 Patient encounter status Abdirizak Daniel [employer] Work Phone: [facility] Start: 02-18-2024 End: 02-18-2024 ambulatory Abdirizak Daniel [employer]RECTIONAL [employer]OBATION OFFICER Facility:[facility] Start: 02-09-2024 ambulatory Herber Hogue Facilit y:[facility] Start: 02-09-2024 End: 02-09-2024 ambulatory Herber Hogue Facility:[facility] Start: 10-12-2023 Telephone encounter Abdirizak Rae [employer] Work Phone: [facility] Comment on above: Results Start: 06-28-2023 End: 06-28-[address] Herber Hogue Work Phone: [facility] Work Phone: Start: 06-28-2023 End: 06-28-[address] Herber Hogue Work Phone: [facility]-Laboratory, Specimen Work Phone: Start: 06-28-[address] Herber Hogue Work Phone: [facility] Start: 06-28-2023 End: 06-28-[address] Herber Hogue Work Phone: [facility] @ Start: 06-12-2023 End: 06-12-2023 Emergency department patient visit [facility]Emergency Department Work Phone: Start: 05-12-2023 End: 05-12-2023 ambulatory [facility] Work Phone: Start: 05-12-2023 End: 05-12-2023 Patient encounter procedure [facility]-Ultrasound, [facility] Work Phone: Start: 05-07-2023 Refill Herber carballo DO Work Phone: [facility] Start: 05-05-2023 Telephone encounter Bill Mcmillan DO Work Phone: Urology Start: 04-29-2023 Telephone encounter Bill mclaughlin Mbanugo DO Work Phone: [facility] Start: 04-28-2023 ambulatory Bill marie Mbanugo DO Work Phone: [facility] Comment on above: Ciprofloxacin Start: 04-28-2023 Telephone encounter Bill mclaughlin Mbanugo DO Work Phone: [facility] Start: 04-28-2023 End: 04-28-2023 Office consultation new/estab patient 60 min Bill Rodrigues Mbanugo DO Work Phone: [facility] Comment on above: Left ureteral stone (Primary Dx); Hydronephrosis of left kidney; Microscopic hematuria Start: 04-27-2023 End: 04-27-2023 Office outpatient visit 15 minutes Caitie Blake APRN.[employer] Work Phone: [facility] Comment on above: Nephrolithiasis (Beba dagmar Dx); Left ureteral stone Start: 04-26-2023 Telephone encounter Abdirizak Rae APRN.CORRECTIONAL CAPTAIN Work Phone: [facility] Comment on above: Results stat orders Start: 04-26-2023 End: 04-26-2023 ambulatory [facility] Work Phone: Start: 04-26-2023 End: 04-26-2023 Patient encounter procedure [facility]-Cat Scan, [facility] Work Phone: Start: 04-14-2023 Telephone encounter Herber ding DO Work Phone: [facility] Comment on above: Results Start: 03-08-2023 End: 03-08-2023 ambulatory [facility] Work Phone: Start: 03-08-2023 End: 03-08-2023 Patient encounter procedure [facility]-Outpatient Breast Imaging Work Phone: Start: 02-26-2023 Telephone encounter Herber ding DO Work Phone: [facility] Comment on above: Results Start: 02-12-2023 End: 02-12-2023 ambulatory [facility] Work Phone: Start: 02-12-2023 End: 02-12-2023 Patient encounter procedure [facility]Laboratory Work Phone: Start: 02-09-2023 End: 02-09-2023 Patient encounter procedure Herber Hogue DO Work Phone: [facility] Comment on above: Well adult exam (Beba dagmar Dx); Candidosis of skin; Rash of face; Vitamin D deficiency; PMR (polymyalgia rheumatica) (HCC); Hyperglycemia; Fatigue, unspecified type; Menopause; Screening for colon cancer; Encounter for screening mammogram for malignant neoplasm of breast; Thyroid nodule Start: 02-09-2023 End: 02-09-2023 Patient encounter status Herber Hogue DO Work Phone: [facility] Work Phone: Start: 01-01-2023 Registered [facility] Start: 09-02-2022 ambulatory Herber Kaiser haris DO Work Phone: Internal [facility] [place] Start: 07-10-2022 Telephone encounter Herber ding DO Work Phone: [facility] Comment on above: Patient Update Start: 07-08-2022 ambulatory Abdirizak wiley [employer]CORRECTIONAL CAPTAIN Work Phone: [facility] Comment on above: Dorota type rash Start: 07-01-2022 End: 07-01-2022 Patient encounter procedure Abdirizak Daniel [employer]RECTIONAL CAPTAIN Work Phone: [facility] Comment on above: Candidosis of skin ( Primary Dx); Rash of face Start: 04-16-2022 End: 04-16-2022 Patient encounter procedure Chauncey Man MD, PhD Work Phone: Rheumatology Comment on above: Myalgia (Primary Dx) ; Disturbance in sleep behavior Start: 04-15-2022 Patient encounter procedure [facility] Start: 04-13-2022 Telephone encounter Herber ding DO Work Phone: [facility] Comment on above: Results Start: 04-11-2022 End: 04-11-2022 ambulatory [facility] Work Phone: Start: 04-11-2022 End: 04-11-2022 Patient encounter procedure [facility] Start: 04-08-2022 Telephone encounter Herber ding DO Work Phone: [facility] Comment on above: Lab orders and medic ation question Start: 01-28-2022 End: 01-28-2022 Patient encounter procedure Herber Jonas Hogue DO Work Phone: [facility] Comment on above: Well adult exam (Beba dagmar Dx); Vitamin D deficiency; Fatigue, unspecified type; On prednisone therapy; PMR (polymyalgia rheumatica) ([facility]); Screening for osteoporosis; Thyroid nodule; Varicose veins of both lower extremities with pain Start: 01-28-2022 End: 01-28-2022 Patient encounter status Herber Hogue DO Work Phone: [facility] Start: 01-21-2022 End: 01-21-2022 ambulatory [facility] Work Phone: Start: 01-21-2022 End: 01-21-2022 Patient encounter procedure [facility], Specimen Start: 01-07-2022 Registered Referred [facility] Start: 10-01-2021 ambulatory Herber Arellanooscar carballo DO Work Phone: [facility] [place] Start: 08-25-2021 Chart abstracting Tigre winchester APRN.CORRECTIONAL CAPTAIN Work Phone: Rheumatology Start: 08-25-2021 Telephone encounter Tigre mclaughlin APRN.CORRECTIONAL CAPTAIN Work Phone: Rheumatology Comment on above: Results Start: 08-23-2021 End: 08-23-2021 Patient encounter procedure [facility] Start: 08-19-2021 End: 08-19-2021 Patient encounter procedure Tigre Amin [employer]RECTIONAL CAPTAIN Work Phone: Rheumatology Comment on above: PMR (polymyalgia rhe umatica) (HCC) (Primary Dx); [facility]PC current use of systemic steroids Start: 07-25-2021 Chart abstracting Echo Tripathi i, MD Work Phone: Rheumatology Comment on above: Outside Lab Results Start: 07-25-2021 Telephone encounter Echo Navarro MD Work Phone: Rheumatology Comment on above: Results Start: 07-25-2021 End: 07-25-2021 Patient encounter procedure [facility] Procedures Date Procedure Procedure Detail Performing Clinician Start: 06-12-2023 CT of abdomen and pe lvis without contrast Start: 06-12-[address] Eulalio Hogue Work Phone: Start: 05-12-2023 Diagnostic radiograp hy of abdomen Start: 05-12-2023 US urinary tract Start: 04-28-2023 Urnls dip stick/tabl et reagent auto microscopy [facility] Work Phone: Start: 04-28-2023 Urnls dip stick/tabl et rgnt auto w/o microscopy [facility] Work Phone: Start: 04-26-2023 Computed tomography of abdomen and pelvis with contrast Start: 03-08-2023 US scan of thyroid Start: 03-08-2023 Screening mammography Start: 11-27-2020 Adult depression scr eening assessment Echo Vines MD Work Phone: Plan of Treatment Date Care Activity Detail Author Start: 04-02-2026 Screening for malign ant neoplasm of colon [facility] Start: 03-08-2024 Screening for malign ant neoplasm of breast Mammogram Screening [facility] Start: 02-10-2024 Covid-19 Vaccine () Covid-19 Vaccine () [facility] Comment on above: Postponed from 10/30 (Declined at this time) Start: 10-31-2023 Covid-19 Vaccine (3 - 2024-25 season) Covid-19 Vaccine ( season) [facility] Start: 10-31-2023 Influenza vaccination [facility] Start: 08-29-2023 Influenza vaccination Influenza Vacc ine (#1) [facility] Comment on above: Postponed from 10/30 (Declined at this time) Start: 06-28-2023 Patient referral [facility] Work Phone: Start: 06-28-2023 Liquid based cervica l cytology screening [facility] Start: 06-12-2023 End: 06-12-2023 [facility] Start: 06-12-2023 Bacteria identified in Urine by Culture [facility] Start: 03-01-2023 Behavioral Health Screening Behavioral Health Screening [facility] Start: 03-01-2023 Depression Assessment Depression Ass essment [facility] Start: 02-09-2023 End: 05-11-2023 25-hydroxyvitamin D3 [Mass/volume] in Serum or Plasma VITAMIN D 25 HYDROXY Lab Routine Vitamin D deficiency Well adult exam Fatigue, unspecified type Expected: 02/09/2023, Expires: 05/11/2023 [facility] Work Phone: Comment on above: Expected: 02/09/2023 , Expires: 05/11/2023 Start: 02-09-2023 End: 05-11-2023 C reactive protein [Mass/volume] in Serum or Plasma C-REACTIVE PROTEIN (CRP) Lab Routine PMR (polymyalgia rheumatica) (HCC) Well adult exam Expected: 02/09/2023, Expires: 05/11/2023 [facility] Work Phone: Comment on above: Expected: 02/09/2023 , Expires: 05/11/2023 Start: 02-09-2023 End: 05-11-2023 Cobalamin (Vitamin B12) [Mass/volume] in Serum or Plasma VITAMIN B12 BLOOD Lab Routine Well adult exam Fatigue, unspecified type Expected: 02/09/2023, Expires: 05/11/2023 [facility] Work Phone: Comment on above: Expected: 02/09/2023 , Expires: 05/11/2023 Start: 02-09-2023 End: 05-11-2023 Cortisol [Mass/volume] in Serum or Plasma CORTISOL BLD Lab Routine Well adult exam Fatigue, unspecified type Expected: 02/09/2023, Expires: 05/11/2023 [facility] Work Phone: Comment on above: Expected: 02/09/2023 , Expires: 05/11/2023 Start: 02-09-2023 End: 05-11-2023 Erythrocyte sedimentation rate SED RATE WESTERGREN Lab Routine PMR (polymyalgia rheumatica) ([facility]) Well adult exam Expected: 02/09/2023, Expires: 05/11/2023 [facility] Work Phone: Comment on above: Expected: 02/09/2023 , Expires: 05/11/2023 Start: 02-09-2023 End: 05-11-2023 ESTROGEN FRACTION BL ESTROGEN FRACTION BL Lab Routine Well adult exam Menopause Expected: 02/09/2023, Expires: 05/11/2023 [facility] Work Phone: Comment on above: Expected: 02/09/2023 , Expires: 05/11/2023 Start: 02-09-2023 End: 05-11-2023 Hemoglobin A1c in Blood HGB A1C Lab Routine Well adult exam Hyperglycemia Expected: 02/09/2023, Expires: 05/11/2023 [facility] Work Phone: Comment on above: Expected: 02/09/2023 , Expires: 05/11/2023 Start: 02-09-2023 End: 05-11-2023 Progesterone [Mass/volume] in Serum or Plasma PROGESTERONE BLD Lab Routine Well adult exam Menopause Expected: 02/09/2023, Expires: 05/11/2023 [facility] Work Phone: Comment on above: Expected: 02/09/2023 , Expires: 05/11/2023 Start: 02-09-2023 End: 05-11-2023 TESTOSTERONE, FREE AND TOTAL TESTOSTERONE, FREE AND TOTAL Lab Routine Well adult exam Menopause Expected: 02/09/2023, Expires: 05/11/2023 [facility] Work Phone: Comment on above: Expected: 02/09/2023 , Expires: 05/11/2023 Start: 02-09-2023 End: 05-11-2023 Thyrotropin [Units/volume] in Serum or Plasma TSH BLD Lab Routine Well adult exam Expected: 02/09/2023, Expires: 05/11/2023 [facility] Work Phone: Comment on above: Expected: 02/09/2023 , Expires: 05/11/2023 Start: 02-09-2023 End: 05-11-2023 Thyroxine (T4) free [Mass/volume] in Serum or Plasma T4 FREE/FREE THYROX Lab Routine Well adult exam Expected: 02/09/2023, Expires: 05/11/2023 [facility] Work Phone: Comment on above: Expected: 02/09/2023 , Expires: 05/11/2023 Start: 02-09-2023 End: 05-11-2023 Triiodothyronine (T3) Free [Mass/volume] in Serum or Plasma T3 FREE BLD Lab Routine Well adult exam Expected: 02/09/2023, Expires: 05/11/2023 [facility] Work Phone: Comment on above: Expected: 02/09/2023 , Expires: 05/11/2023 Start: 10-30-2022 Influenza vaccination INFLUENZA (#1) [facility] Start: 04-10-2022 End: 06-10-2022 25-hydroxyvitamin D3 [Mass/volume] in Serum or Plasma VITAMIN D 25 HYDROXY Lab Routine Vitamin D deficiency Fatigue, unspecified type PMR (polymyalgia rheumatica) ([facility]) Expected: 04/10/2022, Expires: 06/10/2022 [facility] Work Phone: Comment on above: Expected: 04/10/2022 , Expires: 06/10/2022 Start: 04-10-2022 End: 06-10-2022 C reactive protein [Mass/volume] in Serum or Plasma C-REACTIVE PROTEIN (CRP) Lab Routine Fatigue, unspecified type PMR (polymyalgia rheumatica) (HCC) Expected: 04/10/2022, Expires: 06/10/2022 [facility] Work Phone: Comment on above: Expected: 04/10/2022 , Expires: 06/10/2022 Start: 04-10-2022 End: 06-10-2022 CBC W Auto Differential panel - Blood CBC + DIFF Lab Routine Fatigue, unspecified type On prednisone therapy Expected: 04/10/2022, Expires: 06/10/2022 [facility] Work Phone: Comment on above: Expected: 04/10/2022 , Expires: 06/10/2022 Start: 04-10-2022 End: 06-10-2022 Cobalamin (Vitamin B12) [Mass/volume] in Serum or Plasma VITAMIN B12 BLOOD Lab Routine Fatigue, unspecified type On prednisone therapy PMR (polymyalgia rheumatica) (HCC) Expected: 04/10/2022, Expires: 06/10/2022 [facility] Work Phone: Comment on above: Expected: 04/10/2022 , Expires: 06/10/2022 Start: 04-10-2022 End: 06-10-2022 Comprehensive metabolic 2000 panel - Serum or Plasma COMP METABOLIC PANEL Lab Routine Fatigue, unspecified type On prednisone therapy Expected: 04/10/2022, Expires: 06/10/2022 [facility] Work Phone: Comment on above: Expected: 04/10/2022 , Expires: 06/10/2022 Start: 04-10-2022 End: 06-10-2022 Erythrocyte sedimentation rate SED RATE WESTERGREN Lab Routine Fatigue, unspecified type On prednisone therapy PMR (polymyalgia rheumatica) (HCC) Expected: 04/10/2022, Expires: 06/10/2022 [facility] Work Phone: Comment on above: Expected: 04/10/2022 , Expires: 06/10/2022 Start: 04-10-2022 End: 06-10-2022 Ferritin [Mass/volume] in Serum or Plasma FERRITIN BLD Lab Routine PMR (polymyalgia rheumatica) (HCC) Expected: 04/10/2022, Expires: 06/10/2022 [facility] Work Phone: Comment on above: Expected: 04/10/2022 , Expires: 06/10/2022 Start: 04-10-2022 End: 06-10-2022 Iron and Iron binding capacity panel - Serum or Plasma IRON + TIBC Lab Routine Fatigue, unspecified type PMR (polymyalgia rheumatica) (HCC) Expected: 04/10/2022, Expires: 06/10/2022 [facility] Work Phone: Comment on above: Expected: 04/10/2022 , Expires: 06/10/2022 Start: 03-01-2022 DEPRESSION ASSESSMENT DEPRESSION ASS ESSMENT [facility] Start: 01-28-2022 End: 03-30-2022 25-hydroxyvitamin D3 [Mass/volume] in Serum or Plasma VITAMIN D 25 HYDROXY Lab Routine Vitamin D deficiency Fatigue, unspecified type PMR (polymyalgia rheumatica) ([facility]) Expected: 01/28/2022, Expires: 03/30/2022 [facility] Work Phone: Comment on above: Expected: 01/28/2022 , Expires: 03/30/2022 Start: 01-28-2022 End: 03-30-2022 C reactive protein [Mass/volume] in Serum or Plasma C-REACTIVE PROTEIN (CRP) Lab Routine Fatigue, unspecified type On prednisone therapy PMR (polymyalgia rheumatica) (HCC) Expected: 01/28/2022, Expires: 03/30/2022 [facility] Work Phone: Comment on above: Expected: 01/28/2022 , Expires: 03/30/2022 Start: 01-28-2022 End: 03-30-2022 Cobalamin (Vitamin B12) [Mass/volume] in Serum or Plasma VITAMIN B12 BLOOD Lab Routine Fatigue, unspecified type PMR (polymyalgia rheumatica) (HCC) Expected: 01/28/2022, Expires: 03/30/2022 [facility] Work Phone: Comment on above: Expected: 01/28/2022 , Expires: 03/30/2022 Start: 01-28-2022 End: 03-30-2022 Erythrocyte sedimentation rate SED RATE WESTERGREN Lab Routine Fatigue, unspecified type On prednisone therapy PMR (polymyalgia rheumatica) (HCC) Expected: 01/28/2022, Expires: 03/30/2022 [facility] Work Phone: Comment on above: Expected: 01/28/2022 , Expires: 03/30/2022 Start: 01-28-2022 End: 03-30-2022 Ferritin [Mass/volume] in Serum or Plasma FERRITIN BLD Lab Routine Fatigue, unspecified type PMR (polymyalgia rheumatica) (HCC) Expected: 01/28/2022, Expires: 03/30/2022 [facility] Work Phone: Comment on above: Expected: 01/28/2022 , Expires: 03/30/2022 Start: 01-28-2022 End: 03-30-2022 Iron and Iron binding capacity panel - Serum or Plasma IRON + TIBC Lab Routine Fatigue, unspecified type PMR (polymyalgia rheumatica) (HCC) Expected: 01/28/2022, Expires: 03/30/2022 [facility] Work Phone: Comment on above: Expected: 01/28/2022 , Expires: 03/30/2022 Start: 11-27-2021 Adult depression screening assessment DEPRESSION SCREENING [facility] Start: 10-30-2021 Influenza vaccination INFLUENZA (#1) [facility] Start: 08-19-2021 End: 10-19-2021 C reactive protein [Mass/volume] in Serum or Plasma C-REACTIVE PROTEIN (CRP) Lab Routine PMR (polymyalgia rheumatica) (HCC) Expected: 08/19/2021 (Approximate), Expires: 10/19/2021 [facility] Work Phone: Comment on above: Expected: 08/19/2021 (Approximate), Expires: 10/19/2021 Start: 08-19-2021 End: 10-19-2021 Erythrocyte sedimentation rate SED RATE WESTERGREN Lab Routine PMR (polymyalgia rheumatica) (HCC) Expected: 08/19/2021 (Approximate), Expires: 10/19/2021 [facility] Work Phone: Comment on above: Expected: 08/19/2021 (Approximate), Expires: 10/19/2021 Start: 03-01-2021 DEPRESSION ASSESSMENT DEPRESSION ASS ESSMENT [facility] Start: 08-29-2020 COVID-19 VACCINE (3 - Booster for Moderna series) COVID-19 VACCINE (3 - Booster for Moderna series) [facility] Start: 05-27-2020 COVID-19 VACCINE (3 - Booster for Moderna series) COVID-19 VACCINE (3 - Booster for Moderna series) [facility] Start: 05-27-2020 COVID-19 VACCINE (3 - Moderna series) COVID-19 VACCINE (3 - Moderna series) [facility] Start: 2014 Pneumococcal Vaccine : 50+ (1 of 1 - PCV) Pneumococcal Vaccine: 50+ (1 of 1 - PCV) [facility] Start: 2014 SHINGRIX VACCINE (1 of 2) DAWN GRIX VACCINE (1 of 2) [facility] Start: 2009 COLOGUARD (FIT-DNA) COLOGUARD (FIT-D NA) [facility] Start: 2009 Colonoscopy COLONOSCOPY [facility] Start: 2009 COLORECTAL CANCER SCREENING COLORECTAL CANCER SCREENING [facility] Start: [address] COLONOGRAPHY [facility] Start: 2009 DIABETES SCREEN DIABETES SCREEN [facility] Start: 2009 Diabetes Screening Diabetes Screenin g [facility] Start: 2009 FECAL OCCULT BLOOD FECAL OCCULT BLOO D [facility] Start: 2009 Lipid panel Lipid Screening [facility] Start: 2009 LIPID SCREEN LIPID SCREEN [facility] Start: 2009 Screening for malign ant neoplasm of colon [facility] Start: 2009 [facility] Start: 2006 PAP TESTING PAP TESTING [facility] Start: 2004 Mammography MAMMOGRAM [facility] Start: 2004 Screening for malign ant neoplasm of breast Mammogram Screening [facility] Start: 1994 HPV TESTING HPV TESTING [facility] Start: 1994 Screening for malign ant neoplasm of cervix HPV Testing [facility] Start: 1985 PAP TESTING PAP TESTING [facility] Start: 1985 Screening for malign ant neoplasm of cervix [facility] Start: 05-22-1983 Hepatitis B Vaccine (1 of 3 - 19+ 3-dose series) Hepatitis B Vaccine (1 of 3 - 19+ 3-dose series) [facility] Start: 05-22-1983 Urine microalbumin profile [facility] Start: 1982 Anxiety Screening Anxiety Screening [facility] Start: 1982 Depression Screening Depression Scre ening [facility] Start: 1982 HEPATITIS C SCREENING HEPATITIS C [facility] Start: 1982 Hepatitis C screening Hepatitis C [facility] Start: 1982 HIV SCREENING HIV SCREENING [facility] Start: 1982 HIV screening HIV Screening [facility] Start: 1964 HEPATITIS B (1 of 3 - 3-dose series) HEPATITIS B (1 of 3 - 3-dose series) [facility] Start: 1964 Hepatitis B Vaccine (1 of 3 - 3-dose series) Hepatitis B Vaccine (1 of 3 - 3-dose series) [facility] CALCULI ANALYSIS CALCULI ANALYSI S Lab Routine Nephrolithiasis Ordered: 04/27/2023 [facility] Work Phone: Comment on above: Ordered: 04/27/2023 COLOGUARD COLOGUARD Lab Ro utine Screening for colon cancer Ordered: 02/09/2023 [facility] Work Phone: Comment on above: Ordered: 02/09/2023 End: 05-11-2025 DBT Breast - bilateral screening ARCELIA SCREENING W AMALIA Radiology Routine Encounter for screening mammogram for breast cancer 1 Occurrences starting 04/11/2024 until 05/11/2025 [facility] Work Phone: Comment on above: 1 Occurrences starti ng 04/11/2024 until 05/11/2025 End: 02-27-2023 DXA-AXIAL SKELETON DXA-AXIAL SKELETON Radiology Routine Well adult exam On prednisone therapy Screening for osteoporosis 1 Occurrences starting 01/28/2022 until 02/27/2023 [facility] Work Phone: Comment on above: 1 Occurrences starti ng 01/28/2022 until 02/27/2023 Estrogen [Mass/volum e] in Serum or Plasma [facility] End: 10-02-2023 ARCELIA SCREENING ARCELIA SCREENING Radiology Routine Encounter for screening mammogram for breast cancer 1 Occurrences starting 09/02/2022 until 10/02/2023 [facility] Work Phone: Comment on above: 1 Occurrences starti ng 09/02/2022 until 10/02/2023 End: 03-10-2024 ARCELIA SCREENING W AMALIA ARCELIA SCREENING W AMALIA Radiology Routine Encounter for screening mammogram for malignant neoplasm of breast 1 Occurrences starting 02/09/2023 until 03/10/2024 [facility] Work Phone: Comment on above: 1 Occurrences starti ng 02/09/2023 until 03/10/2024 Path report.final Dx Spec [facility] Patient Education Healthy Kidney s ED Kidney Stone with Pain [facility] Work Phone: Patient referral [facility] Work Phone: End: 10-31-2022 Screening mammography bi 2-view breast inc cad ARCELIA SCREENING Radiology Routine Encounter for screening mammogram for breast cancer 1 Occurrences starting 10/01/2021 until 10/31/2022 [facility] Work Phone: Comment on above: 1 Occurrences starti ng 10/01/2021 until 10/31/2022 Testosterone Free [Mass/volume] in Serum or Plasma [facility] Testosterone measurement [facility] Thyroglobulin antibo dy measurement [facility] Work Phone: Thyroperoxidase Ab [Units/volume] in Serum or Plasma [facility] Work Phone: Triiodothyronine (T3).reverse [Mass/volume] in Serum or Plasma [facility] Work Phone: End: 02-27-2023 Us soft tissue head & neck real time imge docm US THYROID/PARATHYROID Radiology Routine Thyroid nodule 1 Occurrences starting 01/28/2022 until 02/27/2023 [facility] Work Phone: Comment on above: 1 Occurrences starti ng 01/28/2022 until 02/27/2023 End: 03-10-2024 Us soft tissue head & neck real time imge docm US THYROID/PARATHYROID Radiology Routine Thyroid nodule 1 Occurrences starting 02/09/2023 until 03/10/2024 [facility] Work Phone: Comment on above: 1 Occurrences starti ng 02/09/2023 until 03/10/2024 End: 03-19-2025 XR Chest PA and Lateral XR CHEST 2V FRONTAL/LAT Radiology STAT Persistent cough Productive cough Hoarseness Non-recurrent acute serous otitis media of left ear Acute non-recurrent pansinusitis Well adult exam 1 Occurrences starting 02/18/2024 until 03/19/2025 [facility] Work Phone: Comment on above: 1 Occurrences starti ng 02/18/2024 until 03/19/2025 [facility] Immunizations Immunization Date Immunization Notes Care Provider Kathleen meza 12-29-2021 influenza, injectabl e, quadrivalent, preservative free [facility] 12-29-2021 influenza, seasonal, injectable [facility] 12-29-2021 influenza virus vaccine, unspecified formulation Herber Hogue DO Work Phone: [facility] 12-17-2020 influenza, injectabl e, quadrivalent, preservative free [facility] 12-17-2020 influenza, seasonal, injectable [facility] 04-01-2020 COVID-19 vaccine, fu ll dose (MODERNA) Echo Vines MD Work Phone: [facility] 03-04-2020 COVID-19 vaccine, fu ll dose (MODERNA) Echo Vines MD Work Phone: [facility] 11-24-2018 influenza, injectabl e, quadrivalent, preservative free [facility] 11-24-2018 influenza, seasonal, injectable [facility] 11-24-2018 influenza, seasonal, injectable, preservative free Echo Vines MD Work Phone: [facility] 12-13-2017 influenza, injectabl e, quadrivalent, preservative free [facility] 12-13-2017 influenza, seasonal, injectable [facility] 12-13-2017 influenza, seasonal, injectable, preservative free Echo Vines MD Work Phone: [facility] 12-16-2015 influenza, injectabl e, quadrivalent, preservative free [facility] 12-16-2015 influenza, seasonal, injectable [facility] 12-16-2015 influenza, seasonal, injectable, preservative free Echo Vines MD Work Phone: [facility] 11-29-2013 influenza, injectabl e, quadrivalent, preservative free [facility] 11-29-2013 influenza, seasonal, injectable [facility] 11-29-2013 influenza, seasonal, injectable, preservative free Echo Vines MD Work Phone: [facility] 03-13-2013 Influenza virus vaccine [facility] 03-13-2013 influenza, seasonal, injectable, preservative free Echo Vines MD Work Phone: [facility] Payers Date Payer Category Payer Self-pay [id number] 2019 Private Health Insurance MMO [employer] PPO [id number] 2019 Unknown MMO MMO [employer] [id number] 2019-Present [phone] [address] [place] [address] PPO [id number] 2019 Unknown [id number] 2015 Unknown [id number] Unknown [id number] Unknown [id number] Unknown [id number] Unknown [id number] Unknown [id number] Unknown [id number] Social History Date Type Detail Facility Start: 10-16-2020 End: 01-28-2022 Tobacco smoking status NHIS Never smoked tobacco [facility] Start: 10-16-2020 End: 01-28-2022 Tobacco use and exposure Smokeless tobacco non-user [facility] Start: 03-31-2021 End: 02-18-2024 Alcohol intake Lifetime non-drinker (finding) [facility] Start: 11-27-2020 End: 01-27-2022 History SDOH Alcohol Frequency 1 [facility] Start: 11-27-2020 End: 01-27-2022 History SDOH Social Connections Phone 5 [facility] Start: 11-27-2020 End: 01-27-2022 History SDOH Social Connections [employer] 3 [facility] Start: 11-27-2020 History SDOH Physical Activity MPS 6 [facility] Start: 11-27-2020 End: 01-27-2022 History SDOH Stress 2 [facility] Start: 11-27-2020 Education 17 [facility] Start: 1965 Sex Assigned At Female [facility] Start: 03-11-2021 End: 06-28-2023 Tobacco smoking status NHIS Unknown if ever smoked [facility] Start: 08-09-2021 End: 01-28-2022 Exposure to SARS-CoV-2 (event) Not sure [facility] Start: 01-27-2022 History SDOH Alcohol Std Drinks 0 [facility] Start: 01-27-2022 End: 02-08-2023 History of Social function [facility] Start: 01-27-2022 End: 02-08-2023 Social connection and isolation panel [facility] Do you belong to any clubs or organizations such as sabianism groups, unions, fraternal or athletic groups, or school groups? Yes [facility] Are you now , , , , never or living with a partner? [facility] How often to you hav e a drink containing alcohol? Never [facility] How many standard dr inks containing alcohol do you have on a typical day? Patient does not drink [facility] Do you feel stress - tense, restless, nervous, or anxious, or unable to sleep at night because your mind is troubled all the time - these days [OSQ] Not at all [facility] (I/We) worried wheth er (my/our) food would run out before (I/we) got money to buy more. Never true [facility] In the past 12 month s, was there a time when you were not able to pay the mortgage or rent on time? No [facility] Start: 11-27-2020 Gender identity Identifies as female gender (finding) [facility] Start: 11-27-2020 Sexual orientation Heterosexual (finding) [facility] Clinical Notes 07-25-2021 to 12-28-2024 Telephone Encounter - Monique Orlando LPN - 02/21/2024 2:16 PM ESTTelephone Encounter - Monique Orlando LPN - 02/21/2024 2:16 PM ESTPatient InstructionsPatient Instructions Note Date & Type Note Facility 12-28-2024 Note HNO ID: [id number] Author: ABDIRIZAK DANIEL APRN.CORRECTIONAL CAPTAIN Service: ? Author Type: Nurse Practitioner Type: Progress Notes Filed: 12/28/2024 10:14 Note Text: 12/28/2024 Recording using [employer] software for draft documentation of the visit was discussed with the patient/authorized outside sales account representative; all questions welcomed and answered. Patient/authorized outside sales account representative agreed to proceed HPI: The patient is a 59-year-old female presenting for an annual physical with screening laboratory studies and discussion of shingles vaccination. Alyssa Herrera is a 59-year-old female presenting for an annual wellness visit, with additional concerns about a recent rash. Annual Wellness Exam: - No changes in medical history or surgeries. - Rare alcohol consumption; denies smoking, drug use, or vaping. - Current medications include hormone replacement therapy. - Mammogram ordered in April; it is still active. - Inquires about A1C testing. - Inquires about calcium scoring. Rash: - Developed a rash approximately 7 days ago, now healing, to right side of her forehead and scalp. - Rash was vesicular, with fluid-filled lesions and black centers. - Associated with severe pain, lymphadenopathy, and otalgia. - Denies receiving the shingles vaccine; had chickenpox as a child. PAST MEDICAL HISTORY Diagnosis Date Polymyalgia rheumatica (HCC) Thyroid nodule Vaginal delivery (HCC) x3 Current Outpatient Medications on File Prior to Visit Medication Sig compounded progesterone 200mg capsule 200 mg two times a day. estradiol (ESTRACE) 1 mg tablet Take 1.5 mg by mouth once daily. testosterone 100 mg/ml cream (CPD) Apply 0.5 mL to affected area once daily. 20mg, prescribed by [facility] No current facility-administered medications on file prior to visit. Review of Systems: Cardiovascular: (-) ankle swelling Musculoskeletal: (+) hip pain, (-) ankle pain, (-) leg pain Skin: (+) scalp rash Physical Exam: BP 102/68 Pulse 95 Ht 157 cm (5' 1.81) Wt 61.1 kg (134 lb 12.8 oz) LMP 12/04/2019 (Approximate) SpO2 98% BMI 24.81 kg/m? GENERAL: NAD, alert and oriented, well groomed. SKIN: Healing lesions noted on the scalp and few to forehead, otherwise unremarkable, no other rash or skin lesions. HEAD: Normocephalic. EYES: PERRLA, EOMI, conjunctiva clear. EARS: External ears normal, fluid noted in one ear, TM's normal. NOSE/SINUSES: Nares normal. Septum midline. OROPHARYNX: Lips, mucosa, and tongue normal, good dentition. No oral lesions noted. NECK: Supple, no lymphadenopathy, normal thyroid, no carotid bruits. LUNGS: Clear to auscultation bilaterally, no wheezes/rhonchi/rales. HEART: Regular rate and rhythm, no murmurs. No ectopy. ABDOMEN: soft, nontender, BS present x4, no masses or organomegaly appreciated. EXTREMITIES: Normal, no deformities, no skin discoloration, no edema. NEURO: Awake, alert and oriented x3, cranial nerves II-XII grossly intact, normal gait, no involuntary motions. PSYCHIATRIC: pleasant, cooperative. Assessment/Plan: 1. Well adult exam (Z00.00) - No changes in medical history or surgeries since last visit. - No tobacco, drug, or alcohol use; no vaping. - Discussed varicose veins; patient inquired about new treatments; advised referral to vascular surgery for further evaluation if desired. 2. Screening for depression (Z13.31) 3. Encounter for screening examination for other mental health and behavioral disorders (Z13.39) 4. Screening for thyroid disorder (Z13.29) - Order TSH. 5. Encounter for vitamin deficiency screening (Z13.21) - Order vitamin D and B12 levels. 6. Screening for lipid disorders (Z13.220) - Order lipid panel. 7. Screening for diabetes mellitus (Z13.1) - Order HbA1c. 8. Encounter for screening for cardiovascular disorders (Z13.6) - Order CBC, CMP. - Order coronary artery calcium scoring. - Discussed that calcium scoring is not absolutely necessary but can provide additional information about cardiovascular risk. The patient indicates understanding of these issues and agrees with the plan. Red flag symptoms reviewed as needed. Follow up: Abdirizak Daniel APRN.[facility] 04-11-2024 Note Patient Outreach (FA MPWS) ALYSSA HERRERA ([id number]) 1965 F CHT Date Time Provider Department 04/11/24 HERBER HOGUE During your visit today, we recorded the following information about you: Allergies As of Date: 04/11/2024 Noted Allergy Reaction MILK 10/16/2020 16 - Unknown SHELLFISH DERIVED 10/16/2020 10 - Anaphylaxis SHRIMP 10/16/2020 10 - Anaphylaxis Date Reviewed: 02/18/2024 Reviewed by: Brynn Buck RN - Fully Assessed Visit Diagnosis:Encounter for screening mammogram for breast cancer [Z12.31] Order(s):[facility] [[id number]] Order #: [id number] FUTURE Prescriptions as of 05/12/2024 - compounded progesterone 200mg capsule 200 mg two times a day. - estradiol (ESTRACE) 1 mg tablet Take 1.5 mg by mouth once daily. - testosterone 100 mg/ml cream (CPD) Apply 0.5 mL to affected area once daily. 20mg, prescribed by [facility] - albuterol HFA (VENTOLIN HFA) 90 mcg/actuation inhaler Inhale 2 Puffs as instructed every 4 hours as needed for wheezing/shortness of breath. - tamsulosin (FLOMAX) 0.4 mg Take 1 capsule by mouth daily at bedtime. Meds Comments as of 10/16/2020: Turmeric, car, flax seed, Vitamin D3 daily-as of 10/16/2020 Problem List As Of Date 04/11/2024 Noted Resolved Myalgia [M79.10] 12/09/2020 Decreased strength, endurance, and mobility [R5*12/09/2020 Dyslipidemia [E78.5] 12/09/2020 Pain in deltoid, bilateral [M79.18] 12/09/2020 Pain in both thighs [M79.651, M79.652] 12/09/2020 Encounter Status:Closed by MANPREET CROOKS on 05/12/24 [facility] 02-21-2024 Telephone encounter Note Pt. informed via my chart [facility] 02-21-2024 Miscellaneous Notes Pt. informed via my chart Yes, ok to start on rx as below Please inform patient Herber Hogue DO The following approved medication requests have been transmitted electronically. Requested Prescriptions Signed Prescriptions Disp Refills amoxicillin-clavulanate potassium (AUGMENTIN) 875-125 mg per tablet 20 tablet 0 Sig: Take 1 tablet by mouth two times a day for 10 days. Authorizing Provider: HERBER HOGUE DO XR results below: Scan on 02/18/2024 9:35 AM by Provider, External, PANeelamC: X-ray 02/17 OV Notes: Data reviewed Previous records, office notes ASSESSMENT/PLAN: 1. Persistent cough - ICD9: 786.2, ICD10: R05.3 (primary diagnosis) Supportive care Will medicate with antibiotic based on chest xray results - XR CHEST 2V FRONTAL/LAT - METHYLPREDNISOLONE 4 MG TABLETS IN A DOSE PACK - ALBUTEROL SULFATE HFA 90 MCG/ACTUATION AEROSOL INHALER 2. Productive cough - ICD9: 786.2, ICD10: R05.8 Supportive care Will medicate with antibiotic based on chest xray results - XR CHEST 2V FRONTAL/LAT - METHYLPREDNISOLONE 4 MG TABLETS IN A DOSE PACK - ALBUTEROL SULFATE HFA 90 MCG/ACTUATION AEROSOL INHALER 3. Hoarseness - ICD9: 784.42, ICD10: R49.0 Supportive care Will medicate with antibiotic based on chest xray results - XR CHEST 2V FRONTAL/LAT - METHYLPREDNISOLONE 4 MG TABLETS IN A DOSE PACK - ALBUTEROL SULFATE HFA 90 MCG/ACTUATION AEROSOL INHALER 4. Non-recurrent acute serous otitis media of left ear - ICD9: 381.01, ICD10: H65.02 Supportive care Will medicate with antibiotic based on chest xray results - XR CHEST 2V FRONTAL/LAT - METHYLPREDNISOLONE 4 MG TABLETS IN A DOSE PACK - ALBUTEROL SULFATE HFA 90 MCG/ACTUATION AEROSOL INHALER 5. Acute non-recurrent pansinusitis - ICD9: 461.8, ICD10: J01.40 Supportive care Will medicate with antibiotic based on chest xray results - XR CHEST 2V FRONTAL/LAT - METHYLPREDNISOLONE 4 MG TABLETS IN A DOSE PACK - ALBUTEROL SULFATE HFA 90 MCG/ACTUATION AEROSOL INHALER 6. Well adult exam - ICD9: V70.0, ICD10: Z00.00 - Counseled on healthy diet and regular exercise - Follow up for annual exam in one year - XR CHEST 2V FRONTAL/LAT - METHYLPREDNISOLONE 4 MG TABLETS IN A DOSE PACK 7. Low TSH level - ICD9: 794.5, ICD10: R79.89 Will send a message back to the office with thyroid medication information-she is receiving from a holistic doctor and from a compounding pharmacy. Abdirizak Daniel APRN.CORRECTIONAL CAPTAIN Pt calls today to follow up on messages below. Pt reports since xray was clear for pneumonia she is requesting atb to be called in that Etienne Daniel CNP was going to prescribe for ear infection if CXR did not show pneumonia. Pt reports she is not feeling any better. Please review and advise. Call pt with 's message. Miesha Hurley LPN Images from the original note were not included. Pt sent this message: jw Herrera to [facility] My Chart Rx Pool (supporting Abdirizak Daniel APRN.CORRECTIONAL CAPTAIN) 02/20/24 6:22 PM X-ray done/clear Called office Wednesday afternoon/after hours nurse and again on Wednesday to attempt to get antibiotic as discussed in appt. Still sick despite steroids/inhaler. Please send script to [facility] today. Patient calling asking if R Alyce CORRECTIONAL PROBATION OFFICER had gotten her chest xray results from [facility]? She had it done there today, she can see results on [facility] similar my chart forum. She said xray her lungs were clear and no infiltrates. Patient asking if CORRECTIONAL PROBATION OFFICER is sending an antibiotic rx to [facility] for her? Please advise documented in this encounter [facility] 02-21-2024 Telephone encounter Note Yes, ok to start on rx as below Please inform patient Herber Hogue DO The following approved medication requests have been transmitted electronically. Requested Prescriptions Signed Prescriptions Disp Refills amoxicillin-clavulanate potassium (AUGMENTIN) 875-125 mg per tablet 20 tablet 0 Sig: Take 1 tablet by mouth two times a day for 10 days. Authorizing Provider: HERBER HOGUE DO [facility] 02-21-2024 Telephone encounter Note XR results below: Scan on 02/18/2024 9:35 AM by Provider, STEFAN Al: X-ray 02/17 OV Notes: Data reviewed Previous records, office notes ASSESSMENT/PLAN: 1. Persistent cough - ICD9: 786.2, ICD10: R05.3 (primary diagnosis) Supportive care Will medicate with antibiotic based on chest xray results - XR CHEST 2V FRONTAL/LAT - METHYLPREDNISOLONE 4 MG TABLETS IN A DOSE PACK - ALBUTEROL SULFATE HFA 90 MCG/ACTUATION AEROSOL INHALER 2. Productive cough - ICD9: 786.2, ICD10: R05.8 Supportive care Will medicate with antibiotic based on chest xray results - XR CHEST 2V FRONTAL/LAT - METHYLPREDNISOLONE 4 MG TABLETS IN A DOSE PACK - ALBUTEROL SULFATE HFA 90 MCG/ACTUATION AEROSOL INHALER 3. Hoarseness - ICD9: 784.42, ICD10: R49.0 Supportive care Will medicate with antibiotic based on chest xray results - XR CHEST 2V FRONTAL/LAT - METHYLPREDNISOLONE 4 MG TABLETS IN A DOSE PACK - ALBUTEROL SULFATE HFA 90 MCG/ACTUATION AEROSOL INHALER 4. Non-recurrent acute serous otitis media of left ear - ICD9: 381.01, ICD10: H65.02 Supportive care Will medicate with antibiotic based on chest xray results - XR CHEST 2V FRONTAL/LAT - METHYLPREDNISOLONE 4 MG TABLETS IN A DOSE PACK - ALBUTEROL SULFATE HFA 90 MCG/ACTUATION AEROSOL INHALER 5. Acute non-recurrent pansinusitis - ICD9: 461.8, ICD10: J01.40 Supportive care Will medicate with antibiotic based on chest xray results - XR CHEST 2V FRONTAL/LAT - METHYLPREDNISOLONE 4 MG TABLETS IN A DOSE PACK - ALBUTEROL SULFATE HFA 90 MCG/ACTUATION AEROSOL INHALER 6. Well adult exam - ICD9: V70.0, ICD10: Z00.00 - Counseled on healthy diet and regular exercise - Follow up for annual exam in one year - XR CHEST 2V FRONTAL/LAT - METHYLPREDNISOLONE 4 MG TABLETS IN A DOSE PACK 7. Low TSH level - ICD9: 794.5, ICD10: R79.89 Will send a message back to the office with thyroid medication information-she is receiving from a holistic doctor and from a compounding pharmacy. Abdirizak Daniel APRN.CORRECTIONAL CAPTAIN [facility] 02-21-2024 Telephone encounter Note MC message turned into MEÑO. Bill Garcia MA [facility] 02-21-2024 Miscellaneous Notes MC message turned into MEÑO. Bill Garcia MA documented in this encounter [facility] 02-21-2024 Telephone encounter Note Pt calls today to follow up on messages below. Pt reports since xray was clear for pneumonia she is requesting atb to be called in that Etienne Daniel CNP was going to prescribe for ear infection if CXR did not show pneumonia. Pt reports she is not feeling any better. Please review and advise. Call pt with dr's message. Miesha Hurley LPN [facility] 02-21-2024 Telephone encounter Note Images from the original note were not included. Pt sent this message: jw Herrera to [facility] My Chart Rx Pool (supporting Abdirizak Daniel APRN.RICKIE) 02/20/24 6:22 PM X-ray done/clear Called office Wednesday afternoon/after hours nurse and again on Wednesday to attempt to get antibiotic as discussed in appt. Still sick despite steroids/inhaler. Please send script to [facility] today. [facility] 02-18-2024 Telephone encounter Note Agree with conversation. Will forward to the provider she saw all today. [facility] Work Phone: 02-18-2024 Miscellaneous Notes Agree with conversation. Will forward to the provider she saw all today. Patient calling with request for results of x-ray and possible antibiotics Patient denies any new or worsening symptoms of which a provider is not aware: Yes. Dr. Ricardo Stephenson paged. Advised patient to take Zyrtec 10 mg 1 tablet daily and Flonase 1 spray each nostril twice a day. Patient called back and notified of the above. documented in this encounter [facility] 02-18-2024 Telephone encounter Note Patient calling with request for results of x-ray and possible antibiotics Patient denies any new or worsening symptoms of which a provider is not aware: Yes. Dr. Ricardo Stephenson paged. Advised patient to take Zyrtec 10 mg 1 tablet daily and Flonase 1 spray each nostril twice a day. Patient called back and notified of the above. [facility] 02-18-2024 Telephone encounter Note Patient calling asking if Fredrick Daniel NP had gotten her chest xray results from [facility]? She had it done there today, she can see results on [facility] similar my chart forum. She said xray her lungs were clear and no infiltrates. Patient asking if CORRECTIONAL PROBATION OFFICER is sending an antibiotic rx to [facility] for her? Please advise [facility] 02-18-2024 Instructions Abdirizak Daniel APRN.RICKIE - 02/18/2024 8:28 AM EST Recommend vitamin D3 [id number] international unit(s) daily. Send me the thyroid medication and dose so I can take a look. Have your chest xray completed. I sent an albuterol inhaler and Medrol dose pack to [facility], I'll let you know what we are doing as far as antibiotics, based on your xray results. documented in this encounter [facility] 02-18-2024 Note HNO ID: [id number] Author: ABDIRIZAK DANIEL APRN.RICKIE Service: ? Author Type: Nurse Practitioner Type: Progress Notes Filed: 02/18/2024 09:52 Note Text: Chief Complaint Patient presents with: Physical: Review labs 02/08 URI: X 2 weeks HPI Alyssa Herrera is a 58 year old female who presents here today for Above Complaints.. URI sx-x2-3 weeks, started with ear ache, has been coming and going. Is hoarse. Coughing up thick green, blowing out of her nose as well. Chest felt yesterday like it was burning. Hasn't checked her temperature, but has felt chilled off and on. Very fatigued. Denies chest pain, SOB, palpitations, new or persistent h/a, difficulty swallowing, increased thirst or urination. Sees holistic dr in [place]. Is receiving estrogen and progesterone from him. Also put her on thyroid medication. Feels like her pain has improved quite a bit with the extra estrogen and progesterone. Past medical history, appointments, medications, allergies reviewed. Previous Medical History PAST MEDICAL HISTORY Diagnosis Date Polymyalgia rheumatica (HCC) Thyroid nodule Vaginal delivery x3 Previous Surgical History History reviewed. No pertinent surgical history. Family History FAMILY HISTORY Problem Relation Age of Onset other (thyroid growth) Mother other (HTN) Mother other (HTN) Father Cardiomyopathy Father 40 congenital other (Vitelego) Father other (HTN) Sister 30 other (HTN) Brother other (DM) Brother Breast Cancer Maternal Grandmother 70 mastectomy other (HTN) Maternal Grandfather other (ME) Maternal Grandfather at an old age other (HTN) Paternal Grandmother Arthritis Paternal Grandmother other (ME) Paternal Grandfather 40 Thyroid Other significant with mom's siblings other (Shogren's in an aunt) Other other (niece with autoimmune) Other Patient Allergies ALLERGIES Allergen Reactions Milk Unknown Shellfish Derived Anaphylaxis Shrimp Anaphylaxis Current Medications Current Outpatient Medications on File Prior to Visit Medication Sig compounded progesterone 200mg capsule 200 mg two times a day. estradiol (ESTRACE) 1 mg tablet Take 1.5 mg by mouth once daily. testosterone 100 mg/ml cream (CPD) Apply 0.5 mL to affected area once daily. 20mg tamsulosin (FLOMAX) 0.4 mg Take 1 capsule by mouth daily at bedtime. cholecalciferol, vitamin D3, (VITAMIN D3 ORAL) Take by mouth. (Patient not taking: Reported on 02/18/2024) ehvkzgn-wngd-pqpyw-oreg-capryl 100 mg-150 mg- 50 mg-150 mg cap Take by mouth. (Patient not taking: Reported on 02/18/2024) Lactobacillus acidophilus (PROBIOTIC ORAL) Take by mouth. (Patient not taking: Reported on 02/18/2024) vitamin B complex (B COMPLEX-VITAMIN B12 ORAL) Take by mouth. (Patient not taking: Reported on 04/26/2023) No current facility-administered medications on file prior to visit. Social History Social History Tobacco Use Smoking status: Never Smokeless tobacco: Never Substance Use Topics Alcohol use: Never Drug use: Never Review of Symptoms REVIEW OF SYSTEMS See HPI, otherwise negative EXAM: BP 118/78 (BP Site: Left Arm, BP Position: Sitting, BP Cuff Size: Regular Adult) Pulse 73 Resp 14 Ht 159 cm (5' 2.6) Wt 64 kg (141 lb) LMP 12/04/2019 (Approximate) SpO2 99% BMI 25.30 kg/m? General Appearance: ill-appearing, alert, in no acute distress, well-hydrated, well nourished.. Skin: Skin color, texture, turgor normal, no suspicious rashes or lesions. Head: Normocephalic, no masses, lesions, tenderness or abnormalities. Eyes: Anicteric sclera. Pupils are equally round and reactive to light. Extraocular movements are intact. . Ears: clear fluid bubbles posterior to left TM. Nose/Sinuses: Nares normal, septum midline, mucosa normal, no drainage or sinus tenderness. Oropharynx: Lips, mucosa, and tongue normal, teeth and gums normal, oropharynx normal. Neck: Supple, no adenopathy; thyroid symmetric, normal size, no bruits. Back:no pain to palpation of vertebrae, good flexion and extension, good range of motion, no muscle tenderness, motor and sensory appear to be normal Lungs: Lungs clear to auscultation. No wheezing, rhonchi, rales.. Heart: RRR without murmur, gallop, or rubs. No ectopy. Abdomen: Normal abdominal exam, Abdomen soft, non-tender. Bowel sounds normal. No masses, organomegaly. Extremities: No deformities, edema, skin discoloration, clubbing or cyanosis. Good capillary refill. . Musculoskeletal: No joint swelling, deformity, or tenderness. Peripheral Pulses: Normal. Neurologic: Gait normal. Reflexes normal and symmetric. Sensation grossly intact.. Lymph Nodes: No cervical lymphadenopathy and No supraclavicular lymphadenopathy. Psychiatric: pleasant, cooperative. Health Maintenance List Depression Screening Never done Anxiety Screening Never done Hepatitis C Screening Never done HIV Screening Never done DTaP,Tdap,Td Vaccine( (more content not included)... [facility] 02-18-2024 History of Present illness Narrative Chief Complaint Patient presents with: Physical: Review labs 02/08 URI: X 2 weeks HPI Alyssa Herrera is a 58 year old female who presents here today for Above Complaints.. URI sx-x2-3 weeks, started with ear ache, has been coming and going. Is hoarse. Coughing up thick green, blowing out of her nose as well. Chest felt yesterday like it was burning. Hasn't checked her temperature, but has felt chilled off and on. Very fatigued. Denies chest pain, SOB, palpitations, new or persistent h/a, difficulty swallowing, increased thirst or urination. Sees holistic dr in [place]. Is receiving estrogen and progesterone from him. Also put her on thyroid medication. Feels like her pain has improved quite a bit with the extra estrogen and progesterone. Past medical history, appointments, medications, allergies reviewed. Previous Medical History PAST MEDICAL HISTORY Diagnosis Date Polymyalgia rheumatica (HCC) Thyroid nodule Vaginal delivery x3 Previous Surgical History History reviewed. No pertinent surgical history. Family History FAMILY HISTORY Problem Relation Age of Onset other (thyroid growth) Mother other (HTN) Mother other (HTN) Father Cardiomyopathy Father 40 congenital other (Vitelego) Father other (HTN) Sister 30 other (HTN) Brother other (DM) Brother Breast Cancer Maternal Grandmother 70 mastectomy other (HTN) Maternal Grandfather other (ME) Maternal Grandfather at an old age other (HTN) Paternal Grandmother Arthritis Paternal Grandmother other (ME) Paternal Grandfather 40 Thyroid Other significant with mom's siblings other (Shogren's in an aunt) Other other (niece with autoimmune) Other Patient Allergies ALLERGIES Allergen Reactions Milk Unknown Shellfish Derived Anaphylaxis Shrimp Anaphylaxis Current Medications Current Outpatient Medications on File Prior to Visit Medication Sig compounded progesterone 200mg capsule 200 mg two times a day. estradiol (ESTRACE) 1 mg tablet Take 1.5 mg by mouth once daily. testosterone 100 mg/ml cream (CPD) Apply 0.5 mL to affected area once daily. 20mg tamsulosin (FLOMAX) 0.4 mg Take 1 capsule by mouth daily at bedtime. cholecalciferol, vitamin D3, (VITAMIN D3 ORAL) Take by mouth. (Patient not taking: Reported on 02/18/2024) fmdslvh-qgqr-jjpag-oreg-capryl 100 mg-150 mg- 50 mg-150 mg cap Take by mouth. (Patient not taking: Reported on 02/18/2024) Lactobacillus acidophilus (PROBIOTIC ORAL) Take by mouth. (Patient not taking: Reported on 02/18/2024) vitamin B complex (B COMPLEX-VITAMIN B12 ORAL) Take by mouth. (Patient not taking: Reported on 04/26/2023) No current facility-administered medications on file prior to visit. Social History Social History Tobacco Use Smoking status: Never Smokeless tobacco: Never Substance Use Topics Alcohol use: Never Drug use: Never Review of Symptoms REVIEW OF SYSTEMS See HPI, otherwise negative EXAM: BP 118/78 (BP Site: Left Arm, BP Position: Sitting, BP Cuff Size: Regular Adult) Pulse 73 Resp 14 Ht 159 cm (5' 2.6) Wt 64 kg (141 lb) LMP 12/04/2019 (Approximate) SpO2 99% BMI 25.30 kg/m General Appearance: ill-appearing, alert, in no acute distress, well-hydrated, well nourished.. Skin: Skin color, texture, turgor normal, no suspicious rashes or lesions. Head: Normocephalic, no masses, lesions, tenderness or abnormalities. Eyes: Anicteric sclera. Pupils are equally round and reactive to light. Extraocular movements are intact. . Ears: clear fluid bubbles posterior to left TM. Nose/Sinuses: Nares normal, septum midline, mucosa normal, no drainage or sinus tenderness. Oropharynx: Lips, mucosa, and tongue normal, teeth and gums normal, oropharynx normal. Neck: Supple, no adenopathy; thyroid symmetric, normal size, no bruits. Back:no pain to palpation of vertebrae, good flexion and extension, good range of motion, no muscle tenderness, motor and sensory appear to be normal Lungs: Lungs clear to auscultation. No wheezing, rhonchi, rales.. Heart: RRR without murmur, gallop, or rubs. No ectopy. Abdomen: Normal abdominal exam, Abdomen soft, non-tender. Bowel sounds normal. No masses, organomegaly. Extremities: No deformities, edema, skin discoloration, clubbing or cyanosis. Good capillary refill. . Musculoskeletal: No joint swelling, deformity, or tenderness. Peripheral Pulses: Normal. Neurologic: Gait normal. Reflexes normal and symmetric. Sensation grossly intact.. Lymph Nodes: No cervical lymphadenopathy and No supraclavicular lymphadenopathy. Psychiatric: pleasant, cooperative. Health Maintenance List Depression Screening Never done Anxiety Screening Never done Hepatitis C Screening Never done HIV Screening Never done DTaP,Tdap,Td Vaccine(1 - Tdap) Never done Cervical Cancer Screening Never done Lipid Screening Never done Diabetes Screening Never done Shingrix Vaccine(1 of 2) Never done Pneumococcal Vaccine: 50+(1 of 1 - PCV) Never done Influenza Vaccine(1) due on 10/31/2023 Covid-19 Vaccine(3 - 2023- season) due on 10/31/2023 Mammogram Screening due on 03/08/2024 Colorectal Cancer Screening due on 04/02/2026 Data reviewed Previous records, office notes ASSESSMENT/PLAN: 1. Persistent cough - ICD9: 786.2, ICD10: R05.3 (primary diagnosis) Supportive care Will medicate with antibiotic based on chest xray results - XR CHEST 2V FRONTAL/LAT - METHYLPREDNISOLONE 4 MG TABLETS IN A DOSE PACK - ALBUTEROL SULFATE HFA 90 MCG/ACTUATION AEROSOL INHALER 2. Productive cough - ICD9: 786.2, ICD10: R05.8 Supportive care Will medicate with antibiotic based on chest xray results - XR CHEST 2V FRONTAL/LAT - METHYLPREDNISOLONE 4 MG TABLETS IN A DOSE PACK - ALBUTEROL SULFATE HFA 90 MCG/ACTUATION AEROSOL INHALER 3. Hoarseness - ICD9: 784.42, ICD10: R49.0 Supportive care Will medicate with antibiotic based on chest xray results - XR CHEST 2V FRONTAL/LAT - METHYLPREDNISOLONE 4 MG TABLETS IN A DOSE PACK - ALBUTEROL SULFATE HFA 90 MCG/ACTUATION AEROSOL INHALER 4. Non-recurrent acute serous otitis media of left ear - ICD9: 381.01, ICD10: H65.02 Supportive care Will medicate with antibiotic based on chest xray results - XR CHEST 2V FRONTAL/LAT - METHYLPREDNISOLONE 4 MG TABLETS IN A DOSE PACK - ALBUTEROL SULFATE HFA 90 MCG/ACTUATION AEROSOL INHALER 5. Acute non-recurrent pansinusitis - ICD9: 461.8, ICD10: J01.40 Supportive care Will medicate with antibiotic based on chest xray results - XR CHEST 2V FRONTAL/LAT - METHYLPREDNISOLONE 4 MG TABLETS IN A DOSE PACK - ALBUTEROL SULFATE HFA 90 MCG/ACTUATION AEROSOL INHALER 6. Well adult exam - ICD9: V70.0, ICD10: Z00.00 - Counseled on healthy diet and regular exercise - Follow up for annual exam in one year - XR CHEST 2V FRONTAL/LAT - METHYLPREDNISOLONE 4 MG TABLETS IN A DOSE PACK 7. Low TSH level - ICD9: 794.5, ICD10: R79.89 Will send a message back to the office with thyroid medication information-she is receiving from a holistic doctor and from a compounding pharmacy. Abdirizak Daniel APRN.CNP documented in this encounter [facility] 10-12-2023 Telephone encounter Note Please see CT abd & pelvis attached : View External Imaging - CT Scan [ID [id number]] [facility] 10-12-2023 Miscellaneous Notes Please see CT abd & pelvis attached : View External Imaging - CT Scan [ID [id number]] documented in this encounter [facility] 05-07-2023 Miscellaneous Notes The following approved medication requests have been transmitted electronically. Requested Prescriptions Signed Prescriptions Disp Refills fluconazole (DIFLUCAN) 150 mg tablet 2 tablet 0 Sig: Take 1 tablet by mouth one time only for 1 dose. Repeat in 3 days as needed. Authorizing Provider: CINTHIA ANDERSON APRN.CNP Patient calls to report that she has been on antibiotic treatment for almost two weeks. Initially seen by Shanta Daniel for Kidney Stones. Patient reports that she now has a yeast infection and is requesting medication be sent to [facility] for yeast infection. 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 Pended request for review. Karis Diaz RN documented in this encounter [facility] 05-05-2023 Miscellaneous Notes Please call the patient to ask her if she passed her stone documented in this encounter [facility] 04-29-2023 Miscellaneous Notes Thank you for the update. My pleasure Spoke to pt and she voiced understanding and she said Thank you. Advise her to d/c Anna Gaffney sent to the pharmacy on file Bill Mcmillan DO documented in this encounter [facility] 04-28-2023 Miscellaneous Notes Thank you It's ok Absolutely I'm sorry, the letter we created was created for return to work on 05/06/23 is this ok? Patient returned to the office before the message Was this letter already given to patient? Can you generate mychart letter to her, ok to be off work 04/28-05/02/23 while she is on narcotics while trying to pass stone please ? Bill Mcmillan DO documented in this encounter [facility] 04-28-2023 Instructions Bill Sharp DO - 04/28/2023 9:24 AM EST Images from the original note were not included. Ureteral Stones What are kidney stones? Kidney stones are formed from excess concentrations of minerals and salts in the urine. These minerals form crystals that grow into stones. Most kidney stones are calcium-based. Many kidney stones are tiny. Some are too small to see with the naked eye, pass through the urine, and do not cause a problem. Larger stones that get stuck in the urinary tract can cause pain that may be severe. What are ureteral stones? Ureteral stones are kidney stones that have become stuck in one or both ureters (the tubes that carry urine from the kidneys to the bladder). If the stone is large enough, it can block the flow of urine from the kidney to the bladder. This blockage can cause severe pain. How common are ureteral stones? Each year in the [place], about 1 in 1,000 adults is hospitalized for urinary tract stones. They are most common among middle-aged adults. Over your lifetime you have a 1 in 8 chance of forming a stone. What are symptoms of ureteral stones? Tiny stones that pass through the urinary system on their own may not cause any symptoms. However, stones that block the ureter or any of the kidney s drainage tubes may cause symptoms that include: Severe, intermittent (comes and goes) pain in the upper flank (in the back, under the lower ribs) that can radiate (spread) to the lower abdomen, and; Nausea and vomiting. Call your doctor right away if you have these symptoms. How are ureteral stones diagnosed? Kidney or ureteral stones are diagnosed by your doctor. He or she may: Give you a physical exam and ask about your medical history. Test your urine to see if it contains substances that form stones. Test your blood to see if you have health problems that may have led to stones. Order an imaging test to find the location of the stones. Imaging tests may also help to see if you have health problems that may have led to stones. Ultrasound is an effective imaging test to look for blockage. A computed tomography (CT) scan will help guide therapy by informing the doctor of the size, location, and hardness of the stone. How are ureteral stones treated? Treatment of ureteral stones depends on the size and location of the stones and the substances from which they are formed. Treatment may also be directed by your current circumstances, such as obesity, the use of anticoagulants (blood thinners), and other considerations. The size and location of the stone will give you an idea of the likelihood that you can pass it. If you have larger stones and your urinary tract is blocked, a urologist (a doctor who specializes in the urinary tract) may treat you with the following: Shock wave lithotripsy: During this procedure, you are set up with a machine that produces focused shock waves to break up the stones. The small pieces of the stones then pass through your urinary tract when you urinate. This is the least invasive option. Ureteroscopy: The urologist feeds a long tube with an eyepiece, called an ureteroscope, into your urethra (the hole where urine leaves your body). The doctor feeds the scope through the bladder into the ureter, finds the stones, and removes or breaks them up with lasers. Percutaneous nephrolithotomy: This procedure, which is used for larger or irregularly shaped stones, uses a scope to find and remove the stones. The scope is inserted directly into your kidney through a small incision (cut) in your back. How can ureteral stones be prevented? You will not have ureteral stones if you do not have kidney stones. If you have had a kidney stone, your doctor can help you learn how it was formed and what you can do to prevent others from forming. Your doctor may treat the stone BEFORE it moves into the ureter and causes pain. You may be asked to change your diet in the following ways: Drink more fluids. (Increase to 2 to 3 liters a day; preferably water, but lemonade, orange juice, and other drinks are options.) Limit animal protein (found in meat, eggs, fish). Control sodium intake (less than 1500 mg/day). Limit oxalate (found in spinach, nuts, wheat bran). You will need a test on a 24 hour collection of your urine. We will do this after all stones have been treated. Based on this you may also be prescribed medications to help prevent the formation of kidney/ureteral stones. References National [place] [employer] Kidney [employer]. Kidney Stones Accessed 11/18/2016. [place] [employer]. What are Kidney Stones? Accessed 11/18/2016. Merck Manuals. Stones in the Urinary Tract Accessed 11/18/2016. Copyright 7734-2236 [facility]. All rights reserved. documented in this encounter [facility] 04-28-2023 History and physical note Images from the original note were not included. [facility] [place] NEW CONSULT NOTE/NEW PATIENT VISIT/HISTORY AND PHYSICAL: Referring Provider: Caitie Blake APRN PCP: Herber Hogue DO Date of Service: 04/28/2023 SUBJECTIVE Chief Complaint: Patient states that she had pain/ vomiting on 04/25/23 and went to the doctors.Patient had CT done on 04/26/23 and was diagnosed with a ureteral stone and her pcp thought it was to big to pass on its own so she was referred here.Patient states that she has no pain/ burning with urination but some pressure. Patient occasionally has pain that goes down her groin but not consistently. She has been straining her urine and she has not seen anything pass. She is currently on antibiotics. History of Present Illness: Alyssa Herrera is a 57 year old female seen in consultation at the request of Caitie Blake APRN for evaluation of L ureteral stone. Patient reports L flank pain has decreased but she has some perineal discomfort. Has not yet noticed she passed the stone. Was prescribed abx (Cipro, started last night, 10 d total). No gross hematuria. Still having n/v. Had minor dizziness after Flomax. Occasionally has chills, tMax in past 24 hours 99.9. Has intermittently had the pain for 3 weeks as well as intermittent minor achiness. Had stone~15 years ago. Urinary Symptoms: Frequency: No Urgency: No Nocturia: 0 times per night to void. Stress urinary incontinence: No Urgency urinary incontinence: No UTIs: 0 UTI's in the last year. She denies any history of hematuria. Bowel Symptoms: Stool consistency: constipation Pelvic Organ Prolapse Symptoms and History: She denies a feeling of a bulge the vaginal area. Review of Systems: Genitourinary: SEE HPI Constitutional: unintentional weight loss - denies, fevers - denies Cardiovascular: new or worsening chest pain - denies Respiratory: new or worsening shortness of breath - denies Gastrointestinal: constipation - denies, vomiting Hematologic/Lymphatic: easy bleeding or bruising - denies Past Medical History: -Patient has a past medical history of Thyroid nodule and Vaginal delivery. Past Surgical History: -Patient has no past surgical history on file. Medications: -Patient has a current medication list which includes the following prescription(s): tamsulosin, hydrocodone-acetaminophen, ciprofloxacin hcl, cholecalciferol (vitamin d3), vsvdtzjt-usnk-atcqd-oreg-capry, lactobacillus acidophilus, and vitamin b complex. Allergies: -Patient is allergic to milk, shellfish derived, and shrimp. Family History: -Patient family history includes Arthritis in her paternal grandmother; Breast Cancer (age of onset: 70) in her maternal grandmother; Cardiomyopathy (age of onset: 40) in her father; DM in her brother; HTN in her brother, father, maternal grandfather, mother, and paternal grandmother; HTN (age of onset: 30) in her sister; ME in her maternal grandfather; ME (age of onset: 40) in her paternal grandfather; Shogren's in an aunt in an other family member; Thyroid in an other family member; Vitelego in her father; niece with autoimmune in an other family member; thyroid growth in her mother. Social History: -Patient reports that she has never smoked. She has never used smokeless tobacco. She reports that she does not drink alcohol and does not use drugs. I have confirmed and edited as necessary, the PFSH and ROS obtained by others. OBJECTIVE Physical Exam: BP 115/75 Pulse 78 Ht 159 cm (5' 2.6) Wt 64.9 kg (143 lb) LMP 12/04/2019 (Approximate) SpO2 100% BMI 25.66 kg/m Constitutional: Well-developed, well-nourished. No acute distress. Psych: Normal mood and affect. Memory intact. Eyes: Lids appear normal. Conjunctivae are not injected. ENMT: External ears are normal. Hearing is grossly normal. Respiratory: Normal respiratory effort, no acute respiratory distress. No audible wheeze. Skin: Warm and dry. No visible rashes. Musculoskeletal: Ambulatory: Yes, extremities warm and well perfused. : No CVA TTP, no [facility] Laboratory Results: Urine dipstick shows: URINE POC GLUCOSE UA (POCT) Negative 04/28/2023 BILIRUBIN UA (POCT) Negative 04/28/2023 KETONE UA (POCT) Negative 04/28/2023 SPECIFIC GRAVITY UA (POCT) >=1.030 04/28/2023 HEMOGLOBIN/BLOOD UA (POCT) Trace-intact 04/28/2023 PH UA (POCT) 6.0 04/28/2023 PROTEIN UA (POCT) Negative 04/28/2023 UROBILINOGEN UA (POCT) 0.2 04/28/2023 NITRITE UA (POCT) Negative 04/28/2023 LEUKOCYTES UA (POCT) Negative 04/28/2023 COLOR UA (POCT) Yellow 04/28/2023 CLARITY UA (POCT) Clear 04/28/2023 No results found for: CREAT Culture Results - Past 1 Year CULTURE 04/26/2023 <10,000 CFU/ml Normal urogenital chasity Some recent data might be hidden Susceptibility Tests - Past 1 Year Collected Organism 04/26/23 Normal urogenital chasity ASSESSMENT/PLAN: 1. Left ureteral stone - ICD9: 592.1, ICD10: N20.1 (primary diagnosis) - New acute - Pt w/o signs or sx of sepsis, UCx reviewed 04/26/23 (before abx) No growth, furthermore pt tolerating pain Medical records personally reviewed and found significant for: Visit with Caitie Blake APRN /referring provider on 04/27/23 notes reviewed and show: pt was diagnosed at OSH and had L flank pain onsent 04/07/23 that was associated with nausea and vomiting as well as subjective fevers, chills Reviewed read indicating L UVJ 4.5 mm stone w/mild HUN - Given favorable size of stone will try to manage conservatively as pt will likely pass it - advised to take Flomax qhs and d/c if sx of dizziness persists - Strainer and hat given. Advised pt that if stone is collected to bring it to the clinic for stone analysis - Discussed behavioral modifications to prevent stones including increased fluid intake - Pt handout given - Repeat RBUS ordered to reassess degree of HN after passing stone in 1 month. Consider repeat imaging vs URS if the stone does not pass - Once stone free, advised pt will need repeat UA to reassess microscopic hematuria and semiannual-annual RBUS or KUB to monitor for any stone recurrence - Discussed strict return precautions including severe pain, signs/symptoms of infection including but not limited to fevers, chills, nausea, vomiting, inability to tolerate PO intake, malaise, myalgias etc. Patient endorsed understanding and agreed to present to nearest ER - Also discussed risks of URS if stone not passed inc but not limited to infection, bleeding, pain, injury to structures, anesthesia complications, need for repeat procedures. After considering risks/benefits, patient expressed understanding and agrees to proceed. All questions were answered -Patient will call the clinic or use [facility] should anything change or any new issues arise -All questions were answered - URINALYSIS, WITH MICROSCOPIC 2. Hydronephrosis of left kidney - ICD9: 591, ICD10: N13.30 - new acute likely 2/2 stone - will follow w/additional imaging - URINALYSIS, WITH MICROSCOPIC 3. Microscopic hematuria - ICD9: 599.72, ICD10: R31.29 - new, acute; likely also 2/2 stone; will follow w/ additional UA - URINALYSIS, WITH MICROSCOPIC Plan: - cont MET inc fluids, abx +/- Flomax - URS if fails to pass stone in the next week or so -Patient will call the clinic or use [facility] should anything change or any new issues arise -All questions were answered Bill Mcmillan DO Staff Urologist Consultation requested by Caitie Blake for an opinion regarding L ureteral stone. My final recommendations will be communicated back to the requesting physician by way of shared medical record or letter via US mail Medical Decision Making: Problems: Moderate: New problem with uncertain prognosis Data: Unique source(s) for external note(s) reviewed: 1 Unique test result(s) reviewed: 1 Unique test(s) ordered: 1 Risk: Moderate: Decision on minor surgery w/ risk factors Medical Decision Making Level: 4 - Moderate documented in this encounter [facility] 04-27-2023 Miscellaneous Notes Pt. informed. Please let patient know that rx for Cipro for antibiotic,Lynco for pain and Flomax for stone and ureter relaxation was all sent to the pharmacy for her to take now for her stone/UTI Herber Hogue DO Results of CT attached: View External Imaging - CT Scan [ID [id number]] Patient calls and states that she continues to be in a lot of pain. See message below. Patient calling back to let provider know the CT scan shows a kidney stone. She says [facility] tells her results were faxed. She is requesting pain medication and an antibiotic for positive urine dip in OV today. Urine culture is in process. She says she has no new or worsening symptoms. Advised ER evaluation if she develops new or worsening symptoms. Evelin Myrick RN Pt calling checking on stat CT results done at [facility] today to r/o kidney stone vs diverticulitis. Please advise once results are received. documented in this encounter [facility] 04-27-2023 Miscellaneous Notes Addended by: CAITIE BLAKE on: 04/27/2023 10:43 AM Modules accepted: Orders documented in this encounter [facility] 04-27-2023 Instructions Caitie Blake APRN.CNS - 04/27/2023 10:31 AM EST 1) Lynco 1 tab every 6 hours as needed, #20 tab only 2) Tamsulosin 0.4mg daily for kidney stone 3) Consult urology 4) Stone analysis if you happen to catch stone documented in this encounter [facility] 04-27-2023 History of Present illness Narrative This is a 57 year old female who presents today with: Patient presents with: Kidney Stones: Pain has increased HISTORY OF PRESENT ILLNESS: Alyssa Herrera is a 57 year old female. Patient presents with: Kidney Stones: Pain has increased Patient was seen at [facility] for CT of the abdomen and pelvis There is evidence of a mild degree of left hydronephrosis and left hydroureter due to a 4.6 mm calculus at the left ureterovesical junction Apr.07, she bassett first episode of pain related to kidney stone. Wednesday, it hit again. Pelvic pressure. Nausea. Left flank pain. GEN: + fever and chills- last evening 100.5F GI: Both nausea and vomiting. MUSCU: left flank pain : urgency, no burning with urination, no gross hematuria PAST MEDICAL HISTORY: PAST MEDICAL HISTORY Diagnosis Date Thyroid nodule Vaginal delivery x3 No past surgical history on file. ALLERGIES Milk, Shellfish Derived, and Shrimp MEDICATIONS Current Outpatient Medications Medication Sig cholecalciferol, vitamin D3, (VITAMIN D3 ORAL) Take by mouth. wopayir-uykv-wtsuu-oreg-capryl 100 mg-150 mg- 50 mg-150 mg cap Take by mouth. Lactobacillus acidophilus (PROBIOTIC ORAL) Take by mouth. iv contrast (will be provided with radiology test) CT ABD/PEL -Inject, intravenously, once for 1 dose.No IV access, insert saline lock prior to the beginning of sedation, infusion, injection of imaging exam. Discontinue saline lock post exam. If Pt. has a central line or IVAD, may access for administration according to line specific nursing protocol. Once exam is complete flush line and de-access according to line specific nursing protocol in the CT contrast administration guidelines link. enteric contrast (will be provided with radiology test) For CT ABD/PEL W IVCON Routine order Administer, As Directed One Time Only, via Oral, Rectal, both Oral and Rectal, Enteric Tube, Stoma or Indwelling Catheter, Enteric Contrast as designated per enteric contrast guidelines vitamin B complex (B COMPLEX-VITAMIN B12 ORAL) Take by mouth. (Patient not taking: Reported on 04/26/2023) No current facility-administered medications for this visit. FAMILY HISTORY Problem Relation Age of Onset other (thyroid growth) Mother other (HTN) Mother other (HTN) Father Cardiomyopathy Father 40 congenital other (Vitelego) Father other (HTN) Sister 30 other (HTN) Brother other (DM) Brother Breast Cancer Maternal Grandmother 70 mastectomy other (HTN) Maternal Grandfather other (ME) Maternal Grandfather at an old age other (HTN) Paternal Grandmother Arthritis Paternal Grandmother other (ME) Paternal Grandfather 40 Thyroid Other significant with mom's siblings other (Shogren's in an aunt) Other other (niece with autoimmune) Other Social History Tobacco Use Smoking status: Never Smokeless tobacco: Never Substance Use Topics Alcohol use: Never Drug use: Never EXAM: BP 132/72 Pulse 86 Temp 36.7 C (98 F) (Left Tympanic) Resp 16 Wt 64.9 kg (143 lb) LMP 12/04/2019 (Approximate) SpO2 98% BMI 25.66 kg/m PHYSICAL EXAM: General Appearance: Well appearing, alert, in no acute distress, well-hydrated, well nourished.. Head: Normocephalic, no masses, lesions, tenderness or abnormalities. Back:Left CVA tenderness Lungs: Lungs clear to auscultation. No wheezing, rhonchi, rales.. Heart: RRR without murmur, gallop, or rubs. No ectopy. ASSESSMENT/PLAN: 1. Nephrolithiasis - ICD9: 592.0, ICD10: N20.0 (primary diagnosis) - Start Tamsulosin 0.4 mg daily - Lynco given every 6 hours as needed for pain - Drink a lot of fluids - Consult placed to urology - Stone analysis 2. Left ureteral stone - ICD9: 592.1, ICD10: N20.1 As above Discussed treatment plan and patient voices understanding. Patient's questions answered appropriately. Medications and potential side effects were discussed and patient voices understanding. Return to the office as scheduled or as needed for worsening/no improvement. Caitie Blake APRN.[employer] The patient indicates understanding of these issues and agrees with the plan. documented in this encounter [facility] 04-26-2023 Miscellaneous Notes Given to ticket scheduler Inessa [place] to work on [employer] Akanksha with [facility] calls to report they can see the pre-cert was done but is to the wrong facility. Notified KYLE Ordaz of this. Miesha Hurley LPN Pt calls to report that she has the paper order for CT at [facility] and was advised that the office needed to call scheduling for VO to verify. Called [phone] opt1 as requested to answer questions in regards to pt's weight, labs, problem list. Was advised that insurance authorization needed done before test could be done. Abdirizak Daniel CNP's MA notified of same. Miesha Hurley LPN documented in this encounter [facility] 04-15-2023 Miscellaneous Notes Spoke with patient. Given message from provider's office. Patient verbalizes understanding. Evelin Myrick RN Left message to return call Sushma Reynolds Please let patient know that her Cologuard is negative /Herber Hogue DO documented in this encounter [facility] 02-26-2023 Telephone encounter Note Lab results from [facility] on Dr. Hogue's desk. [facility] 02-26-2023 Miscellaneous Notes Lab results from [facility] on Dr. Hogue's desk. documented in this encounter [facility] 02-09-2023 History of Present illness Narrative CC: Alyssa Herrera is a 57 year old female who presents to the office for physical HPI: Hx of thyroid nodules, last US thyroid at [facility] in 2019. No globus symptoms. Does have chronic fatigue B/l proximal muscle weakness and aching, worse at end of the day. Has changed her diet to gluten free completely and is trying to avoid sugars as well. Feels this has helped her symptoms. She was seen by Dental Hygiene Administrative Assistant and tapered off her prednisone and she [...] 69 mastectomy other (HTN) Maternal Grandfather other (ME) Maternal Grandfather at an old age other (HTN) Paternal Grandmother Arthritis Paternal Grandmother other (ME) Paternal Grandfather 40 Thyroid Other significant with mom's siblings other (Shogren's in an aunt) Other other (niece with autoimmune) Other Current Outpatient prescriptions: cholecalciferol, vitamin D3, (VITAMIN D3 ORAL) Take by mouth. vxolbtz-iqbd-kgdzj-oreg-capryl 100 mg-150 mg- 50 mg-150 mg cap [...] kg (145 lb) Height: 159 cm (5' 2.6) Gen: A&O, NAD, non-toxic appearing, Pleasant, cooperative [...] diet of 1000 mg/day for under 50, 4106-9449 mg/day for 50+ - HGB A1C - [...] labs, continue anti inflammatory diet. F/u with Dental Hygiene Administrative Assistant as needed. - C-REACTIVE PROTEIN (CRP) - SED RATE WESTERGREN 6. Hyperglycemia - ICD9: 790.29, ICD10: R73.9 - HGB A1C 7. Fatigue, unspecified type - ICD9: 780.79, ICD10: R53.83 See above - VITAMIN D 25 HYDROXY - VITAMIN B12 BLOOD - CORTISOL BLD 8. Menopause - ICD9: 627.2, ICD10: Z78.0 See above, f/u with PRODUCT SUPPORT TECHNICIAN - TESTOSTERONE, FREE AND TOTAL - PROGESTERONE [...] with supplements or by diet (goal of 3693-8673 mg/day - Colon cancer screening reviewed and colonoscopy recommended - ARCELIA SCREENING W AMALIA 11. Thyroid nodule - ICD9: 241.0, ICD10: E04.1 Recheck labs and thyroid US - US THYROID/PARATHYROID Herber L Hogue, DO To ER if develops chest pain, shortness of breath, or severe worsening of symptoms. Discussed risks, benefits, alternatives, and potential side effects of medications. Patient expressed understanding and agreed with the plan. Herber Hogue DO [address] [place] [address] documented in this encounter [facility] 07-13-2022 Miscellaneous Notes Consult faxed to [facility]. Sushma Reynolds Addended by: ABDIRIZAK DANIEL on: 07/13/2022 02:42 PM Modules accepted: Orders Derm consult order placed. The following approved medication requests have been transmitted electronically. Requested Prescriptions Signed Prescriptions Disp Refills griseofulvin, microsize (GRIFULVIN V) 500 mg tablet 30 tablet 0 Sig: Take 1 tablet by mouth once daily. Authorizing Provider: HERBER HOGUE Ordering User: ABDIRIZAK DANIEL predniSONE (DELTASONE) 10 mg tablet 30 tablet 0 Sig: Take 4 tabs daily x 3 days, then 3 tabs x 3 days, 2 tabs x 3 days, then 1 tab x3 days with food. Authorizing Provider: HERBER HOGUE Ordering User: ABDIRIZAK DANIEL APRN.CORRECTIONAL CAPTAIN Addended by: SUSHMA REYNOLDS on: 07/13/2022 02:27 PM Modules accepted: Orders Pt informed, verbalized understanding. Pt reports rash has worsened. Please send all scripts including oral med for itching to [facility]. Pt would like to proceed with Derm consult at time time. Pended. Will need faxed to [facility] per pt request. Sushma Reynolds Addended by: ABDIRIZAK DANIEL on: 07/13/2022 02:08 PM Modules accepted: Orders Per her original [employer] message, had the face rash improved by [...] by mouth once daily. Authorizing Provider: HERBER HOGUE Ordering User: ABDIRIZAK DANIEL predniSONE (DELTASONE) 10 mg tablet 30 tablet 0 Sig: Take 4 tabs daily x 3 days, then 3 tabs x 3 days, 2 tabs x 3 days, then 1 tab x3 days with food. Authorizing Provider: HERBER HOGUE Ordering User: ABDIRIZAK DANIEL APRN.CORRECTIONAL CAPTAIN PT states that the rash is just as bad as when she saw etienne, PT is wanting recommendations on how to proceed as medications have ran out. Sharon KITCHEN Images from the original note were not included. Patient calling to check on status of message sent via this week. (COPIED BELOW). Patient asking if Abdirizak Daniel would advise her today, if possible? Thank you. (COPIED) Alyssa Herrera tr [facility] My Chart Rx Pool (supporting Abdirizak Daniel APRN.CORRECTIONAL CAPTAIN) 2 days ago [facility] Finished 7 day script of diflucan yesterday 07/07 Rash on face about 80% improved- scalp still ridiculously itchy despite using shampoo. Have used nystatin cream on face bid. Any other ideas/treatment options? Thx so much Alyssa herrera documented in this encounter [facility] 07-10-2022 Miscellaneous Notes See TE 07/10/22. Will close this encounter. Poonam Brown RN See patient update below. Anisa Griffiths LPN documented in this encounter [facility] 07-01-2022 History of Present illness Narrative Chief Complaint Patient presents with: Rash: Itchy rash face and neck x 1 month HPI Alyssa Herrera is a 57 year old female who [...] 69 mastectomy other (HTN) Maternal Grandfather other (ME) Maternal Grandfather at an old age other (HTN) Paternal Grandmother Arthritis Paternal Grandmother other (ME) Paternal Grandfather 40 Thyroid Other significant with mom's siblings other (Shogren's in an aunt) Other other (niece with autoimmune) Other Patient Allergies ALLERGIES Allergen Reactions Milk Unknown Shellfish Derived Anaphylaxis Shrimp Anaphylaxis Current Medications Current Outpatient Medications on File Prior to Visit Medication Sig cholecalciferol, vitamin D3, (VITAMIN D3 ORAL) Take by mouth. dpohhfs-evbv-xxrnt-oreg-capryl 100 mg-150 mg- 50 mg-150 mg cap [...] TOPICAL CREAM - KETOCONAZOLE 2 % SHAMPOO Abdirizak Daniel APRN.CNP documented in this encounter [facility] 04-16-2022 History of Present illness Narrative [...] temperature source Temporal, height 156.5 cm (5' 1.61), weight 64.8 kg (142 lb 14.4 oz), [...] Swollen Glands: No documented in this encounter [facility] 04-14-2022 Miscellaneous Notes Vit D and Vit b12 refaxed to [facility]. Pt. informed. Labs are overall normal/stable except for slightly high CRP levels. This needs to be managed by Dental Hygiene Administrative Assistant. Please inform patient Herber Hogue DO Pt had blood work done. View External Lab - Chemistry [ID [id number]] documented in this encounter [facility] 04-10-2022 Miscellaneous Notes Faxed labs to [facility] Patient left message on confidenial vm Fatou Lund Ma Labs ordered, please fax and notify her Herber Hogue DO Patient reports Dental Hygiene Administrative Assistant moved her appt back 2 mths, so she waited to get the labs done closer to the time. When she went to [facility] lab, learned the lab orders were . Asking pcp to re-order the labs and send to [facility] lab (fax # [phone]). Reports she will run out of prednisone 6 days prior to her Rheum appt. Asking if pcp would send refill to [facility] Pharmacy? Pended. documented in this encounter [facility] 01-28-2022 History of Present illness Narrative CC: Alyssa Herrera is a 56 year old female who presents to the office for physical HPI: She was originally seen in the office on 10/16 by Shanta Daniel CNP, at that time: Has been having a lot of pain that started last fall. Pain: neck, jroyyyn-fggffgnhbyb-iswmtatvx ROM, hip pain, groin bone pain, backs [...] Dr. Vines At follow up with Shanta Daniel CNP on 11/29 Feels like things are a little bit better. Has gone gluten free. Feels like her joint pain, specifically her knees. Started estrogen and progesterone by holistic physician. This has helped things a bit as well. Dr. Junior-hormone clinic in [place]. She also started her on a low dose T3/T4 supplementation. Called Triiodothyronine (T3-5mcg, T4-20mcg). Had a massage. Could the toxins have been released. [place] terrible. Couldn't get up off the floor, [...] at that time and was referred to Dental Hygiene Administrative Assistant Seen for follow up Mar 2021 She has been taking prednisone 5 mg a day for the last 2 months with benefit. She was supposed to see Dental Hygiene Administrative Assistant in Jan but appt was last minute [...] to be getting a 2nd opinion by Dental Hygiene Administrative Assistant Dr. Man in 1-2 months. Wondering what [...] 69 mastectomy other (HTN) Maternal Grandfather other (ME) Maternal Grandfather at an old age other (HTN) Paternal Grandmother Arthritis Paternal Grandmother other (ME) Paternal Grandfather 40 Thyroid Other significant with [...] kg (139 lb) Height: 156.5 cm (5' 1.61) Gen: A&O, NAD, non-toxic appearing, Pleasant, cooperative [...] diet of 1000 mg/day for under 50, 7774-2249 mg/day for 50+ - DXA-AXIAL SKELETON 2. [...] - ICD9: 725, ICD10: M35.3 F/u with Dental Hygiene Administrative Assistant - IRON + TIBC - FERRITIN BLD [...] I83.813 - CONSULT TO VASCULAR SURGERY Herber Hogue DO To ER if develops chest pain, shortness of breath, or severe worsening of symptoms. Discussed risks, benefits, alternatives, and potential side effects of medications. Patient expressed understanding and agreed with the plan. Herber Hogue DO [address] [place] [address] documented in this encounter [facility] 08-27-2021 Miscellaneous Notes Pt called back. Message relayed and pt voiced understaning. Attempted to reach patient. No answer. LMTCB. It is okay for PSR to relay message as written below. Patt Saavedra MA Attempted to reach patient. No answer. [...] symptoms do not improve. Thanks, Tigre Amin APRN.RICKIE The following approved medication requests have been transmitted electronically. Signed Prescriptions Disp Refills predniSONE (DELTASONE) 1 mg tablet 120 tablet 2 Sig: Take by mouth with food. Please take 3mg/day x1 month, then 2mg/day x1 month, then 1mg/day x1 month, then stop. AGUSTIN: No Authorizing Provider: TIGRE AMIN APRN.RICKIE documented in this encounter [facility] 08-25-2021 History of Present illness Narrative Outside labs reviewed and sent for scanning. 08/23/2021: Sed rate 8 (0-30) CRP <2.9 ( 0-3.0) documented in this encounter [facility] 08-19-2021 History of Present illness Narrative Chief complaint: PMR HPI: To review, Alyssa Herrera is a 56 year old female - [...] 69 mastectomy other (HTN) Maternal Grandfather other (ME) Maternal Grandfather at an old age other (HTN) Paternal Grandmother Arthritis Paternal Grandmother other (ME) Paternal Grandfather 40 Thyroid Other significant with mom's siblings other (Shogren's in an aunt) Other other (niece with autoimmune) Other niece-dermatomyositis SOCIAL HISTORY: Lives in [place] with spouse. 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 Niece is Tiffanie Hunt with dermatomyositis Tobacco use: None Alcohol use: None Drug use: None PHYSICAL EXAM: BP 99/63 Pulse 87 Temp 36.5 C (97.7 F) (Temporal) Ht 157.5 cm (5' 2) Wt 63.5 kg (140 lb) LMP 12/04/2019 [...] discussed with the patient: Labs done at [facility] on 07/25/2021. Report given to provider for [...] 17.3 (nl <3) with unremarkable ESR, ENOCH, WINDOW SHADE RING SEWER, Sm, CCP, RF, TPO ab *August unremarkable [...] order previously provided. Notify of results via [employer]. She was reminded to schedule this. 3. [...] which included preparing to see the patient, hhmh-rm-lqhm patient care, completing clinical documentation, performing a medically appropriate examination, ordering medications, tests, or procedures and communicating results to the patient/family/caregiver. Tigre Amin APRN.RICKIE documented in this encounter [facility] 07-29-2021 Miscellaneous Notes Patient notified of [...] Echo Vines MD documented in this encounter [facility] 07-25-2021 Nurse Note Labs done at [facility] on 07/25/2021. 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 Encounter for long-term (current) use of steroids [facility] Diagnosis Encounter for screening mammogram for breast cancer [facility] [place] [facility] Diagnosis Well adult exam- Primary Routine [...] with other complications [facility] Diagnosis Vitamin D deficiency- Primary Unspecified vitamin D deficiency Fatigue, unspecified type On prednisone therapy PMR (polymyalgia rheumatica) (HCC) Polymyalgia rheumatica [facility] Diagnosis Myalgia- Primary Mylagia and myositis, unspecified Disturbance in sleep behavior Sleep disturbance, unspecified [facility] Candidosis of skin- Primary Candidiasis of skin and nails Rash of face Rash and other nonspecific skin eruption [facility] Diagnosis Candidosis of skin- Primary Candidiasis of skin and nails Rash of face Rash and other nonspecific skin eruption Scalp itch Unspecified pruritic disorder [facility] [place] [facility] Diagnosis Encounter for screening mammogram for breast cancer [facility] [place] [facility] Diagnosis Well adult exam- Primary Routine [...] Nontoxic uninodular goiter [facility] [place] [facility]* Diagnosis Nephrolithiasis- Primary Calculus of kidney Left ureteral stone [facility] [place] [facility] Diagnosis Left ureteral stone- Primary Hydronephrosis of left kidney Hydronephrosis Microscopic hematuria [facility] [place] [facility] Diagnosis Left ureteral stone- Primary [facility] [place] [facility]* Diagnosis Onset Date Resolution Status Encounter for well woman tika m with routine gynecological exam acute Incontinence of urine in female acute Kidney stones resolved [facility] Work Phone: Evaluation note* Diagnosis Persistent cough- Primary Cough Productive cough Cough Hoarseness Dysphonia Non-recurrent acute serous otitis media of left ear Acute non-recurrent pansinusitis Well adult exam Routine general medical examination at a health care facility Low TSH level Nonspecific abnormal results of thyroid function study [facility] [place] [facility]* Diagnosis Left ureteral stone [facility] [place] [facility]* Diagnosis Encounter for screening mammogram for breast cancer documented in this encounter [facility] Discharge instructions Additional Instructions You have a 4 mm stone in the UVJ. Continue take the medications. Return for any worsening back pain fever chills nausea vomiting.[facility] Work Phone: Reason for referral (narrative)* Diagnostic Procedure Only (Routine) - Pending Review Specialty Diagnoses / Procedures Referred By Roge t Referred To Contact [facility] IMAGING Diagnoses Encounter for screening mammogram for breast cancer Procedures ARCELIA SCREENING SCREENING MAMMOGRAPHY BI 2-VIEW BREAST INC Herber Vasquez, DO [address] [place] [address] [facility] [address] [place] [address] Referral ID Status Reason Start Date Expiration Date Visits Requested Visits Authorized [id number] Pending Review Auto-Generat ed Referral 10/01/2021 10/31/2022 1 1 [facility] for referral (narrative)* Diagnostic Procedure Only (Routine) - Pending Review Specialty Diagnoses / Procedures Referred By Roge t Referred To Contact [facility] IMAG[facility] Diagnoses Encounter for screening mammogram for breast cancer Procedures ARCELIA SCREENING SCREENING MAMMOGRAPHY BI 2-VIEW BREAST INC Herber Vasquez, DO [address] [place] [address] [facility] [address] [place] [address] Referral ID Status Reason Start Date Expiration Date Visits Requested Visits Authorized [id number] Pending Review Auto-Generat ed Referral 09/02/2022 10/02/2023 1 1 T [facility] for referral (narrative)* Diagnostic Procedure Only (Routine) - Pending Review Specialty Diagnoses / Procedures Referred By Roge t Referred To Contact [facility] IMAGING Diagnoses Thyroid nodule Procedures US THYROID/PARATHYROID US SOFT TISSUE HEAD & NECK REAL TIME IMGE DOCM Herber Hogue, DO [address] [place] [address] [place] [address] Referral ID Status Reason Start Date Expiration Date Visits Requested Visits Authorized [id number] Pending Review Auto-Generat ed Referral 03/10/2024 1 1 * Diagnostic Procedure Only (Routine) - Pending Review Specialty Diagnoses / Procedures Referred By Roge cordoba Referred To Contact BR IMAG[facility] Diagnoses Encounter for screening mammogram for malignant neoplasm of breast Procedures ARCELIA SCREENING W AMALIA SCREENING DIGITAL BREAST TOMOSYNTHESIS BI SCREENING MAMMOGRAPHY BI 2-VIEW BREAST INC CAD Herber Hogue DO [address] [place] [address] [facility] [address] [place] [address] Referral ID Status Reason Start Date Expiration Date Visits Requested Visits Authorized [id number] Pending Review Auto-Generat ed Referral 3 03/10/2024 1 1 [facility] Family History No Family History Records Found Relationship Condition Age at Onset Recorded Date/T obdulia Not Specified High blood cholesterol Unknown Cardiac disease Unknown Hypertension Unknown Disorder of thyroid Unknown Reason for Referral Specialty Diagnoses / Procedures Referred By Roge cordoba Referred To Contact Vascular Surgery Diagnoses Varicose veins of both lower extremities with pain Procedures CONSULT TO VASCULAR SURGERY OFFICE/OUTPATIENT [facility] MDM 60-74 MINUTES Herber Hogue DO [address] [place] [address] Referral ID Status Reason Start Date Expiration Date Visits Requested Visits Authorized [id number] Authorized PCP Requested Referral 2 01/28/2023 1 1 Specialty Diagnoses / Procedures Referred By Roge cordoba Referred To Contact US IMAGING Diagnoses Thyroid nodule Procedures US THYROID/PARATHYROID US SOFT TISSUE HEAD & NECK REAL TIME IMGE DOCM Herber Hogue DO [address] [place] [address] [facility] Referral ID Status Reason Start Date Expiration Date Visits Requested Visits Authorized [id number] Pending Review Auto-Generat ed Referral 2 02/27/2023 1 1 Specialty Diagnoses / Procedures Referred By Roge cordoba Referred To Contact Dermatology Diagnoses Candidosis of skin Rash of face Scalp itch Procedures CONSULT TO DERMATOLOGY Herber Hogue DO [address] [place] [address] Referral ID Status Reason Start Date Expiration Date Visits Requested Visits Authorized [id number] Ref Not Required PCP Requested Referral 07/13/2022 07/13/2023 1 1 Specialty Diagnoses / Procedures Referred By Contlotus cordoba Referred To Contact Diagnoses Left ureteral stone Caitie Blake APRN.[employer] REPAIRER [address] [place] [address] Referral ID Status Reason Start Date Expiration Date Visits Re quested Visits Authorized [id number] Closed 1 1 Specialty Diagnoses / Procedures Referred By Roge cordoba Referred To Contact Urology Diagnoses Left ureteral stone Procedures CONSULT TO UROLOGY OFFICE/OUTPATIENT [facility] MDM 60 MINUTES Caitie Blake [employer] LEAK [employer] SQUEAK REPAIRER [address] [place] [address] Referral ID Status Reason Start Date Expiration Date Visits Requested Visits Authorized [id number] Authorized PCP Requested Referral 04/28/2023 04/26/2024 1 1 Chief Complaint and Reason for Visit Chief Complaint EMPLOYEE LABS Chief Complaint EMPLOYEE LABS SCREENING Chief Complaint EMPLOYEE LABS SCREENING LLQ ABD PAIN Chief Complaint SCREENING LLQ ABD PAIN LEFT NEPHROLITHIASIS Chief Complaint SCREENING LLQ ABD PAIN LEFT NEPHROLITHIASIS FLANK PAIN Chief Complaint SCREENING LLQ ABD PAIN LEFT NEPHROLITHIASIS FLANK PAIN WP nurse, prolapse?, cramping. Reason for Visit Encounter for well w taras exam with routine gynecological exam Incontinence of urine in female Kidney stones Summary Purpose Advance Directives No Advanced Directives Records Found Advance Directive Response Recorded Date/ Time Living Will No June 12, 2023 6:28pm Power of Show Design Supervisor No June 11 6:28pm Additional Source Comments Source Comments (unrecognize d section and content) In the event this informatio n is protected by the Federal Confidentiality of Alcohol and Drug Abuse Patient Records regulations: The Federal rules restrict any use of the information to criminally investigate or prosecute any alcohol or drug abuse patient.[facility] the event this information is protected by the Federal Confidentiality of Alcohol and Drug Abuse Patient Records regulations: The Federal rules restrict any use of the information to criminally investigate or prosecute any alcohol or drug abuse patient.[facility] the event this information is protected by the Federal Confidentiality of Alcohol and Drug Abuse Patient Records regulations: The Federal rules restrict any use of the information to criminally investigate or prosecute any alcohol or drug abuse patient.[facility] the event this information is protected by the Federal Confidentiality of Alcohol and Drug Abuse Patient Records regulations: The Federal rules restrict any use of the information to criminally investigate or prosecute any alcohol or drug abuse patient.[facility] the event this information is protected by the Federal Confidentiality of Alcohol and Drug Abuse Patient Records regulations: The Federal rules restrict any use of the information to criminally investigate or prosecute any alcohol or drug abuse patient.[facility] the event this information is protected by the Federal Confidentiality of Alcohol and Drug Abuse Patient Records regulations: The Federal rules restrict any use of the information to criminally investigate or prosecute any alcohol or drug abuse patient.[facility] the event this information is protected by the Federal Confidentiality of Alcohol and Drug Abuse Patient Records regulations: The Federal rules restrict any use of the information to criminally investigate or prosecute any alcohol or drug abuse patient.[facility] the event this information is protected by the Federal Confidentiality of Alcohol and Drug Abuse Patient Records regulations: The Federal rules restrict any use of the information to criminally investigate or prosecute any alcohol or drug abuse patient.[facility] the event this information is protected by the Federal Confidentiality of Alcohol and Drug Abuse Patient Records regulations: The Federal rules restrict any use of the information to criminally investigate or prosecute any alcohol or drug abuse patient.[facility] HospitalIn the event this information is protected by the Federal Confidentiality of Alcohol and Drug Abuse Patient Records regulations: The Federal rules restrict any use of the information to criminally investigate or prosecute any alcohol or drug abuse patient.[facility] HospitalIn the event this information is protected by the Federal Confidentiality of Alcohol and Drug Abuse Patient Records regulations: The Federal rules restrict any use of the information to criminally investigate or prosecute any alcohol or drug abuse patient.[facility] HospitalIn the event this information is protected by the Federal Confidentiality of Alcohol and Drug Abuse Patient Records regulations: The Federal rules restrict any use of the information to criminally investigate or prosecute any alcohol or drug abuse patient.[facility] HospitalIn the event this information is protected by the Federal Confidentiality of Alcohol and Drug Abuse Patient Records regulations: The Federal rules restrict any use of the information to criminally investigate or prosecute any alcohol or drug abuse patient.[facility] HospitalIn the event this information is protected by the Federal Confidentiality of Alcohol and Drug Abuse Patient Records regulations: The Federal rules restrict any use of the information to criminally investigate or prosecute any alcohol or drug abuse patient.[facility] HospitalIn the event this information is protected by the Federal Confidentiality of Alcohol and Drug Abuse Patient Records regulations: The Federal rules restrict any use of the information to criminally investigate or prosecute any alcohol or drug abuse patient.[facility] HospitalIn the event this information is protected by the Federal Confidentiality of Alcohol and Drug Abuse Patient Records regulations: The Federal rules restrict any use of the information to criminally investigate or prosecute any alcohol or drug abuse patient.[facility] HospitalIn the event this information is protected by the Federal Confidentiality of Alcohol and Drug Abuse Patient Records regulations: The Federal rules restrict any use of the information to criminally investigate or prosecute any alcohol or drug abuse patient.[facility] HospitalIn the event this information is protected by the Federal Confidentiality of Alcohol and Drug Abuse Patient Records regulations: The Federal rules restrict any use of the information to criminally investigate or prosecute any alcohol or drug abuse patient.[facility] HospitalIn the event this information is protected by the Federal Confidentiality of Alcohol and Drug Abuse Patient Records regulations: The Federal rules restrict any use of the information to criminally investigate or prosecute any alcohol or drug abuse patient.[facility] HospitalIn the event this information is protected by the Federal Confidentiality of Alcohol and Drug Abuse Patient Records regulations: The Federal rules restrict any use of the information to criminally investigate or prosecute any alcohol or drug abuse patient.[facility] HospitalIn the event this information is protected by the Federal Confidentiality of Alcohol and Drug Abuse Patient Records regulations: The Federal rules restrict any use of the information to criminally investigate or prosecute any alcohol or drug abuse patient.[facility] HospitalIn the event this information is protected by the Federal Confidentiality of Alcohol and Drug Abuse Patient Records regulations: The Federal rules restrict any use of the information to criminally investigate or prosecute any alcohol or drug abuse patient.[facility] HospitalIn the event this information is protected by the Federal Confidentiality of Alcohol and Drug Abuse Patient Records regulations: The Federal rules restrict any use of the information to criminally investigate or prosecute any alcohol or drug abuse patient.[facility] HospitalIn the event this information is protected by the Federal Confidentiality of Alcohol and Drug Abuse Patient Records regulations: The Federal rules restrict any use of the information to criminally investigate or prosecute any alcohol or drug abuse patient.[facility] HospitalIn the event this information is protected by the Federal Confidentiality of Alcohol and Drug Abuse Patient Records regulations: The Federal rules restrict any use of the information to criminally investigate or prosecute any alcohol or drug abuse patient.[facility] HospitalIn the event this information is protected by the Federal Confidentiality of Alcohol and Drug Abuse Patient Records regulations: The Federal rules restrict any use of the information to criminally investigate or prosecute any alcohol or drug abuse patient.[facility] HospitalIn the event this information is protected by the Federal Confidentiality of Alcohol and Drug Abuse Patient Records regulations: The Federal rules restrict any use of the information to criminally investigate or prosecute any alcohol or drug abuse patient.[facility] HospitalIn the event this information is protected by the Federal Confidentiality of Alcohol and Drug Abuse Patient Records regulations: The Federal rules restrict any use of the information to criminally investigate or prosecute any alcohol or drug abuse patient.[facility] HospitalIn the event this information is protected by the Federal Confidentiality of Alcohol and Drug Abuse Patient Records regulations: The Federal rules restrict any use of the information to criminally investigate or prosecute any alcohol or drug abuse patient.[facility] HospitalIn the event this information is protected by the Federal Confidentiality of Alcohol and Drug Abuse Patient Records regulations: The Federal rules restrict any use of the information to criminally investigate or prosecute any alcohol or drug abuse patient.[facility] HospitalIn the event this information is protected by the Federal Confidentiality of Alcohol and Drug Abuse Patient Records regulations: The Federal rules restrict any use of the information to criminally investigate or prosecute any alcohol or drug abuse patient.[facility] HospitalIn the event this information is protected by the Federal Confidentiality of Alcohol and Drug Abuse Patient Records regulations: The Federal rules restrict any use of the information to criminally investigate or prosecute any alcohol or drug abuse patient.[facility] Reason for Visit (unrecogniz ed section and content) Reason Comments Outside Lab Results Reason Comments Results Reason Comments New Patient Reason Comments Yearly Exam Reason Comments Lab orders and medication question Reason Comments Rash Itchy rash face and neck x 1 month Reason Comments Patient Update Reason Comments Kidney Stones Pain has increased Reason Comments Consult Patient states that she had pain/ vomiting on 04/25/23 and went to the doctors.Patient had CT done on 04/26/23 and was diagnosed with a ureteral stone and her pcp thought it was to big to pass on its own so she was referred here.Patient states that she has no pain/ burning with urination but some pressure. Patient occasionally has pain that goes down her groin but not consistently. She has been straining her urine and she has not seen anything pass. She is currently on antibiotics. Specialty Diagnoses / Procedures Referred By Roge cordoba Referred To Contact Urology Diagnoses Left ureteral stone Procedures CONSULT TO UROLOGY OFFICE/OUTPATIENT NEW HIGH MDM 60 MINUTES Caitie Blake APRN.[employer] [address] [place] [address] Referral ID Status Reason Start Date Expiration Date V isits Requested Visits Authorized [id number] Closed PCP Requested Referral 04/28/2023 04/26/2024 1 1 Reason Comments stat orders Reason Comments Physical Review labs 02/08 URI X 2 weeks Reason Comments Results, Lab Reason Comments chest xray results Care Teams (unrecognized sec tion and content) Stock Wetter Relationship Specialty Start Date End Date Herber Hogue DO [address] [place], [place] [id number] PCP - General Family Practice 10/16/20 Gypsy Cannon DO [address] [facility] [address] [place], [place] [id number] 10/16/20 Stock Wetter Relationship Specialty Start Date End Date Herber Hogue DO [address] [place], [place] [id number] PCP - General Family Practice 10/16/20 Gypsy Cannon, DO [address] [facility] [address] [place] [address] 10/16/20 Stock Wetter Relationship Specialty Start Date End Date Herber Hogue, DO [address] [facility] [place] [address] PCP - General Family Practice 10/16/20 Gypsy Cannon, DO [address] [facility] [address] [place] [address] 10/16/20 Stock Wetter Relationship Specialty Start Date End Date Herber Hogue, DO [address] [facility] [place] [address] PCP - General Family Practice 10/16/20 Gypsy Cannon, DO [address] [facility] [address] [place] [address] 10/16/20 Stock Wetter Relationship Specialty Start Date End Date Herber Hogue, DO [address] [facility] [place] [address] PCP - General Family Practice 10/16/20 Gypsy Cannon, DO [address] [facility] [address] [place] [address] 10/16/20 Stock Wetter Relationship Specialty Start Date End Date Herber Hogue, DO [address] [facility] [place] [address] PCP - General Family Practice 10/16/20 Gypsy Cannon, DO [address] [facility] [address] [place] [address] 10/16/20 Stock Wetter Relationship Specialty Start Date End Date Herber Hogue, DO [address] [facility] [place] [address] PCP - General Family Medicine 10/16/20 Fast, Gypsy A, DO [address] [facility] [address] [place] [address] 10/16/20 Stock Wetter Relationship Specialty Start Date End Date Herber Hogue, DO [address] [facility] [place] [address] PCP - General Family Medicine 10/16/20 Fast, Gypsy A, DO [address] [facility] [address] [place] [address] 10/16/20 Stock Wetter Relationship Specialty Start Date End Date Herber Hogue, DO [address] [facility] [place] [address] PCP - General Family Medicine 10/16/20 Davis Gypsy A, DO [address] [facility] [address] [place] [address] 10/16/20 Stock Wetter Relationship Specialty Start Date End Date Herber Hogue, DO [address] [facility] [place] [address] PCP - General Family Medicine 10/16/20 Davis, Gypsy A, DO [address] [facility] [address] [place] [address] 10/16/20 Team Status: Active Member Role Status Dates Dr. Obey Carrera MD Family Provider Active Dr. Herber Hogue , DO Primary Care Provider Active Team Status: Active Member Role Status Dates Dr. Herber Hogue DO Primary Care Provider Active Health Risk Assessment Attending Provider Active Team Status: Inactive Member Role Status Dates Dr. Herber Hogue DO Primary Care Provider Active CULLEN ELLIOTT Attending Provider Active Team Status: Inactive Member Role Status Dates Dr. Herber Hogue , DO Primary Care Pr ovider, Attending Provider, Referring Provider Active Team Status: Active Member Role Status Dates Dr. Herber Hogue , DO Primary Care Provider, Attend ing Provider Active Stock Wetter Relationship Specialty Start Date End Date Herber Hogue DO [address] [facility] [place] [address] PCP - General Family Medicine 10/16/20 Gypsy Cannon DO [address] [facility] [address] [place] [address] 10/16/20 Stock Wetter Relationship Specialty Start Date End Date Herber Hogue DO [address] [facility] [place] [address] PCP - General Family Medicine 10/16/20 Gypsy Cannon DO [address] [facility] [address] [place] [address] 10/16/20 Stock Wetter Relationship Specialty Start Date End Date Herber Hogue DO [address] [facility] [place] [address] PCP - General Family Medicine 10/16/20 Gypsy Cannon DO [address] [facility] [address] [place] [address] 10/16/20 Stock Wetter Relationship Specialty Start Date End Date Herber Hogue DO [address] [facility] [place] [address] PCP - General Family Medicine 10/16/20 Gypsy Cannon DO [address] [facility] [address] [place] [address] 10/16/20 Team Status: Active Member Role Status Dates Dr. Herber Hogue DO Primary Care Provider Active Health Risk Assessment Attending Provider, Alise suarez Active Stock Wetter Relationship Specialty Start Date End Date Herber Hogue DO [address] [facility] [place] [address] PCP - General Family Medicine 10/16/20 Gypsy Cannon DO [address] [facility] [address] [place] [address] 10/16/20 Stock Wetter Relationship Specialty Start Date End Date Herber Hogue DO [address] [facility] [place] [address] PCP - General Family Medicine 10/16/20 Gypsy Cannon DO [address] [place] [address] 10/16/20 Stock Wetter Relationship Specialty Start Date End Date Herber Hogue DO [address] [facility] [place] [address] PCP - General Family Medicine 10/16/20 Gypsy Cannon DO [address] [place] [address] 10/16/20 Stock Wetter Relationship Specialty Start Date End Date Herber Hogue DO [address] [facility] [place] [address] PCP - General Family Medicine 10/16/20 Gypsy Cannon DO [address] [place] [address] 10/16/20 Stock Wetter Relationship Specialty Start Date End Date Herber Hogue DO [address] [facility] [place] [address] PCP - General Family Medicine 10/16/20 Gypsy Cannon DO [address] [place] [address] 10/16/20 Team Status: Inactive Member Role Status Dates Dr. Herber Hogue DO Primary Care Provider Active Abdirizak Daniel CORRECTIONAL PROBATION OFFICER, CORRECTIONAL PROBATION OFFICER-C Attending Provider, Referrin g Provider Active Stock Wetter Relationship Specialty Start Date End Date Herber Hogue DO [address] [facility] [place] [address] PCP - General Family Medicine 10/16/20 Gypsy Cannon DO [address] [place] [address] 10/16/20 Team Status: Inactive Member Role Status Dates Dr. Herber Hogue DO Primary Care Provider Active BABS KHAN Attending Provider, Referring Provi bautista Active Team Status: Inactive Member Role Status Dates Dr. Herber Hogue DO Primary Care Provider Active Jay Moreland MD Emergency Provider Active Team Status: Inactive Member Role Status Dates Dr. Herber Hogue DO Primary Care Provider, Referr ing Provider Active Anum Santizo CNM Attending Provider Active Team Status: Inactive Member Role Status Dates Dr. Herber Hogue DO Primary Care Provider Active Jay Moreland MD Attending Provider, Emergency Provid er Active Team Status: Inactive Member Role Status Dates Dr. Herber Hogue DO Primary Care Provider Active Anum Santizo CNM Attending Provider, Referring Pro vider Active Stock Wetter Relationship Specialty Start Date End Date Herber Hogue DO [address] [facility] [place] [address] PCP - General Family Medicine 10/16/20 Gypsy Cannon DO [address] [facility] [address] [place] [address] 10/16/20 Stock Wetter Relationship Specialty Start Date End Date Herber Hogue DO [address] [facility] [place] [address] PCP - General Family Medicine 10/16/20 Gypsy Cannon DO [address] [place] [address] 10/16/20 Stock Wetter Relationship Specialty Start Date End Date Herber Hogue DO [address] [facility] [place] [address] PCP - General Family Medicine 10/16/20 Gypsy Cannon DO [address] [place] [address] 10/16/20 Cinthia Anderson, [employer].CORRECTIONAL CAPTAIN [address] [facility] [place] [address] Air Conditioner Installer Helper Family [facility] 02/06/24 Abdirizak Daniel, [employer].CORRECTIONAL CAPTAIN [address] [facility] [place] [address] Air Conditioner Installer Helper [facility] 02/06/24 Stock Wetter Relationship Specialty Start Date End Date Herber Hogue DO [address] [facility] [place] [address] PCP - General Family Medicine 10/16/20 Gypsy Cannon DO [address] [place] [address] 10/16/20 Cinthia Anderson, [employer].CORRECTIONAL CAPTAIN [address] [facility] [place] [address] Air Conditioner Installer Helper Family [facility] 02/06/24 AlyceAbdirizak, [employer].CORRECTIONAL CAPTAIN [address] [facility] [place] [place] [address] [facility] 02/06/24 Stock Wetter Relationship Specialty Start Date End Date Herber Hogue DO [address] [facility] [place] [address] PCP - General Family Medicine 10/16/20 Gypsy Cannon DO [address] [address] 10/16/20 Cinthia Anderson, [employer].CORRECTIONAL CAPTAIN [address] [place] [address] Air [facility]24 AlyceAbdirizak, [employer].CORRECTIONAL CAPTAIN [address] [facility] [place] [place] [address] [facility] 02/06/24 Stock Wetter Relationship Specialty Start Date End Date Herber Hogue DO [address] [place] [address] PCP - General Family Medicine 10/16/20 Gypsy Cannon DO [address] [address] 10/16/20 Cinthia Anderson, [employer].CORRECTIONAL CAPTAIN [address] [place] [address] Air Conditioner Installer [facility] 02/06/24 Abdirizka Daniel, [employer].CORRECTIONAL CAPTAIN [address] [place] [address] [facility] 02/06/24 Stock Wetter Relationship Specialty Start Date End Date Herber Hogue DO [address] [place], [place] [address] PCP - General Family Medicine 10/16/20 Gypsy Cannon DO [address] [facility] [address] [place], [place] [address] 10/16/20 Cinthia Anderson APRN.CORRECTIONAL CAPTAIN [address] [place], [place] [address] [facility] 02/06/24 Abdirizak Daniel, SUMAYA.CORRECTIONAL CAPTAIN [address] [place] [address] [facility] 02/06/24 Goals (unrecognized section and content) Goals may be documented in a n alternate sectionGoals may be documented in an alternate sectionGoals may be documented in an alternate sectionGoals may be documented in an alternate sectionGoals may be documented in an alternate sectionGoals may be documented in an alternate sectionGoals may be documented in an alternate sectionGoals may be documented in an alternate sectionGoals may be documented in an alternate section INFORMATION SOURCE (unrecogn ized section and content) DATE CREATED AUTHOR 05/08/2023 [facility] nt DATE CREATED AUTHOR AUTHOR'S ORGANIZ ATION 01/07/2025 [facility] DATE CREATED AUTHOR AUTHOR'S ORGANIZ ATION 01/09/2025 [facility] FOR RECORDS PERTAINING TO PATIENTS WHO ARE [...] BE BASED ON THE PRIMARY CLINICAL RECORDS. [facility] [employer] [facility]. provides no warranty or guarantee of the accuracy or completeness of information in this document.
--- OUTSIDE RECORDS SUMMARY | 2025-01-26 09:47 | XMS RPT_ITS | CCD ---
Author Organization [facility] ion Partnership [facility] Care Team Providers Care Test Rider Name Role Phone Herber Hogue DO Primary Care Provider Fast DO, Gypsy A Unavailable Dr. Herber Hogue Primary Care Provider Dr. Herber Hogue Referring Provider ITALIA Santizo Attending Provider Herber Hogue DO Primary Care Provider Fast DO, Gypsy A Unavailable Herber Hogue DO Primary Care Provider Anderson ASSEMBLY AND PACKING SUPERVISOR.Cinthia DAMIAN Unavailable Alyce ASSEMBLY AND PACKING SUPERVISOR.Abdirizak DAMIAN Unavailable HERBER HOGUE Primary Care Unavailable ABDIRIZAK DANIEL Attending Unavailable HERBER HOGUE Primary Care Unavailable ABDIRIZAK DANIEL Attending Unavailable Herber Hogue Referring Unavailable Stanford Santos Attending Unavailable Herber Hogue Primary Care Unavailable Alyce INSTALLATION TECH, Abdirizak Attending Unavailable Alyce INSTALLATION TECH, Abdirizak Referring Unavailable Herber Hogue Primary Care Unavailable Alyce INSTALLATION TECH, Abdirizak Attending Unavailable Alyce INSTALLATION TECH, Abdirizak Referring Unavailable Herber Hogue Primary Care [...] extract; Translations: [MILK] Drug Allergy 10-16-2020 Unknown [facility] (20 sources) Shellfish; Translations: [SHELLFISH DERIVED] Drug Allergy 10-16-2020 Anaphylaxis [facility] (20 sources) shrimp allergenic extract; Translations: [SHRIMP] Drug Allergy 10-16-2020 Anaphylaxis [facility] (1 source) Milk Drug allergy (disorder) 05-24-2024 [facility] Repository Medications Current Medications Medication Drug Class(es) [...] for pain for up to 5 days. [id number] 200 actuat albuterol 0.09 mg/actuat metered dose [...] on above: Take [address] [facility] two times a day for 10 days. [...] 1 mg tablet Indications: PMR (polymyalgia rheumatica) ([facility]) Take 1 tablet by mouth once daily. [...] affected area once daily. 20mg, prescribed by [facility] Active Completed/Discontinued Medications Medication Drug Class(es) Dates [...] Comment on above: Take by mouth. nystatin [id number] unt/ml topical cream (5 sources) Polyene Antifungal [...] Comment on above: Take 1 capsule by [facility] once daily. progesterone vaginal suppository 200 mg (CPD) (5 sources) Start: 11-06-19 End: 07-02-19 progesterone vaginal suppository 200 mg (CPD) Use 200 mg vaginally once daily. 0 11/05/2020 07/01/2022 Discontinued Start: 11-05-2020 progesterone v aginal suppository 200 mg (CPD) Use 200 mg vaginally once daily. 0 11/05/2020 Active Comment on above: Use 200 mg vaginally once daily. fhhvnfr-ytne-qjzkk-or eg-capryl 100 mg-150 mg- 50 mg-150 mg cap (19 sources) End: 02-18-2024 rwivzvg-czfv-oceon-oreg-c yessica 100 mg-150 mg- 50 mg-150 mg cap Take by mouth. 02/18/2024 Discontinued hchlale-qbif-wwl ff-kaku-wukzca 100 mg-150 mg- 50 mg-150 mg cap [...] Long-term current use of systemic steroid; Translations: [intermediate (current) use of systemic steroids] Episodic Other aftercare (2 sources) Drug therapy finding; Translations: [medical terminologist (current) use of systemic steroids] Episodic Other [...] width (RBC) [Ratio] 12.0 % Normal 11.6-14.6 [facility] Comment on above: Performed By: #### L 500.4100, L501.9985, L100.0500, L500.4050, L506.1001, L503.0106, L501.9520 #### [facility] [address] [place], [address] Hematocrit (Bld) [Volume fraction] 43.5 % Normal 37-47 [facility] Comment on above: Performed By: #### L 500.4100, L501.9985, L100.0500, L500.4050, L506.1001, L503.0106, L501.9520 #### [facility] [address] [place], [address] Hemoglobin (Bld) [Mass/Vol] 14.3 g/dL Normal 12.0-15.0 [facility] Comment on above: Performed By: #### L 500.4100, L501.9985, L100.0500, L500.4050, L506.1001, L503.0106, L501.9520 #### [facility] [address] [place], [address] MCH (RBC) [Entitic mass] 29.4 pg Normal 27.0-32.0 [facility] Comment on above: Performed By: #### L 500.4100, L501.9985, L100.0500, L500.4050, L506.1001, L503.0106, L501.9520 #### [facility] [address] [place], [address] MCHC (RBC) [Mass/Vol] 32.9 g/dL Normal 32-36 [facility] Comment on above: Performed By: #### L 500.4100, L501.9985, L100.0500, L500.4050, L506.1001, L503.0106, L501.9520 #### [facility] [address] [place], [address] MCV (RBC) [Entitic vol] 89.5 fL Normal 81-99 [facility] Comment on above: Performed By: #### L 500.4100, L501.9985, L100.0500, L500.4050, L506.1001, L503.0106, L501.9520 #### [facility] [address] [place], [address] Platelet mean volume (Bld) [Entitic vol] 10.2 fL Normal 6.2-12.0 [facility] Comment on above: Performed By: #### L 500.4100, L501.9985, L100.0500, L500.4050, L506.1001, L503.0106, L501.9520 #### [facility] [address] [place], [address] Platelets (Bld) [#/Vol] 288 10*3/uL Normal 150-450 [facility] Comment on above: Performed By: #### L 500.4100, L501.9985, L100.0500, L500.4050, L506.1001, L503.0106, L501.9520 #### [facility] [address] [place], [address] RBC (Bld) [#/Vol] 4.86 10*6/uL Normal 4.2-5.4 [facility] Comment on above: Performed By: #### L 500.4100, L501.9985, L100.0500, L500.4050, L506.1001, L503.0106, L501.9520 #### [facility] [address] [place], [place], [id number] (663) RDW SD 39.3 fl Normal 35.1-43.9 [facility] Comment on above: Performed By: #### L 500.4100, L501.9985, L100.0500, L500.4050, L506.1001, L503.0106, L501.9520 #### [facility] [address] [place], [place], [id number] (458) WBC (Bld) [#/Vol] 5.5 10*3/uL Normal 4.4-11.0 [facility] Comment on above: Performed By: #### L 500.4100, L501.9985, L100.0500, L500.4050, L506.1001, L503.0106, L501.9520 #### [facility] [address] [place], [place], [id number] Bev 01-02-2025 JAX Telephone (FAMPWS) ALYSSA HERRERA ([id number]) 1965 F CHT Date Time Provider Department [...] instructions. Patient verbalizes understanding. Labs faxed to [facility] as requested at [phone]. Karis Diaz RN Allergies As of Date: 01/02/2025 Noted Allergy Reaction MILK 10/16/2020 16 - Unknown SHELLFISH DERIVED 10/16/2020 10 - Anaphylaxis SHRIMP 10/16/2020 10 - Anaphylaxis Date Reviewed: 12/28/2024 Reviewed by: Abdirizak Daniel APRN.CLINICAL RN LIAISON - Fully Assessed Reason for Visit: Results [95] Orders [681] Primary Visit Diagnosis:Low TSH level [R79.89] Order(s):THYROID STIMULATING HORMONE [SQTSH] Order #: [id number] FUTURE T3 [SQT3] Order #: [id number] FUTURE T4 FREE/FREE THYROXINE [SQFT4] Order #: [id number] FUTURE THYROID PEROXIDASE ANTIBODY [SQMICRO] Order #: [id number] FUTURE THYROGLOBULIN ANTIBODY [SQTGAB] Order #: [id number] FUTURE Prescriptions as of 01/05/2025 - compounded progesterone 200mg capsule 200 mg two times a day. - estradiol (ESTRACE) 1 mg tablet Take 1.5 mg by mouth once daily. - testosterone 100 mg/ml cream (CPD) Apply 0.5 mL to affected area once daily. 20mg, prescribed by [facility] Meds Comments as of 12/28/2024: Turmeric, car, flax seed, Vitamin D3 daily-as of 10/16/2020 Takes thyroid 1 Grain 60mg capsule daily Problem List As Of Date 01/02/2025 Noted Resolved Myalgia [M79.10] 12/09/2020 Decreased strength, endurance, and mobility [R5*12/09/2020 Dyslipidemia [E78.5] 12/09/2020 Pain in deltoid, bilateral [M79.18] 12/09/2020 Pain in both thighs [M79.651, M79.652] 12/09/2020 Encounter Status:Closed by KARIS DIAZ on 01/05/25 Normal [facility] Metabolic Prof kamila 01-02-2025 Albumin [Mass/Vol] 4.0 g/dL Normal 3.4-4.8 [facility] Comment on above: Performed By: #### L 501.6710, L501.42212, L506.1000 #### [facility] [address] [place], [address] Albumin/Globulin [Mass ratio] 1.7 {ratio} Normal 0.9-2.4 [facility] Comment on above: Performed By: #### L 501.6710, L501.15857, L506.1000 #### [facility] [address] [place], [address] ALK PHOS 57 U/L Normal 35-104 [facility] Comment on above: Performed By: #### L 501.6710, L501.61568, L506.1000 #### [facility] [address] [place], [address] ALT [Catalytic activity/Vol] 12 U/L Normal <=34 [facility] Comment on above: Performed By: #### L 501.6710, L501.37035, L506.1000 #### [facility] [address] [place], [address] AST [Catalytic activity/Vol] 18 U/L Normal <=31 [facility] Comment on above: Performed By: #### L 501.6710, L501.75616, L506.1000 #### [facility] [address] [place], [address] Bilirubin [Mass/Vol] 0.64 mg/dL Normal 0.00-1.30 [facility] Comment on above: Performed By: #### L 501.6710, L501.47569, L506.1000 #### [facility] [address] [place], [address] BUN/CRE 16.6 RATIO Normal 10-20 [facility] Comment on above: Performed By: #### L 501.6710, L501.37271, L506.1000 #### [facility] [address] [place], [address] Calcium [Mass/Vol] 9.2 mg/dL Normal 7.6-11.0 [facility] Comment on above: Performed By: #### L 501.6710, L501.25082, L506.1000 #### [facility] [address] [place], [address] Chloride [Moles/Vol] 107 mmol/L Normal 98-108 [facility] Comment on above: Performed By: #### L 501.6710, L501.08963, L506.1000 #### [facility] [address] [place], [address] CO2 [Moles/Vol] 26.8 mmol/L Normal 21.0-32.0 [facility] Comment on above: Performed By: #### L 501.6710, L501.75038, L506.1000 #### [facility] [address] [place], [address] Creatinine [Mass/Vol] 0.66 mg/dL Low 0.70-1.20 [facility] Comment on above: Performed By: #### L 501.6710, L501.56595, L506.1000 #### [facility] [address] [place], [address] GAP 8 Normal 5-15 [facility] Comment on above: Performed By: #### L 501.6710, L501.97275, L506.1000 #### [facility] [address] [place], [address] GFR/1.73 sq M.predicted among non-blacks MDRD (S/P/Bld) [Vol rate/Area] 100 mL/min/{1.73_m2} Normal >60 [facility] Comment on above: Result Comment: mL/m in/1.73m2 CKD-EPI Creatinine Equation (2020) Performed By: #### L 501.6710, L501.87461, L506.1000 #### [facility] [address] [place], [address] Globulin (S) [Mass/Vol] 2.3 g/dL Normal 2.2-4.2 [facility] Comment on above: Performed By: #### L 501.6710, L501.05707, L506.1000 #### [facility] [address] [place], [address] Glucose [Mass/Vol] 97 mg/dL Normal 70-99 [facility] Comment on above: Performed By: #### L 501.6710, L501.80550, L506.1000 #### [facility] [address] [place], [address] Potassium [Moles/Vol] 4.1 mmol/L Normal 3.3-5.1 [facility] Comment on above: Performed By: #### L 501.6710, L501.22571, L506.1000 #### [facility] [address] [place], [address] Sodium [Moles/Vol] 142 mmol/L Normal 133-145 [facility] Comment on above: Performed By: #### L 501.6710, L501.84063, L506.1000 #### [facility] [address] [place], [address] T PROT 6.4 g/dL Normal 5.9-8.4 [facility] Comment on above: Performed By: #### L 501.6710, L501.35020, L506.1000 #### [facility] [address] [place], [address] Urea nitrogen [Mass/Vol] 11 mg/dL Normal 4-19 [facility] Comment on above: Performed By: #### L 501.6710, L501.37509, L506.1000 #### [facility] [address] [place], [address] Hemoglobin A1con 01-02-2025 HbA1c (Bld) [Mass fraction] 5.8 % High <=5.6 [facility] Comment on above: Result Comment: Norm al < 5.7 % Prediabetic 5.7 - 6.4 % Diabetic >or= 6.5 % Please note range changes. Performed By: #### L 500.4100, L501.9985, L100.0500, L500.4050, L506.1001, L503.0106, L501.9520 #### [facility] [address] [place], [address] Lipid Profileon 01-02-2025 CHOL:HDL 3.60 Normal [facility] Comment on above: Performed By: #### L 501.6710, L501.15167, L506.1000 #### [place] [facility] [address] [place], [address] Cholesterol [Mass/Vol] 178 mg/dL Normal <=200 [facility] Comment on above: Result Comment: Chol esterol level, Desirable <200 mg/dL Borderline high cholesterol 200-239 mg/dL High cholesterol >=240 mg/dL Recommendations of the NCEP Adult Treatment Panel for the following risk-cutoff thresholds for the [place] population. Performed By: #### L 501.6710, L501.61812, L506.1000 #### [facility] [address] [place], [address] Cholesterol in HDL [Mass/Vol] 50 mg/dL Normal [facility] Comment on above: Result Comment: Yusra onal Cholesterol Education Program (NCEP) guidelines: <40 mg/dL: Low HDL-cholesterol (major risk factor for CHD) >= 60 mg/dL: High HDL-cholesterol (negative risk factor for CHD) HDL-cholesterol is affected by a number of factors, e.g. smoking, exercise, hormones, sex and age. Performed By: #### L 501.6710, L501.17485, L506.1000 #### [facility] [address] [place], [address] Cholesterol in LDL [Mass/Vol] 116 mg/dL Normal [facility] Comment on above: Result Comment: Bord cnnefp=448-141 mg/dL Higher Oauo=015 mg/dL or greater Simon Equation 2020 for LDL-C Performed By: #### L 501.6710, L501.98380, L506.1000 #### [facility] [address] [place], [address] Cholesterol in VLDL [Mass/Vol] 13 mg/dL Normal 5-40 [facility] Comment on above: Performed By: #### L 501.6710, L501.73457, L506.1000 #### [facility] [address] [place], [address] Triglyceride [Mass/Vol] 63 mg/dL Normal [facility] Comment on above: Result Comment: The drugs N-Acetylcysteine and Metamizole may falsely depress this assay. Normal range: <150 mg/dL Borderline High: 150-199 mg/dL High: 200-499 mg/dL Very High: >500 mg/dL Performed By: #### L 501.6710, L501.23468, L506.1000 #### [facility] [address] [place], [address] Thyroid Stim Hormone (TSH)on 01-02-2025 TSH Qn m[IU]/L Low 0.300-4.200 [facility] Comment on above: Performed By: #### L 501.6710, L501.08676, L506.1000 #### [facility] [address] [place], [address] Vitamin B12on 01-02-2025 Cobalamin (Vitamin B12) [Mass/Vol] 568 pg/mL Normal 180-914 [facility] Comment on above: Performed By: #### L 501.6710, L501.47996, L506.1000 #### [facility] [address] [place], [address] Vitamin D,25 Hydroxyon 01-02 Vitamin D 25-OH 33.2 ng/mL Normal 30-100 [facility] Comment on above: Result Comment: Pallavi min D Status Deficiency: <20 ng/mL (50nmol/L) Insufficiency: 20-30 ng/mL (50-75 nmol/L) Sufficiency: 30-100 ng/mL (75-250 nmol/L) Toxicity: >100 ng/mL (>250 nmol/L) Performed By: #### L 501.6710, L501.32057, L506.1000 #### [facility] [address] [place], [address] CNOVon 12-28-2024 [facility] ALYSSA HERRERA ([id number]) 1965 F [facility] Date Time Provider Department 12/28/24 7:40 AM ABDIRIZAK DANIEL During your visit today, we recorded the following information about you: Pulse Blood pressure Weight Height 95/minute 102/68 61.1 kg 1.57 m Abdirizak Daniel APRN.CLINICAL RN LIAISON 12/28/2024 10:14 AM Signed 12/28/2024 Recording using nChannel software for draft documentation of the visit was discussed with the patient/authorized agency sales representative; all questions welcomed and answered. Patient/authorized agency sales representative agreed to proceed HPI: The patient [...] affected area once daily. 20mg, prescribed by [facility] No current facility-administered medications on file prior [...] Date Reviewed: 12/28/2024 Reviewed by: Abdirizak Daniel APRN.CLINICAL RN LIAISON - Fully Assessed Reason for Visit: Yearly Exam [187] Primary Visit Diagnosis:Well adult exam [Z00.00] Other Visit Diagnoses:Screening for depression [Z13.31] Encounter for screening examination for other mental health and behavioral disorders [Z13. (more content not included)... Normal [facility] Office Visit Reporton 2024 Office Visit Report [facility] [address] [place] [address] OFFICE VISIT Date of Service: 05/24/24 MR#: [id number] Acct: [id number] Patient: ALYSSA HERRERA Rep #: [id number] 3 : 1965 Provider: ARETHA Gleason Age/Sex: 59/F Location: [facility] Status: Signed Intake Vital Signs 06/28/23 [...] Montes Signature: Date (if applicable) CC: Normal [facility] CNCOon 02-18-2024 CNCO Letter Text Normal [facility] CNOVon 02-18-2024 CNOV Office Visit (FAMPWS ) ALYSSA HERRERA ([id number]) 1965 F T Date Time Provider Department 02/18/24 7:40 AM ABDIRIZAK DANIEL FAMPWS During your visit today, we recorded the following information about you: Pulse Respiration Blood pressure Weight 73/minute 14/minute 118/78 64 kg Height 1.59 m Abdirizak Daniel APRN.CLINICAL RN LIAISON 02/18/2024 9:52 AM Signed Chief Complaint Patient [...] 69 mastectomy other (HTN) Maternal Grandfather other ([place]) Maternal Grandfather at an old age other (HTN) Paternal Grandmother Arthritis Paternal Grandmother other ([place]) Paternal Grandfather 40 Thyroid Other significant with [...] mouth. (Patient not taking: Reported on 02/18/2024) xnuliww-iaok-vgngj-oreg-cap ryl 100 mg-150 mg- 50 mg-150 mg [...] Lymph Node (more content not included)... Normal [facility] Bev 02-18-2024 [facility] Telephone (FAMPWS) ALYSSA HERRERA ([id number]) 1965 F T Date Time Provider Department 02/18/24 ABDIRIZAK DANIEL During your visit today, we recorded the following information about you: Vera Pryor LPN 02/18/2024 3:57 PM Signed Patient calling asking if R Alyce INSTALLATION TECH had gotten her chest xray results from [facility]? She had it done there today, she can see results on [facility] similar my chart forum. She said xray her lungs were clear and no infiltrates. Patient asking if INSTALLATION TECH is sending an antibiotic rx to [facility] for her? Please advise Miesha Hurley LPN 02/21/2024 9:30 AM Signed Pt sent this message: jw Herrera to [facility] Chart Rx Pool (supporting Abdirizak Daniel [...] to aff (more content not included)... Normal [facility] Chest PA and Lateralon 02-17 Chest PA and Lateral [facility] [address] [place] [address] Chest PA and Lateral MR#: [id number] Acct: [id number] Name: ALYSSA HERRERA Rep #: [id number] : 1965 F 58 From: [place] mix MD PCP: Dr. Herber Hogue, Status: REG CLI Study: Chest PA and Lateral Date of Exam: 02/18/24 Exam# [id number] Ordering Dr: Abdirizak Daniel NP INSTALLATION TECH-C 3:[id number] STUDY: X-RAY CHEST REASON FOR EXAM: Female, [...] 9:28 EST Reading Location ID and State: [address] [place] [address] , Service support , CC: DEAN Daniel; Dr. Herber Hogue DO Dramatic Director: Signed Normal [facility] CBC, Employeeon 02-09-2024 Absolute Lymph 1.66 X10 3/uL Normal 0.83-4.51 [facility] Comment on above: Performed By: #### L 500.2900, L100.0200, L400.0100 #### [facility] [address] [place], [address] Absolute Neut 3.1 X10 3/uL Normal 2.0-7.7 [facility] Comment on above: Performed By: #### L 500.2900, L100.0200, L400.0100 #### [facility] [address] [place], [address] Basophils/100 WBC (Bld) 1.0 % Normal 0-1 [facility] Comment on above: Performed By: #### L 500.2900, L100.0200, L400.0100 #### [facility] [address] [place], [address] Eosinophils/100 WBC (Bld) 6.6 % High 0-5 [facility] Comment on above: Performed By: #### L 500.2900, L100.0200, L400.0100 #### [facility] [address] [place], [address] Erythrocyte distribution width (RBC) [Ratio] 12.9 % Normal 11.6-14.6 [facility] Comment on above: Performed By: #### L 500.2900, L100.0200, L400.0100 #### [facility] [address] [place], [address] Hematocrit (Bld) [Volume fraction] 45.1 % Normal 37-47 [facility] Comment on above: Performed By: #### L 500.2900, L100.0200, L400.0100 #### [facility] [address] [place], [address] Hemoglobin (Bld) [Mass/Vol] 14.3 g/dL Normal 12.0-15.0 [facility] Comment on above: Performed By: #### L 500.2900, L100.0200, L400.0100 #### [facility] [address] [place], [address] Lymphocytes/100 WBC (Bld) 28.6 % Normal 19-41 [facility] Comment on above: Performed By: #### L 500.2900, L100.0200, L400.0100 #### [facility] [address] [place], [address] MCH (RBC) [Entitic mass] 29.4 pg Normal 27.0-32.0 [facility] Comment on above: Performed By: #### L 500.2900, L100.0200, L400.0100 #### [facility] [address] [place], [address] MCHC (RBC) [Mass/Vol] 31.7 g/dL Low 32-36 [facility] Comment on above: Performed By: #### L 500.2900, L100.0200, L400.0100 #### [facility] [address] [place], [address] MCV (RBC) [Entitic vol] 92.6 fL Normal 81-99 [facility] Comment on above: Performed By: #### L 500.2900, L100.0200, L400.0100 #### [facility] [address] [place], [address] Monocytes/100 WBC (Bld) 10.5 % High 0-10 [facility] Comment on above: Performed By: #### L 500.2900, L100.0200, L400.0100 #### [facility] [address] [place], [address] Neutrophils/100 WBC (Bld) 53.0 % Normal 47-70 [facility] Comment on above: Performed By: #### L 500.2900, L100.0200, L400.0100 #### [facility] [address] [place], [address] NRBC # 0.00 10 3/uL Normal 0-5 [facility] Comment on above: Performed By: #### L 500.2900, L100.0200, L400.0100 #### [facility] [address] [place], [address] Nucleated RBC (Bld) [#/Vol] 0 10*3/uL Normal 0-5 [facility] Comment on above: Performed By: #### L 500.2900, L100.0200, L400.0100 #### [facility] [address] [place], [address] Platelet mean volume (Bld) [Entitic vol] 10.4 fL Normal 6.2-12.0 [facility] Comment on above: Performed By: #### L 500.2900, L100.0200, L400.0100 #### [facility] [address] [place], [address] Platelets (Bld) [#/Vol] 289 10*3/uL Normal 150-450 [facility] Comment on above: Performed By: #### L 500.2900, L100.0200, L400.0100 #### [facility] [address] [place], [address] RBC (Bld) [#/Vol] 4.87 10*6/uL Normal 4.2-5.4 [facility] Comment on above: Performed By: #### L 500.2900, L100.0200, L400.0100 #### [facility] [address] [place], [address] RDW SD 43.7 fl Normal 35.1-43.9 [facility] Comment on above: Performed By: #### L 500.2900, L100.0200, L400.0100 #### [facility] [address] [place], [address] WBC (Bld) [#/Vol] 5.8 10*3/uL Normal 4.4-11.0 [facility] Comment on above: Performed By: #### L 500.2900, L100.0200, L400.0100 #### [facility] [address] [place], [address] CRPon 02-09-2024 C-REACTIVE PROT 7.14 mg/L High 0.0-3.0 [facility] Comment on above: Result Comment: C-Re active Protein (CRP) provides useful information for the diagnosis, therapy and monitoring of inflammatory processes and associated diseases. For the evaluation of Relative Risk for Cardiovascular Disease, a High Sensitivity CRP (HSCRP) should be ordered. Performed By: #### L 501.6710, L501.51048, L506.1000 #### [facility] [address] [place], [address] Employee Profileon 4 Albumin [Mass/Vol] 3.8 g/dL Normal 3.2-5.0 [facility] Comment on above: Performed By: #### L 500.2900, L100.0200, L400.0100 #### [facility] [address] [place], [address] Albumin/Globulin [Mass ratio] 1.2 {ratio} Normal 0.9-2.4 [facility] Comment on above: Performed By: #### L 500.2900, L100.0200, L400.0100 #### [facility] [address] [place], [address] ALK P 70 U/L Normal 45-117 [facility] Comment on above: Performed By: #### L 500.2900, L100.0200, L400.0100 #### [facility] [address] [place], [address] ALT [Catalytic activity/Vol] 23 U/L Normal 13-56 [facility] Comment on above: Performed By: #### L 500.2900, L100.0200, L400.0100 #### [facility] [address] [place], [address] AST [Catalytic activity/Vol] 15 U/L Normal 15-37 [facility] Comment on above: Performed By: #### L 500.2900, L100.0200, L400.0100 #### [facility] [address] [place], [address] Bilirubin [Mass/Vol] 0.50 mg/dL Normal 0.20-1.00 [facility] Comment on above: Result Comment: For patients on eltrombopag therapy, use of Dimension [place] TBIL is not recommended. Performed By: #### L 500.2900, L100.0200, L400.0100 #### [facility] [address] [place], [address] Bilirubin.direct [Mass/Vol] 0.18 mg/dL Normal 0.00-0.30 [facility] Comment on above: Performed By: #### L 500.2900, L100.0200, L400.0100 #### [facility] [address] [place], [address] BUN/CRE 19.1 RATIO Normal 10-20 [facility] Comment on above: Performed By: #### L 500.2900, L100.0200, L400.0100 #### [facility] [address] [place], [address] CA,Total 9.2 mg/dL Normal 8.5-10.1 [facility] Comment on above: Performed By: #### L 500.2900, L100.0200, L400.0100 #### [facility] [address] [place], [address] Chloride [Moles/Vol] 110 mmol/L High 98-107 [facility] Comment on above: Performed By: #### L 500.2900, L100.0200, L400.0100 #### [facility] [address] [place], [address] CHOL:HDL 3.80 Normal [facility] Comment on above: Performed By: #### L 500.2900, L100.0200, L400.0100 #### [facility] [address] [place], [address] Cholesterol [Mass/Vol] 230 mg/dL High 200 [facility] Comment on above: Result Comment: <200 mg/dL Desirable 200-240 mg/dL Borderline >240 mg/dL High Risk Performed By: #### L 500.2900, L100.0200, L400.0100 #### [facility] [address] [place], [address] Cholesterol in HDL [Mass/Vol] 60 mg/dL Normal [facility] Comment on above: Result Comment: The drugs N-Acetylcysteine and Metamizole may falsely depress this assay. Reference Range HDL <40 mg/dL Low HDL Cholesterol HDL >or= 60 mg/dL High HDL Cholesterol Performed By: #### L 500.2900, L100.0200, L400.0100 #### [facility] [address] [place], [address] Cholesterol in LDL [Mass/Vol] 144 mg/dL High 0-130 [facility] Comment on above: Performed By: #### L 500.2900, L100.0200, L400.0100 #### [facility] [address] [place], [address] Cholesterol in VLDL [Mass/Vol] 26 mg/dL Normal 5-40 [facility] Comment on above: Performed By: #### L 500.2900, L100.0200, L400.0100 #### [facility] [address] [place], [address] CO2 [Moles/Vol] 27.0 mmol/L Normal 21.0-32.0 [facility] Comment on above: Performed By: #### L 500.2900, L100.0200, L400.0100 #### [facility] [address] [place], [address] Creatinine [Mass/Vol] 0.79 mg/dL Normal 0.55-1.02 [facility] Comment on above: Result Comment: The validity of the calculated GFR GFRAA in patients over 70 years has not been determined. Clinical correlation is essential. Performed By: #### L 500.2900, L100.0200, L400.0100 #### [facility] [address] [place], [address] EST GFR - AA 96 mL/min Normal >60 [facility] Comment on above: Result Comment: Afri can Grenadian GFR Calc Performed By: #### L 500.2900, L100.0200, L400.0100 #### [facility] [address] [place], [address] GAP 5 Normal 5-15 [facility] Comment on above: Performed By: #### L 500.2900, L100.0200, L400.0100 #### [facility] [address] [place], [address] GFR/1.73 sq M.predicted among non-blacks MDRD (S/P/Bld) [Vol rate/Area] 79 mL/min/{1.73_m2} Normal >60 [facility] Comment on above: Result Comment: Non- GFR Calc Performed By: #### L 500.2900, L100.0200, L400.0100 #### [facility] [address] [place], [address] Globulin (S) [Mass/Vol] 3.1 g/dL Normal 2.2-4.2 [facility] Comment on above: Performed By: #### L 500.2900, L100.0200, L400.0100 #### [facility] [address] [place], [address] Glucose [Mass/Vol] 96 mg/dL Normal 74-106 [facility] Comment on above: Performed By: #### L 500.2900, L100.0200, L400.0100 #### [facility] [address] [place], [address] LDH 189 U/L Normal 84-246 [facility] Comment on above: Performed By: #### L 500.2900, L100.0200, L400.0100 #### [facility] [address] [place], [address] Phosphate [Mass/Vol] 3.1 mg/dL Normal 2.5-4.9 [facility] Comment on above: Performed By: #### L 500.2900, L100.0200, L400.0100 #### [facility] [address] [place], [address] Potassium [Moles/Vol] 4.0 mmol/L Normal 3.5-5.1 [facility] Comment on above: Performed By: #### L 500.2900, L100.0200, L400.0100 #### [facility] [address] [place], [address] Sodium [Moles/Vol] 142 mmol/L Normal 136-145 [facility] Comment on above: Performed By: #### L 500.2900, L100.0200, L400.0100 #### [facility] [address] [place], [address] T PROT 6.9 g/dL Normal 6.4-8.2 [facility] Comment on above: Performed By: #### L 500.2900, L100.0200, L400.0100 #### [facility] [address] [place], [address] Triglyceride [Mass/Vol] 129 mg/dL Normal [facility] Comment on above: Result Comment: The drugs N-Acetylcysteine and Metamizole may falsely depress this assay. Serum Triglycerides Reference Interval Normal <150 mg/dL Borderline high 150 - 199 mg/dL High 200 - 499 mg/dL Very High > or = 500 mg/dL Performed By: #### L 500.2900, L100.0200, L400.0100 #### [facility] [address] [place], [address] Urea nitrogen [Mass/Vol] 15 mg/dL Normal 7-18 [facility] Comment on above: Performed By: #### L 500.2900, L100.0200, L400.0100 #### [facility] [address], [address] URIC 5.4 mg/dL Normal 2.6-6.0 [facility] Comment on above: Result Comment: The drugs N-Acetylcysteine and Metamizole may falsely depress this assay. Performed By: #### L 500.2900, L100.0200, L400.0100 #### [facility] [address] [place], [address] Free T3on 02-09-2024 Free T3 [Mass/Vol] 4.9 pg/mL High 2.18-3.98 [facility] Comment on above: Performed By: #### L 501.6710, L501.92990, L506.1000 #### [facility] [address] [place], [address] Urinalysis, Employeeon 02-08 BILIRUBIN URINE Negative Normal Negative [facility] Comment on above: Order Comment: CLEAN CATCH Performed By: #### L 500.2900, L100.0200, L400.0100 #### [facility] [address] [place], [address] Clarity (U) Sl. Cloudy Normal Clear [facility] Comment on above: Order Comment: CLEAN CATCH Performed By: #### L 500.2900, L100.0200, L400.0100 #### [facility] [address] [place], [address] Color (U) Yellow Normal Yellow [facility] Comment on above: Order Comment: CLEAN CATCH Performed By: #### L 500.2900, L100.0200, L400.0100 #### [facility] [address] [place], [address] GLUCOSE, UR Normal Normal Normal [facility] Comment on above: Order Comment: CLEAN CATCH Performed By: #### L 500.2900, L100.0200, L400.0100 #### [facility] [address] [place], [address] KETONE UR Negative Normal Negative [facility] Comment on above: Order Comment: CLEAN CATCH Performed By: #### L 500.2900, L100.0200, L400.0100 #### [facility] [address] [place], [address] LEUK ESTERASE Negative Normal Negative [facility] Comment on above: Order Comment: CLEAN CATCH Performed By: #### L 500.2900, L100.0200, L400.0100 #### [facility] [address] [place], [address] Nitrite Ql (U) Negative Normal Negative [facility] Comment on above: Order Comment: CLEAN CATCH Performed By: #### L 500.2900, L100.0200, L400.0100 #### [facility] [address] [place], [address] OCCULT BLOOD-UR 10 /ul Abnormal Negative [facility] Comment on above: Order Comment: CLEAN CATCH Performed By: #### L 500.2900, L100.0200, L400.0100 #### [facility] [address] [place], [address] pH UR 6.0 Normal 5.0 - 8.0 [facility] Comment on above: Order Comment: CLEAN CATCH Performed By: #### L 500.2900, L100.0200, L400.0100 #### [facility] [address] [place], [address] PROT DIPSTX 15 mg/dl Abnormal Negative [facility] Comment on above: Order Comment: CLEAN CATCH Performed By: #### L 500.2900, L100.0200, L400.0100 #### [facility] [address] [place], [address] SP.GR. DIPSTX 1.015 Normal 1.002-1.030 [facility] Comment on above: Order Comment: CLEAN CATCH Performed By: #### L 500.2900, L100.0200, L400.0100 #### [facility] [address] [place], [address] UROBILI Normal Normal Normal [facility] Comment on above: Order Comment: CLEAN CATCH Performed By: #### L 500.2900, L100.0200, L400.0100 #### [facility] [address] [place], [address] Vitamin D,25 Hydroxyon 02-08 Vitamin D 25-OH 24.0 ng/mL Normal [facility] Comment on above: Result Comment: Pallavi min D 25(OH) Status Range Deficiency <20 ng/mL (50nmol/L) Insufficiency 20 - 30 ng/mL (50 - 75 nmol/L) Sufficiency 30 - 100 ng/mL (75 - 250 nmol/L) Toxicity >100 ng/mL (>250 nmol/L) Performed By: #### L 501.6710, L501.22813, L506.1000 #### [facility] [address] [place], [address] Absolute lymphocyte countOrd ered By: Jong Goldberg on 06-12-2023 Lymphocytes Auto (Unsp spec) [#/Vol] 1.34 10*3/uL 0.83-4.51 [facility] Automated lymphocyte count a s percentage of total leukocytesOrdered By: Jong Goldberg on 06-12-2023 Lymphocytes/100 WBC Auto (Unsp spec) 13.6 % 19-41 [facility] Basophil percentageOrdered B y: Jong Goldberg on 06-12-2023 Basophil percentage 0-5 SEEN /hpf 0-5 [facility] Basophils/100 WBC (Bld) 0.6 % 0-1 [facility] Chloride [Moles/Vol] 106 mmol/L 98-107 [facility] Eosinophils/100 WBC (Bld) 2.4 % 0-5 [facility] Glucose [Mass/Vol] 117 mg/dL 74-106 [facility] Comment on above: Fasting Glucose resu lt from 100 to 125 mg/dL suggests IMPAIRED HOMEOSTASIS per A.D.A. criteria. Hemoglobin (Bld) [Mass/Vol] 12.8 g/dL 12.0-15.0 [facility] Monocytes/100 WBC (Bld) 10.8 % 0-10 [facility] Neutrophils (Bld) [#/Vol] 7.1 10*3/uL 2.0-7.7 [facility] Neutrophils/100 WBC (Bld) 72.1 % 47-70 [facility] Potassium [Moles/Vol] 3.6 mmol/L 3.5-5.1 [facility] Sodium [Moles/Vol] 140 mmol/L 136-145 [facility] WBC (Bld) [#/Vol] 9.9 10*3/uL 4.4-11.0 [facility] Bilirubin Test strip Ql (U)O rdered By: Jong Goldberg on 06-12-2023 Bilirubin Ql (U) 3 mg/dL Negative [facility] Comment on above: COLOR OF URINE MAY A FFECT DIPSTICK RESULTS. Culture, urineOrdered By: Aretha Goldberg on 06-12-2023 Bacteria identified Cx Nom (U) Mixed Gram Pos & Gram Neg Org [facility] Determination of erythrocyte mean corpuscular volume (MCV)Ordered By: Jong Goldberg on 06-12-2023 MCV (RBC) [Entitic vol] 92.3 fL 81-99 [facility] Erythrocyte distribution wid th ratioOrdered By: Jong Goldberg on 06-12-2023 Erythrocyte distribution width (RBC) [Ratio] 12.9 % 11.6-14.6 [facility] Erythrocyte distribution wid th standard deviationOrdered By: Jong Goldberg on 06-12-2023 Erythrocyte distribution width (RBC) [Entitic vol] 43.7 fL 35.1-43.9 [facility] Hematocrit Auto (Bld) [Volum e fraction]Ordered By: Jong Goldberg on 06-12-2023 Hematocrit (Bld) [Volume fraction] 40.9 % 37-47 [facility] Immature granulocytes/100 WB C Auto (Bld)Ordered By: Jong Goldberg on 06-12-2023 Immature granulocytes/100 WBC (Bld) 0.500 % 0.0-0.9 [facility] Comment on above: IG% - Immature Granu locytes (promyelocytes, myelocytes and metamyelocytes) > 1% indicates that a LEFT SHIFT is Present. Ketones Test strip Ql (U)Ord ered By: Jong Goldberg on 06-12-2023 Ketones Ql (U) Negative Negative [facility] - Chemistry and C hemistry - challengeOrdered By: Jong Goldberg on 06-12-2023 CO2 [Moles/Vol] 29.0 mmol/L 21.0-32.0 [facility] Urea nitrogen/Creatinine [Mass ratio] 14.3 mg/mg 10-20 [facility] - Hematology and Cell countsOrdered By: Jong Goldberg on 06-12-2023 MCH (RBC) [Entitic mass] 28.9 pg 27.0-32.0 [facility] MCHC (RBC) [Mass/Vol] 31.3 g/dL 32-36 [facility] Nucleated RBC/100 WBC (Bld) [Ratio] 0 % 0-5 [facility] Platelet mean volume (Bld) [Entitic vol] 10.6 fL 6.2-12.0 [facility] Platelets (Bld) [#/Vol] 256 10*3/uL 150-450 [facility] Mucus LM Ql (Urine sed)Order ed By: Jong Goldberg on 06-12-2023 Mucus Ql (Urine sed) 0 SEEN /hpf [facility] Nitrite Test strip Ql (U)Ord ered By: Jong Goldberg on 06-12-2023 Nitrite Ql (U) Positive Negative [facility] No Panel InformationOrdered By: Jong Goldberg on 06-12-2023 Urine RBC 0 SEEN /hpf 0-5 [facility] Estimated Creatinine Clearance Calc 51.34 ml/min [facility] Estimated GFR (MDRD) Amer 69 mL/min >60 [facility] Comment on above: GFR Calc Estimated GFR (MDRD) Non-Af Amer 57 mL/min >60 [facility] Comment on above: Non- GFR Calc Protein Test strip Ql (U)Ord ered By: Jong Goldberg on 06-12-2023 Protein Ql (U) Negative Negative [facility] RBC Auto (Bld) [#/Vol]Ordere d By: Jong Goldberg on 06-12-2023 RBC (Bld) [#/Vol] 4.43 10*6/uL 4.2-5.4 [facility] Serum or plasma calcium flex urement (mass/volume)Ordered By: Jong Goldberg on 06-12-2023 Calcium [Mass/Vol] 8.6 mg/dL 8.5-10.1 [facility] Serum or plasma creatinine m easurement (mass/volume)Ordered By: Jong Goldberg on 06-12-2023 Creatinine [Mass/Vol] 1.05 mg/dL 0.55-1.02 [facility] Comment on above: The validity of the calculated GFR & GFRAA in patients over 70 years has not been determined. Clinical correlation is essential. Serum or plasma urea nitroge n measurement (mass/volume)Ordered By: Jong Goldberg on 06-12-2023 Urea nitrogen [Mass/Vol] 15 mg/dL 7-18 [facility] Squamous epithelial cells de tection in urine sediment by light microscopyOrdered By: Jong Goldberg on 06-12-2023 Epithelial cells.squamous LM Ql (Urine sed) 5-10 SEEN /hpf 5-10 [facility] Thin prep Papanicolaou smear with manual screeningOrdered By: Jong Goldberg on 06-12-2023 Thin prep Papanicolaou smear with manual screening 5 5-15 [facility] Urine blood detectionOrdered By: Jong Goldberg on 06-12-2023 RBC Ql (U) 25 /ul Negative [facility] Urine clarityOrdered By: Carmina Goldberg on 06-12-2023 Clarity (U) Sl. Cloudy Clear [facility] Urine color determinationOrd ered By: Jong Goldberg on 06-12-2023 Color (U) Shannan Yellow [facility] Urine glucose detectionOrder ed By: Jong Goldberg on 06-12-2023 Glucose Ql (U) Normal mg/dl Normal [facility] Urine leukocyte esterase det ection by dipstickOrdered By: Jong Goldberg on 06-12-2023 Leukocyte esterase Test strip Ql (U) 100 /ul Negative [facility] Urine pHOrdered By: Jong graham on 06-12-2023 pH (U) 7.0 [pH] 5.0 - 8.0 [facility] Urine sediment bacteria coun t by microscopy (number/high power field)Ordered By: Jong Goldberg on 06-12-2023 Bacteria LM.HPF (Urine sed) [#/Area] 0 /[HPF] None Seen [facility] Urine specific gravity measu rementOrdered By: Jong Goldberg on 06-12-2023 Specific gravity (U) [Rel density] 1.005 1.002-1.030 [facility] Urine urobilinogen measureme ntOrdered By: Jong Goldberg on 06-12-2023 Urobilinogen Ql (U) 4 mg/dl Normal [facility] CNPNon 05-05-2023 [facility] Telephone (URCANT) ALYSSA HERRERA ([id number]) 1965 F T Date Time Provider Department [...] she requested the orders be faxed to [facility] at [phone]. Orders faxed per pt request. US/KUB cancelled at [facility]. Allergies As of Date: 05/05/2023 Noted Allergy Reaction MILK 10/16/2020 16 - Unknown SHELLFISH DERIVED 10/16/2020 10 - Anaphylaxis SHRIMP 10/16/2020 10 - Anaphylaxis Date Reviewed: 04/28/2023 Reviewed by: Caitie Nayak - Fully Assessed Reason for Visit: Appointment [186] Primary Visit Diagnosis:Left nephrolithiasis [N20.0] Order(s):XR ABDOMEN 1V SUPINE [[id number]] Order #: [id number] FUTURE US KIDNEY/BLADDER [[id number]] Order #: [id number] FUTURE Prescriptions as of 05/07/2023 - fluconazole [...] (VITAMIN D3 ORAL) Take by mouth. - gsuforr-xjek-ahfpm-oreg-cap ryl 100 mg-150 mg- 50 mg-150 mg [...] Encounter Status:Closed by BILL SHARP on 05/05/23 [facility] UA DIP, URINE (POC)on 2023 BILIRUBIN UA (POCT) Negative Negative [facility] CLARITY UA (POCT) Clear [facility] COLOR UA (POCT) Yellow [facility] GLUCOSE UA (POCT) Negative Negative mg/dL [facility] Hemoglobin Ql (U) Trace-intact Abnormal Negative [facility] KETONE UA (POCT) Negative Negative mg/dL [facility] LEUKOCYTES UA (POCT) Negative Negative [facility] NITRITE UA (POCT) Negative Negative [facility] PH UA (POCT) 6.0 4.5 - 8.0 [facility] Protein Ql (U) Negative Negative mg/dL [facility] SPECIFIC GRAVITY UA (POCT) >=1.030 1.005 - 1.030 [facility] UROBILINOGEN UA (POCT) 0.2 E.U./dL Lucy l E.U./dL [facility] Urinalysis complete panel (U )on 04-28-2023 Bacteria LM.HPF (Urine sed) [#/Area] Few Abnormal None Seen /HPF [facility] Bilirubin Ql (U) Negative Negative [facility] Clarity (Unsp spec) Clear Clear [facility] Color (U) Yellow Yellow [facility] Epithelial cells LM.HPF (Urine sed) [#/Area] Few [facility] Glucose Test strip (U) [Mass/Vol] Negative Negative [facility] Hemoglobin Ql (U) Trace Abnormal Negative [facility] Ketones Ql (U) Negative Negative [facility] Leukocyte esterase Test strip Ql (U) Negative Negative [facility] Nitrite Ql (U) Negative Negative [facility] pH (U) 6.0 [pH] 5.0 - 8.0 [facility] Protein (U) [Mass/Vol] Negative Negative [facility] RBC LM.HPF (Urine sed) [#/Area] 3-5 /HPF Abnormal 0-3 /HPF [facility] Specific gravity (U) [Rel density] 1.005 - 1.030 [facility] Urobilinogen Ql (U) 0.2 EU/dL 0.2-1.0 EU/dL [facility] WBC LM.HPF (Urine sed) [#/Area] 0-5 /HPF 0-5 /HPF [facility] Basophil percentageOrdered B y: Herber Hogue on 02-12-2023 Testosterone [Mass/Vol] 26 ng/dL 4-50 [facility] Erythrocyte sedimentation ra teOrdered By: Herber Hogue on 02-12-2023 ESR (Bld) [Velocity] 6 mm/h 0-30 [facility] Free testosterone percentage Ordered By: Herber Hogue on 02-12-2023 Testosterone Free/Testosterone.tota l [Mass fraction] 1.61 % 0.50-2.80 [facility] - Chemistry and C hemistry - challengeOrdered By: Herber Hogue on 02-12-2023 Cobalamin (Vitamin B12) [Mass/Vol] 505 pg/mL 211-911 [facility] Free T4 [Mass/Vol] 0.96 ng/dL 0.76-1.46 [facility] No Panel InformationOrdered By: Herber Hogue on 02-12-2023 Free Triiodothyronine (T3) pg/dL 3.2 pg/mL 2.18-3.98 [facility] Thyroid Stimulating Hormone (TSH) 1.74 uIU/mL 0.358-3.74 [facility] Vitamin D 25-Hydroxy 41.3 ng/mL [facility] Comment on above: Vitamin D 25(OH) Sta tus Range Deficiency <20 ng/mL (50nmol/L) Insufficiency 20 - 30 ng/mL (50 - 75 nmol/L) Sufficiency 30 - 100 ng/mL (75 - 250 nmol/L) Toxicity >100 ng/mL (>250 nmol/L) Serum or plasma C reactive p rotein measurement (mass/volume)Ordered By: Herber Hogue on 02-12-2023 CRP [Mass/Vol] 6.95 mg/L 0.0-3.0 [facility] Comment on above: C-Reactive Protein ( CRP) provides useful information for thediagnosis, therapy and monitoring of inflammatory processesand associated diseases. For the evaluation of Relative Riskfor Cardiovascular Disease, a High Sensitivity CRP (HSCRP)should be ordered. Serum or plasma cortisol carmita surement (mass/volume)Ordered By: Herber Hogue on 02-12-2023 Cortisol [Mass/Vol] 11.60 ug/dL 3.44-22.45 [facility] Comment on above: Adult (AM) 5.27 - 22 .45 ug/dL Adult (PM) 3.44 - 16.76 ug/dLPlease note revised CORTISOL reference range effective 2019. Serum or plasma estrogen carmita surement (mass/volume)Ordered By: Herber Hogue on 02-12-2023 Estrogen [Mass/Vol] 46 pg/mL 40-244 [facility] Comment on above: Prepubertal < 40 Fem kathleen Cycle: 1-10 Days 16 - 328 11-20 Days 34 - 501 21-30 Days 48 - 350 Post-Menopausal 40 - 244Performed at: [facility] [address] [id number] Director: Venancio Merino PhD, Phone: [phone] at: - [facility] [id number] Director: Domi Miller MD, Phone: [phone] Serum or plasma progesterone measurement (mass/volume)Ordered By: Herber Hogue on 02-12-2023 Progesterone [Mass/Vol] 0.41 ng/mL See Comment [facility] Comment on above: Progesterone Referen ce Table: [...] 02-12-2023 Testosterone Free [Mass/Vol] 0.42 ng/dL 0.10-0.85 [facility] Whole blood hemoglobin A1c/t otal hemoglobin ratio (mass fraction)Ordered By: Herber Hogue on 02-12-2023 HbA1c (Bld) [Mass fraction] 5.5 % 3.8-5.6 [facility] Comment on above: Normal < 5.7 % Predi abetic 5.7 - 6.4 % Diabetic >or= 6.5 % Please note range changes. Absolute lymphocyte countOrd ered By: HEALTH ASSESSMENT on 01-01-2023 Lymphocytes Auto (Unsp spec) [#/Vol] 1.74 10*3/uL 0.83-4.51 [facility] Absolute reticulocyte countO rdered By: HEALTH ASSESSMENT on 01-01-2023 Reticulocytes (Bld) [#/Vol] 0.00 10*3/uL 0-5 [facility] Basophil percentageOrdered B y: HEALTH ASSESSMENT on 01-01-2023 Basophil percentage 4.4 mg/dL 2.5-4.9 [facility] [facility] Bilirubin [Mass/Vol] 0.70 mg/dL 0.20-1.00 [facility] Comment on above: For patients on eltr ombopag therapy, use of Dimension [place] TBIL is not recommended. Chloride [Moles/Vol] 107 mmol/L 98-107 [facility] Cholesterol [Mass/Vol] 234 mg/dL <200 [facility] Comment on above: <200 mg/dL Desirable 200-240 mg/dL Borderline >240 mg/dL High Risk Glucose [Mass/Vol] 109 mg/dL 74-106 [facility] Comment on above: Fasting Glucose resu lt from 100 to 125 mg/dL suggests IMPAIRED HOMEOSTASIS per A.D.A. criteria. LDH [Catalytic activity/Vol] 207 U/L 84-246 [facility] Neutrophils (Bld) [#/Vol] 2.9 10*3/uL 2.0-7.7 [facility] Potassium [Moles/Vol] 3.9 mmol/L 3.5-5.1 [facility] Protein [Mass/Vol] 7.2 g/dL 6.4-8.2 [facility] Sodium [Moles/Vol] 139 mmol/L 136-145 [facility] Triglyceride [Mass/Vol] 114 mg/dL <199 [facility] Comment on above: The drugs N-Acetylcy steine and Metamizole may falsely depress this assay.Serum Triglycerides Reference Interval Normal <150 mg/dL Borderline high 150 - 199 mg/dL High 200 - 499 mg/dL Very High > or = 500 mg/dL WBC (Bld) [#/Vol] 5.6 10*3/uL 4.4-11.0 [facility] Bilirubin Test strip Ql (U)O rdered By: HEALTH ASSESSMENT on 01-01-2023 Bilirubin Ql (U) Negative Negative [facility] Blood erythrocytes count (nu mber/volume)Ordered By: HEALTH ASSESSMENT on 01-01-2023 RBC (Bld) [#/Vol] 4.79 10*6/uL 4.2-5.4 [facility] Blood hemoglobin measurement (mass/volume)Ordered By: HEALTH ASSESSMENT on 01-01-2023 Hemoglobin (Bld) [Mass/Vol] 14.1 g/dL 12.0-15.0 [facility] Blood platelet mean volumeOr dered By: HEALTH ASSESSMENT on 01-01-2023 Platelet mean volume (Bld) [Entitic vol] 10.9 fL 6.2-12.0 [facility] Determination of erythrocyte mean corpuscular volume (MCV)Ordered By: HEALTH ASSESSMENT on 01-01-2023 MCV (RBC) [Entitic vol] 93.9 fL 81-99 [facility] Direct bilirubinOrdered By: HEALTH ASSESSMENT on 01-01-2023 Bilirubin.direct [Mass/Vol] 0.18 mg/dL 0.00-0.30 [facility] Hematocrit Auto (Bld) [Volum e fraction]Ordered By: HEALTH ASSESSMENT on 01-01-2023 Hematocrit (Bld) [Volume fraction] 45.0 % 37-47 [facility] Ketones Test strip Ql (U)Ord ered By: HEALTH ASSESSMENT on 01-01-2023 Ketones Ql (U) Negative Negative [facility] Laboratory - Chemistry and C hemistry - challengeOrdered By: HEALTH ASSESSMENT on 01-01-2023 ALP [Catalytic activity/Vol] 75 U/L 45-117 [facility] ALT [Catalytic activity/Vol] 20 U/L 13-56 [facility] Cholesterol.total/Chol esterol in HDL [Mass ratio] 3.70 {ratio} [facility] CO2 [Moles/Vol] 30.0 mmol/L 21.0-32.0 [facility] Globulin (S) [Mass/Vol] 3.2 g/dL 2.2-4.2 [facility] Urea nitrogen/Creatinine [Mass ratio] 17.2 mg/mg 10-20 [facility] Laboratory - Hematology and Cell countsOrdered By: HEALTH ASSESSMENT on 01-01-2023 Erythrocyte distribution width (RBC) [Entitic vol] 43.9 fL 35.1-43.9 [facility] Erythrocyte distribution width (RBC) [Ratio] 12.7 % 11.6-14.6 [facility] MCH (RBC) [Entitic mass] 29.4 pg 27.0-32.0 [facility] Nucleated RBC/100 WBC (Bld) [Ratio] 0 % 0-5 [facility] MCHC Auto (RBC) [Mass/Vol]Or dered By: HEALTH ASSESSMENT on 01-01-2023 MCHC (RBC) [Mass/Vol] 31.3 g/dL 32-36 [facility] Nitrite Test strip Ql (U)Ord ered By: HEALTH ASSESSMENT on 01-01-2023 Nitrite Ql (U) Negative Negative [facility] No Panel InformationOrdered By: HEALTH ASSESSMENT on 01-01-2023 Estimated GFR (MDRD) Amer 101 mL/min >60 [facility] Comment on above: GFR Calc Estimated GFR (MDRD) Non-Af Amer 84 mL/min >60 [facility] Comment on above: Non- GFR Calc Platelets bldOrdered By: RM LT ASSESSMENT on 01-01-2023 Platelets (Bld) [#/Vol] 287 10*3/uL 150-450 [facility] Protein Test strip Ql (U)Ord ered By: HEALTH ASSESSMENT on 01-01-2023 Protein Ql (U) Negative Negative [facility] Segmented neutrophils/100 WB C Auto (Bld)Ordered By: HEALTH ASSESSMENT on 01-01-2023 Segmented neutrophils/100 WBC (Bld) 51.3 % 47-70 [facility] Serum or plasma albumin flex urement (mass/volume)Ordered By: HEALTH ASSESSMENT on 01-01-2023 Albumin [Mass/Vol] 4.0 g/dL 3.2-5.0 [facility] Serum or plasma albumin/glob ulin mass ratioOrdered By: HEALTH ASSESSMENT on 01-01-2023 Albumin/Globulin [Mass ratio] 1.2 {ratio} 0.9-2.4 [facility] Serum or plasma calcium flex urement (mass/volume)Ordered By: HEALTH ASSESSMENT on 01-01-2023 Calcium [Mass/Vol] 9.4 mg/dL 8.5-10.1 [facility] Serum or plasma cholesterol in HDL measurement (mass/volume)Ordered By: HEALTH ASSESSMENT on 01-01-2023 Cholesterol in HDL [Mass/Vol] 63 mg/dL >40 [facility] Comment on above: The drugs N-Acetylcy steine and Metamizole may falsely depress this assay. Reference Range HDL <40 mg/dL Low HDL Cholesterol HDL >or= 60 mg/dL High HDL Cholesterol Serum or plasma cholesterol in VLDL measurement (mass/volume)Ordered By: HEALTH ASSESSMENT on 01-01-2023 Cholesterol in VLDL [Mass/Vol] 23 mg/dL 5-40 [facility] Serum or plasma creatinine m easurement (mass/volume)Ordered By: HEALTH ASSESSMENT on 01-01-2023 Creatinine [Mass/Vol] 0.75 mg/dL 0.55-1.02 [facility] Comment on above: The validity of the calculated GFR & GFRAA in patients over 70 years has not been determined. Clinical correlation is essential. Serum or plasma low density lipoprotein (LDL) cholesterol measurement (mass/volume)Ordered By: HEALTH ASSESSMENT on 01-01-2023 Cholesterol in LDL [Mass/Vol] 148 mg/dL 0-130 [facility] Serum or plasma urea nitroge n measurement (mass/volume)Ordered By: HEALTH ASSESSMENT on 01-01-2023 Urea nitrogen [Mass/Vol] 13 mg/dL 7-18 [facility] Serum or plasma uric acid me asurement (mass/volume)Ordered By: HEALTH ASSESSMENT on 01-01-2023 Urate [Mass/Vol] 5.9 mg/dL 2.6-6.0 [facility] Comment on above: The drugs N-Acetylcy steine and Metamizole may falsely depress this assay. Thin prep Papanicolaou smear with manual screeningOrdered By: HEALTH ASSESSMENT on 01-01-2023 Thin prep Papanicolaou smear with manual screening 16 U/L 15-37 [facility] Thin prep Papanicolaou smear with manual screening 2 5-15 [facility] Urine blood detectionOrdered By: HEALTH ASSESSMENT on 01-01-2023 RBC Ql (U) Negative Negative [facility] Urine clarityOrdered By: A LT ASSESSMENT on 01-01-2023 Clarity (U) Clear Clear [facility] Urine color determinationOrd ered By: HEALTH ASSESSMENT on 01-01-2023 Color (U) Yellow Yellow [facility] Urine glucose detectionOrder ed By: HEALTH ASSESSMENT on 01-01-2023 Glucose Ql (U) Normal mg/dl Normal [facility] Urine leukocyte esterase det ection by dipstickOrdered By: HEALTH ASSESSMENT on 01-01-2023 Leukocyte esterase Test strip Ql (U) Negative Negative [facility] Urine pHOrdered By: HEALTH A SSESSMENT on 01-01-2023 pH (U) 7.0 [pH] 5.0 - 8.0 [facility] Urine specific gravity measu rementOrdered By: HEALTH ASSESSMENT on 01-01-2023 Specific gravity (U) [Rel density] 1.010 1.002-1.030 [facility] Urobilinogen Auto test strip Ql (U)Ordered By: HEALTH ASSESSMENT on 01-01-2023 Urobilinogen Ql (U) Normal mg/dl Normal [facility] Laboratory - Chemistry and C hemistry - challengeOrdered By: Dr. Hogue on 04-15-2022 Cobalamin (Vitamin B12) [Mass/Vol] 849 pg/mL 211-911 [facility] No Panel InformationOrdered By: Dr. Hogue on 04-15-2022 Vitamin D 25-Hydroxy 58.4 ng/mL [facility] Comment on above: Vitamin D 25(OH) Sta tus Range Deficiency <20 ng/mL (50nmol/L) Insufficiency 20 - 30 ng/mL (50 - 75 nmol/L) Sufficiency 30 - 100 ng/mL (75 - 250 nmol/L) Toxicity >100 ng/mL (>250 nmol/L) Absolute lymphocyte countOrd ered By: Dr. Hogue on 04-11-2022 Lymphocytes Auto (Unsp spec) [#/Vol] 1.31 10*3/uL 0.83-4.51 [facility] Basophil percentageOrdered B y: Dr. Hogue on 04-11-2022 Basophils/100 WBC (Bld) 0.7 % 0-1 [facility] Bilirubin [Mass/Vol] 0.50 mg/dL 0.20-1.00 [facility] Comment on above: For patients on eltr ombopag therapy, use of Dimension [place] TBIL is not recommended. Chloride [Moles/Vol] 107 mmol/L 98-107 [facility] Eosinophils/100 WBC (Bld) 2.7 % 0-5 [facility] Glucose [Mass/Vol] 82 mg/dL 74-106 [facility] Neutrophils (Bld) [#/Vol] 4.9 10*3/uL 2.0-7.7 [facility] Neutrophils/100 WBC (Bld) 69.0 % 47-70 [facility] Potassium [Moles/Vol] 3.8 mmol/L 3.5-5.1 [facility] Protein [Mass/Vol] 6.9 g/dL 6.4-8.2 [facility] Sodium [Moles/Vol] 143 mmol/L 136-145 [facility] WBC (Bld) [#/Vol] 7.1 10*3/uL 4.4-11.0 [facility] Blood erythrocytes count (nu mber/volume)Ordered By: Dr. Hogue on 04-11-2022 RBC (Bld) [#/Vol] 4.41 10*6/uL 4.2-5.4 [facility] Blood hemoglobin measurement (mass/volume)Ordered By: Dr. Hogue on 04-11-2022 Hemoglobin (Bld) [Mass/Vol] 13.2 g/dL 12.0-15.0 [facility] Blood lymphocytes/100 leukoc ytesOrdered By: Dr. Hogue on 04-11-2022 Lymphocytes/100 WBC (Bld) 18.5 % 19-41 [facility] Blood monocytes/100 leukocyt esOrdered By: Dr. Hogue on 04-11-2022 Monocytes/100 WBC (Bld) 8.7 % 0-10 [facility] Blood platelet mean volumeOr dered By: Dr. Hogue on 04-11-2022 Platelet mean volume (Bld) [Entitic vol] 10.7 fL 6.2-12.0 [facility] Determination of erythrocyte mean corpuscular volume (MCV)Ordered By: Dr. Hogue on 04-11-2022 MCV (RBC) [Entitic vol] 94.3 fL 81-99 [facility] Erythrocyte sedimentation ra teOrdered By: Dr. Hogue on 04-11-2022 ESR (Bld) [Velocity] 6 mm/h 0-30 [facility] Hematocrit Auto (Bld) [Volum e fraction]Ordered By: Dr. Hogue on 04-11-2022 Hematocrit (Bld) [Volume fraction] 41.6 % 37-47 [facility] Iron measurement (mass/mass) Ordered By: Dr. Hogue on 04-11-2022 Iron (Unsp spec) [Mass/Mass] 83 ug/dL 50-170 [facility] Laboratory - Chemistry and C hemistry - challengeOrdered By: Dr. Hogue on 04-11-2022 ALP [Catalytic activity/Vol] 67 U/L 45-117 [facility] ALT [Catalytic activity/Vol] 19 U/L 13-56 [facility] CO2 [Moles/Vol] 31.0 mmol/L 21.0-32.0 [facility] Globulin (S) [Mass/Vol] 3.0 g/dL 2.2-4.2 [facility] Urea nitrogen/Creatinine [Mass ratio] 24.2 mg/mg 10-20 [facility] Laboratory - Hematology and Cell countsOrdered By: Dr. Hogue on 04-11-2022 Erythrocyte distribution width (RBC) [Entitic vol] 43.9 fL 35.1-43.9 [facility] Erythrocyte distribution width (RBC) [Ratio] 12.8 % 11.6-14.6 [facility] Immature granulocytes/100 WBC (Bld) 0.400 % 0.0-0.9 [facility] Comment on above: IG% - Immature Granu locytes (promyelocytes, myelocytes and metamyelocytes) > 1% indicates that a LEFT SHIFT is Present. MCH (RBC) [Entitic mass] 29.9 pg 27.0-32.0 [facility] Nucleated RBC/100 WBC (Bld) [Ratio] 0 % 0-5 [facility] MCHC Auto (RBC) [Mass/Vol]Or dered By: Dr. Hogue on 04-11-2022 MCHC (RBC) [Mass/Vol] 31.7 g/dL 32-36 [facility] No Panel InformationOrdered By: Dr. Hogue on 04-11-2022 Estimated GFR (MDRD) Amer 97 mL/min >60 [facility] Comment on above: GFR Calc Estimated GFR (MDRD) Non-Af Amer 80 mL/min >60 [facility] Comment on above: Non- GFR Calc Total Iron Binding Capacity 368 ug/dL 250-450 [facility] Platelets bldOrdered By: Dr. Hogue on 04-11-2022 Platelets (Bld) [#/Vol] 304 10*3/uL 150-450 [facility] Serum or plasma C reactive p rotein measurement (mass/volume)Ordered By: Dr. Hogue on 04-11-2022 CRP [Mass/Vol] 4.14 mg/L 0.0-3.0 [facility] Comment on above: C-Reactive Protein ( CRP) provides useful information for thediagnosis, therapy and monitoring of inflammatory processesand associated diseases. For the evaluation of Relative Riskfor Cardiovascular Disease, a High Sensitivity CRP (HSCRP)should be ordered. Serum or plasma albumin flex urement (mass/volume)Ordered By: Dr. Hogue on 04-11-2022 Albumin [Mass/Vol] 3.9 g/dL 3.2-5.0 [facility] Serum or plasma albumin/glob ulin mass ratioOrdered By: Dr. Hogue on 04-11-2022 Albumin/Globulin [Mass ratio] 1.3 {ratio} 0.9-2.4 [facility] Serum or plasma calcium flex urement (mass/volume)Ordered By: Dr. Hogue on 04-11-2022 Calcium [Mass/Vol] 9.2 mg/dL 8.5-10.1 [facility] Serum or plasma creatinine m easurement (mass/volume)Ordered By: Dr. Hogue on 04-11-2022 Creatinine [Mass/Vol] 0.78 mg/dL 0.55-1.02 [facility] Comment on above: The validity of the calculated GFR & GFRAA in patients over 70 years has not been determined. Clinical correlation is essential. Serum or plasma ferritin carmita surement (mass/volume)Ordered By: Dr. Hgoue on 04-11-2022 Ferritin [Mass/Vol] 25 ng/mL 8-252 [facility] Serum or plasma iron saturat ion measurement (mass fraction)Ordered By: Dr. Hogue on 04-11-2022 Iron saturation [Mass fraction] 22.6 % 15.0-55.0 [facility] Serum or plasma urea nitroge n measurement (mass/volume)Ordered By: Dr. Hogue on 04-11-2022 Urea nitrogen [Mass/Vol] 19 mg/dL 7-18 [facility] Thin prep Papanicolaou smear with manual screeningOrdered By: Dr. Hogue on 04-11-2022 Thin prep Papanicolaou smear with manual screening 12 U/L 15-37 [facility] Thin prep Papanicolaou smear with manual screening 5 5-15 [facility] Laboratory - Chemistry and C hemistry - challengeon 01-21-2022 Free T4 [Mass/Vol] 0.83 ng/dL 0.76-1.46 [facility] T4 [Mass/Vol] 8.1 ug/dL 4.8-13.9 [facility] No Panel Informationon 01-21 Free Triiodothyronine (T3) pg/dL 2.3 pg/mL 2.18-3.98 [facility] Reverse Triiodothyronine (T3) 12.4 ng/dL 9.2-24.1 [facility] Comment on above: This test was develo ped and its performance characteristicsdetermined by [facility]. It has not been cleared orapproved by the Food and Drug Administration. Thyroglobulin Antibody < 1.0 IU/mL 0.0-0.9 [facility] Comment on above: Thyroglobulin Antibo dy measured by [facility] [employer] Thyroglobulin Level 13.4 ng/mL 1.5-38.5 [facility] Comment on above: According to the [facility],the reference interval for Thyroglobulin (TG) should berelated to euthyroid patients and not for patients whounderwent thyroidectomy. TG reference intervals for thesepatients depend on the residual mass of the thyroid tissueleft after surgery. Establishing a post-operative baselineis recommended. The assay limit of quantitation is 0.1ng/mLThyroglobulin measured by [facility] [place] [employer] Thyroid Stimulating Hormone (TSH) 1.20 uIU/mL 0.358-3.74 [facility] Total Triiodothyronine 0.97 ng/mL 0.6-1.81 [facility] Vitamin D 25-Hydroxy 27.4 ng/mL [facility] Comment on above: Vitamin D 25(OH) Sta tus Range Deficiency <20 ng/mL (50nmol/L) Insufficiency 20 - 30 ng/mL (50 - 75 nmol/L) Sufficiency 30 - 100 ng/mL (75 - 250 nmol/L) Toxicity >100 ng/mL (>250 nmol/L) Serum or plasma ferritin carmita surement (mass/volume)on 01-21-2022 Ferritin [Mass/Vol] 37 ng/mL 8-252 [facility] Serum or plasma thyroperoxid ase antibody assay (units/volume)on 01-21-2022 TPO Ab Qn [IU]/mL 0-34 [facility] Comment on above: Performed at: [facility] - [facility] [address] [id number] Director: Domi Miller MD, Phone: [phone] at: [facility] - [facility] [address] [id number] Director: Venancio Merino PhD, Phone: [phone] Absolute lymphocyte countOrd ered By: HEALTH ASSESSMENT on 01-07-2022 Lymphocytes Auto (Unsp spec) [#/Vol] 1.47 10*3/uL 0.83-4.51 [facility] Absolute reticulocyte countO rdered By: HEALTH ASSESSMENT on 01-07-2022 Reticulocytes (Bld) [#/Vol] 0.00 10*3/uL 0-5 [facility] Basophil percentageOrdered B y: HEALTH ASSESSMENT on 01-07-2022 Basophil percentage 3.5 mg/dL 2.5-4.9 [facility] Bilirubin [Mass/Vol] 0.50 mg/dL 0.20-1.00 [facility] Comment on above: For patients on eltr ombopag therapy, use of Dimension [place] TBIL is not recommended. Chloride [Moles/Vol] 111 mmol/L 98-107 [facility] Cholesterol [Mass/Vol] 209 mg/dL <200 [facility] Comment on above: <200 mg/dL Desirable 200-240 mg/dL Borderline >240 mg/dL High Risk Glucose [Mass/Vol] 101 mg/dL 74-106 [facility] Comment on above: Fasting Glucose resu lt from 100 to 125 mg/dL suggests IMPAIRED HOMEOSTASIS per A.D.A. criteria. Neutrophils (Bld) [#/Vol] 4.7 10*3/uL 2.0-7.7 [facility] Potassium [Moles/Vol] 4.5 mmol/L 3.5-5.1 [facility] Protein [Mass/Vol] 6.7 g/dL 6.4-8.2 [facility] Sodium [Moles/Vol] 142 mmol/L 136-145 [facility] Triglyceride [Mass/Vol] 89 mg/dL <199 [facility] Comment on above: The drugs N-Acetylcy steine and Metamizole may falsely depress this assay.Serum Triglycerides Reference Interval Normal <150 mg/dL Borderline high 150 - 199 mg/dL High 200 - 499 mg/dL Very High > or = 500 mg/dL WBC (Bld) [#/Vol] 7.2 10*3/uL 4.4-11.0 [facility] Blood erythrocytes count (nu mber/volume)Ordered By: HEALTH ASSESSMENT on 01-07-2022 RBC (Bld) [#/Vol] 4.61 10*6/uL 4.2-5.4 [facility] Blood hemoglobin measurement (mass/volume)Ordered By: HEALTH ASSESSMENT on 01-07-2022 Hemoglobin (Bld) [Mass/Vol] 13.7 g/dL 12.0-15.0 [facility] Blood platelet mean volumeOr dered By: HEALTH ASSESSMENT on 01-07-2022 Platelet mean volume (Bld) [Entitic vol] 10.6 fL 6.2-12.0 [facility] Determination of erythrocyte mean corpuscular volume (MCV)Ordered By: HEALTH ASSESSMENT on 01-07-2022 MCV (RBC) [Entitic vol] 92.6 fL 81-99 [facility] Direct bilirubinOrdered By: HEALTH ASSESSMENT on 01-07-2022 Bilirubin.direct [Mass/Vol] 0.15 mg/dL 0.00-0.30 [facility] Hematocrit Auto (Bld) [Volum e fraction]Ordered By: HEALTH ASSESSMENT on 01-07-2022 Hematocrit (Bld) [Volume fraction] 42.7 % 37-47 [facility] Laboratory - Chemistry and C hemistry - challengeOrdered By: HEALTH ASSESSMENT on 01-07-2022 ALP [Catalytic activity/Vol] 67 U/L 45-117 [facility] ALT [Catalytic activity/Vol] 21 U/L 13-56 [facility] Cholesterol.total/Chol esterol in HDL [Mass ratio] 3.60 {ratio} [facility] CO2 [Moles/Vol] 26.0 mmol/L 21.0-32.0 [facility] Globulin (S) [Mass/Vol] 3.1 g/dL 2.2-4.2 [facility] Urea nitrogen/Creatinine [Mass ratio] 18.9 mg/mg 10-20 [facility] Laboratory - Hematology and Cell countsOrdered By: HEALTH ASSESSMENT on 01-07-2022 Erythrocyte distribution width (RBC) [Entitic vol] 42.6 fL 35.1-43.9 [facility] Erythrocyte distribution width (RBC) [Ratio] 12.7 % 11.6-14.6 [facility] MCH (RBC) [Entitic mass] 29.7 pg 27.0-32.0 [facility] Nucleated RBC/100 WBC (Bld) [Ratio] 0 % 0-5 [facility] MCHC Auto (RBC) [Mass/Vol]Or dered By: HEALTH ASSESSMENT on 01-07-2022 MCHC (RBC) [Mass/Vol] 32.1 g/dL 32-36 [facility] No Panel InformationOrdered By: HEALTH ASSESSMENT on 01-07-2022 Estimated GFR (MDRD) Amer 96 mL/min >60 [facility] Comment on above: GFR Calc Estimated GFR (MDRD) Non-Af Amer 79 mL/min >60 [facility] Comment on above: Non- GFR Calc Platelets bldOrdered By: HEA LT ASSESSMENT on 01-07-2022 Platelets (Bld) [#/Vol] 323 10*3/uL 150-450 [facility] Segmented neutrophils/100 WB C Auto (Bld)Ordered By: HEALTH ASSESSMENT on 01-07-2022 Segmented neutrophils/100 WBC (Bld) 65.8 % 47-70 [facility] Serum or plasma albumin flex urement (mass/volume)Ordered By: HEALTH ASSESSMENT on 01-07-2022 Albumin [Mass/Vol] 3.6 g/dL 3.2-5.0 [facility] Serum or plasma albumin/glob ulin mass ratioOrdered By: HEALTH ASSESSMENT on 01-07-2022 Albumin/Globulin [Mass ratio] 1.2 {ratio} 0.9-2.4 [facility] Serum or plasma calcium flex urement (mass/volume)Ordered By: HEALTH ASSESSMENT on 01-07-2022 Calcium [Mass/Vol] 8.8 mg/dL 8.5-10.1 [facility] Serum or plasma cholesterol in HDL measurement (mass/volume)Ordered By: HEALTH ASSESSMENT on 01-07-2022 Cholesterol in HDL [Mass/Vol] 58 mg/dL >40 [facility] Comment on above: The drugs N-Acetylcy steine and Metamizole may falsely depress this assay. Reference Range HDL <40 mg/dL Low HDL Cholesterol HDL >or= 60 mg/dL High HDL Cholesterol Serum or plasma cholesterol in VLDL measurement (mass/volume)Ordered By: HEALTH ASSESSMENT on 01-07-2022 Cholesterol in VLDL [Mass/Vol] 18 mg/dL 5-40 [facility] Serum or plasma creatinine m easurement (mass/volume)Ordered By: HEALTH ASSESSMENT on 01-07-2022 Creatinine [Mass/Vol] 0.79 mg/dL 0.55-1.02 [facility] Comment on above: The validity of the calculated GFR & GFRAA in patients over 70 years has not been determined. Clinical correlation is essential. Serum or plasma low density lipoprotein (LDL) cholesterol measurement (mass/volume)Ordered By: HEALTH ASSESSMENT on 01-07-2022 Cholesterol in LDL [Mass/Vol] 133 mg/dL 0-130 [facility] Serum or plasma urea nitroge n measurement (mass/volume)Ordered By: HEALTH ASSESSMENT on 01-07-2022 Urea nitrogen [Mass/Vol] 15 mg/dL 7-18 [facility] Serum or plasma uric acid me asurement (mass/volume)Ordered By: HEALTH ASSESSMENT on 01-07-2022 Urate [Mass/Vol] 4.8 mg/dL 2.6-6.0 [facility] Comment on above: The drugs N-Acetylcy steine and Metamizole may falsely depress this assay. Thin prep Papanicolaou smear with manual screeningOrdered By: HEALTH ASSESSMENT on 01-07-2022 Thin prep Papanicolaou smear with manual screening 16 U/L 15-37 [facility] Thin prep Papanicolaou smear with manual screening 5 5-15 [facility] Thin prep Papanicolaou smear with manual screening 200 U/L 84-246 [facility] Erythrocyte sedimentation ra gal 08-23-2021 ESR (Bld) [Velocity] 8 mm/h 0-30 [facility] Work Phone: Serum or plasma C reactive p rotein measurement (mass/volume)on 08-23-2021 CRP [Mass/Vol] mg/L 0.0-3.0 [facility] Work Phone: Comment on above: C-Reactive Protein ( CRP) provides useful information for thediagnosis, therapy and monitoring of inflammatory processesand associated diseases. For the evaluation of Relative Riskfor Cardiovascular Disease, a High Sensitivity CRP (HSCRP)should be ordered. Basophil percentageon 2021 Bilirubin [Mass/Vol] 0.30 mg/dL 0.20-1.00 [facility] Work Phone: Comment on above: For patients on eltr ombopag therapy, use of Dimension [place] TBIL is not recommended. Protein [Mass/Vol] 6.9 g/dL 6.4-8.2 [facility] Work Phone: [phone] WBC (Bld) [#/Vol] 6.7 10*3/uL 4.4-11.0 [facility] Work Phone: [phone] Blood erythrocytes count (nu mber/volume)on 07-25-2021 RBC (Bld) [#/Vol] 4.59 10*6/uL 4.2-5.4 [facility] Blood hemoglobin measurement (mass/volume)on 07-25-2021 Hemoglobin (Bld) [Mass/Vol] 13.8 g/dL 12.0-15.0 [facility] Work Phone: Blood platelet mean volumeon 07-25-2021 Platelet mean volume (Bld) [Entitic vol] 10.5 fL 6.2-12.0 [facility] Work Phone: Determination of erythrocyte mean corpuscular volume (MCV)on 07-25-2021 MCV (RBC) [Entitic vol] 95.6 fL 81-99 [facility] Work Phone: Direct bilirubinon 2 Bilirubin.direct [Mass/Vol] 0.08 mg/dL 0.00-0.30 [facility] Work Phone: [phone] Erythrocyte sedimentation ra gal 07-25-2021 ESR (Bld) [Velocity] 4 mm/h 0-30 [facility]: Hematocrit Auto (Bld) [Volum e fraction]on 07-25-2021 Hematocrit (Bld) [Volume fraction] 43.9 % 37-47 [facility] Work Phone: [phone] Laboratory - Chemistry and C hemistry - challengeon 07-25-2021 ALP [Catalytic activity/Vol] 61 U/L 45-117 [facility] Work Phone: ALT [Catalytic activity/Vol] 18 U/L 13-56 [facility] Work Phone: [phone] Globulin (S) [Mass/Vol] 3.2 g/dL 2.2-4.2 [facility] Work Phone: Laboratory - Hematology and Cell countson 07-25-2021 Erythrocyte distribution width (RBC) [Entitic vol] 42.4 fL 35.1-43.9 [facility] Work Phone: Erythrocyte distribution width (RBC) [Ratio] 12.0 % 11.6-14.6 [facility] Work Phone: MCH (RBC) [Entitic mass] 30.1 pg 27.0-32.0 [facility] Work Phone: MCHC Auto (RBC) [Mass/Vol]on 07-25-2021 MCHC (RBC) [Mass/Vol] 31.4 g/dL 32-36 [facility] Work Phone: No Panel Informationon 07-25 Estimated GFR (MDRD) Amer 98 mL/min >60 [facility] Work Phone: Comment on above: GFR Calc Estimated GFR (MDRD) Non-Af Amer 81 mL/min >60 [facility] Work Phone: Comment on above: Non- GFR Calc Hepatitis A IgM Antibody Negative Negative [facility] Work Phone: Hepatitis B Core IgM Antibody Negative Negative [facility] Work Phone: Hepatitis C Antibody (EIA) <0.1 s/co ratio 0.0-0.9 [facility] Work Phone: Hepatitis C Antibody Comment Comment . [facility] Work Phone: Comment on above: NegativeNot infected with HCV, unless recent infection issuspected or other evidence exists to indicate HCVinfection.Performed at: [facility] [address] [id number] Director: Venancio Merino PhD, Phone: [phone] Vitamin D 25-Hydroxy 37.2 ng/mL [facility] Work Phone: Comment on above: Vitamin D 25(OH) Sta tus Range Deficiency <20 ng/mL (50nmol/L) Insufficiency 20 - 30 ng/mL (50 - 75 nmol/L) Sufficiency 30 - 100 ng/mL (75 - 250 nmol/L) Toxicity >100 ng/mL (>250 nmol/L) Platelets bldon 07-25-2021 Platelets (Bld) [#/Vol] 294 10*3/uL 150-450 [facility] Work Phone: Serum or plasma C reactive p rotein measurement (mass/volume)on 07-25-2021 CRP [Mass/Vol] 4.12 mg/L 0.0-3.0 [facility] Work Phone: Comment on above: C-Reactive Protein ( CRP) provides useful information for thediagnosis, therapy and monitoring of inflammatory processesand associated diseases. For the evaluation of Relative Riskfor Cardiovascular Disease, a High Sensitivity CRP (HSCRP)should be ordered. Serum or plasma albumin flex urement (mass/volume)on 07-25-2021 Albumin [Mass/Vol] 3.7 g/dL 3.2-5.0 [facility] Work Phone: Serum or plasma calcium flex urement (mass/volume)on 07-25-2021 Calcium [Mass/Vol] 8.7 mg/dL 8.5-10.1 [facility] Work Phone: Serum or plasma creatinine m easurement (mass/volume)on 07-25-2021 Creatinine [Mass/Vol] 0.78 mg/dL 0.55-1.02 [facility] Work Phone: Comment on above: The validity of the calculated GFR & GFRAA in patients over 70 years has not been determined. Clinical correlation is essential. Serum or plasma hepatitis B virus surface antigen detection by immunoassayon 07-25-2021 HBV surface Ag IA Ql Negative Negative [facility] Work Phone: Thin prep Papanicolaou smear with manual screeningon 07-25-2021 Thin prep Papanicolaou smear with manual screening 14 U/L 15-37 [facility] Work Phone: Vital Signs Date Time Vital Sign Value Performing Clinician Facility 02-18-2024 08:02-0500 Body height 159 cm Abdirizak Alyce ASSEMBLY AND PACKING SUPERVISOR.CLINICAL RN LIAISON Work Phone: [facility] 02-18-2024 08:02-0500 Body mass index (BMI) [Ratio] 25.3 kg/m2 Abdirizak Alyce ASSEMBLY AND PACKING SUPERVISOR.CLINICAL RN LIAISON Work Phone: [facility] 02-18-2024 08:02-0500 Body weight 63.96 kg Abdirizaktrinity Fitchman ASSEMBLY AND PACKING SUPERVISOR.CLINICAL RN LIAISON Work Phone: [facility] 02-18-2024 08:02-0500 Diastolic blood pressure 78 mm[Hg] Abdirizak Alyce ASSEMBLY AND PACKING SUPERVISOR.CLINICAL RN LIAISON Work Phone: [facility] 02-18-2024 08:02-0500 Heart rate 73 /min Abdirizakoren Fitchman ASSEMBLY AND PACKING SUPERVISOR.CLINICAL RN LIAISON Work Phone: [facility] 02-18-2024 08:02-0500 Respiratory rate 14 /min Abdirizak Alyce ASSEMBLY AND PACKING SUPERVISOR.CLINICAL RN LIAISON Work Phone: [facility] 02-18-2024 08:02-0500 SaO2% (BldA) [Mass fraction] 99 % Abdirizak Alyce ASSEMBLY AND PACKING SUPERVISOR.CLINICAL RN LIAISON Work Phone: [facility] 02-18-2024 08:02-0500 Systolic blood pressure 118 mm[Hg] Abdirizaktrinity Fitchman ASSEMBLY AND PACKING SUPERVISOR.CLINICAL RN LIAISON Work Phone: [facility] 06-28-2023 11:25-0400 Body height 157.[address] Herber Hogue Work Phone: [facility] 06-28-2023 11:18-0400 Body mass index (BMI) [Ratio] 26.3 kg/m2 Dr. Herber Hogue Work Phone: [facility] 06-28-2023 11:18-0400 Body weight 65.[address] Herber Hogue Work Phone: [facility] 06-28-2023 11:18-0400 Diastolic blood pressure 84 mm[Hg] Dr. Herber Hogue Work Phone: [facility] 06-28-2023 11:18-0400 Systolic blood pressure 129 mm[Hg] Dr. Herber Hogue Work Phone: [facility] 06-12-2023 19:56-0400 Body temperature 98 [degF] [facility] 06-12-2023 19:56-0400 Diastolic blood pressure 72 mm[Hg] [facility] 06-12-2023 19:56-0400 Heart rate 88 /min [facility] 06-12-2023 19:56-0400 Respiratory rate 16 /min [facility] 06-12-2023 19:56-0400 SaO2% (BldA) [Mass fraction] 94 % [facility] 06-12-2023 19:56-0400 Systolic blood pressure 137 mm[Hg] [facility] 06-12-2023 18:13-0400 Body height 157.48 cm [facility] 06-12-2023 18:13-0400 Body mass index (BMI) [Ratio] 26.5 kg/m2 [facility] 06-12-2023 18:13-0400 Body weight 65.77 kg [facility] 04-28-2023 09:18-0500 Body height 159 cm Bill Yanezanugo DO Work Phone: [facility] 04-28-2023 09:18-0500 Body weight 64.86 kg Bill Swannugo DO Work Phone: [facility] 04-28-2023 09:18-0500 Diastolic blood pressure 75 mm[Hg] Bill Yatesiner Mbanugo DO Work Phone: [facility] 04-28-2023 09:18-0500 Heart rate 78 /min Bill Rodrigues Mbanugo DO Work Phone: [facility] 04-28-2023 09:18-0500 SaO2% (BldA) [Mass fraction] 100 % Bill Rodrigues Mbanugo DO Work Phone: [facility] 04-28-2023 09:18-0500 Systolic blood pressure 115 mm[Hg] Bill Doshio DO Work Phone: [facility] 04-27-2023 10:03-0500 Body temperature 98.01 [degF] Caitie Suppan ASSEMBLY AND PACKING SUPERVISOR.SCRIPT COORDINATOR Work Phone: [facility] 04-27-2023 10:03-0500 Body weight 64.86 kg Caitie Suppan ASSEMBLY AND PACKING SUPERVISOR.SCRIPT COORDINATOR Work Phone: [facility] 04-27-2023 10:03-0500 Diastolic blood pressure 72 mm[Hg] Caitie Suppan ASSEMBLY AND PACKING SUPERVISOR.SCRIPT COORDINATOR Work Phone: [facility] 04-27-2023 10:03-0500 Heart rate 86 /min Caitie Suppan ASSEMBLY AND PACKING SUPERVISOR.SCRIPT COORDINATOR Work Phone: [facility] 04-27-2023 10:03-0500 Respiratory rate 16 /min Caitie Suppan ASSEMBLY AND PACKING SUPERVISOR.SCRIPT COORDINATOR Work Phone: [facility] 04-27-2023 10:03-0500 SaO2% (BldA) [Mass fraction] 98 % Caitie Suppan ASSEMBLY AND PACKING SUPERVISOR.SCRIPT COORDINATOR Work Phone: [facility] 04-27-2023 10:03-0500 Systolic blood pressure 132 mm[Hg] Caitie Suppan ASSEMBLY AND PACKING SUPERVISOR.SCRIPT COORDINATOR Work Phone: [facility] 02-09-2023 08:04-0500 Body height 159 cm Herber Hogue DO Work Phone: [facility] 02-09-2023 08:04-0500 Body temperature 97.59 [degF] Herber Hogue DO Work Phone: [facility] 02-09-2023 08:04-0500 Body weight 65.77 kg Herber Hogue DO Work Phone: [facility] 02-09-2023 08:04-0500 Diastolic blood pressure 74 mm[Hg] Herber Hogue DO Work Phone: [facility] 02-09-2023 08:04-0500 Heart rate 80 /min Herber Hogue DO Work Phone: [facility] 02-09-2023 08:04-0500 Respiratory rate 16 /min Herber Hogue DO Work Phone: [facility] 02-09-2023 08:04-0500 Systolic blood pressure 118 mm[Hg] Herber Hogue DO Work Phone: [facility] 07-01-2022 15:27-0400 Body weight 65.86 kg Abdirizak Alyce ASSEMBLY AND PACKING SUPERVISOR.CLINICAL RN LIAISON Work Phone: [facility] 07-01-2022 15:27-0400 Diastolic blood pressure 82 mm[Hg] Abdirizak Alyce ASSEMBLY AND PACKING SUPERVISOR.CLINICAL RN LIAISON Work Phone: [facility] 07-01-2022 15:27-0400 Heart rate 87 /min Abdirizak Alyce ASSEMBLY AND PACKING SUPERVISOR.CLINICAL RN LIAISON Work Phone: [facility] 07-01-2022 15:27-0400 SaO2% (BldA) [Mass fraction] 97 % Abdirizak Alyce ASSEMBLY AND PACKING SUPERVISOR.CLINICAL RN LIAISON Work Phone: [facility] 07-01-2022 15:27-0400 Systolic blood pressure 124 mm[Hg] Abdirizak Alyce ASSEMBLY AND PACKING SUPERVISOR.CLINICAL RN LIAISON Work Phone: [facility] 04-16-2022 14:49-0500 Body height 156.5 cm Chauncey Man MD, PhD Work Phone: [facility] 04-16-2022 14:49-0500 Body temperature 99.1 [degF] Chauncey Man MD, PhD Work Phone: [facility] 04-16-2022 14:49-0500 Body weight 64.82 kg Chauncey Man MD, PhD Work Phone: [facility] 04-16-2022 14:49-0500 Diastolic blood pressure 65 mm[Hg] Chauncey Man MD, PhD Work Phone: [facility] 04-16-2022 14:49-0500 Heart rate 77 /min Chauncey Man MD, PhD Work Phone: [facility] 04-16-2022 14:49-0500 Systolic blood pressure 133 mm[Hg] Chauncey Man MD, PhD Work Phone: [facility] 01-28-2022 07:45-0500 Body height 156.5 cm Herber Hogue DO Work Phone: [facility] 01-28-2022 07:45-0500 Body temperature 96.69 [degF] Herber Hogue DO Work Phone: [facility] 01-28-2022 07:45-0500 Body weight 63.05 kg Herber Hogue DO Work Phone: [facility] 01-28-2022 07:45-0500 Diastolic blood pressure 60 mm[Hg] Herber Hogue DO Work Phone: [facility] 01-28-2022 07:45-0500 Heart rate 64 /min Herber Hogue DO Work Phone: [facility] 01-28-2022 07:45-0500 Respiratory rate 12 /min Herber Hogue DO Work Phone: [facility] 01-28-2022 07:45-0500 Systolic blood pressure 104 mm[Hg] Herber Hogue DO Work Phone: [facility] 08-19-2021 10:51-0400 Body height 157.5 cm Tigre Amin ASSEMBLY AND PACKING SUPERVISOR.CLINICAL RN LIAISON Work Phone: [facility] 08-19-2021 10:51-0400 Body temperature 97.7 [degF] Tigre Amin ASSEMBLY AND PACKING SUPERVISOR.CLINICAL RN LIAISON Work Phone: [facility] 08-19-2021 10:51-0400 Body weight 63.5 kg Tigre Amin ASSEMBLY AND PACKING SUPERVISOR.CLINICAL RN LIAISON Work Phone: [facility] 08-19-2021 10:51-0400 Diastolic blood pressure 63 mm[Hg] Tigre Amin ASSEMBLY AND PACKING SUPERVISOR.CLINICAL RN LIAISON Work Phone: [facility] 08-19-2021 10:51-0400 Heart rate 87 /min Tigre Amin APRN.CNP Work Phone: [facility] 08-19-2021 10:51-0400 Systolic blood pressure 99 mm[Hg] Tigre Amin APRN.CNP Work Phone: [facility] Encounters Encounter Date Encounter Type Care Provider Facility Start: 01-08-2025 Encounter for genera l adult medical examination without abnormal findings Abdirizak Daniel NP [facility] Start: 01-08-2025 ambulatory Herber Hogue Facilit y:[facility] Start: 01-02-2025 End: 01-02-2025 ambulatory Abdirizak Daniel NP Facility:[facility] Start: 12-28-2024 End: 12-28-2024 ambulatory HERBER L HOGUE Facility:[facility] Start: 12-28-2024 Encounter for genera l adult medical examination without abnormal findings ABDIRIZAK DANIEL [facility] Start: 05-24-2024 End: 05-24-2024 ambulatory Herber Hogue [place] [place]: 04-11-2024 End: 05-12-2024 ambulatory Herber L Hogue DO Work Phone: [facility] Start: 02-20-2024 End: 02-21-2024 ambulatory Abdirizak Daniel APRN.CNP Work Phone: [facility] Comment on above: Antibiotic request Start: 02-18-2024 End: 02-21-2024 Telephone encounter Abdirizak Daniel APRN.CNP Work Phone: [facility] Comment on above: chest xray results Start: 02-18-2024 End: 02-18-2024 ambulatory Brynn uBck RN NURSE MAKE UP EDITOR Comment on above: Results, Lab Start: 02-18-2024 End: 02-18-2024 Office outpatient visit 25 minutes Abdirizak Daniel APRN.CNP Work Phone: [facility] Comment on above: Persistent cough (Pr imary Dx); Productive cough; Hoarseness; Non-recurrent acute serous otitis media of left ear; Acute non-recurrent pansinusitis; Well adult exam; Low TSH level Start: 02-18-2024 End: 02-18-2024 Patient encounter status Abdirizak Daniel ASSEMBLY AND PACKING SUPERVISOR.CLINICAL RN LIAISON Work Phone: [facility] Start: 02-18-2024 End: 02-18-2024 ambulatory Abdirizak Daniel INSTALLATION TECH Facility:[facility] Start: 02-09-2024 ambulatory Herber Hogue Facilit y:[facility] Start: 02-09-2024 End: 02-09-2024 ambulatory Herber Hogue Facility:[facility] Start: 10-12-2023 Telephone encounter Abdirizak Rae ASSEMBLY AND PACKING SUPERVISOR.CLINICAL RN LIAISON Work Phone: [facility] Comment on above: Results Start: 06-28-2023 End: 06-28-[address] Herber Hogue Work Phone: [facility] Work Phone: Start: 06-28-2023 End: 06-28-[address] Herber Hogue Work Phone: [facility]-Laboratory, Specimen Work Phone: Start: 06-28-[address] Herber Hogue Work Phone: [facility] Start: 06-28-2023 End: 06-28-[address] Herber Hogue Work Phone: [facility] Start: 06-12-2023 End: 06-12-2023 Emergency department patient visit [facility]-Emergency Department Work Phone: Start: 05-12-2023 End: 05-12-2023 ambulatory [facility] Work Phone: Start: 05-12-2023 End: 05-12-2023 Patient encounter procedure [facility]-Ultrasound, [facility] Work Phone: Start: 05-07-2023 Refill Herber carballo DO Work Phone: [facility] Start: 05-05-2023 Telephone encounter Bill Mcmillan DO Work Phone: Urology Start: 04-29-2023 Telephone encounter Bill mclaughlin Mbanugo DO Work Phone: [facility] Urology Start: 04-28-2023 ambulatory Bill marie Mbanugo DO Work Phone: [facility] Comment on above: Ciprofloxacin Start: 04-28-2023 Telephone encounter Bill mclaughlin Mbanugo DO Work Phone: [facility] Urology Start: 04-28-2023 End: 04-28-2023 Office consultation new/estab patient 60 min Bill Rodrigues Mbanugo DO Work Phone: [facility] Comment on above: Left ureteral stone (Primary Dx); Hydronephrosis of left kidney; Microscopic hematuria Start: 04-27-2023 End: 04-27-2023 Office outpatient visit 15 minutes Caitie Blake APRN.SCRIPT COORDINATOR Work Phone: [facility] Comment on above: Nephrolithiasis (Beba dagmar Dx); Left ureteral stone Start: 04-26-2023 Telephone encounter Abdirizak Rae APRN.CLINICAL RN LIAISON Work Phone: [facility] Comment on above: Results stat orders Start: 04-26-2023 End: 04-26-2023 ambulatory [facility] Work Phone: Start: 04-26-2023 End: 04-26-2023 Patient encounter procedure [facility]-Cat Scan, [facility] Work Phone: Start: 04-14-2023 Telephone encounter Herber ding DO Work Phone: [facility] Comment on above: Results Start: 03-08-2023 End: 03-08-2023 ambulatory [facility] Work Phone: Start: 03-08-2023 End: 03-08-2023 Patient encounter procedure [facility]-Outpatient Breast Imaging Work Phone: Start: 02-26-2023 Telephone encounter Herber ding DO Work Phone: [facility] Comment on above: Results Start: 02-12-2023 End: 02-12-2023 ambulatory [facility] Work Phone: Start: 02-12-2023 End: 02-12-2023 Patient encounter procedure [facility]-Laboratory Work Phone: Start: 02-09-2023 End: 02-09-2023 Patient encounter procedure Herber Hogue DO Work Phone: [facility] Comment on above: Well adult exam (Beba dagmar Dx); Candidosis of skin; Rash of face; Vitamin D deficiency; PMR (polymyalgia rheumatica) (HCC); Hyperglycemia; Fatigue, unspecified type; Menopause; Screening for colon cancer; Encounter for screening mammogram for malignant neoplasm of breast; Thyroid nodule Start: 02-09-2023 End: 02-09-2023 Patient encounter status Herber Hogue DO Work Phone: [facility] Work Phone: Start: 01-01-[address] [facility] Start: 09-02-2022 ambulatory Herber Kaiser haris DO Work Phone: [facility] Start: 07-10-2022 Telephone encounter Herber ding DO Work Phone: [facility] Comment on above: Patient Update Start: 07-08-2022 ambulatory Abdirizak wiley ASSEMBLY AND PACKING SUPERVISOR.CLINICAL RN LIAISON Work Phone: [facility] Comment on above: Dorota type rash Start: 07-01-2022 End: 07-01-2022 Patient encounter procedure Abdirizak Daniel ASSEMBLY AND PACKING SUPERVISOR.CLINICAL RN LIAISON Work Phone: [facility] Comment on above: Candidosis of skin ( Primary Dx); Rash of face Start: 04-16-2022 End: 04-16-2022 Patient encounter procedure Chauncey Man MD, PhD Work Phone: Rheumatology Comment on above: Myalgia (Primary Dx) ; Disturbance in sleep behavior Start: 04-15-2022 Patient encounter procedure [facility]-Laboratory Start: 04-13-2022 Telephone encounter Herber ding DO Work Phone: [facility] Comment on above: Results Start: 04-11-2022 End: 04-11-2022 ambulatory [facility] Work Phone: Start: 04-11-2022 End: 04-11-2022 Patient encounter procedure [facility]Laboratory Start: 04-08-2022 Telephone encounter Herber ding DO Work Phone: [facility] Comment on above: Lab orders and medic ation question Start: 01-28-2022 End: 01-28-2022 Patient encounter procedure Herber Jonas Hogue DO Work Phone: [facility] Comment on above: Well adult exam (Beba dagmar Dx); Vitamin D deficiency; Fatigue, unspecified type; On prednisone therapy; PMR (polymyalgia rheumatica) ([facility]); Screening for osteoporosis; Thyroid nodule; Varicose veins of both lower extremities with pain Start: 01-28-2022 End: 01-28-2022 Patient encounter status Herber Hogue DO Work Phone: [facility] Start: 01-21-2022 End: 01-21-2022 ambulatory [facility] Work Phone: Start: 01-21-2022 End: 01-21-2022 Patient encounter procedure [facility]-Laboratory, Specimen Start: 01-07-[address] [facility] Start: 10-01-2021 ambulatory Herber Arellanooscar carballo DO Work Phone: [facility] Start: 08-25-2021 Chart abstracting Tigre winchester APRN.CLINICAL RN LIAISON Work Phone: Rheumatology Start: 08-25-2021 Telephone encounter Tigre mclaughlin APRN.CLINICAL RN LIAISON Work Phone: Rheumatology Comment on above: Results Start: 08-23-2021 End: 08-23-2021 Patient encounter procedure [facility]Laboratory Start: 08-19-2021 End: 08-19-2021 Patient encounter procedure Tigre Amin ASSEMBLY AND PACKING SUPERVISOR.CLINICAL RN LIAISON Work Phone: Rheumatology Comment on above: PMR (polymyalgia rhe umatica) (HCC) (Primary Dx); intermediate current use of systemic steroids Start: 07-25-2021 Chart abstracting Echo Tripathi i, MD Work Phone: Rheumatology Comment on above: Outside Lab Results Start: 07-25-2021 Telephone encounter Echo Navarro MD Work Phone: Rheumatology Comment on above: Results Start: 07-25-2021 End: 07-25-2021 Patient encounter procedure [facility]Labor[facility] Procedures Date Procedure Procedure Detail Performing Clinician Start: 06-12-2023 CT of abdomen and pe lvis without contrast Start: 06-12-[address] Eulalio Hogue Work Phone: Start: 05-12-2023 Diagnostic radiograp hy of abdomen Start: 05-12-2023 US urinary tract Start: 04-28-2023 Urnls dip stick/tabl et reagent auto microscopy [facility] Work Phone: Start: 04-28-2023 Urnls dip stick/tabl et rgnt auto w/o microscopy [facility] Work Phone: Start: 04-26-2023 Computed tomography of abdomen and pelvis with contrast Start: 03-08-2023 US scan of thyroid Start: 03-08-2023 Screening mammography Start: 11-27-2020 Adult depression scr eening assessment Echo Vines MD Work Phone: Plan of Treatment Date Care Activity Detail Author Start: 04-02-2026 Screening for malign ant neoplasm of colon [facility] Start: 03-08-2024 Screening for malign ant neoplasm of breast Mammogram Screening [facility] Start: 02-10-2024 Covid-19 Vaccine () Covid-19 Vaccine () [facility] Comment on above: Postponed from 10/30 (Declined at this time) Start: 10-31-2023 Covid-19 Vaccine (3 - 2024-25 season) Covid-19 Vaccine ( season) [facility] Start: 10-31-2023 Influenza vaccination [facility] Start: 08-29-2023 Influenza vaccination Influenza Vacc ine (#1) [facility] Comment on above: Postponed from 10/30 (Declined at this time) Start: 06-28-2023 Patient referral [facility] Work Phone: Start: 06-28-2023 Liquid based cervica l cytology screening [facility] Start: 06-12-2023 End: 06-12-2023 [facility] Start: 06-12-2023 Bacteria identified in Urine by Culture [facility] Start: 03-01-2023 Behavioral Health Screening Behavioral Health Screening [facility] Start: 03-01-2023 Depression Assessment Depression Ass essment [facility] Start: 02-09-2023 End: 05-11-2023 25-hydroxyvitamin D3 [Mass/volume] in Serum or Plasma VITAMIN D 25 HYDROXY Lab Routine Vitamin D deficiency Well adult exam Fatigue, unspecified type Expected: 02/09/2023, Expires: 05/11/2023 [facility] Work Phone: Comment on above: Expected: 02/09/2023 , Expires: 05/11/2023 Start: 02-09-2023 End: 05-11-2023 C reactive protein [Mass/volume] in Serum or Plasma C-REACTIVE PROTEIN (CRP) Lab Routine PMR (polymyalgia rheumatica) (HCC) Well adult exam Expected: 02/09/2023, Expires: 05/11/2023 [facility] Work Phone: Comment on above: Expected: 02/09/2023 , Expires: 05/11/2023 Start: 02-09-2023 End: 05-11-2023 Cobalamin (Vitamin B12) [Mass/volume] in Serum or Plasma VITAMIN B12 BLOOD Lab Routine Well adult exam Fatigue, unspecified type Expected: 02/09/2023, Expires: 05/11/2023 [facility] Work Phone: Comment on above: Expected: 02/09/2023 , Expires: 05/11/2023 Start: 02-09-2023 End: 05-11-2023 Cortisol [Mass/volume] in Serum or Plasma CORTISOL BLD Lab Routine Well adult exam Fatigue, unspecified type Expected: 02/09/2023, Expires: 05/11/2023 [facility] Work Phone: Comment on above: Expected: 02/09/2023 , Expires: 05/11/2023 Start: 02-09-2023 End: 05-11-2023 Erythrocyte sedimentation rate SED RATE WESTERGREN Lab Routine PMR (polymyalgia rheumatica) ([facility]) Well adult exam Expected: 02/09/2023, Expires: 05/11/2023 [facility] Work Phone: Comment on above: Expected: 02/09/2023 , Expires: 05/11/2023 Start: 02-09-2023 End: 05-11-2023 ESTROGEN FRACTION BL ESTROGEN FRACTION BL Lab Routine Well adult exam Menopause Expected: 02/09/2023, Expires: 05/11/2023 [facility] Work Phone: Comment on above: Expected: 02/09/2023 , Expires: 05/11/2023 Start: 02-09-2023 End: 05-11-2023 Hemoglobin A1c in Blood HGB A1C Lab Routine Well adult exam Hyperglycemia Expected: 02/09/2023, Expires: 05/11/2023 [facility] Work Phone: Comment on above: Expected: 02/09/2023 , Expires: 05/11/2023 Start: 02-09-2023 End: 05-11-2023 Progesterone [Mass/volume] in Serum or Plasma PROGESTERONE BLD Lab Routine Well adult exam Menopause Expected: 02/09/2023, Expires: 05/11/2023 [facility] Work Phone: Comment on above: Expected: 02/09/2023 , Expires: 05/11/2023 Start: 02-09-2023 End: 05-11-2023 TESTOSTERONE, FREE AND TOTAL TESTOSTERONE, FREE AND TOTAL Lab Routine Well adult exam Menopause Expected: 02/09/2023, Expires: 05/11/2023 [facility] Work Phone: Comment on above: Expected: 02/09/2023 , Expires: 05/11/2023 Start: 02-09-2023 End: 05-11-2023 Thyrotropin [Units/volume] in Serum or Plasma TSH BLD Lab Routine Well adult exam Expected: 02/09/2023, Expires: 05/11/2023 [facility] Work Phone: Comment on above: Expected: 02/09/2023 , Expires: 05/11/2023 Start: 02-09-2023 End: 05-11-2023 Thyroxine (T4) free [Mass/volume] in Serum or Plasma T4 FREE/FREE THYROX Lab Routine Well adult exam Expected: 02/09/2023, Expires: 05/11/2023 [facility] Work Phone: Comment on above: Expected: 02/09/2023 , Expires: 05/11/2023 Start: 02-09-2023 End: 05-11-2023 Triiodothyronine (T3) Free [Mass/volume] in Serum or Plasma T3 FREE BLD Lab Routine Well adult exam Expected: 02/09/2023, Expires: 05/11/2023 [facility] Work Phone: Comment on above: Expected: 02/09/2023 , Expires: 05/11/2023 Start: 10-30-2022 Influenza vaccination INFLUENZA (#1) [facility] Start: 04-10-2022 End: 06-10-2022 25-hydroxyvitamin D3 [Mass/volume] in Serum or Plasma VITAMIN D 25 HYDROXY Lab Routine Vitamin D deficiency Fatigue, unspecified type PMR (polymyalgia rheumatica) ([facility]) Expected: 04/10/2022, Expires: 06/10/2022 [facility] Work Phone: Comment on above: Expected: 04/10/2022 , Expires: 06/10/2022 Start: 04-10-2022 End: 06-10-2022 C reactive protein [Mass/volume] in Serum or Plasma C-REACTIVE PROTEIN (CRP) Lab Routine Fatigue, unspecified type PMR (polymyalgia rheumatica) (HCC) Expected: 04/10/2022, Expires: 06/10/2022 [facility] Work Phone: Comment on above: Expected: 04/10/2022 , Expires: 06/10/2022 Start: 04-10-2022 End: 06-10-2022 CBC W Auto Differential panel - Blood CBC + DIFF Lab Routine Fatigue, unspecified type On prednisone therapy Expected: 04/10/2022, Expires: 06/10/2022 [facility] Work Phone: Comment on above: Expected: 04/10/2022 , Expires: 06/10/2022 Start: 04-10-2022 End: 06-10-2022 Cobalamin (Vitamin B12) [Mass/volume] in Serum or Plasma VITAMIN B12 BLOOD Lab Routine Fatigue, unspecified type On prednisone therapy PMR (polymyalgia rheumatica) (HCC) Expected: 04/10/2022, Expires: 06/10/2022 [facility] Work Phone: Comment on above: Expected: 04/10/2022 , Expires: 06/10/2022 Start: 04-10-2022 End: 06-10-2022 Comprehensive metabolic 2000 panel - Serum or Plasma COMP METABOLIC PANEL Lab Routine Fatigue, unspecified type On prednisone therapy Expected: 04/10/2022, Expires: 06/10/2022 [facility] Work Phone: Comment on above: Expected: 04/10/2022 , Expires: 06/10/2022 Start: 04-10-2022 End: 06-10-2022 Erythrocyte sedimentation rate SED RATE WESTERGREN Lab Routine Fatigue, unspecified type On prednisone therapy PMR (polymyalgia rheumatica) (HCC) Expected: 04/10/2022, Expires: 06/10/2022 [facility] Work Phone: Comment on above: Expected: 04/10/2022 , Expires: 06/10/2022 Start: 04-10-2022 End: 06-10-2022 Ferritin [Mass/volume] in Serum or Plasma FERRITIN BLD Lab Routine PMR (polymyalgia rheumatica) (HCC) Expected: 04/10/2022, Expires: 06/10/2022 [facility] Work Phone: Comment on above: Expected: 04/10/2022 , Expires: 06/10/2022 Start: 04-10-2022 End: 06-10-2022 Iron and Iron binding capacity panel - Serum or Plasma IRON + TIBC Lab Routine Fatigue, unspecified type PMR (polymyalgia rheumatica) (HCC) Expected: 04/10/2022, Expires: 06/10/2022 [facility] Work Phone: Comment on above: Expected: 04/10/2022 , Expires: 06/10/2022 Start: 03-01-2022 DEPRESSION ASSESSMENT DEPRESSION ASS ESSMENT [facility] Start: 01-28-2022 End: 03-30-2022 25-hydroxyvitamin D3 [Mass/volume] in Serum or Plasma VITAMIN D 25 HYDROXY Lab Routine Vitamin D deficiency Fatigue, unspecified type PMR (polymyalgia rheumatica) ([facility]) Expected: 01/28/2022, Expires: 03/30/2022 [facility] Work Phone: Comment on above: Expected: 01/28/2022 , Expires: 03/30/2022 Start: 01-28-2022 End: 03-30-2022 C reactive protein [Mass/volume] in Serum or Plasma C-REACTIVE PROTEIN (CRP) Lab Routine Fatigue, unspecified type On prednisone therapy PMR (polymyalgia rheumatica) (HCC) Expected: 01/28/2022, Expires: 03/30/2022 [facility] Work Phone: Comment on above: Expected: 01/28/2022 , Expires: 03/30/2022 Start: 01-28-2022 End: 03-30-2022 Cobalamin (Vitamin B12) [Mass/volume] in Serum or Plasma VITAMIN B12 BLOOD Lab Routine Fatigue, unspecified type PMR (polymyalgia rheumatica) (HCC) Expected: 01/28/2022, Expires: 03/30/2022 [facility] Work Phone: Comment on above: Expected: 01/28/2022 , Expires: 03/30/2022 Start: 01-28-2022 End: 03-30-2022 Erythrocyte sedimentation rate SED RATE WESTERGREN Lab Routine Fatigue, unspecified type On prednisone therapy PMR (polymyalgia rheumatica) (HCC) Expected: 01/28/2022, Expires: 03/30/2022 [facility] Work Phone: Comment on above: Expected: 01/28/2022 , Expires: 03/30/2022 Start: 01-28-2022 End: 03-30-2022 Ferritin [Mass/volume] in Serum or Plasma FERRITIN BLD Lab Routine Fatigue, unspecified type PMR (polymyalgia rheumatica) (HCC) Expected: 01/28/2022, Expires: 03/30/2022 [facility] Work Phone: Comment on above: Expected: 01/28/2022 , Expires: 03/30/2022 Start: 01-28-2022 End: 03-30-2022 Iron and Iron binding capacity panel - Serum or Plasma IRON + TIBC Lab Routine Fatigue, unspecified type PMR (polymyalgia rheumatica) (HCC) Expected: 01/28/2022, Expires: 03/30/2022 [facility] Work Phone: Comment on above: Expected: 01/28/2022 , Expires: 03/30/2022 Start: 11-27-2021 Adult depression screening assessment DEPRESSION SCREENING [facility] Start: 10-30-2021 Influenza vaccination INFLUENZA (#1) [facility] Start: 08-19-2021 End: 10-19-2021 C reactive protein [Mass/volume] in Serum or Plasma C-REACTIVE PROTEIN (CRP) Lab Routine PMR (polymyalgia rheumatica) (HCC) Expected: 08/19/2021 (Approximate), Expires: 10/19/2021 [facility] Work Phone: Comment on above: Expected: 08/19/2021 (Approximate), Expires: 10/19/2021 Start: 08-19-2021 End: 10-19-2021 Erythrocyte sedimentation rate SED RATE WESTERGREN Lab Routine PMR (polymyalgia rheumatica) (HCC) Expected: 08/19/2021 (Approximate), Expires: 10/19/2021 [facility] Work Phone: Comment on above: Expected: 08/19/2021 (Approximate), Expires: 10/19/2021 Start: 03-01-2021 DEPRESSION ASSESSMENT DEPRESSION ASS ESSMENT [facility] Start: 08-29-2020 COVID-19 VACCINE (3 - Booster for Moderna series) COVID-19 VACCINE (3 - Booster for Moderna series) [facility] Start: 05-27-2020 COVID-19 VACCINE (3 - Booster for Moderna series) COVID-19 VACCINE (3 - Booster for Moderna series) [facility] Start: 05-27-2020 COVID-19 VACCINE (3 - Moderna series) COVID-19 VACCINE (3 - Moderna series) [facility] Start: 2014 Pneumococcal Vaccine : 50+ (1 of 1 - PCV) Pneumococcal Vaccine: 50+ (1 of 1 - PCV) [facility] Start: 2014 SHINGRIX VACCINE (1 of 2) DAWN GRIX VACCINE (1 of 2) [facility] Start: 2009 COLOGUARD (FIT-DNA) COLOGUARD (FIT-D NA) [facility] Start: 2009 Colonoscopy COLONOSCOPY [facility] Start: 2009 COLORECTAL CANCER SCREENING COLORECTAL CANCER SCREENING [facility] Start: [address] COLONOGRAPHY [facility] Start: 2009 DIABETES SCREEN DIABETES SCREEN [facility] Start: 2009 Diabetes Screening Diabetes Screenin g [facility] Start: 2009 FECAL OCCULT BLOOD FECAL OCCULT BLOO D [facility] Start: 2009 Lipid panel Lipid Screening [facility] Start: 2009 LIPID SCREEN LIPID SCREEN [facility] Start: 2009 Screening for malign ant neoplasm of colon [facility] Start: 2009 [facility] Start: 2006 PAP TESTING PAP TESTING [facility] Start: 2004 Mammography MAMMOGRAM [facility] Start: 2004 Screening for malign ant neoplasm of breast Mammogram Screening [facility] Start: 1994 HPV TESTING HPV TESTING [facility] Start: 1994 Screening for malign ant neoplasm of cervix HPV Testing [facility] Start: 1985 PAP TESTING PAP TESTING [facility] Start: 1985 Screening for malign ant neoplasm of cervix [facility] Start: 05-22-1983 Hepatitis B Vaccine (1 of 3 - 19+ 3-dose series) Hepatitis B Vaccine (1 of 3 - 19+ 3-dose series) [facility] Start: 05-22-1983 Urine microalbumin profile [facility] Start: 1982 Anxiety Screening Anxiety Screening [facility] Start: 1982 Depression Screening Depression Scre ening [facility] Start: 1982 HEPATITIS C SCREENING HEPATITIS C [facility] Start: 1982 Hepatitis C screening Hepatitis C [facility] Start: 1982 HIV SCREENING HIV SCREENING [facility] Start: 1982 HIV screening HIV Screening [facility] Start: 1964 HEPATITIS B (1 of 3 - 3-dose series) HEPATITIS B (1 of 3 - 3-dose series) [facility] Start: 1964 Hepatitis B Vaccine (1 of 3 - 3-dose series) Hepatitis B Vaccine (1 of 3 - 3-dose series) [facility] CALCULI ANALYSIS CALCULI ANALYSI S Lab Routine Nephrolithiasis Ordered: 04/27/2023 [facility] Work Phone: Comment on above: Ordered: 04/27/2023 COLOGUARD COLOGUARD Lab Ro utine Screening for colon cancer Ordered: 02/09/2023 [facility] Work Phone: Comment on above: Ordered: 02/09/2023 End: 05-11-2025 DBT Breast - bilateral screening ARCELIA SCREENING [facility] Radiology Routine Encounter for screening mammogram for breast cancer 1 Occurrences starting 04/11/2024 until 05/11/2025 [facility] Work Phone: Comment on above: 1 Occurrences starti ng 04/11/2024 until 05/11/2025 End: 02-27-2023 DXA-AXIAL SKELETON DXA-AXIAL SKELETON Radiology Routine Well adult exam On prednisone therapy Screening for osteoporosis 1 Occurrences starting 01/28/2022 until 02/27/2023 [facility] Work Phone: Comment on above: 1 Occurrences starti ng 01/28/2022 until 02/27/2023 Estrogen [Mass/volum e] in Serum or Plasma [facility] End: 10-02-2023 ARECLIA SCREENING [facility]CELIA SCREENING Radiology Routine Encounter for screening mammogram for breast cancer 1 Occurrences starting 09/02/2022 until 10/02/2023 [facility] Work Phone: Comment on above: 1 Occurrences starti ng 09/02/2022 until 10/02/2023 End: 03-10-2024 ARCELIA SCREENING W [facility] ARCELIA SCREENING [facility] Radiology Routine Encounter for screening mammogram for malignant neoplasm of breast 1 Occurrences starting 02/09/2023 until 03/10/2024 [facility] Work Phone: Comment on above: 1 Occurrences starti ng 02/09/2023 until 03/10/2024 Path report.final Dx Spec [facility] Patient Education Healthy Kidney s ED Kidney Stone with Pain [facility] Work Phone: Patient referral [facility] Work Phone: End: 10-31-2022 Screening mammography bi 2-view breast inc cad ARCELIA SCREENING Radiology Routine Encounter for screening mammogram for breast cancer 1 Occurrences starting 10/01/2021 until 10/31/2022 [facility] Work Phone: Comment on above: 1 Occurrences starti ng 10/01/2021 until 10/31/2022 Testosterone Free [Mass/volume] in Serum or Plasma [facility] Testosterone measurement [facility] Thyroglobulin antibo dy measurement [facility] Work Phone: Thyroperoxidase Ab [Units/volume] in Serum or Plasma [facility] Work Phone: Triiodothyronine (T3).reverse [Mass/volume] in Serum or Plasma [facility] Work Phone: End: 02-27-2023 Us soft tissue head & neck real time imge docm US THYROID/PARATHYROID Radiology Routine Thyroid nodule 1 Occurrences starting 01/28/2022 until 02/27/2023 [facility] Work Phone: Comment on above: 1 Occurrences starti ng 01/28/2022 until 02/27/2023 End: 03-10-2024 Us soft tissue head & neck real time imge docm US THYROID/PARATHYROID Radiology Routine Thyroid nodule 1 Occurrences starting 02/09/2023 until 03/10/2024 [facility] Work Phone: Comment on above: 1 Occurrences starti ng 02/09/2023 until 03/10/2024 End: 03-19-2025 XR Chest PA and Lateral XR CHEST 2V FRONTAL/LAT Radiology STAT Persistent cough Productive cough Hoarseness Non-recurrent acute serous otitis media of left ear Acute non-recurrent pansinusitis Well adult exam 1 Occurrences starting 02/18/2024 until 03/19/2025 [facility] Work Phone: Comment on above: 1 Occurrences starti ng 02/18/2024 until 03/19/2025 [facility] Immunizations Immunization Date Immunization Notes Care Provider Kathleen meza 12-29-2021 influenza, injectabl e, quadrivalent, preservative free [facility] 12-29-2021 influenza, seasonal, injectable [facility] 12-29-2021 influenza virus vaccine, unspecified formulation Herber Hogue DO Work Phone: [facility] 12-17-2020 influenza, injectabl e, quadrivalent, preservative free [facility] 12-17-2020 influenza, seasonal, injectable [facility] 04-01-2020 COVID-19 vaccine, fu ll dose (MODERNA) Echo Vines MD Work Phone: [facility] 03-04-2020 COVID-19 vaccine, fu ll dose (MODERNA) Echo Vines MD Work Phone: [facility] 11-24-2018 influenza, injectabl e, quadrivalent, preservative free [facility] 11-24-2018 influenza, seasonal, injectable [facility] 11-24-2018 influenza, seasonal, injectable, preservative free Echo Vines MD Work Phone: [facility] 12-13-2017 influenza, injectabl e, quadrivalent, preservative free [facility] 12-13-2017 influenza, seasonal, injectable [facility] 12-13-2017 influenza, seasonal, injectable, preservative free Echo Vines MD Work Phone: [facility] 12-16-2015 influenza, injectabl e, quadrivalent, preservative free [facility] 12-16-2015 influenza, seasonal, injectable [facility] 12-16-2015 influenza, seasonal, injectable, preservative free Echo Vines MD Work Phone: [facility] 11-29-2013 influenza, injectabl e, quadrivalent, preservative free [facility] 11-29-2013 influenza, seasonal, injectable [facility] 11-29-2013 influenza, seasonal, injectable, preservative free Echo Vines MD Work Phone: [facility] 03-13-2013 Influenza virus vaccine [facility] 03-13-2013 influenza, seasonal, injectable, preservative free Echo Vines MD Work Phone: [facility] Payers Date Payer Category Payer Self-pay [id number] 2019 Private Health Insurance MMO SUP [employer] PPO [id number] 2019 Unknown MMO MMO [employer] [id number] 2019-Present [phone] [address] [place] [address] PPO [id number] 2019 Unknown [id number] 2015 Unknown [id number] Unknown [id number] Unknown [id number] Unknown [id number] Unknown [id number] Unknown [id number] Unknown [id number] Social History Date Type Detail Facility Start: 10-16-2020 End: 01-28-2022 Tobacco smoking status NHIS Never smoked tobacco [facility] Start: 10-16-2020 End: 01-28-2022 Tobacco use and exposure Smokeless tobacco non-user [facility] Start: 03-31-2021 End: 02-18-2024 Alcohol intake Lifetime non-drinker (finding) [facility] Start: 11-27-2020 End: 01-27-2022 History SDOH Alcohol Frequency 1 [facility] Start: 11-27-2020 End: 01-27-2022 History SDOH Social Connections Phone 5 [facility] Start: 11-27-2020 End: 01-27-2022 History SDOH Social Connections [facility] 3 [facility] Start: 11-27-2020 History SDOH Physical Activity MPS 6 [facility] Start: 11-27-2020 End: 01-27-2022 History SDOH Stress 2 [facility] Start: 11-27-2020 Education 17 [facility] Start: 1965 Sex Assigned At Female [facility] Start: 03-11-2021 End: 06-28-2023 Tobacco smoking status NHIS Unknown if ever smoked [facility] Start: 08-09-2021 End: 01-28-2022 Exposure to SARS-CoV-2 (event) Not sure [facility] Start: 01-27-2022 History SDOH Alcohol Std Drinks 0 [facility] Start: 01-27-2022 End: 02-08-2023 History of Social function [facility] Start: 01-27-2022 End: 02-08-2023 Social connection and isolation panel [facility] Do you belong to any clubs or organizations such as jew groups, unions, fraternal or athletic groups, or school groups? Yes [facility] Are you now , , , , never or living with a partner? [facility] How often to you hav e a drink containing alcohol? Never [facility] How many standard dr inks containing alcohol do you have on a typical day? Patient does not drink [facility] Do you feel stress - tense, restless, nervous, or anxious, or unable to sleep at night because your mind is troubled all the time - these days [OSQ] Not at all [facility] (I/We) worried wheth er (my/our) food would run out before (I/we) got money to buy more. Never true [facility] In the past 12 month s, was there a time when you were not able to pay the mortgage or rent on time? No [facility] Start: 11-27-2020 Gender identity Identifies as female gender (finding) [facility] Start: 11-27-2020 Sexual orientation Heterosexual (finding) [facility] Clinical Notes 07-25-2021 to 12-28-2024 Telephone Encounter - Monique Orlando LPN - 02/21/2024 2:16 PM ESTTelephone Encounter - Monique Orlando LPN - 02/21/2024 2:16 PM ESTPatient InstructionsPatient Instructions Note Date & Type Note Facility 12-28-2024 Note HNO ID: [id number] Author: ABDIRIZAK DANIEL APRN.CLINICAL RN LIAISON Service: ? Author Type: Nurse Practitioner Type: Progress Notes Filed: 12/28/2024 10:14 Note Text: 12/28/2024 Recording using nChannel software for draft documentation of the visit was discussed with the patient/authorized agency sales representative; all questions welcomed and answered. Patient/authorized agency sales representative agreed to proceed HPI: The patient [...] affected area once daily. 20mg, prescribed by [facility] No current facility-administered medications on file [...] reviewed as needed. Follow up: Abdirizak Daniel APRN.[facility] 04-11-2024 Note Patient Outreach (FA MPWS) ALYSSA HERRERA ([id number]) 1965 F CHT Date Time Provider Department [...] for screening mammogram for breast cancer [Z12.31] Order(s):[facility] SCREENING [facility] [[id number]] Order #: [id number] FUTURE Prescriptions as of 05/12/2024 - compounded progesterone 200mg capsule 200 mg two times a day. - estradiol (ESTRACE) 1 mg tablet Take 1.5 mg by mouth once daily. - testosterone 100 mg/ml cream (CPD) Apply 0.5 mL to affected area once daily. 20mg, prescribed by [facility] - albuterol HFA (VENTOLIN HFA) 90 mcg/actuation [...] Encounter Status:Closed by MANPREET CROOKS on 05/12/24 [facility] 02-21-2024 Telephone encounter Note Pt. informed via my chart [facility] 02-21-2024 Miscellaneous Notes Pt. informed via [...] and from a compounding pharmacy. Abdirizak Daniel APRN.CLINICAL RN LIAISON Pt calls today to follow up on [...] sent this message: jw Herrera to [facility] My Chart Rx Pool (supporting Abdirizak Daniel APRN.CLINICAL RN LIAISON) 02/20/24 6:22 PM X-ray done/clear Called office Wednesday afternoon/after hours nurse and again on Wednesday to attempt to get antibiotic as discussed in appt. Still sick despite steroids/inhaler. Please send script to [facility] today. Patient calling asking if R Alyce INSTALLATION TECH had gotten her chest xray results from [facility]? She had it done there today, she can see results on [facility] similar my chart forum. She said xray her lungs were clear and no infiltrates. Patient asking if INSTALLATION TECH is sending an antibiotic rx to [facility] for her? Please advise documented in this encounter [facility] 02-21-2024 Telephone encounter Note Yes, ok to start on rx as below Please inform patient Herber Hogue DO The following approved medication requests have been transmitted electronically. Requested Prescriptions Signed Prescriptions Disp Refills amoxicillin-clavulanate potassium (AUGMENTIN) 875-125 mg per tablet 20 tablet 0 Sig: Take 1 tablet by mouth two times a day for 10 days. Authorizing Provider: HERBER HOGUE DO [facility] 02-21-2024 Telephone encounter Note XR results [...] and from a compounding pharmacy. Abdirizak Daniel APRN.CLINICAL RN LIAISON [facility] 02-21-2024 Telephone encounter Note MC message turned into MEÑO. Bill Garcia MA [facility] 02-21-2024 Miscellaneous Notes MC message turned into EMÑO. Bill Garcia MA documented in this encounter [facility] 02-21-2024 Telephone encounter Note Pt calls [...] pt with dr's message. Miesha Hurley LPN [facility] 02-21-2024 Telephone encounter Note Images from the original note were not included. Pt sent this message: jw Herrera to [facility] My Chart Rx Pool (supporting Abdirizak Daniel APRN.RICKIE) 02/20/24 6:22 PM X-ray done/clear Called office Wednesday afternoon/after hours nurse and again on Wednesday to attempt to get antibiotic as discussed in appt. Still sick despite steroids/inhaler. Please send script to [facility] today. [facility] 02-18-2024 Telephone encounter Note Agree with conversation. Will forward to the provider she saw all today. [facility] Work Phone: 02-18-2024 Miscellaneous Notes Agree [...] of the above. documented in this encounter [facility] 02-18-2024 Telephone encounter Note Patient calling with request for results of x-ray and possible antibiotics Patient denies any new or worsening symptoms of which a provider is not aware: Yes. Dr. Ricardo Stephenson paged. Advised patient to take Zyrtec 10 mg 1 tablet daily and Flonase 1 spray each nostril twice a day. Patient called back and notified of the above. [facility] 02-18-2024 Telephone encounter Note Patient calling asking if Fredrick Daniel NP had gotten her chest xray results from [facility]? She had it done there today, she can see results on [facility] similar my chart forum. She said xray her lungs were clear and no infiltrates. Patient asking if INSTALLATION TECH is sending an antibiotic rx to [facility] for her? Please advise [facility] 02-18-2024 Instructions Abdirizak Daniel APRN.RICKIE - 02/18/2024 8:28 AM EST Recommend vitamin D3 [id number] international unit(s) daily. Send me the thyroid medication and dose so I can take a look. Have your chest xray completed. I sent an albuterol inhaler and Medrol dose pack to [facility], I'll let you know what we are doing as far as antibiotics, based on your xray results. documented in this encounter [facility] 02-18-2024 Note HNO ID: [id number] Author: ABDIRIZAK DANIEL APRN.[facility]ICKIE Service: ? Author [...] 69 mastectomy other (HTN) Maternal Grandfather other ([place]) Maternal Grandfather at an old age other (HTN) Paternal Grandmother Arthritis Paternal Grandmother other ([place]) Paternal Grandfather 40 Thyroid Other significant with [...] mouth. (Patient not taking: Reported on 02/18/2024) ivcxban-zghf-dxhqi-oreg-capryl 100 mg-150 mg- 50 mg-150 mg cap [...] done DTaP,Tdap,Td Vaccine( (more content not included)... [facility] 02-18-[facility]24 History of Present illness Narrative [...] thirst or urination. Sees holistic dr in [place]. Is receiving estrogen and progesterone from him. [...] 69 mastectomy other (HTN) Maternal Grandfather other ([place]) Maternal Grandfather at an old age other (HTN) Paternal Grandmother Arthritis Paternal Grandmother other ([place]) Paternal Grandfather 40 Thyroid Other significant with [...] mouth. (Patient not taking: Reported on 02/18/2024) skssyev-kjpf-jiqqr-oreg-capryl 100 mg-150 mg- 50 mg-150 mg cap [...] Abdirizak Daniel APRN.CNP documented in this encounter [facility] 10-12-2023 Telephone encounter Note Please see CT abd & pelvis attached : View External Imaging - CT Scan [ID [id number]] [facility] 10-12-2023 Miscellaneous Notes Please see CT abd & pelvis attached : View External Imaging - CT Scan [ID [id number]] documented in this encounter [facility] 05-07-2023 Miscellaneous Notes The following approved [...] and is requesting medication be sent to [facility] for yeast infection. 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 Pended request for review. Karis Diaz RN documented in this encounter [facility] 05-05-2023 Miscellaneous Notes Please call the patient to ask her if she passed her stone documented in this encounter [facility] 04-29-2023 Miscellaneous Notes Thank you for the update. My pleasure Spoke to pt and she voiced understanding and she said Thank you. Advise her to d/c Anna Gaffney sent to the pharmacy on file Bill Mcmillan DO documented in this encounter [facility] 04-28-2023 Miscellaneous Notes Thank you It's [...] Bill Mcmillan DO documented in this encounter [facility] 04-28-2023 Instructions Bill Sharp DO - [...] the formation of kidney/ureteral stones. References National [place] of Diabetes and Digestive and Kidney Diseases. Kidney Stones Accessed 11/18/2016. [employer]. What are Kidney Stones? Accessed 11/18/2016. Merck Manuals. Stones in the Urinary Tract Accessed 11/18/2016. Copyright 7436-7684 [facility]. All rights reserved. documented in this encounter [facility] 04-28-2023 History and physical note Images from the original note were not included. [facility] Kid[facility] [place] NEW CONSULT NOTE/NEW PATIENT VISIT/HISTORY AND PHYSICAL: [...] tamsulosin, hydrocodone-acetaminophen, ciprofloxacin hcl, cholecalciferol (vitamin d3), jhvwmrdj-mpbj-tjmac-oreg-capry, lactobacillus acidophilus, and vitamin b complex. Allergies: [...] (age of onset: 30) in her sister; [place] in her maternal grandfather; [place] (age of onset: 40) in her paternal [...] -Patient will call the clinic or use [employer] should anything change or any new issues [...] -Patient will call the clinic or use [employer] should anything change or any new issues [...] 4 - Moderate documented in this encounter [facility] 04-27-2023 Miscellaneous Notes Pt. informed. Please let patient know that rx for Cipro for antibiotic,Houston for pain and Flomax for stone and ureter relaxation was all sent to the pharmacy for her to take now for her stone/UTI Herber Hogue DO Results of CT attached: View External Imaging - CT Scan [ID [id number]] Patient calls and states that she continues to be in a lot of pain. See message below. Patient calling back to let provider know the CT scan shows a kidney stone. She says [facility] tells her results were faxed. She is requesting pain medication and an antibiotic for positive urine dip in OV today. Urine culture is in process. She says she has no new or worsening symptoms. Advised ER evaluation if she develops new or worsening symptoms. Evelin Myrick RN Pt calling checking on stat CT results done at [facility] today to r/o kidney stone vs diverticulitis. Please advise once results are received. documented in this encounter [facility] 04-27-2023 Miscellaneous Notes Addended by: CAITIE BLAKE on: 04/27/2023 10:43 AM Modules accepted: Orders documented in this encounter [facility] 04-27-2023 Instructions Caitie Blake APRN.CNS - 04/27/2023 10:31 AM EST 1) [place] 1 tab every 6 hours as needed, #20 tab only 2) Tamsulosin 0.4mg daily for kidney stone 3) Consult urology 4) Stone analysis if you happen to catch stone documented in this encounter [facility] 04-27-2023 History of Present illness Narrative This is a 57 year old female who presents today with: Patient presents with: Kidney Stones: Pain has increased HISTORY OF PRESENT ILLNESS: Alyssa Herrera is a 57 year old female. Patient presents with: Kidney Stones: Pain has increased Patient was seen at [facility] for CT of the abdomen and pelvis [...] D3, (VITAMIN D3 ORAL) Take by mouth. setfmkf-cghs-kcmwc-oreg-capryl 100 mg-150 mg- 50 mg-150 mg cap [...] 69 mastectomy other (HTN) Maternal Grandfather other ([place]) Maternal Grandfather at an old age other (HTN) Paternal Grandmother Arthritis Paternal Grandmother other ([place]) Paternal Grandfather 40 Thyroid Other significant with [...] - Start Tamsulosin 0.4 mg daily - [place] given every 6 hours as needed for [...] as needed for worsening/no improvement. Caitie Blake APRN.SCRIPT COORDINATOR The patient indicates understanding of these issues and agrees with the plan. documented in this encounter [facility] 04-26-2023 Miscellaneous Notes Given to cruise guide Inessa Metz to work on Revuze Akanksha with [facility] calls to report they can see the pre-cert was done but is to the wrong facility. Notified KYLE Ordaz of this. Miesha Hurley LPN Pt calls to report that she has the paper order for CT at [facility] and was advised that the office needed to call scheduling for VO to verify. Called [phone] opt1 as requested to answer questions in regards to pt's weight, labs, problem list. Was advised that insurance authorization needed done before test could be done. Abdirizak Daniel CNP's MA notified of same. Miesha Hurley LPN documented in this encounter [facility] 04-15-2023 Miscellaneous Notes Spoke with patient. Given message from provider's office. Patient verbalizes understanding. Evelin Myrick RN Left message to return call Sushma Reynolds Please let patient know that her Cologuard is negative /Herber Hogue DO documented in this encounter [facility] 02-26-2023 Telephone encounter Note Lab results from [facility] on Dr. Hogue's desk. [facility] 02-26-2023 Miscellaneous Notes Lab results from [facility] on Dr. Hogue's desk. documented in this encounter [facility] 02-09-2023 History of Present illness Narrative CC: Alyssa Herrera is a 57 year old female who presents to the office for physical HPI: Hx of thyroid nodules, last US thyroid at [facility] in 2019. No globus symptoms. Does have chronic fatigue B/l proximal muscle weakness and aching, worse at end of the day. Has changed her diet to gluten free completely and is trying to avoid sugars as well. Feels this has helped her symptoms. She was seen by [facility]et Specialist and tapered off her prednisone and she [...] 69 mastectomy other (HTN) Maternal Grandfather other ([place]) Maternal Grandfather at an old age other (HTN) Paternal Grandmother Arthritis Paternal Grandmother other ([place]) Paternal Grandfather 40 Thyroid Other significant with mom's siblings other (Shogren's in an aunt) Other other (niece with autoimmune) Other Current Outpatient prescriptions: cholecalciferol, vitamin D3, (VITAMIN D3 ORAL) Take by mouth. spfxsbj-ahml-guehf-oreg-capryl 100 mg-150 mg- 50 mg-150 mg cap [...] diet of 1000 mg/day for under 50, 9887-2119 mg/day for 50+ - HGB A1C - [...] labs, continue anti inflammatory diet. F/u with Intranet Specialist as needed. - C-REACTIVE PROTEIN (CRP) - SED RATE WESTERGREN 6. Hyperglycemia - ICD9: 790.29, ICD10: R73.9 - HGB A1C 7. Fatigue, unspecified type - ICD9: 780.79, ICD10: R53.83 See above - VITAMIN D 25 HYDROXY - VITAMIN B12 BLOOD - CORTISOL BLD 8. Menopause - ICD9: 627.2, ICD10: Z78.0 See above, f/u with FREIGHT ELEVATOR OPERATOR - TESTOSTERONE, FREE AND TOTAL - [...] with supplements or by diet (goal of 1966-5338 mg/day - Colon cancer screening reviewed and [...] with the plan. Herber Hogue DO [address] [place] [address] documented in this encounter [facility] 07-13-2022 Miscellaneous Notes Consult faxed to [employer]. Sushma Reynolds Addended by: ABDIRIZAK DANIEL on: [...] Provider: HERBER HOGUE Ordering User: ABDIRIZAK DANIEL APRN.CLINICAL RN LIAISON Addended by: SUSHMA REYNOLDS on: 07/13/2022 02:27 [...] PM Modules accepted: Orders Per her original SEJENT message, had the face rash improved by [...] Provider: HERBER HOGUE Ordering User: ABDIRIZAK DANIEL APRN.CLINICAL RN LIAISON PT states that the rash is just [...] My Chart Rx Pool (supporting Abdirizak Daniel APRN.CLINICAL RN LIAISON) 2 days ago ADELE Finished 7 day script of diflucan yesterday 07/07 Rash on face about 80% improved- scalp still ridiculously itchy despite using shampoo. Have used nystatin cream on face bid. Any other ideas/treatment options? Thx so much Alyssa herrera documented in this encounter [facility] 07-10-2022 Miscellaneous Notes See TE 07/10/22. Will close this encounter. Poonam Brown RN See patient update below. Anisa Griffiths LPN documented in this encounter [facility] 07-01-2022 History of Present illness Narrative [...] 69 mastectomy other (HTN) Maternal Grandfather other ([place]) Maternal Grandfather at an old age other (HTN) Paternal Grandmother Arthritis Paternal Grandmother other ([place]) Paternal Grandfather 40 Thyroid Other significant with mom's siblings other (Shogren's in an aunt) Other other (niece with autoimmune) Other Patient Allergies ALLERGIES Allergen Reactions Milk Unknown Shellfish Derived Anaphylaxis Shrimp Anaphylaxis Current Medications Current Outpatient Medications on File Prior to Visit Medication Sig cholecalciferol, vitamin D3, (VITAMIN D3 ORAL) Take by mouth. dilbgcg-qggl-lanvm-oreg-capryl 100 mg-150 mg- 50 mg-150 mg cap [...] Abdirizak Daniel APRN.CNP documented in this encounter [facility] 04-16-2022 History of Present illness Narrative [...] Swollen Glands: No documented in this encounter [facility] 04-14-2022 Miscellaneous Notes Vit D and Vit b12 refaxed to [facility]. Pt. informed. Labs are overall normal/stable except for slightly high CRP levels. This needs to be managed by Intr[facility]et Specialist. Please inform patient Herber Hogue DO Pt had blood work done. View External Lab - Chemistry [ID [id number]] documented in this encounter [facility] 04-10-2022 Miscellaneous Notes Faxed labs to [facility] Patient left message on confidenial vm Fatou Lund Ma Labs ordered, please fax and notify her Herber Hogue DO Patient reports Intranet Specialist moved her appt back 2 mths, so she waited to get the labs done closer to the time. When she went to [facility] lab, learned the lab orders were . Asking pcp to re-order the labs and send to [facility] lab (fax # [phone]). Reports she will run out of prednisone 6 days prior to her Rheum appt. Asking if pcp would send refill to [facility] Pharmacy? Pended. documented in this encounter [facility] 01-28-2022 History of Present illness Narrative CC: Alyssa Herrera is a 56 year old female who presents to the office for physical HPI: She was originally seen in the office on 10/16 by Shanta Daniel CNP, at that time: Has been having a lot of pain that started last fall. Pain: neck, rvbjooq-oabwlawhfjy-mzpfqltfn ROM, hip pain, groin bone pain, backs [...] bit as well. Dr. Junior-hormone clinic in [place]. She also started her on a low dose T3/T4 supplementation. Called Triiodothyronine (T3-5mcg, T4-20mcg). Had a massage. Could the toxins have been released. Lott terrible. Couldn't get up off the floor, [...] at that time and was referred to [facility]et Specialist Seen for follow up Mar 2021 She has been taking prednisone 5 mg a day for the last 2 months with benefit. She was supposed to see Intranet Specialist in Jan but appt was last minute [...] to be getting a 2nd opinion by Intranet Specialist Dr. Man in 1-2 months. Wondering what [...] 69 mastectomy other (HTN) Maternal Grandfather other ([place]) Maternal Grandfather at an old age other (HTN) Paternal Grandmother Arthritis Paternal Grandmother other ([place]) Paternal Grandfather 40 Thyroid Other significant with [...] diet of 1000 mg/day for under 50, 2470-9371 mg/day for 50+ - DXA-AXIAL SKELETON 2. [...] - ICD9: 725, ICD10: M35.3 F/u with Intranet Specialist - IRON + TIBC - FERRITIN BLD [...] with the plan. Herber Hogue DO [address] [place] [address] documented in this encounter [facility] 08-27-2021 Miscellaneous Notes Pt called back. [...] TIGRE AMIN APRN.RICKIE documented in this encounter [facility] 08-25-2021 History of Present illness Narrative Outside labs reviewed and sent for scanning. 08/23/2021: Sed rate 8 (0-30) CRP <2.9 ( 0-3.0) documented in this encounter [facility] 08-19-2021 History of Present illness Narrative [...] - In Jan/Mar, had covid. - at [facility], reports 95% improvement in symptoms with pred [...] 69 mastectomy other (HTN) Maternal Grandfather other ([place]) Maternal Grandfather at an old age other (HTN) Paternal Grandmother Arthritis Paternal Grandmother other ([place]) Paternal Grandfather 40 Thyroid Other significant with mom's siblings other (Shogren's in an aunt) Other other (niece with autoimmune) Other niece-dermatomyositis SOCIAL HISTORY: Lives in [place] with spouse. 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 Niece is Tiffanie Hunt with dermatomyositis Tobacco [...] discussed with the patient: Labs done at [facility] on 07/25/2021. Report given to [...] 17.3 (nl <3) with unremarkable ESR, ENOCH, ROBOTICS TECHNOLOGIST, Sm, CCP, RF, TPO ab *August unremarkable [...] order previously provided. Notify of results via [employer]. She was reminded to schedule this. 3. [...] which included preparing to see the patient, dvtv-aw-gbkx patient care, completing clinical documentation, performing a medically appropriate examination, ordering medications, tests, or procedures and communicating results to the patient/family/caregiver. Tigre Amin APRN.RICKIE documented in this encounter [facility] 07-29-2021 Miscellaneous Notes Patient notified of [...] Echo Vines MD documented in this encounter [facility] 07-25-2021 Nurse Note Labs done at [facility] on 07/25/2021. 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 Encounter for long-term (current) use of steroids [facility]counter for screening mammogram for breast cancer [facility] Diagnosis Well adult exam- Primary Routine [...] with other complications [facility] Diagnosis Vitamin D deficiency- Primary Unspecified vitamin D deficiency Fatigue, unspecified type On prednisone therapy PMR (polymyalgia rheumatica) (HCC) Polymyalgia rheumatica [facility] Diagnosis Myalgia- Primary Mylagia and myositis, unspecified Disturbance in sleep behavior Sleep disturbance, unspecified [facility] Candidosis of skin- Primary Candidiasis of skin and nails Rash of face Rash and other nonspecific skin eruption [facility] Diagnosis Candidosis of skin- Primary Candidiasis of skin and nails Rash of face Rash and other nonspecific skin eruption Scalp itch Unspecified pruritic disorder [facility] Diagnosis Encounter for screening mammogram for breast cancer [facility] Diagnosis Well adult exam- Primary Routine [...] Nontoxic uninodular goiter [facility] Diagnosis Nephrolithiasis- Primary Calculus of kidney Left ureteral stone [facility] Diagnosis Left ureteral stone- Primary Hydronephrosis of left kidney Hydronephrosis Microscopic hematuria [facility] Diagnosis Left ureteral stone- Primary [facility] Diagnosis Onset Date Resolution Status Encounter for well woman tika m with routine gynecological exam acute Incontinence of urine in female acute Kidney stones resolved [facility] Work Phone: Evaluation note* Diagnosis Persistent cough- Primary Cough Productive cough Cough Hoarseness Dysphonia Non-recurrent acute serous otitis media of left ear Acute non-recurrent pansinusitis Well adult exam Routine general medical examination at a health care facility Low TSH level Nonspecific abnormal results of thyroid function study [facility]* Diagnosis Left ureteral stone [facility] Diagnosis Encounter for screening mammogram for breast cancer documented in this encounter [facility] Discharge instructions Additional Instructions You have a 4 mm stone in the UVJ. Continue take the medications. Return for any worsening back pain fever chills nausea vomiting.[facility] Work Phone: Reason for referral (narrative)* Diagnostic Procedure Only (Routine) - Pending Review Specialty Diagnoses / Procedures Referred By Roge t Referred To Contact [facility] Diagnoses Encounter for screening mammogram for breast cancer Procedures ARCELIA SCREENING SCREENING MAMMOGRAPHY BI 2-VIEW BREAST INC Herber Vasquez, DO [address] [place] [address] [facility] [address] [place] [address] Referral ID Status Reason Start Date Expiration Date Visits Requested Visits Authorized [id number] Pending Review Auto-Generat ed Referral 10/01/2021 10/31/2022 1 1 [facility] for referral (narrative)* Diagnostic Procedure Only (Routine) - Pending Review Specialty Diagnoses / Procedures Referred By Roge t Referred To Contact [facility] Diagnoses Encounter for screening mammogram for breast cancer Procedures ARCELIA SCREENING SCREENING MAMMOGRAPHY BI 2-VIEW BREAST INC Herber Vasquez, DO [address] [place] [address] [facility] [address] [place] [address] Referral ID Status Reason Start Date Expiration Date Visits Requested Visits Authorized [id number] Pending Review Auto-Generat ed Referral 09/02/2022 10/02/2023 1 1 T [facility] for referral (narrative)* Diagnostic Procedure Only (Routine) - Pending Review Specialty Diagnoses / Procedures Referred By Roge t Referred To Contact [facility] Diagnoses Thyroid nodule Procedures US THYROID/PARATHYROID US SOFT TISSUE HEAD & NECK REAL TIME IMGE DOCM Herber Hogue, DO [address] [place] [address] [place] [address] Referral ID Status Reason Start Date Expiration Date Visits Requested Visits Authorized [id number] Pending Review Auto-Generat ed Referral 03/10/2024 1 1 * Diagnostic Procedure Only (Routine) - Pending Review Specialty Diagnoses / Procedures Referred By Roge cordoba Referred To Contact [facility] Diagnoses Encounter for screening mammogram for malignant neoplasm of breast Procedures ARCELIA SCREENING W AMALIA SCREENING DIGITAL BREAST TOMOSYNTHESIS BI SCREENING MAMMOGRAPHY BI 2-VIEW BREAST INC CAD Herber Hogue DO [address] [place] [address] [facility] [address] [place] [address] Referral ID Status Reason Start Date Expiration Date Visits Requested Visits Authorized [id number] Pending Review Auto-Generat ed Referral 3 03/10/2024 1 1 [facility] Family History No Family History Records Found Relationship Condition Age at Onset Recorded Date/T obdulia Not Specified High blood cholesterol Unknown Cardiac disease Unknown Hypertension Unknown Disorder of thyroid Unknown Reason for Referral Specialty Diagnoses / Procedures Referred By Roge cordoba Referred To Contact Vascular Surgery Diagnoses Varicose veins of both lower extremities with pain Procedures CONSULT TO VASCULAR SURGERY OFFICE/OUTPATIENT [facility] MDM 60-74 MINUTES Herber Hogue DO [address] [place] [address] Referral ID Status Reason Start Date Expiration Date Visits Requested Visits Authorized [id number] Authorized PCP Requested Referral 2 01/28/2023 1 1 Specialty Diagnoses / Procedures Referred By Roge cordoba Referred To Contact [facility] Diagnoses Thyroid nodule Procedures US THYROID/PARATHYROID US SOFT TISSUE HEAD & NECK REAL TIME IMGE DOCM Herber Hogue DO [address] [place] [address] [facility] Referral ID Status Reason Start Date Expiration Date Visits Requested Visits Authorized [id number] Pending Review Auto-Generat ed Referral 2 02/27/2023 1 1 Specialty Diagnoses / Procedures Referred By Roge cordoba Referred To Contact Dermatology Diagnoses Candidosis of skin Rash of face Scalp itch Procedures CONSULT TO DERMATOLOGY Herber Hogue DO [address] [place] [address] Referral ID Status Reason Start Date Expiration Date Visits Requested Visits Authorized [id number] Ref Not Required PCP Requested Referral 07/13/2022 07/13/2023 1 1 Specialty Diagnoses / Procedures Referred By Contlotus cordoba Referred To Contact Diagnoses Left ureteral stone Caitie Blake APRN.SCRIPT COORDINATOR [address] [place] [address] Referral ID Status Reason Start Date Expiration Date Visits Re quested Visits Authorized [id number] Closed 1 1 Specialty Diagnoses / Procedures Referred By Roge cordoba Referred To Contact Urology Diagnoses Left ureteral stone Procedures CONSULT TO UROLOGY OFFICE/OUTPATIENT [facility] MDM 60 MINUTES Caitie Blake ASSEMBLY AND PACKING SUPERVISOR.SCRIPT COORDINATOR [address] [place] [address] Referral ID Status Reason Start Date Expiration Date Visits Requested Visits Authorized [id number] Authorized PCP Requested Referral 04/28/2023 04/26/2024 1 [...] No June 12, 2023 6:28pm Power of Accounts Receivable Analyst No June 11 6:28pm Additional Source Comments Source Comments (unrecognize d section and content) In the event this informatio n is protected by the Federal Confidentiality of Alcohol and Drug Abuse Patient Records regulations: The Federal rules restrict any use of the information to criminally investigate or prosecute any alcohol or drug abuse patient.[facility] the event this information is protected by the Federal Confidentiality of Alcohol and Drug Abuse Patient Records regulations: The Federal rules restrict any use of the information to criminally investigate or prosecute any alcohol or drug abuse patient.[facility] the event this information is protected by the Federal Confidentiality of Alcohol and Drug Abuse Patient Records regulations: The Federal rules restrict any use of the information to criminally investigate or prosecute any alcohol or drug abuse patient.[facility] the event this information is protected by the Federal Confidentiality of Alcohol and Drug Abuse Patient Records regulations: The Federal rules restrict any use of the information to criminally investigate or prosecute any alcohol or drug abuse patient.[facility] Hospital[facility] the event this information is protected by the Federal Confidentiality of Alcohol and Drug Abuse Patient Records regulations: The Federal rules restrict any use of the information to criminally investigate or prosecute any alcohol or drug abuse patient.[facility] HospitalIn the event this information is protected by the Federal Confidentiality of Alcohol and Drug Abuse Patient Records regulations: The Federal rules restrict any use of the information to criminally investigate or prosecute any alcohol or drug abuse patient.[facility] HospitalIn the event this information is protected by the Federal Confidentiality of Alcohol and Drug Abuse Patient Records regulations: The Federal rules restrict any use of the information to criminally investigate or prosecute any alcohol or drug abuse patient.[facility] HospitalIn the event this information is protected by the Federal Confidentiality of Alcohol and Drug Abuse Patient Records regulations: The Federal rules restrict any use of the information to criminally investigate or prosecute any alcohol or drug abuse patient.[facility] HospitalIn the event this information is protected by the Federal Confidentiality of Alcohol and Drug Abuse Patient Records regulations: The Federal rules restrict any use of the information to criminally investigate or prosecute any alcohol or drug abuse patient.[facility] HospitalIn the event this information is protected by the Federal Confidentiality of Alcohol and Drug Abuse Patient Records regulations: The Federal rules restrict any use of the information to criminally investigate or prosecute any alcohol or drug abuse patient.[facility] HospitalIn the event this information is protected by the Federal Confidentiality of Alcohol and Drug Abuse Patient Records regulations: The Federal rules restrict any use of the information to criminally investigate or prosecute any alcohol or drug abuse patient.[facility] HospitalIn the event this information is protected by the Federal Confidentiality of Alcohol and Drug Abuse Patient Records regulations: The Federal rules restrict any use of the information to criminally investigate or prosecute any alcohol or drug abuse patient.[facility] HospitalIn the event this information is protected by the Federal Confidentiality of Alcohol and Drug Abuse Patient Records regulations: The Federal rules restrict any use of the information to criminally investigate or prosecute any alcohol or drug abuse patient.[facility] HospitalIn the event this information is protected by the Federal Confidentiality of Alcohol and Drug Abuse Patient Records regulations: The Federal rules restrict any use of the information to criminally investigate or prosecute any alcohol or drug abuse patient.[facility] HospitalIn the event this information is protected by the Federal Confidentiality of Alcohol and Drug Abuse Patient Records regulations: The Federal rules restrict any use of the information to criminally investigate or prosecute any alcohol or drug abuse patient.[facility] HospitalIn the event this information is protected by the Federal Confidentiality of Alcohol and Drug Abuse Patient Records regulations: The Federal rules restrict any use of the information to criminally investigate or prosecute any alcohol or drug abuse patient.[facility] HospitalIn the event this information is protected by the Federal Confidentiality of Alcohol and Drug Abuse Patient Records regulations: The Federal rules restrict any use of the information to criminally investigate or prosecute any alcohol or drug abuse patient.[facility] HospitalIn the event this information is protected by the Federal Confidentiality of Alcohol and Drug Abuse Patient Records regulations: The Federal rules restrict any use of the information to criminally investigate or prosecute any alcohol or drug abuse patient.[facility] HospitalIn the event this information is protected by the Federal Confidentiality of Alcohol and Drug Abuse Patient Records regulations: The Federal rules restrict any use of the information to criminally investigate or prosecute any alcohol or drug abuse patient.[facility] HospitalIn the event this information is protected by the Federal Confidentiality of Alcohol and Drug Abuse Patient Records regulations: The Federal rules restrict any use of the information to criminally investigate or prosecute any alcohol or drug abuse patient.[facility] HospitalIn the event this information is protected by the Federal Confidentiality of Alcohol and Drug Abuse Patient Records regulations: The Federal rules restrict any use of the information to criminally investigate or prosecute any alcohol or drug abuse patient.[facility] HospitalIn the event this information is protected by the Federal Confidentiality of Alcohol and Drug Abuse Patient Records regulations: The Federal rules restrict any use of the information to criminally investigate or prosecute any alcohol or drug abuse patient.[facility] HospitalIn the event this information is protected by the Federal Confidentiality of Alcohol and Drug Abuse Patient Records regulations: The Federal rules restrict any use of the information to criminally investigate or prosecute any alcohol or drug abuse patient.[facility] HospitalIn the event this information is protected by the Federal Confidentiality of Alcohol and Drug Abuse Patient Records regulations: The Federal rules restrict any use of the information to criminally investigate or prosecute any alcohol or drug abuse patient.[facility] HospitalIn the event this information is protected by the Federal Confidentiality of Alcohol and Drug Abuse Patient Records regulations: The Federal rules restrict any use of the information to criminally investigate or prosecute any alcohol or drug abuse patient.[facility] HospitalIn the event this information is protected by the Federal Confidentiality of Alcohol and Drug Abuse Patient Records regulations: The Federal rules restrict any use of the information to criminally investigate or prosecute any alcohol or drug abuse patient.[facility] HospitalIn the event this information is protected by the Federal Confidentiality of Alcohol and Drug Abuse Patient Records regulations: The Federal rules restrict any use of the information to criminally investigate or prosecute any alcohol or drug abuse patient.[facility] HospitalIn the event this information is protected by the Federal Confidentiality of Alcohol and Drug Abuse Patient Records regulations: The Federal rules restrict any use of the information to criminally investigate or prosecute any alcohol or drug abuse patient.[facility] HospitalIn the event this information is protected by the Federal Confidentiality of Alcohol and Drug Abuse Patient Records regulations: The Federal rules restrict any use of the information to criminally investigate or prosecute any alcohol or drug abuse patient.[facility] HospitalIn the event this information is protected by the Federal Confidentiality of Alcohol and Drug Abuse Patient Records regulations: The Federal rules restrict any use of the information to criminally investigate or prosecute any alcohol or drug abuse patient.[facility] HospitalIn the event this information is protected by the Federal Confidentiality of Alcohol and Drug Abuse Patient Records regulations: The Federal rules restrict any use of the information to criminally investigate or prosecute any alcohol or drug abuse patient.[facility] HospitalIn the event this information is protected by the Federal Confidentiality of Alcohol and Drug Abuse Patient Records regulations: The Federal rules restrict any use of the information to criminally investigate or prosecute any alcohol or drug abuse patient.[facility] Reason for Visit (unrecogniz ed section [...] NEW HIGH MDM 60 MINUTES Caitie Blake APRN.SCRIPT COORDINATOR [address] [place] [address] Referral ID Status Reason Start Date Expiration Date V isits Requested Visits Authorized [id number] Closed PCP Requested Referral 04/28/2023 04/26/2024 1 1 Reason Comments stat orders Reason Comments Physical Review labs 02/08 URI X 2 weeks Reason Comments Results, Lab Reason Comments chest xray results Care Teams (unrecognized sec tion and content) Test Rider Relationship Specialty Start Date End Date Herber Hogue DO [address] [place], [place] [address] PCP - General Family Practice 10/16/20 Gypsy Cannon DO [address] [facility] [address] [place], [place] [id number] 10/16/20 Test Rider Relationship Specialty Start Date End Date Herber Hogue DO [address] [place], [place] [id number] PCP - General Family Practice 10/16/20 Gypsy Cannon, DO [address] [facility] [address] [place] [address] 10/16/20 Test Rider Relationship Specialty Start Date End Date Herber Hogue, DO [address] [facility] [place] [address] PCP - General Family Practice 10/16/20 Gypsy Cannon, DO [address] [facility] [address] [place] [address] 10/16/20 Test Rider Relationship Specialty Start Date End Date Herber Hogue, DO [address] [facility] [place] [address] PCP - General Family Practice 10/16/20 Gypsy Cannon, DO [address] [facility] [address] [place] [address] 10/16/20 Test Rider Relationship Specialty Start Date End Date Herber Hogue, DO [address] [facility] [place] [address] PCP - General Family Practice 10/16/20 Gypsy Cannon, DO [address] [facility] [address] [place] [address] 10/16/20 Test Rider Relationship Specialty Start Date End Date Herber Hogue, DO [address] [facility] [place] [address] PCP - General Family Practice 10/16/20 Gypsy Cannon, DO [address] [facility] [address] [place] [address] 10/16/20 Test Rider Relationship Specialty Start Date End Date Herber Hogue, DO [address] [facility] [place] [address] PCP - General Family Medicine 10/16/20 Fast, Gypsy A, DO [address] [facility] [address] [place] [address] 10/16/20 Test Rider Relationship Specialty Start Date End Date Herber Hogue, DO [address] [facility] [place] [address] PCP - General Family Medicine 10/16/20 Fast, Gypsy A, DO [address] [facility] [address] [place] [address] 10/16/20 Test Rider Relationship Specialty Start Date End Date Herber Hogue, DO [address] [facility] [place] [address] PCP - General Family Medicine 10/16/20 Davis Gypsy A, DO [address] [facility] [address] [place] [address] 10/16/20 Test Rider Relationship Specialty Start Date End Date Herber Hogue, DO [address] [facility] [place] [address] PCP - General Family Medicine 10/16/20 Davis, Gypsy A, DO [address] [facility] [address] [place] [address] 10/16/20 Team Status: Active Member Role Status [...] Primary Care Provider, Attend ing Provider Active Test Rider Relationship Specialty Start Date End Date Herber Hogue DO [address] [facility] [place] [address] PCP - General Family Medicine 10/16/20 Gypsy Cannon DO [address] [facility] [address] [place] [address] 10/16/20 Test Rider Relationship Specialty Start Date End Date Herber Hogue DO [address] [facility] [place] [address] PCP - General Family Medicine 10/16/20 Gypsy Cannon DO [address] [facility] [address] [place] [address] 10/16/20 Test Rider Relationship Specialty Start Date End Date Herber Hogue DO [address] [facility] [place] [address] PCP - General Family Medicine 10/16/20 Gypsy Cannon DO [address] [facility] [address] [place] [address] 10/16/20 Test Rider Relationship Specialty Start Date End Date Herber Hogue DO [address] [facility] [place] [address] PCP - General Family Medicine 10/16/20 Gypsy Cannon DO [address] [facility] [address] [place] [address] 10/16/20 Team Status: Active Member Role Status Dates Dr. Herber Hogue DO Primary Care Provider Active Health Risk Assessment Attending Provider, Alise suarez Active Test Rider Relationship Specialty Start Date End Date Herber Hogue DO [address] [facility] [place] [address] PCP - General Family Medicine 10/16/20 Gypsy Cannon DO [address] [facility] [address] [place] [address] 10/16/20 Test Rider Relationship Specialty Start Date End Date Herber Hogue DO [address] [facility] [place] [address] PCP - General Family Medicine 10/16/20 Gypsy Cannon DO [address] [place] [address] 10/16/20 Test Rider Relationship Specialty Start Date End Date Herber Hogue DO [address] [facility] [place] [address] PCP - General Family Medicine 10/16/20 Gypsy Cannon DO [address] [place] [address] 10/16/20 Test Rider Relationship Specialty Start Date End Date Herber Hogue DO [address] [facility] [place] [address] PCP - General Family Medicine 10/16/20 Gypsy Cannon DO [address] [place] [address] 10/16/20 Test Rider Relationship Specialty Start Date End Date Herber Hogue DO [address] [facility] [place] [address] PCP - General Family Medicine 10/16/20 Gypsy Cannon DO [address] [place] [address] 10/16/20 Team Status: Inactive Member Role Status Dates Dr. Herber Hogue DO Primary Care Provider Active Abdirizak Daniel INSTALLATION TECH, INSTALLATION TECH-C Attending Provider, Referrin g Provider Active Test Rider Relationship Specialty Start Date End Date Herber Hogue DO [address] [facility] [place] [address] PCP - General Family Medicine 10/16/20 Gypsy Cannon DO [address] [place] [address] 10/16/20 Team Status: Inactive Member Role Status [...] CNM Attending Provider, Referring Pro vider Active Test Rider Relationship Specialty Start Date End Date Herber Hogue DO [address] [facility] [place] [address] PCP - General Family Medicine 10/16/20 Gypsy Cannon DO [address] [facility] [address] [place] [address] 10/16/20 Test Rider Relationship Specialty Start Date End Date Herber Hogue DO [address] [facility] [place] [address] PCP - General Family Medicine 10/16/20 Gypsy Cannon DO [address] [place] [address] 10/16/20 Test Rider Relationship Specialty Start Date End Date Herber Hogue DO [address] [facility] [place] [address] PCP - General Family Medicine 10/16/20 Gypsy Cannon DO [address] [place] [address] 10/16/20 Cinthia Anderson, ASSEMBLY AND PACKING SUPERVISOR.CLINICAL RN LIAISON [address] [facility] [place] [address] Sales And Management Trainee Family Medicine 02/06/24 Abdirizak Daniel, ASSEMBLY AND PACKING SUPERVISOR.CLINICAL RN LIAISON [address] [facility] [place] [address] Sales And Management Trainee Family Medicine 02/06/24 Test Rider Relationship Specialty Start Date End Date Herber Hogue DO [address] [facility] [place] [address] PCP - General Family Medicine 10/16/20 Gypsy Cannon DO [address] [place] [address] 10/16/20 Cinthia Anderson, ASSEMBLY AND PACKING SUPERVISOR.CLINICAL RN LIAISON [address] [facility] [place] [address] Sales And Management Trainee Family [facility] 02/06/24 AlyceAbdirizak, ASSEMBLY AND PACKING SUPERVISOR.CLINICAL RN LIAISON [address] [facility] [place] [address] Formerly [facility] 02/06/24 Test Rider Relationship Specialty Start Date End Date Herber Hogue DO [address] [facility] [place] [place] [address] PCP - General Family Medicine 10/16/20 Gypsy Cannon DO [address] [address] 10/16/20 Cinthia Anderson, ASSEMBLY AND PACKING SUPERVISOR.CLINICAL RN LIAISON [address] [place] [address] [facility]/24 AlyceAbdirizak, ASSEMBLY AND PACKING SUPERVISOR.CLINICAL RN LIAISON [address] [facility] [place] [address] Formerly [facility] 02/06/24 Test Rider Relationship Specialty Start Date End Date Herber Hogue DO [address] [place] [address] PCP - General Family Medicine 10/16/20 Gypsy Cannon DO [address] [address] 10/16/20 Cinthia Anderson, ASSEMBLY AND PACKING SUPERVISOR.CLINICAL RN LIAISON [address] [place] [address] [facility] 02/06/24 Abdirizak Daniel, ASSEMBLY AND PACKING SUPERVISOR.CLINICAL RN LIAISON [address] [place] [address] Formerly [facility] 02/06/24 Test Rider Relationship Specialty Start Date End Date Herber Hogue DO [address] [place], [place] [address] PCP - General Family Medicine 10/16/20 Gypsy Cannon DO [address] [facility] [address] [place], [place] [address] 10/16/20 Cinthia Anderson APRN.CLINICAL RN LIAISON [address] [place], [place] [address] Former[facility] 02/06/24 Abdirizak Daniel, SUMAYA.CLINICAL RN LIAISON [address] [place] [address] [facility] 02/06/24 Goals (unrecognized section and content) Goals [...] section and content) DATE CREATED AUTHOR 05/08/2023 [facility] nt DATE CREATED AUTHOR AUTHOR'S ORGANIZ ATION 01/07/2025 [facility] DATE CREATED AUTHOR AUTHOR'S ORGANIZ ATION 01/09/2025 [facility] FOR RECORDS PERTAINING TO PATIENTS WHO [...] BE BASED ON THE PRIMARY CLINICAL RECORDS. [email or web address] [email or web address] [facility]. provides no warranty or guarantee of the accuracy or completeness of information in this document.
[2025-01-26 11:00] LABS: T3 Total - Triiodothyronine 3.14 ng/mL (0.80-2.00)
[2025-01-29 15:08] LABS: Thyroglobulin, Serum Qt. 4.1 ng/mL (1.5-38.5)
== END | disposition home or self-care (01) ==
LOC: LAB 09:28
PROVIDERS: PCP Student in an Organized Health Care Education/Training Program; Referring Provider Student in an Organized Health Care Education/Training Program; Visit Provider Student in an Organized Health Care Education/Training Program
DX: R79.89 Other specified abnormal findings of blood chemistry (principal)
CPT/HCPCS: 36415; 84432; 84439; 84443; 84480; 86376; 86800